=== PATIENT | male | born 1950 | race Caucasian/White ===

== ENCOUNTER 2017-10-26 15:42 | Inpatient (IN) | payer MEDICARE, BC, SELFPAY ==
[2017-10-26] VITALS (10 sets, daily range): BP systolic 126–156; BP diastolic 71–97; PULSE 76–107; RESP 16–22; TEMP 36.7–36.8; O2SAT 91–97; BMI 23.3; BMI 22.5
--- NOTE | 2017-10-26 15:55 | EKG12_ITS ---
Test Reason : SOB/CHEST HEAVINESS Blood Pressure : / mmHG Vent. Rate : 093 BPM Atrial Rate : 093 BPM P-R Int : 140 ms QRS Dur : 086 ms QT Int : 328 ms P-R-T Axes : 037 -22 048 degrees QTc Int : 407 ms Normal sinus rhythm Normal ECG Confirmed by YAJAIRA ONOFRE ([id number]), proposal editor ROBERTO DUNCAN ([id number]) on 10/29/2017 1:31:47 PM Referred By: Confirmed By:YAJAIRA ONOFRE
--- NOTE | 2017-10-26 16:09 | ED.VISSUMM ---
- ER Visit Summary Date of Service: 10/26/17 Chief Complaint: Chest pain History of Present Illness: The patient is a 67 M presenting with chest pain. He states the pain has been intermittent and is in the mid chest with no radiation. He does not recall anything that makes this better or worse. It is associated shortness of breath. He also complains of productive cough and fever. He states the chest pain is not related to the coughing episodes. He has a history of hypertension, CVA, chronic kidney disease. He is a previous smoker. Physical Examination: Vitals are stable. Patient is afebrile. Alert no acute distress. HEENT exam is unremarkable. Neck is supple. Lungs are clear and equal bilaterally. Heart is regular rate and rhythm. Abdomen is soft nontender nondistended. Extremities are unremarkable. Skin is warm and dry. No focal neurologic deficit. Remainder of exam is unremarkable. Emergency Department Course and Treatment: Patient was given aspirin. EKG is sinus rhythm rate of 93 with no acute ischemic changes. CBC is normal. Chemistries normal except for BUN 46, creatinine 3.49. This is at his baseline. Troponin is negative. Patient is pain-free in the emergency department. Will discuss with the hospitalist for observation. Disposition: Observation Impression: Chest pain This note was generated with [employer] dictation software. It may contain incorrect words, spelling, and punctuation that were not noted in review of the chart prior to signing ED Disposition - Plan for ED Patient: Chief Complaint: Shortness of Breath Referrals: Antoinette Graves MD [Primary Care Provider] -
--- NOTE | 2017-10-26 16:14 | ED.RN ---
NO OLD EKG
--- NOTE | 2017-10-26 16:22 | RAD_ITS ---
STUDY: X-RAY CHEST REASON FOR EXAM: Male, 67 years old. Shortness of breath with weakness TECHNIQUE: AP COMPARISON: None. FINDINGS: The lungs are hyperinflated. There are two vague nodular densities within the mid/lower right lung and one within the lower left lung. Normal size heart. Normal mediastinum and janice. Normal visualized pulmonary arteries. Normal visualized aortic arch and descending thoracic aorta. Normal visualized thoracic spine. Normal visualized ribs, clavicles, and shoulders. There is no demonstrated abnormality of the visualized soft tissue structures of the upper abdomen. RAD/Chest 1 View (Portable) IMPRESSION: Hyperinflated lungs may reflect underlying COPD. Vague bilateral nodular opacities which may be artifactual however consider CT of the chest for further characterization for difficult to exclude underlying nodules. Electronically Signed: Tammie Curry MD at 16:37 EDT Tel , Service support ,
[2017-10-26] MEDS: Aspirin 81 MG TAB.CHEW 324 MG PO (16:39)
[2017-10-26 16:42] LABS: Absolute Lymphocyte Count 1.18 X10^3/ul (0.83-4.51); Basophil# 0.05 X10^3/uL; Basophil% 0.6 % (0-1); Eosinophil# 0.01 X10^3/uL; Eosinophils% 0.1 % (0-5); Hematocrit 43.1 % (40-54); Lymphocyte # 1.18 X10^3/ul (4.0); Lymphocyte % 14.7 % (19-41); Mean Corp Hgb Conc 32.5 g/gl (32-36); Mean Corpuscular Hgb 31.6 pg (27.0-32.0); Mean Corpuscular Volume 97.3 fL (80-94); Mean Platelet Vol. 8.9 fl (6.2-12.0); Monocyte# 1.71 X10^3/uL; Monocyte% 21.3 % (0-10); Neutrophil # 5.04 X10^3/uL (2.7-7.7); Neutrophil % 62.9 % (47-70); Platelet Count 292 K/mm3 (150-450); RBC Distribution Width CV 13.8 % (11.6-14.6); RBC Distribution Width SD 47.9 fl (35.1-43.9); Red Blood Count 4.43 M/mm3 (4.6-6.2)
[2017-10-26 16:44] LABS: Differential Indicated SCAN CRITERIA MET; POSITIVE COUNT NO; POSITIVE DIFFERENTIAL YES; POSITIVE MORPHOLOGY NO
[2017-10-26 17:00] LABS: Anion Gap 10 (5-15); BUN 46 mg/dL (7-18); BUN/Creat Ratio 13.2 RATIO (10-20); Calcium,Total 8.2 mg/dL (8.5-10.1); Chloride 108 mmol/L (98-107); Creatinine, Serum 3.49 mg/dL (0.70-1.30); EST Glomerular Filtration Rate 19 mL/min (>60); Est Glom Filt Rate - Afr Amer 23 mL/min (>60); Estimated Creatinine Clearance 20.54 ml/min; Glucose 101 mg/dL (74-106); Potassium 4.1 mmol/L (3.5-5.1); Sodium Level 140 mmol/L (136-145)
[2017-10-26 17:05] LABS: Differential Comment SCANNED
--- NOTE | 2017-10-26 19:01 | PCM.HP.STD ---
Problem List (1) History of stroke Status: Chronic (2) Chronic kidney disease, stage IV (severe) Status: Chronic (3) Hypertension Status: Chronic History of Present Illness Date of Admission: 10/26/17 Chief Complaint: Weakness, chest pain, abdominal pain. The patient is a 67 year old M with past medical history as mentioned above presented to the emergency room because of multiple complaints including weakness, chest pain or abdominal pain. When I saw the patient first, patient looked very weak and tired and was not able even to sit up in the bed. The patient was very poor informant and was not able to exactly tell me what brought him in today. I asked him multiple times what was the main symptom that brought to end today and he mentioned the weakness. He said the weakness started yesterday morning, generalized weakness and he was not able to provide any more details about this. He complained of intermittent chest pain, that has been going on for a few months, on-off pain, associated with shortness of breath according to the patient and it lasts only for a few seconds and resolve spontaneously. He did mention that this chest pain is getting more frequent since yesterday. Also, he complained of vague abdominal pain and he was not able to provide any details about this abdominal pain. He denied nausea or vomiting. Denies constipation or diarrhea. He denied urinary symptoms but he mentioned that he uses self-catheterization. He complained of cough with clear sputum, associated with sinus pain and congestion. He stated that he does have history of chronic sinusitis and he has been having problems for long time. Patient was not able to concentrate on one presenting symptoms but he had lots of complaints. In the emergency room, he was afebrile, blood pressure and heart rate are stable, pulse ox was 92% on room air. His routine blood work is remarkable for BUN of 46 and creatinine of 3.49. Troponin was negative. EKG revealed normal sinus rhythm, normal intervals and no acute ischemic changes. Chest x-ray showed no obvious infiltrate, consolation or effusion but officially, there was a concern that he may have bilateral nodular opacities. He is being admitted for generalized weakness of unclear etiology, worsening stage III chronic kidney disease, atypical chest pain and symptoms could be due to sinusitis. Past Medical History Past Medical History (Chronic Problems): Chronic Problems History of stroke (Chronic) Chronic kidney disease, stage IV (severe) (Chronic) Hypertension (Chronic) Allergies amoxicillin Allergy (Verified 10/26/17 15:46) Unknown ciprofloxacin Allergy (Verified 10/26/17 15:46) Unknown codeine Allergy (Verified 10/26/17 15:46) Other Home Medications: Ambulatory Orders Medication Instructions Recorded Amlodipine [Norvasc] 5 mg PO DAILY 10/26/17 C,E,Zinc,Copper 11/Wtyga1j/Lut 1 capsule PO DAILY 10/26/17 [Ocuvite Adult 50 Plus Softgel] Ranitidine HCl 15 mg PO DAILY 10/26/17 Surgical History: noncontributory Psychiatric History: No pertinent psych hx Smoking Status: Former smoker Alcohol: None Drugs: None - *Family History Maternal History Items: No pertinent history Paternal History Items: No pertinent history Review of Systems Constitutional: Reports: Anorexia, Weakness, Fatigue. Denies: Chills, Fever Eyes: Denies: Blurred vision, Double vision, Drainage, Redness HEENT: Reports: Nasal Congestion, Sinus Congestion, Sinus Drainage. Denies: Difficulty Hearing, Ear Pain, Eye Pain, Sore Throat Cardiovascular: Reports: Chest Pain. Denies: Chest Tightness, Edema, Heaviness, Light Headedness, Orthopnea, Syncope Respiratory: Reports: Cough, Shortness of Breath. Denies: Pleuritic Pain, Sputum production, Wheezing Gastrointestinal: Reports: Abdominal Pain. Denies: Constipation, Diarrhea, Nausea, Vomiting Genitourinary: Denies: Dysuria, Frequency, Hematuria Musculoskeletal: Denies: Arm Pain, Back Pain, Foot Pain Skin: Denies: Dryness, Rash Neurological: Denies: Balance problems, Double vision, Change in Speech, Slurred speech, Confusion, Headaches, Incoordination, Numbness Psychiatric: Denies: Anxiety, Depression Endocrine: Denies: Change in Body Habitus, Polydipsia VTE Information - Inpt Only VTE Present on Admission: No VTE Mechan Device Prophylaxis: None VTE Pharm Prophylaxis ordered?: Yes - Physical Exam General: Alert, Oriented x3, Cooperative, No apparent distress HEENT: Atraumatic, PERRLA, EOMI Oral: Moist Mucosa, No Gingival or Mucosal Lesions/ Ulcerations Neck: Supple, No JVD, Negative Carotid Bruits, Thyroid Normal Size and Texture Lungs: Clear to auscultation, No rhonchi, No wheeze, No rales, Diminished Cardiovascular: Regular rate, Regular Rhythm, Normal S1, Normal S2, No murmurs, PMI Normal Abdomen: Bowel Sounds Present, Soft, Non Tender, Non-Distended, No Hepato-splenomegaly Extremities: No clubbing, No cyanosis, No edema Skin: No rashes, No breakdown Lymphatic: No Cervical, Supraclavicular, or Inguinal Adenopathy Neurological: Cranial nerves II-XII grossly intact, Motor Exam 5/5 strength throughout Psych/Mental Status: Flat Affect, Alert and oriented to time, place, person, mood and affect Vital Signs Temp Pulse Resp BP Pulse Ox 98.3 F 88 17 138/87 H 97 10/26/17 15:43 10/26/17 18:05 10/26/17 18:05 10/26/17 18:05 10/26/17 18:05 Oxygen Flow Rate (L/min) 2 Oxygen Delivery Method Nasal Cannula Laboratory Tests 10/26/17 10/26/17 Range/Units 16:20 16:20 WBC 8.0 (4.4-11.0) K/mm3 RBC 4.43 L (4.6-6.2) M/mm3 Hgb 14.0 (13.0-16.5) g/dl Hct 43.1 (40-54) % MCV 97.3 H (80-94) fL MCH 31.6 (27.0-32.0) pg MCHC 32.5 (32-36) g/gl RDW 13.8 (11.6-14.6) % RDW Differential 47.9 H (35.1-43.9) fl Plt Count 292 (150-450) K/mm3 MPV 8.9 (6.2-12.0) fl Immature Gran % (Auto) 0.400 (0.0-0.9) % Neut % (Auto) 62.9 (47-70) % Lymph % (Auto) 14.7 L (19-41) % Stephens % (Auto) 21.3 H (0-10) % Eos % (Auto) 0.1 (0-5) % Baso % (Auto) 0.6 (0-1) % Absolute Neuts (auto) 5.0 (2.0-7.7) X10^3/uL Absolute Lymphs (auto) 1.18 (0.83-4.51) X10^3/ul Total Counted Not Reportable Differential Comment SCANNED Sodium 140 (136-145) mmol/L Potassium 4.1 (3.5-5.1) mmol/L Chloride 108 H (98-107) mmol/L Carbon Dioxide 22.0 (21.0-32.0) mmol/L Anion Gap 10 (5-15) BUN 46 H (7-18) mg/dL Creatinine 3.49 H (0.70-1.30) mg/dL Estim Creat Clear Calc 20.54 ml/min Est GFR (MDRD) Af Amer 23 L (>60) mL/min Est GFR (MDRD) Non-Af 19 L (>60) mL/min BUN/Creatinine Ratio 13.2 (10-20) RATIO Glucose 101 (74-106) mg/dL Calcium 8.2 L (8.5-10.1) mg/dL Troponin I < 0.02 (<0.06) ng/mL Clinical Impression(s) from Imaging Studies Chest X-Ray 10/26/17 16:22 IMPRESSION: Hyperinflated lungs may reflect underlying COPD. Vague bilateral nodular opacities which may be artifactual however consider CT of the chest for further characterization for difficult to exclude underlying nodules. Electronically Signed: Tammie Curry MD at 16:37 EDT Tel , Service support , Assessment/Plan This is a 67 years old male patient presented to the emergency room because of multiple comp complaints including generalized weakness, chest pain, abdominal pain, sinus drainage, cough with sputum production and mild shortness of breath and he was found to have worsening stage IV chronic kidney disease. #1 generalized weakness: Unclear etiology, could be due to worsening stage IV chronic kidney disease. At this time, no obvious evidence of infection. He is afebrile, no leukocytosis. Chest x-ray showed no obvious infiltrate, reported officially as questionable bilateral pulmonary opacities. Plan: Admit to PCU, cardiac monitoring, IV fluids, urinalysis, urine culture, repeat CBC and BMP tomorrow morning, respiratory panel for viruses, TSH, PT OT evaluation and treatment. #2 atypical chest pain: EKG reviewed, no acute ischemic changes. Troponin is negative. Patient did mention that he had a history of heart attack but never had cardiac interventions. History of hypertension and he is an ex-smoker. Plan: Cardiac monitoring, serial cardiac enzymes, repeat EKG tomorrow morning, nuclear stress test if cardiac enzymes are negative tomorrow. #3 worsening stage IV chronic kidney disease: Patient used to be on dialysis for 1 year and he was taken off because his kidney function improved. His serum creatinine has been worsening since April,, it was in the range of 2.8-2.9 and admission creatinine is 3.49. Potassium is normal. Plan: IV fluids, input output chart, repeat BMP tomorrow morning, nephrology consult. #4 shortness of breath/of productive cough/sinus drainage and pain: In context of history of chronic sinusitis. Patient is afebrile, no leukocytosis. Plan for x-ray of the sinuses. At this time, no indication for antibiotics. #5 questionable bilateral pulmonary opacities: This is reported on chest x-ray. Patient is an ex-smoker. Plan: D-dimer, CT scan chest without contrast. #6 hypertension: Blood pressure stable, continue amlodipine. #7 CAD: Without prior cardiac interventions according to the patient. Plan as above, start baby aspirin, fasting lipid profile. #8 DVT prophylaxis: Subcu heparin. This note was generated with [employer] dictation software. It may contain incorrect words, spelling, and punctuation that were not noted in checking the note before signing. Code Visit Inpatient E&M: 48872 Init Hosp L3
[2017-10-26 20:11] LABS: Bedside Glucose 113 mg/dL (70-110)
--- NOTE | 2017-10-26 20:16 | PCM.PN.BLA ---
Progress Note Rapid response team called at radiology department. Shortly after, blue code announced over head. Radiology department staff reported that patient stood up for x-ray and he became really dizzy, pain and he collapsed. They report that he had no pulse but shortly after, he open his eyes and he was awake. Patient seen and examined after that. He is alert and oriented ?3. He reported that he was very dizzy and lightheaded when he stood up, felt very weak but he did not lost his consciousness. He denied any associated chest pain, shortness of breath or palpitation. At this time, this was improved but he still very weak and tired. His blood pressure was 130/80. His blood sugar was 113. EKG performed and revealed normal sinus rhythm without acute changes. Plan: Near syncopal episode, likely vasovagal. Patient mentioned that he did not eat for the last 2 days. Transfer back to PCU, IV fluid bolus 500 cc, repeat orthostatic vitals tomorrow morning, postpone x-ray of the sinuses and CT scan chest to tomorrow morning. Serial cardiac enzymes, d-dimer already ordered.
[2017-10-26] MEDS: Heparin Injection 5,000 UNITS/ML Syringe 5000 UNITS SC (21:10)
--- NOTE | 2017-10-26 21:23 | EKG12_ITS ---
Test Reason : CP Blood Pressure : / mmHG Vent. Rate : 062 BPM Atrial Rate : 062 BPM P-R Int : 144 ms QRS Dur : 090 ms QT Int : 384 ms P-R-T Axes : 043 -10 050 degrees QTc Int : 389 ms Normal sinus rhythm Normal ECG When compared with ECG of 26-OCT-2017 15:54, MANUAL COMPARISON REQUIRED, DATA IS UNCONFIRMED Confirmed by ELADIA BOBBY, GAGE ([id number]), photo editor ROBERTO DUNCAN ([id number]) on 11/06/2017 1:44:13 PM Referred By: AKASH Confirmed By:GAGE MONTILLA MD
[2017-10-26 21:50] LABS: Bacteria 0 SEEN /hpf (None Seen); Mucous, Urine 0 SEEN /hpf (<or=2+)
[2017-10-26 22:01] LABS: AST(SGOT) 18 U/L (15-37); Alanine Aminotransfer ALT/SGPT 18 U/L (16-61); Albumin, Serum 3.1 g/dL (3.2-5.0); Alkaline Phosphatase 75 U/L (45-117); Bilirubin, Direct 0.08 mg/dL (0.00-0.30); Cholesterol 179 mg/dL (200); Globulin 4.2 g/dL (2.2-4.2); High Density Lipoprotein 41 mg/dL; Lipase 326 U/L (73-393); Protein, Total 7.3 g/dL (6.4-8.2); Thyroid Stim Hormone (TSH) 0.98 uIU/mL (0.358-3.74); Triglycerides 143 mg/dL; Very Low Density Lipoprotein 29 mg/dL (5-40)
[2017-10-26 22:44] LABS: Color, Urine Yellow (Yellow); Glucose, Dipstick Normal (Normal); Ketone-Dipstick Negative (Negative); Leukocyte Esterase-Dipstick 25 /ul (Negative); Nitrite-Dipstick Negative (Negative); Occult Blood-Urine 250 /ul (Negative); Protein-Dipstick 100 mg/dl (Negative); Urine Bilirubin Dipstick Negative (Negative); Urine Clarity Sl. Cloudy (Clear); Urine Urobilinogen Normal (Normal)
[2017-10-26 23:06] LABS: Red Blood Cells-Urine 5-10 SEEN /hpf (0-5); Squamous Epithelial Cells - UA 0-5 SEEN /hpf (0-5); White Blood Cells 0-5 SEEN /hpf (0-5)
[2017-10-27] VITALS (11 sets, daily range): BP systolic 118–141; BP diastolic 69–92; PULSE 57–97; RESP 16–18; TEMP 36.9–37.2; O2SAT 92–95
[2017-10-27] MEDS: Ondansetron 4 MG/2 ML Vial IV ×2 (00:42→10:07)
[2017-10-27] MEDS: 0.9% NaCl Peripheral Flush Adult/Peds IV (00:42)
[2017-10-27] MEDS: 0.9% Normal Saline 1,000 ML 75 ML IV ×2 (03:43→18:41)
--- NOTE | 2017-10-27 05:55 | EKG12_ITS ---
Test Reason : AM EKG Blood Pressure : / mmHG Vent. Rate : 084 BPM Atrial Rate : 084 BPM P-R Int : 144 ms QRS Dur : 092 ms QT Int : 364 ms P-R-T Axes : 030 -28 023 degrees QTc Int : 430 ms Sinus rhythm with marked sinus arrhythmia Septal infarct , age undetermined Abnormal ECG When compared with ECG of 26-OCT-2017 19:56, MANUAL COMPARISON REQUIRED, DATA IS UNCONFIRMED Confirmed by YAJAIRA ONOFRE ([id number]), newspaper or periodical editor ROBERTO DUNCAN ([id number]) on 11/01/2017 3:01:41 PM Referred By: DR VENEGAS Confirmed By:YAJAIRA ONOFRE
[2017-10-27] MEDS: Heparin Injection 5,000 UNITS/ML Syringe 5000 UNITS SC ×3 (05:57→21:21)
[2017-10-27] MEDS: 0.9% Normal Saline 1,000 ML 999 ML IV (06:50)
[2017-10-27 07:27] LABS: Absolute Lymphocyte Count 1.52 X10^3/ul (0.83-4.51); Absolute Neutrophil Count 3.6 X10^3/uL (2.0-7.7); Basophil# 0.03 X10^3/uL; Basophil% 0.5 % (0-1); Eosinophil# 0.02 X10^3/uL; Eosinophils% 0.3 % (0-5); Hematocrit 39.8 % (40-54); Hemoglobin 12.7 g/dl (13.0-16.5); Lymphocyte # 1.52 X10^3/ul (4.0); Lymphocyte % 24.8 % (19-41); Mean Corp Hgb Conc 31.9 g/gl (32-36); Mean Corpuscular Hgb 31.4 pg (27.0-32.0); Mean Corpuscular Volume 98.5 fL (80-94); Mean Platelet Vol. 9.2 fl (6.2-12.0); Monocyte# 0.97 X10^3/uL; Monocyte% 15.8 % (0-10); Neutrophil # 3.57 X10^3/uL (2.7-7.7); Neutrophil % 58.4 % (47-70); Platelet Count 267 K/mm3 (150-450); RBC Distribution Width CV 13.6 % (11.6-14.6); RBC Distribution Width SD 48.4 fl (35.1-43.9); Red Blood Count 4.04 M/mm3 (4.6-6.2); White Blood Count 6.1 K/mm3 (4.4-11.0)
[2017-10-27 07:32] LABS: POSITIVE COUNT NO; POSITIVE DIFFERENTIAL NO; POSITIVE MORPHOLOGY NO
[2017-10-27 09:13] LABS: Anion Gap 11 (5-15); BUN 50 mg/dL (7-18); BUN/Creat Ratio 15.5 RATIO (10-20); Calcium,Total 7.6 mg/dL (8.5-10.1); Chloride 112 mmol/L (98-107); Creatinine, Serum 3.23 mg/dL (0.70-1.30); EST Glomerular Filtration Rate 20 mL/min (>60); Est Glom Filt Rate - Afr Amer 25 mL/min (>60); Estimated Creatinine Clearance 21.75 ml/min; Glucose 84 mg/dL (74-106); Potassium 4.2 mmol/L (3.5-5.1); Sodium Level 143 mmol/L (136-145)
[2017-10-27] MEDS: Aspirin 81 MG TAB.CHEW PO (10:08)
[2017-10-27] MEDS: amLODIPine 5 MG Tablet PO (10:08)
[2017-10-27] MEDS: Famotidine 20 MG Tablet PO (10:08)
--- NOTE | 2017-10-27 10:23 | ECHOD_ITS ---
Reason For Study: chest pain Procedure This was a 2D Doppler, Color Flow transthoracic echocardiogram. Exam performed portable in patient room. Left Ventricle Mild concentric left ventricular hypertrophy. The estimated ejection fraction is 50-55 %. Stage 1 diastolic dysfunction. There is mild global hypokinesis of the left ventricle. Right Ventricle Normal size and thickness. Normal systolic function. Atria Normal left atrium. Normal right atrium. Normal atrial septum. Mitral Valve The mitral valve is structurally normal. No prolapse or stenosis seen. Tricuspid Valve Normal tricuspid valve. Trivial tricuspid valve insufficiency. Right ventricular systolic pressure estimated to be 25 mmHg. Aortic Valve Normal aortic valve. Trisinus/trileaflet aortic valve. Pulmonic Valve Normal pulmonic valve. Great Vessels Normal aortic root. Normal arch. Normal inferior vena cava. Inferior vena cava collapse with sniff. Pericardium/Pleural No pericardial effusion. MMode/2D Measurements & Calculations LVIDd: 4.3 cm IVSd: 1.3 cm Ao root diam: 3.4 cm LVIDs: 3.1 cm LVPWd: 1.2 cm LA dimension: 3.6 cm FS: 28.8 % LAV(MOD-bp): 56.8 ml LA A4 area: 20.0 cm2 RA A4 area: 18.7 cm2 LAV(MOD-bp) Indexed: 30.8 ml/m2 LAV(MOD-sp2): 59.0 ml LAV(MOD-sp4): 52.8 ml Doppler Measurements & Calculations MV E max devyn: 53.5 cm/sec Lat Peak E' Devyn: 8.0 cm/sec Med Peak E' Devyn: 6.1 cm/sec MV A max devyn: 70.7 cm/sec E/E' lat: 6.7 E/E' med: 8.8 MV E/A: 0.76 Ao V2 max: 113.0 cm/sec LV V1 max: 85.6 cm/sec PA V2 max: 73.0 cm/sec Ao max P.1 mmHg LV V1 max P.9 mmHg TR max devyn: 213.9 cm/sec TR max P.3 mmHg Interpretation Summary Mild concentric left ventricular hypertrophy. The estimated ejection fraction is 50-55 %. Stage 1 diastolic dysfunction. There is mild global hypokinesis of the left ventricle. Trivial tricuspid valve insufficiency. Right ventricular systolic pressure estimated to be 25 mmHg. There is no comparison study available. Ordering Physician: MAYITO Downey Referring Physician: Marti Ramesh Performed By: Cristel Freitas RDCS, RVT
--- NOTE | 2017-10-27 10:31 | PCM.PROGNOTE ---
<Bri Loaiza - Last Filed: 10/27/17 11:14> Patient Problems: Active and Suspected Problems Near syncope (Acute) Self-catheterizes urinary bladder (Acute) Obstructive nephropathy (Acute) Subjective: Patient seen and examined. Complains of continued weakness. Denies further chest pain. Complains of abdominal burning. Complains of nasal congestion and productive cough. Denies shortness of breath. Denies dizziness, lightheadedness. Denies fever, chills. - Physical Exam General: Alert, Oriented x3, Cooperative, No apparent distress HEENT: Atraumatic, PERRLA, EOMI, Normocephalic Neck: Supple, No JVD, Negative Carotid Bruits Lungs: Clear to auscultation, Diminished Cardiovascular: Regular rate, Regular Rhythm, Normal S1, Normal S2, No murmurs Abdomen: Bowel Sounds Present, Soft, Non Tender, Non-Distended Extremities: No clubbing, No cyanosis, No edema, Capillary Refill Less than 3 Seconds Skin: No rashes, No breakdown Musculoskeletal: No Tenderness to Palpation of Joints or Extremities Neurological: Cranial nerves II-XII grossly intact, Neuro grossly intact Psych/Mental Status: Flat Affect Vital Signs Temp Pulse Resp BP Pulse Ox 99.0 F 71 18 132/74 H 94 10/27/17 10:02 10/27/17 10:02 10/27/17 10:02 10/27/17 10:02 10/27/17 10:02 Oxygen Flow Rate (L/min) 2 Oxygen Delivery Method Room Air Weight: 69.3 kg Body Mass Index (BMI) 22.5 Orthostatic Vital Signs Start: 10/27/17 06:46 Freq: q24h Status: Active Protocol: Activity Type Activity Date Activity User E-Sign Co-Sign Detail Recorded Client Recorded Date Recorded By Document 10/27/17 05:45 HS [id number] 10/27/17 06:46 HS 10/27/17 05:45 Orthostatic Vitals Standing -Blood Pressure (90/60-120/80) 120/69 -Extremity Use Left Arm -Pulse Rate (60-100) 97 Sitting -Blood Pressure (90/60-120/80) 123/83 H -Extremity Use Left Arm -Pulse Rate (60-100) 89 Lying -Blood Pressure (90/60-120/80) 140/92 H -Extremity Use Left Arm -Pulse Rate (60-100) 75 Intake and Output for Last 24 Hours 10/25/17 10/26/17 10/27/17 23:59 23:59 23:59 Intake Total 1772 / 1772 Output Total 1050 / 1050 Balance 722 / 722 Laboratory Tests Past 24 Hrs 10/26/17 10/26/17 10/26/17 20:30 20:30 21:00 WBC RBC Hgb Hct MCV MCH MCHC RDW RDW Differential Plt Count MPV Immature Gran % (Auto) Neut % (Auto) Lymph % (Auto) [place] % (Auto) Eos % (Auto) Baso % (Auto) Absolute Neuts (auto) Absolute Lymphs (auto) Total Counted Sodium Potassium Chloride Carbon Dioxide Anion Gap BUN Creatinine Estim Creat Clear Calc Est GFR (MDRD) Af Amer Est GFR (MDRD) Non-Af BUN/Creatinine Ratio Glucose Calcium Total Bilirubin 0.50 Direct Bilirubin 0.08 AST 18 ALT 18 Alkaline Phosphatase 75 Troponin I < 0.02 Total Protein 7.3 Albumin 3.1 L Globulin 4.2 Triglycerides 143 Cholesterol 179 LDL Cholesterol 109 VLDL Cholesterol 29 HDL Cholesterol 41 Lipase 326 TSH 0.98 Urine Color Yellow Urine Clarity Sl. Cloudy Urine pH 6.0 Ur Specific [place] 1.020 Urine Protein 100 H Urine Glucose (UA) Normal Urine Ketones Negative Urine Occult Blood 250 H Urine Nitrite Negative Urine Bilirubin Negative Urine Urobilinogen Normal Ur Leukocyte Esterase 25 H Urine RBC 5-10 SEEN Urine WBC 0-5 SEEN Ur Squamous Epith Cells 0-5 SEEN Urine Bacteria 0 SEEN Urine Mucus 0 SEEN 10/27/17 10/27/17 10/27/17 00:12 07:04 07:04 WBC 6.1 RBC 4.04 L Hgb 12.7 L Hct 39.8 L MCV 98.5 H MCH 31.4 MCHC 31.9 L RDW 13.6 RDW Differential 48.4 H Plt Count 267 MPV 9.2 Immature Gran % (Auto) 0.200 Neut % (Auto) 58.4 Lymph % (Auto) 24.8 [place] % (Auto) 15.8 H Eos % (Auto) 0.3 Baso % (Auto) 0.5 Absolute Neuts (auto) 3.6 Absolute Lymphs (auto) 1.52 Total Counted Not Reportable Sodium 143 Potassium 4.2 Chloride 112 H Carbon Dioxide 20.0 L Anion Gap 11 BUN 50 H Creatinine 3.23 H Estim Creat Clear Calc 21.75 Est GFR (MDRD) Af Amer 25 L Est GFR (MDRD) Non-Af 20 L BUN/Creatinine Ratio 15.5 Glucose 84 Calcium 7.6 L Total Bilirubin Direct Bilirubin AST ALT Alkaline Phosphatase Troponin I < 0.02 Total Protein Albumin Globulin Triglycerides Cholesterol LDL Cholesterol VLDL Cholesterol HDL Cholesterol Lipase TSH Urine Color Urine Clarity Urine pH Ur Specific [place] Urine Protein Urine Glucose (UA) Urine Ketones Urine Occult Blood Urine Nitrite Urine Bilirubin Urine Urobilinogen Ur Leukocyte Esterase Urine RBC Urine WBC Ur Squamous Epith Cells Urine Bacteria Urine Mucus 10/27/17 07:04 WBC RBC Hgb Hct MCV MCH MCHC RDW RDW Differential Plt Count MPV Immature Gran % (Auto) Neut % (Auto) Lymph % (Auto) [place] % (Auto) Eos % (Auto) Baso % (Auto) Absolute Neuts (auto) Absolute Lymphs (auto) Total Counted Sodium Potassium Chloride Carbon Dioxide Anion Gap BUN Creatinine Estim Creat Clear Calc Est GFR (MDRD) Af Amer Est GFR (MDRD) Non-Af BUN/Creatinine Ratio Glucose Calcium Total Bilirubin Direct Bilirubin AST ALT Alkaline Phosphatase Troponin I < 0.02 Total Protein Albumin Globulin Triglycerides Cholesterol LDL Cholesterol VLDL Cholesterol HDL Cholesterol Lipase TSH Urine Color Urine Clarity Urine pH Ur Specific [place] Urine Protein Urine Glucose (UA) Urine Ketones Urine Occult Blood Urine Nitrite Urine Bilirubin Urine Urobilinogen Ur Leukocyte Esterase Urine RBC Urine WBC Ur Squamous Epith Cells Urine Bacteria Urine Mucus POC Glucose 10/26/17 20:03 POC Glucose 113 H Medical Necessity - Tobacco Use Smoking Status: Former smoker Assessment/Plan Active and Suspected Problems Near syncope (Acute) Self-catheterizes urinary bladder (Acute) Obstructive nephropathy (Acute) Patient is a 67-year-old male admitted 10/26/2017 due to weakness, chest pain, abdominal pain. He has a past medical history of CVA, chronic kidney disease stage IV, hypertension, history of tobacco use. 1. Atypical chest pain-patient describes infrequent, intermittent substernal chest pain lasting only a few seconds. Denies associated symptoms. States it feels like a burning sensation. Patient reports history of [place], unsure of the exact year but thinks 2013. Does not follow with cardiology. Troponin negative ?4. EKG without evidence of ischemia. Possible nuclear stress test if continued chest pain. Initiate PPI and see if this alleviates pain. Fasting lipid panel within normal limits. Continue aspirin. 2. Acute influenza B with associated generalized weakness, nasal congestion, productive cough-begin Tamiflu 30 mg daily for 5 days. T-max 99F. Tylenol as needed for fever. Albuterol and DuoNeb aerosols for shortness of breath. Patient is stable on room air. Continue IV fluids. 3. Syncopal episode-suspect due to dehydration/poor oral intake. Occurred during admission and radiology department when patient stood from sitting position for x-ray. Patient was reported to have no pulse but quickly aroused. Cardiac workup thus far unremarkable as noted above. Order echocardiogram. Orthostatic vitals positive this morning. Continue IV fluids. Recheck orthostatic vitals in a.m. TSH within normal limits. Check magnesium, phosphorus. 4. Lung nodule-chest x-ray showed hyperinflated lungs, vague bilateral nodular opacities. CT of chest showed right lower lung 7 mm pulmonary nodule, no acute infiltrate, small hiatal hernia, 1.7 cm left adrenal adenoma. Recommend follow-up with pulmonary medicine as outpatient and repeat imaging in 3 months. Patient does have a history of tobacco use. 5. Chronic kidney disease stage IV-previously on temporary dialysis secondary to obstruction status post ureteral stent placements which was discontinued approximately 1 year ago due to improved kidney function. He follows with Dr. Ramesh as outpatient who was consulted. Creat April 2017 was 2.8. Admission creatinine 3.4. Improved with IV fluids, continue. Patient self caths 4 times daily at home. Vazquez catheter in place and draining without difficulty. Patient will continue outpatient follow-up with nephrology, he has an appointment scheduled 11/27/17. 6. Hypertension-started on amlodipine. Stable, continue to monitor. 7. History of CVA-continue aspirin. Not on statin. Lipid panel within normal limits. 8. History of tobacco use-encourage smoking cessation. DVT prophylaxis-heparin subcu. This patient was seen by MAYITO Downey under the supervision of Dr. Enriquez. <Mack Enriquez - Last Filed: 10/27/17 13:59> Subjective: Seen and examined Initially, patient was admitted with lower midline chest pain and epigastric pain, burning in nature; possible GERD. Patient also has significant sinus congestion with cough. In the radiology department, yesterday patient felt dizzy, lightheaded and collapsed but he did not pass out. On further history, patient also sent he infrequently, once in 6 months has flutter waves and feels heart is stopped for a few seconds and then comes back. This was discussed with the lead front end developer Dr. Eddy. Stress echo ordered as per Dr. 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 Vital Signs Temp Pulse Resp BP Pulse Ox 99.0 F 85 18 132/74 H 94 10/27/17 10:02 10/27/17 11:38 10/27/17 10:02 10/27/17 10:02 10/27/17 10:02 Oxygen Flow Rate (L/min) 2 Oxygen Delivery Method Room Air Weight: 152 lb 12.485 oz Body Mass Index (BMI) 22.5 Orthostatic Vital Signs Start: 10/27/17 06:46 Freq: q24h Status: Active Protocol: Activity Type Activity Date Activity User E-Sign Co-Sign Detail Recorded Client Recorded Date Recorded By Document 10/27/17 05:45 HS [id number] 10/27/17 06:46 HS 10/27/17 05:45 Orthostatic Vitals Standing -Blood Pressure (90/60-120/80) 120/69 -Extremity Use Left Arm -Pulse Rate (60-100) 97 Sitting -Blood Pressure (90/60-120/80) 123/83 H -Extremity Use Left Arm -Pulse Rate (60-100) 89 Lying -Blood Pressure (90/60-120/80) 140/92 H -Extremity Use Left Arm -Pulse Rate (60-100) 75 Intake and Output for Last 24 Hours 10/25/17 10/26/17 10/27/17 23:59 23:59 23:59 Intake Total 3787 / 3787 Output Total 1925 / 1925 Balance 1862 / 1862 Microbiology Past 72 Hours 10/26/17 22:15 Respiratory Panel (PCR) - Final Mucosa - Nose Influenzae B Laboratory Tests Past 24 Hrs 10/26/17 10/26/17 10/26/17 20:30 20:30 21:00 WBC RBC Hgb Hct MCV MCH MCHC RDW RDW Differential Plt Count MPV Immature Gran % (Auto) Neut % (Auto) Lymph % (Auto) [place] % (Auto) Eos % (Auto) Baso % (Auto) Absolute Neuts (auto) Absolute Lymphs (auto) Total Counted Sodium Potassium Chloride Carbon Dioxide Anion Gap BUN Creatinine Estim Creat Clear Calc Est GFR (MDRD) Af Amer Est GFR (MDRD) Non-Af BUN/Creatinine Ratio Glucose Calcium Total Bilirubin 0.50 Direct Bilirubin 0.08 AST 18 ALT 18 Alkaline Phosphatase 75 Troponin I < 0.02 Total Protein 7.3 Albumin 3.1 L Globulin 4.2 Triglycerides 143 Cholesterol 179 LDL Cholesterol 109 VLDL Cholesterol 29 HDL Cholesterol 41 Lipase 326 TSH 0.98 Urine Color Yellow Urine Clarity Sl. Cloudy Urine pH 6.0 Ur Specific [place] 1.020 Urine Protein 100 H Urine Glucose (UA) Normal Urine Ketones Negative Urine Occult Blood 250 H Urine Nitrite Negative Urine Bilirubin Negative Urine Urobilinogen Normal Ur Leukocyte Esterase 25 H Urine RBC 5-10 SEEN Urine WBC 0-5 SEEN Ur Squamous Epith Cells 0-5 SEEN Urine Bacteria 0 SEEN Urine Mucus 0 SEEN 10/27/17 10/27/17 10/27/17 00:12 07:04 07:04 WBC 6.1 RBC 4.04 L Hgb 12.7 L Hct 39.8 L MCV 98.5 H MCH 31.4 MCHC 31.9 L RDW 13.6 RDW Differential 48.4 H Plt Count 267 MPV 9.2 Immature Gran % (Auto) 0.200 Neut % (Auto) 58.4 Lymph % (Auto) 24.8 [place] % (Auto) 15.8 H Eos % (Auto) 0.3 Baso % (Auto) 0.5 Absolute Neuts (auto) 3.6 Absolute Lymphs (auto) 1.52 Total Counted Not Reportable Sodium 143 Potassium 4.2 Chloride 112 H Carbon Dioxide 20.0 L Anion Gap 11 BUN 50 H Creatinine 3.23 H Estim Creat Clear Calc 21.75 Est GFR (MDRD) Af Amer 25 L Est GFR (MDRD) Non-Af 20 L BUN/Creatinine Ratio 15.5 Glucose 84 Calcium 7.6 L Total Bilirubin Direct Bilirubin AST ALT Alkaline Phosphatase Troponin I < 0.02 Total Protein Albumin Globulin Triglycerides Cholesterol LDL Cholesterol VLDL Cholesterol HDL Cholesterol Lipase TSH Urine Color Urine Clarity Urine pH Ur Specific [place] Urine Protein Urine Glucose (UA) Urine Ketones Urine Occult Blood Urine Nitrite Urine Bilirubin Urine Urobilinogen Ur Leukocyte Esterase Urine RBC Urine WBC Ur Squamous Epith Cells Urine Bacteria Urine Mucus 10/27/17 07:04 WBC RBC Hgb Hct MCV MCH MCHC RDW RDW Differential Plt Count MPV Immature Gran % (Auto) Neut % (Auto) Lymph % (Auto) [place] % (Auto) Eos % (Auto) Baso % (Auto) Absolute Neuts (auto) Absolute Lymphs (auto) Total Counted Sodium Potassium Chloride Carbon Dioxide Anion Gap BUN Creatinine Estim Creat Clear Calc Est GFR (MDRD) Af Amer Est GFR (MDRD) Non-Af BUN/Creatinine Ratio Glucose Calcium Total Bilirubin Direct Bilirubin AST ALT Alkaline Phosphatase Troponin I < 0.02 Total Protein Albumin Globulin Triglycerides Cholesterol LDL Cholesterol VLDL Cholesterol HDL Cholesterol Lipase TSH Urine Color Urine Clarity Urine pH Ur Specific [place] Urine Protein Urine Glucose (UA) Urine Ketones Urine Occult Blood Urine Nitrite Urine Bilirubin Urine Urobilinogen Ur Leukocyte Esterase Urine RBC Urine WBC Ur Squamous Epith Cells Urine Bacteria Urine Mucus POC Glucose 10/26/17 20:03 POC Glucose 113 H Assessment/Plan This patient was seen in conjunction with RN ADVANCEDBri. I have independently interviewed and examined the patient and reviewed pertinent history, examination findings, laboratory and plan of management. I have reviewed the note and agree with the documented findings with the few additional points. In brief, patient is admitted for atypical chest pain most probably seems gastroesophageal reflux disease. Chest pain is localized last for a few seconds. On a stress echo test. Patient also had near syncope episode and was felt no pulse when he felt dizzy on standing up and he collapsed. Lose consciousness. Orthostatic vital signs positive. IV fluid normal saline. Stage IV CKD status post temporary dialysis status post ureteral stent placements and removal. Seen by Dr. Ramesh and her consult appreciated. I have discussed my assessment with Bri ABRAMS and orders have been reviewed. Code Visit Inpatient E&M: 02949 Subs Hosp L3
--- NOTE | 2017-10-27 10:48 | PCM.CONS.R ---
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 He has a history of chronic sinus issues. He has a history of acute renal failure requiring temporary hemodialysis back in 2016. His symptoms started morning. He came home from work morning not feeling well. He has been in bed for the past couple of days prior to admission with very little fluid intake and not taking his blood pressure medications. He has stable blood pressures. He did have a vasovagal-like event while down in CAT scan last night. He had orthostatic blood pressure readings. He continues to complain of sinus congestion and headache with drainage. He denied any fever or chills. Has anorexia but no nausea or vomiting. He had some burning in his epigastric region. Cardiac enzymes have been negative with no EKG changes. Currently has a Vazquez catheter with continuous drainage. His creatinine was 3.4 improved down to 3.2 with IV hydration. His baseline creatinine is usually low 3 range. - Allergies Allergies: Allergies amoxicillin Allergy (Verified 10/26/17 15:46) Unknown ciprofloxacin Allergy (Verified 10/26/17 15:46) Unknown codeine Allergy (Verified 10/26/17 15:46) Other - Current Medications Current Medications: Current Medications Acetaminophen (Tylenol) 650 mg PO Q6H PRN PRN PRN Reason: Fever, headache, pain Amlodipine Besylate (Norvasc) 5 mg PO DAILY [facility] Last Admin: 10/27/17 10:08 Dose: 5 mg Aspirin (Aspirin, Baby) 81 mg PO DAILY@0800 [facility] Last Admin: 10/27/17 10:08 Dose: 81 mg Bisacodyl (Dulcolax) 5 mg PO DAILY PRN PRN PRN Reason: Constipation Famotidine (Pepcid) 20 mg PO DAILY [facility] Last Admin: 10/27/17 10:08 Dose: 20 mg Fluticasone Propionate (Flonase Nasal [place]) 2 spray NASAL DAILY [facility] Heparin Sodium (Porcine) () 5,000 units SC Q8 MAMIE Last Admin: 10/27/17 05:57 Dose: 5,000 units Sodium Chloride () 1,000 mls @ 75 mls/hr IV .[id number] MAMIE Last Admin: 10/27/17 03:43 Dose: 75 mls/hr Ondansetron HCl (Zofran) 4 mg IV Q8H PRN PRN PRN Reason: NAUSEA/VOMITING Last Admin: 10/27/17 10:07 Dose: 4 mg Sodium Chloride () 5 - 30 ml IV UD PRN PRN Reason: SALINE FLUSH Last Admin: 10/27/17 00:42 Dose: 10 ml - Past Medical History Past Medical History (Chronic Problems): Chronic Problems History of stroke (Chronic) Chronic kidney disease, stage IV (severe) (Chronic) Hypertension (Chronic) - Past Surgical History Surgical History: noncontributory - Social History Smoking Status: Former smoker Alcohol: None, Occasional Drugs: None - Family History Maternal History Items: Cancer - stomach, No pertinent history Paternal History Items: No pertinent history Review of Systems Constitutional: Reports: Anorexia, Malaise, Weakness, Fatigue. Denies: Chills, Fever Eyes: Denies: Blurred vision HEENT: Reports: Head Aches, Nasal Congestion, Post Nasal Drip, Sinus Congestion, Sinus Drainage Cardiovascular: Reports: Chest Pain - Burning in his epigastric region, Syncope - Near syncope. Denies: Edema Respiratory: Reports: Cough, Shortness of Breath Gastrointestinal: Reports: Abdominal Pain, -. Denies: Nausea, Vomiting Genitourinary: Reports: Retention, - - Self-catheterization at home for obstructive nephropathy. Denies: Dysuria Musculoskeletal: Reports: Muscle pain, - - Muscle weakness. Denies: Arm Pain, Back Pain Skin: Denies: Rash Neurological: Reports: Headaches, - - Near syncope. Denies: Balance problems Hematologic/ Lymphatic: Reports: Anemia. Denies: Hx of blood clot - Physical Exam General: Alert, Oriented x3, Cooperative, - - Congested HEENT: PERRLA, EOMI Oral: Dry Mucosa Neck: Supple, No JVD Lungs: Clear to auscultation Cardiovascular: Regular rate Abdomen: Bowel Sounds Present, Soft, Non Tender, Non-Distended Extremities: No edema Skin: No rashes Musculoskeletal: Muscle Wasting Neurological: Cranial nerves II-XII grossly intact Psych/Mental Status: Normal Affect, Alert and oriented to time, place, person, mood and affect Vital Signs Temp Pulse Resp BP Pulse Ox 99.0 F 71 18 132/74 H 94 10/27/17 10:02 10/27/17 10:02 10/27/17 10:02 10/27/17 10:02 10/27/17 10:02 Oxygen Flow Rate (L/min) 2 Oxygen Delivery Method Room Air Weight: 69.3 kg Body Mass Index (BMI) 22.5 Orthostatic Vital Signs Start: 10/27/17 06:46 Freq: q24h Status: Active Protocol: Activity Type Activity Date Activity User E-Sign Co-Sign Detail Recorded Client Recorded Date Recorded By Document 10/27/17 05:45 HS [id number] 10/27/17 06:46 HS 10/27/17 05:45 Orthostatic Vitals Standing -Blood Pressure (90/60-120/80) 120/69 -Extremity Use Left Arm -Pulse Rate (60-100) 97 Sitting -Blood Pressure (90/60-120/80) 123/83 H -Extremity Use Left Arm -Pulse Rate (60-100) 89 Lying -Blood Pressure (90/60-120/80) 140/92 H -Extremity Use Left Arm -Pulse Rate (60-100) 75 Intake and Output for Last 24 Hours 10/25/17 10/26/17 10/27/17 23:59 23:59 23:59 Intake Total 1772 / 1772 Output Total 1050 / 1050 Balance 722 / 722 Laboratory Tests Past 24 Hrs 10/26/17 10/26/17 10/26/17 20:30 20:30 21:00 WBC RBC Hgb Hct MCV MCH MCHC RDW RDW Differential Plt Count MPV Immature Gran % (Auto) Neut % (Auto) Lymph % (Auto) [place] % (Auto) Eos % (Auto) Baso % (Auto) Absolute Neuts (auto) Absolute Lymphs (auto) Total Counted Sodium Potassium Chloride Carbon Dioxide Anion Gap BUN Creatinine Estim Creat Clear Calc Est GFR (MDRD) Af Amer Est GFR (MDRD) Non-Af BUN/Creatinine Ratio Glucose Calcium Total Bilirubin 0.50 Direct Bilirubin 0.08 AST 18 ALT 18 Alkaline Phosphatase 75 Troponin I < 0.02 Total Protein 7.3 Albumin 3.1 L Globulin 4.2 Triglycerides 143 Cholesterol 179 LDL Cholesterol 109 VLDL Cholesterol 29 HDL Cholesterol 41 Lipase 326 TSH 0.98 Urine Color Yellow Urine Clarity Sl. Cloudy Urine pH 6.0 Ur Specific [place] 1.020 Urine Protein 100 H Urine Glucose (UA) Normal Urine Ketones Negative Urine Occult Blood 250 H Urine Nitrite Negative Urine Bilirubin Negative Urine Urobilinogen Normal Ur Leukocyte Esterase 25 H Urine RBC 5-10 SEEN Urine WBC 0-5 SEEN Ur Squamous Epith Cells 0-5 SEEN Urine Bacteria 0 SEEN Urine Mucus 0 SEEN 10/27/17 10/27/17 10/27/17 00:12 07:04 07:04 WBC 6.1 RBC 4.04 L Hgb 12.7 L Hct 39.8 L MCV 98.5 H MCH 31.4 MCHC 31.9 L RDW 13.6 RDW Differential 48.4 H Plt Count 267 MPV 9.2 Immature Gran % (Auto) 0.200 Neut % (Auto) 58.4 Lymph % (Auto) 24.8 [place] % (Auto) 15.8 H Eos % (Auto) 0.3 Baso % (Auto) 0.5 Absolute Neuts (auto) 3.6 Absolute Lymphs (auto) 1.52 Total Counted Not Reportable Sodium 143 Potassium 4.2 Chloride 112 H Carbon Dioxide 20.0 L Anion Gap 11 BUN 50 H Creatinine 3.23 H Estim Creat Clear Calc 21.75 Est GFR (MDRD) Af Amer 25 L Est GFR (MDRD) Non-Af 20 L BUN/Creatinine Ratio 15.5 Glucose 84 Calcium 7.6 L Total Bilirubin Direct Bilirubin AST ALT Alkaline Phosphatase Troponin I < 0.02 Total Protein Albumin Globulin Triglycerides Cholesterol LDL Cholesterol VLDL Cholesterol HDL Cholesterol Lipase TSH Urine Color Urine Clarity Urine pH Ur Specific [place] Urine Protein Urine Glucose (UA) Urine Ketones Urine Occult Blood Urine Nitrite Urine Bilirubin Urine Urobilinogen Ur Leukocyte Esterase Urine RBC Urine WBC Ur Squamous Epith Cells Urine Bacteria Urine Mucus 10/27/17 07:04 WBC RBC Hgb Hct MCV MCH MCHC RDW RDW Differential Plt Count MPV Immature Gran % (Auto) Neut % (Auto) Lymph % (Auto) [place] % (Auto) Eos % (Auto) Baso % (Auto) Absolute Neuts (auto) Absolute Lymphs (auto) Total Counted Sodium Potassium Chloride Carbon Dioxide Anion Gap BUN Creatinine Estim Creat Clear Calc Est GFR (MDRD) Af Amer Est GFR (MDRD) Non-Af BUN/Creatinine Ratio Glucose Calcium Total Bilirubin Direct Bilirubin AST ALT Alkaline Phosphatase Troponin I < 0.02 Total Protein Albumin Globulin Triglycerides Cholesterol LDL Cholesterol VLDL Cholesterol HDL Cholesterol Lipase TSH Urine Color Urine Clarity Urine pH Ur Specific [place] Urine Protein Urine Glucose (UA) Urine Ketones Urine Occult Blood Urine Nitrite Urine Bilirubin Urine Urobilinogen Ur Leukocyte Esterase Urine RBC Urine WBC Ur Squamous Epith Cells Urine Bacteria Urine Mucus POC Glucose 10/26/17 20:03 POC Glucose 113 H Clinical Impression(s) from Imaging Studies Chest X-Ray 10/26/17 16:22 IMPRESSION: Hyperinflated lungs may reflect underlying COPD. Vague bilateral nodular opacities which may be artifactual however consider CT of the chest for further characterization for difficult to exclude underlying nodules. Electronically Signed: Tammie Curry MD at 16:37 EDT Tel , Service support , Chest CT 10/27/17 12:00 IMPRESSION: Right lower lung 7 mm pulmonary nodule. No acute infiltrate. No reactive adenopathy. Small hiatal hernia. 1.7 cm left adrenal adenoma. Electronically Signed: Boom Gramajo DO at 6:57 EDT , Service support , Sinuses X-Ray 10/27/17 19:24 IMPRESSION: Normal x-rays of the paranasal sinuses. Electronically Signed: Boom Gramajo DO at 6:44 EDT , Service support , Assessment/Plan 1. 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 Renal function at baseline. History of temporary hemodialysis due to obstruction status post ureteral stent placements and removal. No immediate need for dialysis. Agree with IV fluid hydration with Vazquez catheter to CD while in the hospital. He has a follow-up appointment with me on November 27. 2. Near syncope suspect due to poor fluid intake, dehydration. 3. Generalized weakness, chest pain. Cardiac enzymes negative 4. History of tobacco use, PAD. 5. Hypertension with stable blood pressure 6. Sinus congestion CT sinuses unremarkable.
--- NOTE | 2017-10-27 10:59 | CON.PCM_ITS ---
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 He has a history of chronic sinus issues. He has a history of acute renal failure requiring temporary hemodialysis back in 2016. His symptoms started morning. He came home from work morning not feeling well. He has been in bed for the past couple of days prior to admission with very little fluid intake and not taking his blood pressure medications. He has stable blood pressures. He did have a vasovagal-like event while down in CAT scan last night. He had orthostatic blood pressure readings. He continues to complain of sinus congestion and headache with drainage. He denied any fever or chills. Has anorexia but no nausea or vomiting. He had some burning in his epigastric region. Cardiac enzymes have been negative with no EKG changes. Currently has a Vazquez catheter with continuous drainage. His creatinine was 3.4 improved down to 3.2 with IV hydration. His baseline creatinine is usually low 3 range. - Allergies Allergies: Allergies amoxicillin Allergy (Verified 10/26/17 15:46) Unknown ciprofloxacin Allergy (Verified 10/26/17 15:46) Unknown codeine Allergy (Verified 10/26/17 15:46) Other - Current Medications Current Medications: Current Medications Acetaminophen (Tylenol) 650 mg PO Q6H PRN PRN PRN Reason: Fever, headache, pain Amlodipine Besylate (Norvasc) 5 mg PO DAILY [facility] Last Admin: 10/27/17 10:08 Dose: 5 mg Aspirin (Aspirin, Baby) 81 mg PO DAILY@0800 [facility] Last Admin: 10/27/17 10:08 Dose: 81 mg Bisacodyl (Dulcolax) 5 mg PO DAILY PRN PRN PRN Reason: Constipation Famotidine (Pepcid) 20 mg PO DAILY [facility] Last Admin: 10/27/17 10:08 Dose: 20 mg Fluticasone Propionate (Flonase Nasal [place]) 2 spray NASAL DAILY [facility] Heparin Sodium (Porcine) () 5,000 units SC Q8 MAMIE Last Admin: 10/27/17 05:57 Dose: 5,000 units Sodium Chloride () 1,000 mls @ 75 mls/hr IV .[id number] MAMIE Last Admin: 10/27/17 03:43 Dose: 75 mls/hr Ondansetron HCl (Zofran) 4 mg IV Q8H PRN PRN PRN Reason: NAUSEA/VOMITING Last Admin: 10/27/17 10:07 Dose: 4 mg Sodium Chloride () 5 - 30 ml IV UD PRN PRN Reason: SALINE FLUSH Last Admin: 10/27/17 00:42 Dose: 10 ml - Past Medical History Past Medical History (Chronic Problems): Chronic Problems History of stroke (Chronic) Chronic kidney disease, stage IV (severe) (Chronic) Hypertension (Chronic) - Past Surgical History Surgical History: noncontributory - Social History Smoking Status: Former smoker Alcohol: None, Occasional Drugs: None - Family History Maternal History Items: Cancer - stomach, No pertinent history Paternal History Items: No pertinent history Review of Systems Constitutional: Reports: Anorexia, Malaise, Weakness, Fatigue. Denies: Chills, Fever Eyes: Denies: Blurred vision HEENT: Reports: Head Aches, Nasal Congestion, Post Nasal Drip, Sinus Congestion , Sinus Drainage Cardiovascular: Reports: Chest Pain - Burning in his epigastric region, Syncope - Near syncope. Denies: Edema Respiratory: Reports: Cough, Shortness of Breath Gastrointestinal: Reports: Abdominal Pain, -. Denies: Nausea, Vomiting Genitourinary: Reports: Retention, - - Self-catheterization at home for obstructive nephropathy. Denies: Dysuria Musculoskeletal: Reports: Muscle pain, - - Muscle weakness. Denies: Arm Pain, Back Pain Skin: Denies: Rash Neurological: Reports: Headaches, - - Near syncope. Denies: Balance problems Hematologic/ Lymphatic: Reports: Anemia. Denies: Hx of blood clot - Physical Exam General: Alert, Oriented x3, Cooperative, - - Congested HEENT: PERRLA, EOMI Oral: Dry Mucosa Neck: Supple, No JVD Lungs: Clear to auscultation Cardiovascular: Regular rate Abdomen: Bowel Sounds Present, Soft, Non Tender, Non-Distended Extremities: No edema Skin: No rashes Musculoskeletal: Muscle Wasting Neurological: Cranial nerves II-XII grossly intact Psych/Mental Status: Normal Affect, Alert and oriented to time, place, person, mood and affect Vital Signs Temp Pulse Resp BP Pulse Ox 99.0 F 71 18 132/74 H 94 10/27/17 10:02 10/27/17 10:02 10/27/17 10:02 10/27/17 10:02 10/27/17 10:02 Oxygen Flow Rate (L/min) 2 Oxygen Delivery Method Room Air Weight: 69.3 kg Body Mass Index (BMI) 22.5 Orthostatic Vital Signs Start: 10/27/17 06:46 Freq: q24h Status: Active Protocol: Activity Type Activity Date Activity User E-Sign Co-Sign Detail Recorded Client Recorded Date Recorded By Document 10/27/17 05:45 HS [id number] 10/27/17 06:46 HS 10/27/17 05:45 Orthostatic Vitals Standing -Blood Pressure (90/60-120/80) 120/69 -Extremity Use Left Arm -Pulse Rate (60-100) 97 Sitting -Blood Pressure (90/60-120/80) 123/83 H -Extremity Use Left Arm -Pulse Rate (60-100) 89 Lying -Blood Pressure (90/60-120/80) 140/92 H -Extremity Use Left Arm -Pulse Rate (60-100) 75 Intake and Output for Last 24 Hours 10/25/17 10/26/17 10/27/17 23:59 23:59 23:59 Intake Total 1772 / 1772 Output Total 1050 / 1050 Balance 722 / 722 Laboratory Tests Past 24 Hrs 10/26/17 10/26/17 10/26/17 20:30 20:30 21:00 WBC RBC Hgb Hct MCV MCH MCHC RDW RDW Differential Plt Count MPV Immature Gran % (Auto) Neut % (Auto) Lymph % (Auto) Will % (Auto) Eos % (Auto) Baso % (Auto) Absolute Neuts (auto) Absolute Lymphs (auto) Total Counted Sodium Potassium Chloride Carbon Dioxide Anion Gap BUN Creatinine Estim Creat Clear Calc Est GFR (MDRD) Af Amer Est GFR (MDRD) Non-Af BUN/Creatinine Ratio Glucose Calcium Total Bilirubin 0.50 Direct Bilirubin 0.08 AST 18 ALT 18 Alkaline Phosphatase 75 Troponin I < 0.02 Total Protein 7.3 Albumin 3.1 L Globulin 4.2 Triglycerides 143 Cholesterol 179 LDL Cholesterol 109 VLDL Cholesterol 29 HDL Cholesterol 41 Lipase 326 TSH 0.98 Urine Color Yellow Urine Clarity Sl. Cloudy Urine pH 6.0 Ur Specific [place] 1.020 Urine Protein 100 H Urine Glucose (UA) Normal Urine Ketones Negative Urine Occult Blood 250 H Urine Nitrite Negative Urine Bilirubin Negative Urine Urobilinogen Normal Ur Leukocyte Esterase 25 H Urine RBC 5-10 SEEN Urine WBC 0-5 SEEN Ur Squamous Epith Cells 0-5 SEEN Urine Bacteria 0 SEEN Urine Mucus 0 SEEN 10/27/17 10/27/17 10/27/17 00:12 07:04 07:04 WBC 6.1 RBC 4.04 L Hgb 12.7 L Hct 39.8 L MCV 98.5 H MCH 31.4 MCHC 31.9 L RDW 13.6 RDW Differential 48.4 H Plt Count 267 MPV 9.2 Immature Gran % (Auto) 0.200 Neut % (Auto) 58.4 Lymph % (Auto) 24.8 Will % (Auto) 15.8 H Eos % (Auto) 0.3 Baso % (Auto) 0.5 Absolute Neuts (auto) 3.6 Absolute Lymphs (auto) 1.52 Total Counted Not Reportable Sodium 143 Potassium 4.2 Chloride 112 H Carbon Dioxide 20.0 L Anion Gap 11 BUN 50 H Creatinine 3.23 H Estim Creat Clear Calc 21.75 Est GFR (MDRD) Af Amer 25 L Est GFR (MDRD) Non-Af 20 L BUN/Creatinine Ratio 15.5 Glucose 84 Calcium 7.6 L Total Bilirubin Direct Bilirubin AST ALT Alkaline Phosphatase Troponin I < 0.02 Total Protein Albumin Globulin Triglycerides Cholesterol LDL Cholesterol VLDL Cholesterol HDL Cholesterol Lipase TSH Urine Color Urine Clarity Urine pH Ur Specific [place] Urine Protein Urine Glucose (UA) Urine Ketones Urine Occult Blood Urine Nitrite Urine Bilirubin Urine Urobilinogen Ur Leukocyte Esterase Urine RBC Urine WBC Ur Squamous Epith Cells Urine Bacteria Urine Mucus 10/27/17 07:04 WBC RBC Hgb Hct MCV MCH MCHC RDW RDW Differential Plt Count MPV Immature Gran % (Auto) Neut % (Auto) Lymph % (Auto) Will % (Auto) Eos % (Auto) Baso % (Auto) Absolute Neuts (auto) Absolute Lymphs (auto) Total Counted Sodium Potassium Chloride Carbon Dioxide Anion Gap BUN Creatinine Estim Creat Clear Calc Est GFR (MDRD) Af Amer Est GFR (MDRD) Non-Af BUN/Creatinine Ratio Glucose Calcium Total Bilirubin Direct Bilirubin AST ALT Alkaline Phosphatase Troponin I < 0.02 Total Protein Albumin Globulin Triglycerides Cholesterol LDL Cholesterol VLDL Cholesterol HDL Cholesterol Lipase TSH Urine Color Urine Clarity Urine pH Ur Specific [place] Urine Protein Urine Glucose (UA) Urine Ketones Urine Occult Blood Urine Nitrite Urine Bilirubin Urine Urobilinogen Ur Leukocyte Esterase Urine RBC Urine WBC Ur Squamous Epith Cells Urine Bacteria Urine Mucus POC Glucose 10/26/17 20:03 POC Glucose 113 H Clinical Impression(s) from Imaging Studies Chest X-Ray 10/26/17 16:22 IMPRESSION: Hyperinflated lungs may reflect underlying COPD. Vague bilateral nodular opacities which may be artifactual however consider CT of the chest for further characterization for difficult to exclude underlying nodules. Electronically Signed: Tammie Curry MD at 16:37 EDT Tel , Service support , Chest CT 10/27/17 12:00 IMPRESSION: Right lower lung 7 mm pulmonary nodule. No acute infiltrate. No reactive adenopathy. Small hiatal hernia. 1.7 cm left adrenal adenoma. Electronically Signed: Boom Gramajo DO at 6:57 EDT , Service support , Sinuses X-Ray 10/27/17 19:24 IMPRESSION: Normal x-rays of the paranasal sinuses. Electronically Signed: Boom Gramajo DO at 6:44 EDT , Service support , Assessment/Plan 1. 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 Renal function at baseline. History of temporary hemodialysis due to obstruction status post ureteral stent placements and removal. No immediate need for dialysis. Agree with IV fluid hydration with Vazquez catheter to CD while in the hospital. He has a follow-up appointment with me on November 27. 2. Near syncope suspect due to poor fluid intake, dehydration. 3. Generalized weakness, chest pain. Cardiac enzymes negative 4. History of tobacco use, PAD. 5. Hypertension with stable blood pressure 6. Sinus congestion CT sinuses unremarkable.
--- NOTE | 2017-10-27 12:00 | CT_ITS ---
STUDY: CT CHEST WITHOUT CONTRAST REASON FOR EXAM: Male, 67 years old. Lung nodule, hypertension RADIATION DOSAGE (If Supplied By Facility): CTDIvol = ( 8.97 ) mGy, DLP = ( 322.77 ) mGycm TECHNIQUE: Transaxial imaging was performed without the administration of intravenous contrast material. Multiplanar coronal and sagittal images were reformatted. Individualized dose optimization techniques were used for this CT. COMPARISON: CXR 10/26/2017. FINDINGS: The lungs are normal. There is a 7 mm pulmonary nodule in the right lower lobe on image 75. No other pulmonary nodules. There is no demonstrated pleural abnormality. Normal heart and pericardium. Normal mediastinum. Normal hilar regions. Normal unenhanced pulmonary arteries. Normal aorta arch and descending thoracic aorta. Normal osseous structures. Small hiatal hernia. Small left adrenal adenoma measuring 1.7 cm. Right upper pole renal cyst measuring 1.[address]/Chest without Contrast IMPRESSION: Right lower lung 7 mm pulmonary nodule. No acute infiltrate. No reactive adenopathy. Small hiatal hernia. 1.7 cm left adrenal adenoma. Electronically Signed: Boom Gramajo DO at 6:57 EDT , Service support ,
[2017-10-27] MEDS: Benzonatate 100 MG Capsule PO (13:20)
[2017-10-27] MEDS: Pantoprazole Sodium 40 MG Tablet PO (13:21)
[2017-10-27] MEDS: Oseltamivir Phosphate 30 MG Capsule PO (13:21)
[2017-10-27] MEDS: Fluticasone 0.05% 1 SPRAY NASAL.SRY 2 SPRAY NASAL (13:22)
[2017-10-27 14:04] LABS: Magnesium 2.1 mg/dL (1.6-2.6)
[2017-10-27 14:16] LABS: Phosphorus 3.6 mg/dL (2.5-4.9)
--- NOTE | 2017-10-27 19:24 | RAD_ITS ---
STUDY: X-RAY - PARANASAL SINUSES REASON FOR EXAM: Male, 67 years old. Headache, infection TECHNIQUE: 4 view(s) of the paranasal sinuses were obtained. COMPARISON: None. FINDINGS: Normal visualized frontal, maxillary, ethmoidal and sphenoid sinuses. Normal visualized facial bones. The soft tissue structures are unremarkable. RAD/Sinuses min 3 Views IMPRESSION: Normal x-rays of the paranasal sinuses. Electronically Signed: Boom Gramajo DO at 6:44 EDT , Service support ,
[2017-10-28] VITALS (11 sets, daily range): BP systolic 115–151; BP diastolic 75–94; PULSE 54–74; RESP 16–18; TEMP 36.6–37.1; O2SAT 93–97
[2017-10-28] MEDS: Bisacodyl 5 MG Tablet PO (03:32)
[2017-10-28] MEDS: Benzonatate 100 MG Capsule PO (03:32)
[2017-10-28 05:29] LABS: Hematocrit 38.2 % (40-54); Hemoglobin 12.4 g/dl (13.0-16.5); Mean Corp Hgb Conc 32.5 g/gl (32-36); Mean Corpuscular Hgb 32.1 pg (27.0-32.0); Mean Platelet Vol. 9.1 fl (6.2-12.0); Platelet Count 262 K/mm3 (150-450); RBC Distribution Width CV 13.5 % (11.6-14.6); Red Blood Count 3.86 M/mm3 (4.6-6.2); White Blood Count 4.9 K/mm3 (4.4-11.0)
[2017-10-28 05:32] LABS: Scan Indicated on CBC? Y/N NO
[2017-10-28 05:38] LABS: Anion Gap 9 (5-15); BUN 43 mg/dL (7-18); BUN/Creat Ratio 13.6 RATIO (10-20); Calcium,Total 7.7 mg/dL (8.5-10.1); Chloride 113 mmol/L (98-107); Creatinine, Serum 3.17 mg/dL (0.70-1.30); EST Glomerular Filtration Rate 21 mL/min (>60); Est Glom Filt Rate - Afr Amer 25 mL/min (>60); Estimated Creatinine Clearance 22.16 ml/min; Glucose 79 mg/dL (74-106); Potassium 4.2 mmol/L (3.5-5.1); Sodium Level 143 mmol/L (136-145)
[2017-10-28] MEDS: Heparin Injection 5,000 UNITS/ML Syringe 5000 UNITS SC ×3 (05:57→21:46)
[2017-10-28] MEDS: Aspirin 81 MG TAB.CHEW PO (08:19)
[2017-10-28] MEDS: Acetaminophen 325 MG Tablet 650 MG PO (08:19)
[2017-10-28] MEDS: 0.9% Normal Saline 1,000 ML 75 ML IV ×2 (08:24→21:49)
[2017-10-28] MEDS: Loratadine 10 MG Tablet PO (09:50)
[2017-10-28] MEDS: Oseltamivir Phosphate 30 MG Capsule PO (09:50)
[2017-10-28] MEDS: Pantoprazole Sodium 40 MG Tablet PO (09:51)
[2017-10-28] MEDS: Famotidine 20 MG Tablet PO (09:51)
[2017-10-28] MEDS: amLODIPine 5 MG Tablet PO (09:51)
[2017-10-28] MEDS: Fluticasone 0.05% 1 SPRAY NASAL.SRY 2 SPRAY NASAL (09:52)
--- NOTE | 2017-10-28 10:53 | PN_ITS ---
<Bri Loaiza - Last Filed: 10/28/17 10:54> Patient Problems: Active and Suspected Problems Near syncope (Acute) Self-catheterizes urinary bladder (Acute) Obstructive nephropathy (Acute) Subjective: Patient seen and examined. Denies further chest pain. Weakness improved. Nasal congestion and cough also improved. Denies shortness of breath, dizziness , lightheadedness. Denies fever, chills. - Physical Exam General: Alert, Oriented x3, Cooperative HEENT: Atraumatic, PERRLA, EOMI, Normocephalic Neck: Supple, No JVD, Negative Carotid Bruits Lungs: Clear to auscultation, Diminished Cardiovascular: Regular rate, Regular Rhythm, Normal S1, Normal S2, No murmurs Abdomen: Bowel Sounds Present, Soft, Non Tender, Non-Distended Extremities: No clubbing, No cyanosis, No edema, Capillary Refill Less than 3 Seconds Skin: No rashes, No breakdown Musculoskeletal: No Tenderness to Palpation of Joints or Extremities Neurological: Cranial nerves II-XII grossly intact, Neuro grossly intact Psych/Mental Status: Normal Affect, Appropriate Vital Signs Temp Pulse Resp BP Pulse Ox 98.2 F 70 17 126/75 H 93 10/28/17 09:45 10/28/17 09:45 10/28/17 09:45 10/28/17 09:45 10/28/17 09:45 Oxygen Flow Rate (L/min) 2 Oxygen Delivery Method Room Air Weight: 69.3 kg Body Mass Index (BMI) 22.5 Orthostatic Vital Signs Start: 10/27/17 06:46 Freq: q24h Status: Active Protocol: Activity Type Activity Date Activity User E-Sign Co-Sign Detail Recorded Client Recorded Date Recorded By Document 10/28/17 03:18 ZZB [id number] 10/28/17 03:25 ZZB 10/28/17 03:18 Orthostatic Vitals Standing -Blood Pressure (90/60-120/80) 144/91 H -Extremity Use Left Arm -Pulse Rate (60-100) 74 Sitting -Blood Pressure (90/60-120/80) 141/91 H -Extremity Use Left Arm -Pulse Rate (60-100) 71 Lying -Blood Pressure (90/60-120/80) 151/94 H -Extremity Use Left Arm -Pulse Rate (60-100) 67 Intake and Output for Last 24 Hours 03/16/18 03/17/18 03/18/18 23:59 23:59 23:59 Intake Total 5220 / 5220 672 / 672 Output Total 3425 / 3425 1000 / 1000 Balance 1795 / 1795 -328 / -328 Microbiology Past 72 Hours 10/26/17 22:15 Respiratory Panel (PCR) - Final Mucosa - Nose Influenzae B Laboratory Tests Past 24 Hrs 10/27/17 10/27/17 10/28/17 07:04 07:04 05:09 WBC 4.9 RBC 3.86 L Hgb 12.4 L Hct 38.2 L MCV 99.0 H MCH 32.1 H MCHC 32.5 RDW 13.5 RDW Differential 48.0 H Plt Count 262 MPV 9.1 Sodium Potassium Chloride Carbon Dioxide Anion Gap BUN Creatinine Estim Creat Clear Calc Est GFR (MDRD) Af Amer Est GFR (MDRD) Non-Af BUN/Creatinine Ratio Glucose Calcium Phosphorus 3.6 Magnesium 2.1 10/28/17 05:09 WBC RBC Hgb Hct MCV MCH MCHC RDW RDW Differential Plt Count MPV Sodium 143 Potassium 4.2 Chloride 113 H Carbon Dioxide 21.0 Anion Gap 9 BUN 43 H Creatinine 3.17 H Estim Creat Clear Calc 22.16 Est GFR (MDRD) Af Amer 25 L Est GFR (MDRD) Non-Af 21 L BUN/Creatinine Ratio 13.6 Glucose 79 Calcium 7.7 L Phosphorus Magnesium Medical Necessity - Tobacco Use Smoking Status: Former smoker Assessment/Plan Active and Suspected Problems Near syncope (Acute) Self-catheterizes urinary bladder (Acute) Obstructive nephropathy (Acute) Patient is a 67-year-old male admitted 10/26/2017 due to weakness, chest pain, abdominal pain. He has a past medical history of CVA, chronic kidney disease stage IV, hypertension, history of tobacco use. 1. Atypical chest pain-patient describes infrequent, intermittent substernal chest pain lasting only a few seconds. Denies associated symptoms. States it feels like a burning sensation. Patient reports history of PA, unsure of the exact year but thinks 2013. Does not follow with cardiology. Troponin negative ?4. EKG without evidence of ischemia. Patient was started on PPI and denies further chest pain. Fasting lipid panel within normal limits. Continue aspirin. Echocardiogram showed an estimated ejection fraction of 50-55%, stage I diastolic dysfunction, mild global hypokinesis of the left ventricle, RVSP 25 mmHg. Patient will undergo nuclear stress test tomorrow. 2. Acute influenza B with associated generalized weakness, nasal congestion, productive cough-begin Tamiflu 30 mg daily for 5 days. Tylenol as needed for fever. Albuterol and DuoNeb aerosols for shortness of breath. Patient is stable on room air. Continue IV fluids. Continue Flonase and loratadine. Patient reports symptomatic improvement. 3. Syncopal episode-suspect due to dehydration/poor oral intake. Occurred during admission and radiology department when patient stood from sitting position for x-ray. Patient was reported to have no pulse but quickly aroused. Cardiac workup thus far unremarkable as noted above. Echocardiogram as noted above. Orthostatic vitals positive, patient received IV fluids and repeat orthostatic vitals this morning negative. TSH, mg, phos WNL. Stress test tomorrow morning as noted above. 4. Lung nodule-chest x-ray showed hyperinflated lungs, vague bilateral nodular opacities. CT of chest showed right lower lung 7 mm pulmonary nodule, no acute infiltrate, small hiatal hernia, 1.7 cm left adrenal adenoma. Recommend follow- up with pulmonary medicine as outpatient and repeat imaging in 3 months. Patient does have a history of tobacco use. 5. Chronic kidney disease stage IV-previously on temporary dialysis secondary to obstruction status post ureteral stent placements which was discontinued approximately 1 year ago due to improved kidney function. He follows with Dr. Ramesh as outpatient who was consulted. Creat April 2017 was 2.8. Admission creatinine 3.4. Improved with IV fluids, continue. Patient self caths 4 times daily at home. Vazquez catheter in place and draining without difficulty. Patient will continue outpatient follow-up with nephrology, he has an appointment scheduled 11/27/17. 6. Hypertension-started on amlodipine. Stable, continue to monitor. 7. History of CVA-continue aspirin. Not on statin. Lipid panel within normal limits. 8. History of tobacco use-encourage smoking cessation. DVT prophylaxis-heparin subcu. This patient was seen by MAYITO Downey under the supervision of Dr. Enriquez. <Mack Enriquez - Last Filed: 10/28/17 13:28> Subjective: Seen and examined. Patient had short run of sinus tachycardia. Discussed with Dr. Eddy. Overall patient's symptoms improved - Physical Exam Lungs: Clear to auscultation, Diminished Cardiovascular: Regular rate, Regular Rhythm, Normal S1, Normal S2, No murmurs Vital Signs Temp Pulse Resp BP Pulse Ox 98.2 F 68 17 126/75 H 93 10/28/17 09:45 10/28/17 11:08 10/28/17 09:45 10/28/17 09:45 10/28/17 09:45 Oxygen Flow Rate (L/min) 2 Oxygen Delivery Method Room Air Weight: 152 lb 12.485 oz Body Mass Index (BMI) 22.5 Orthostatic Vital Signs Start: 10/27/17 06:46 Freq: q24h Status: Active Protocol: Activity Type Activity Date Activity User E-Sign Co-Sign Detail Recorded Client Recorded Date Recorded By Document 10/28/17 03:18 [id number] [id number] 10/28/17 03:25 ZZB 10/28/17 03:18 Orthostatic Vitals Standing -Blood Pressure (90/60-120/80) 144/91 H -Extremity Use Left Arm -Pulse Rate (60-100) 74 Sitting -Blood Pressure (90/60-120/80) 141/91 H -Extremity Use Left Arm -Pulse Rate (60-100) 71 Lying -Blood Pressure (90/60-120/80) 151/94 H -Extremity Use Left Arm -Pulse Rate (60-100) 67 Intake and Output for Last 24 Hours 10/26/17 10/27/17 10/28/17 23:59 23:59 23:59 Intake Total 5220 / 5220 1621 / 1621 Output Total 3425 / 3425 1625 / 1625 Balance 1795 / 1795 -4 / -4 Microbiology Past 72 Hours 10/26/17 22:15 Respiratory Panel (PCR) - Final Mucosa - Nose Influenzae B Laboratory Tests Past 24 Hrs 10/27/17 10/27/17 10/28/17 07:04 07:04 05:09 WBC 4.9 RBC 3.86 L Hgb 12.4 L Hct 38.2 L MCV 99.0 H MCH 32.1 H MCHC 32.5 RDW 13.5 RDW Differential 48.0 H Plt Count 262 MPV 9.1 Sodium Potassium Chloride Carbon Dioxide Anion Gap BUN Creatinine Estim Creat Clear Calc Est GFR (MDRD) Af Amer Est GFR (MDRD) Non-Af BUN/Creatinine Ratio Glucose Calcium Phosphorus 3.6 Magnesium 2.1 10/28/17 05:09 WBC RBC Hgb Hct MCV MCH MCHC RDW RDW Differential Plt Count MPV Sodium 143 Potassium 4.2 Chloride 113 H Carbon Dioxide 21.0 Anion Gap 9 BUN 43 H Creatinine 3.17 H Estim Creat Clear Calc 22.16 Est GFR (MDRD) Af Amer 25 L Est GFR (MDRD) Non-Af 21 L BUN/Creatinine Ratio 13.6 Glucose 79 Calcium 7.7 L Phosphorus Magnesium Assessment/Plan This patient was seen in conjunction with Bri ABRAMS. I have independently interviewed and examined the patient and reviewed pertinent history, examination findings, laboratory and plan of management. I have reviewed the note and agree with the documented findings with the few additional points. In brief, patient is admitted for atypical chest pain most probably seems gastroesophageal reflux disease. Chest pain is localized last for a few seconds. Patient also had near syncope episode and was felt no pulse when he felt dizzy on standing up and he collapsed. Did not lose consciousness. Orthostatic vital signs positive. IV fluid normal saline. Stage IV CKD status post temporary dialysis status post ureteral stent placements and removal. Seen by Dr. Ramesh and her consult appreciated. Patient had echo today reported as stage I diastolic dysfunction with mild global hypokinesis of left ventricle, EF 50-55%. Discussed with Dr. Eddy advised Lexiscan nuclear stress test tomorrow morning and further decision as per the stress test I have discussed my assessment with Bri ABRAMS and orders have been reviewed. Code Visit Inpatient E&M: 77059 Subs Hosp L3
[2017-10-29 03:00] VITALS: PULSE 60
[2017-10-29 03:32] VITALS: BP 140/92; PULSE 61; RESP 18; TEMP 36.6; O2SAT 96
[2017-10-29 05:29] LABS: Absolute Lymphocyte Count 1.55 X10^3/ul (0.83-4.51); Basophil# 0.02 X10^3/uL; Basophil% 0.5 % (0-1); Eosinophil# 0.09 X10^3/uL; Eosinophils% 2.2 % (0-5); Hematocrit 39.3 % (40-54); Hemoglobin 12.5 g/dl (13.0-16.5); Lymphocyte # 1.55 X10^3/ul (4.0); Lymphocyte % 37.3 % (19-41); Mean Corp Hgb Conc 31.8 g/gl (32-36); Mean Corpuscular Hgb 31.4 pg (27.0-32.0); Mean Corpuscular Volume 98.7 fL (80-94); Mean Platelet Vol. 9.2 fl (6.2-12.0); Monocyte# 0.49 X10^3/uL; Monocyte% 11.8 % (0-10); Platelet Count 255 K/mm3 (150-450); RBC Distribution Width CV 13.8 % (11.6-14.6); RBC Distribution Width SD 49.2 fl (35.1-43.9); Red Blood Count 3.98 M/mm3 (4.6-6.2); White Blood Count 4.2 K/mm3 (4.4-11.0)
[2017-10-29 05:31] LABS: POSITIVE COUNT NO; POSITIVE DIFFERENTIAL NO; POSITIVE MORPHOLOGY NO; Prothrombin Time (Protime)PT. 12.9 SECONDS (11.7-14.9)
[2017-10-29 05:32] LABS: Partial Thromboplast Time 45.8 Seconds (24.1-36.2)
[2017-10-29 05:39] VITALS: BP 149/83; PULSE 58; RESP 18; TEMP 36.8; O2SAT 95
[2017-10-29] MEDS: Aspirin 81 MG TAB.CHEW PO (05:41)
[2017-10-29] MEDS: Fluticasone 0.05% 1 SPRAY NASAL.SRY 2 SPRAY NASAL (05:41)
[2017-10-29 05:46] LABS: Anion Gap 8 (5-15); BUN 41 mg/dL (7-18); BUN/Creat Ratio 12.8 RATIO (10-20); Chloride 112 mmol/L (98-107); EST Glomerular Filtration Rate 21 mL/min (>60); Est Glom Filt Rate - Afr Amer 25 mL/min (>60); Estimated Creatinine Clearance 21.96 ml/min; Glucose 81 mg/dL (74-106); Potassium 4.7 mmol/L (3.5-5.1); Sodium Level 144 mmol/L (136-145)
--- NOTE | 2017-10-29 05:55 | EKG12_ITS ---
Test Reason : AM EKG Blood Pressure : / mmHG Vent. Rate : 060 BPM Atrial Rate : 060 BPM P-R Int : 146 ms QRS Dur : 090 ms QT Int : 404 ms P-R-T Axes : 051 -06 028 degrees QTc Int : 404 ms Normal sinus rhythm Normal ECG When compared with ECG of 27-OCT-2017 05:41, MANUAL COMPARISON REQUIRED, DATA IS UNCONFIRMED Confirmed by YAJAIRA ONOFRE ([id number]), news copy editor ROBERTO DUNCAN ([id number]) on 11/01/2017 3:08:00 PM Referred By: HUMBERTO Confirmed By:YAJAIRA ONOFRE
[2017-10-29 07:05] VITALS: PULSE 66
[2017-10-29 10:10] VITALS: BP 124/89; PULSE 66; RESP 16; TEMP 36.6; O2SAT 96
[2017-10-29] MEDS: Pantoprazole Sodium 40 MG Tablet PO (10:15)
[2017-10-29] MEDS: amLODIPine 5 MG Tablet PO (10:15)
[2017-10-29] MEDS: Loratadine 10 MG Tablet PO (10:15)
[2017-10-29] MEDS: Famotidine 20 MG Tablet PO (10:15)
[2017-10-29] MEDS: Oseltamivir Phosphate 30 MG Capsule PO (10:15)
--- NOTE | 2017-10-29 10:50 | CASEMGMT ---
FLOYD MATOS ASSESSMENT COMPLETE. LACE Strata: 1 Adm Dx: Generalized weakness of unknown etiology, worsening Stg II CKD, Atypical chest pain Transition Planning/Care Coordination: Patient reports he has a follow-up scheduled with Dr. Ramesh. The patient was on temporary HD due to kidney failure secondary to obstruction. The patient had stents placed and removed. Baseline Creat is 3. The patient does straight cath at home. The patient has chronic sinus issues. The patient reports he is established with Dr. Graves. The patient denies home-going needs. RN CARLO will remain available to assist should care coordination or transition planning needs arise. MANOJ KaufmanN, RN-BC, CCM
[2017-10-29 11:04] VITALS: PULSE 86
--- NOTE | 2017-10-29 11:34 | STRESSREP ---
Stress Test Report Pharmacologic myocardial perfusion stress test. 67-year-old man with a history of chest pain. Stress protocol: Resting EKG demonstrates normal sinus rhythm with rate of 67 bpm. Normal intervals are noted. Resting blood pressure is 130/94 mmHg. 0.4 mg regadenoson was infused per usual protocol followed by rapid intravenous saline flush injection continuous EKG monitoring was performed. The patient maintained sinus rhythm throughout the recording. At rest there were no ST or T-wave changes noted suggest abnormal flow reserve at peak infusion no ST or T-wave changes were noted suggest abnormal flow reserve. The resting blood pressure is 130/94 with a final blood pressure 128/90 mmHg. Myocardial perfusion protocol: 10.9 mCi of technetium 99m sestamibi was injected at rest. 0.4 mg regadenoson was infused per usual protocol. Peak infusion 35.0 mCi of technetium 99m sestamibi was injected stress images were obtained stress and rest images were reconstructed and compared in the short axis vertical long and horizontal long axis. Gated images were also obtained. Perfusion SPECT analysis: Review of the stress images demonstrate normal uptake of tracer noted in all areas of the myocardium. The resting images similarly demonstrate normal uptake of tracer noted in all areas of the myocardium. No areas of reversibility are noted suggest ischemia and no previous infarct is noted. Gated SPECT analysis: The gated ejection fraction is 58%. Conclusion: Normal pharmacologic myocardial perfusion stress test. Preserved ejection fraction.
--- NOTE | 2017-10-29 11:37 | STRESSREP_ITS ---
Stress Test Report Pharmacologic myocardial perfusion stress test. 67-year-old man with a history of chest pain. Stress protocol: Resting EKG demonstrates normal sinus rhythm with rate of 67 bpm. Normal intervals are noted. Resting blood pressure is 130/94 mmHg. 0.4 mg regadenoson was infused per usual protocol followed by rapid intravenous saline flush injection continuous EKG monitoring was performed. The patient maintained sinus rhythm throughout the recording. At rest there were no ST or T -wave changes noted suggest abnormal flow reserve at peak infusion no ST or T- wave changes were noted suggest abnormal flow reserve. The resting blood pressure is 130/94 with a final blood pressure 128/90 mmHg. Myocardial perfusion protocol: 10.9 mCi of technetium 99m sestamibi was injected at rest. 0.4 mg regadenoson was infused per usual protocol. Peak infusion 35.0 mCi of technetium 99m sestamibi was injected stress images were obtained stress and rest images were reconstructed and compared in the short axis vertical long and horizontal long axis. Gated images were also obtained. Perfusion SPECT analysis: Review of the stress images demonstrate normal uptake of tracer noted in all areas of the myocardium. The resting images similarly demonstrate normal uptake of tracer noted in all areas of the myocardium. No areas of reversibility are noted suggest ischemia and no previous infarct is noted. Gated SPECT analysis: The gated ejection fraction is 58%. Conclusion: Normal pharmacologic myocardial perfusion stress test. Preserved ejection fraction.
--- NOTE | 2017-10-29 11:38 | PN.RENAL_ITS ---
Patient Problems: Active and Suspected Problems Near syncope (Acute) Self-catheterizes urinary bladder (Acute) Obstructive nephropathy (Acute) Subjective: underwent stress test today. Feeling better today. Tolerating diet. Still with fatigue, influenza B positive. - Physical Exam General: Alert, Oriented x3 Lungs: Clear to auscultation Cardiovascular: Regular rate Abdomen: Bowel Sounds Present, Soft, Non Tender Extremities: No edema Vital Signs Temp Pulse Resp BP Pulse Ox 97.8 F 86 16 124/89 H 96 10/29/17 10:10 10/29/17 11:04 10/29/17 10:10 10/29/17 10:10 10/29/17 10:10 Oxygen Delivery Method Room Air Orthostatic Vital Signs Start: 10/27/17 06:46 Freq: q24h Status: Active Protocol: Activity Type Activity Date Activity User E-Sign Co-Sign Detail Recorded Client Recorded Date Recorded By Document 10/28/17 03:18 ZZB [id number] 10/28/17 03:25 ZZB 10/28/17 03:18 Orthostatic Vitals Standing -Blood Pressure (90/60-120/80) 144/91 H -Extremity Use Left Arm -Pulse Rate (60-100) 74 Sitting -Blood Pressure (90/60-120/80) 141/91 H -Extremity Use Left Arm -Pulse Rate (60-100) 71 Lying -Blood Pressure (90/60-120/80) 151/94 H -Extremity Use Left Arm -Pulse Rate (60-100) 67 Intake and Output for Last 24 Hours 10/27/17 10/28/17 10/29/17 23:59 23:59 23:59 Intake Total 3448 / 5220 3205 / 3205 435 / 435 Output Total 2375 / 3425 3575 / 3575 1000 / 1000 Balance 1073 / 1795 -370 / -370 -565 / -565 Laboratory Tests Past 24 Hrs 10/29/17 10/29/17 10/29/17 05:00 05:00 05:00 WBC 4.2 L RBC 3.98 L Hgb 12.5 L Hct 39.3 L MCV 98.7 H MCH 31.4 MCHC 31.8 L RDW 13.8 RDW Differential 49.2 H Plt Count 255 MPV 9.2 Immature Gran % (Auto) 0.200 Neut % (Auto) 48.0 Lymph % (Auto) 37.3 [place] % (Auto) 11.8 H Eos % (Auto) 2.2 Baso % (Auto) 0.5 Absolute Neuts (auto) 2.0 Absolute Lymphs (auto) 1.55 Total Counted Not Reportable PT 12.9 INR 1.0 APTT 45.8 H Sodium 144 Potassium 4.7 Chloride 112 H Carbon Dioxide 24.0 Anion Gap 8 BUN 41 H Creatinine 3.20 H Estim Creat Clear Calc 21.96 Est GFR (MDRD) Af Amer 25 L Est GFR (MDRD) Non-Af 21 L BUN/Creatinine Ratio 12.8 Glucose 81 Calcium 8.0 L Medical Necessity - Tobacco Use Smoking Status: Former smoker Assessment/Plan Active and Suspected Problems Near syncope (Acute) Self-catheterizes urinary bladder (Acute) Obstructive nephropathy (Acute) 1. 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 Renal function at baseline. Continue with self cath at home. He has a follow-up appointment with me on November 27. 2. Near syncope suspect due to poor fluid intake, dehydration. 3. Generalized weakness, chest pain. Cardiac enzymes negative. Stress test today 4. History of tobacco use, PAD. 5. Hypertension with stable blood pressure 6. Influenza B infection.
--- NOTE | 2017-10-29 11:39 | PCM.DC ---
- Discharge Diagnoses Current Active Problems: Current Active and Chronic Problems Near syncope (Acute) Self-catheterizes urinary bladder (Acute) Obstructive nephropathy (Acute) History of stroke (Chronic) Chronic kidney disease, stage IV (severe) (Chronic) Hypertension (Chronic) You will use the following diet at home:: Cardiac Discharge Activity: Return to Normal Activity Call your doctor if you observe: Shortness of breath, Dizziness, Fainting spells, Chest pain, Increased palpitations (irregular heartbeat) Allergies/Adverse Reactions: Allergies amoxicillin Allergy (Verified 10/26/17 15:46) Unknown ciprofloxacin Allergy (Verified 10/26/17 15:46) Unknown codeine Allergy (Verified 10/26/17 15:46) Other Medications to take at Discharge Amlodipine [Norvasc] 5 mg PO DAILY 10/26/17 C,E,Zinc,Copper 11/Vjsns6u/Lut [Ocuvite Adult 50 Plus Softgel] 1 capsule PO DAILY 10/26/17 Ranitidine HCl 15 mg PO DAILY 10/26/17 Oseltamivir Phosphate [Tamiflu] 30 mg PO DAILY #2 cap 10/29/17 The following prescriptions were given: Oseltamivir Phosphate [Tamiflu] 30 mg PO DAILY #2 cap Primary Care Physician: Antoinette Graves MD [Primary Care Provider] - Please follow up with your Primary Care Physician in: 1 Week Please Follow Up With: Marti Ramesh DO When: As scheduled, 11/27/17 Please Follow Up With: Deandre Kapoor MD - May see BARREL BURNER When: 4-6 Weeks, Establish to monitor lung nodule.
--- NOTE | 2017-10-29 11:42 | DCINST_ITS ---
- Discharge Diagnoses Current Active Problems: Current Active and Chronic Problems Near syncope (Acute) Self-catheterizes urinary bladder (Acute) Obstructive nephropathy (Acute) History of stroke (Chronic) Chronic kidney disease, stage IV (severe) (Chronic) Hypertension (Chronic) You will use the following diet at home:: Cardiac Discharge Activity: Return to Normal Activity Call your doctor if you observe: Shortness of breath, Dizziness, Fainting spells , Chest pain, Increased palpitations (irregular heartbeat) Allergies/Adverse Reactions: Allergies amoxicillin Allergy (Verified 10/26/17 15:46) Unknown ciprofloxacin Allergy (Verified 10/26/17 15:46) Unknown codeine Allergy (Verified 10/26/17 15:46) Other Medications to take at Discharge Amlodipine [Norvasc] 5 mg PO DAILY 10/26/17 C,E,Zinc,Copper 11/Nymkj6e/Lut [Ocuvite Adult 50 Plus Softgel] 1 capsule PO DAILY 10/26/17 Ranitidine HCl 15 mg PO DAILY 10/26/17 Oseltamivir Phosphate [Tamiflu] 30 mg PO DAILY #2 cap 10/29/17 The following prescriptions were given: Oseltamivir Phosphate [Tamiflu] 30 mg PO DAILY #2 cap Primary Care Physician: Antoinette Graves MD [Primary Care Provider] - Please follow up with your Primary Care Physician in: 1 Week Please Follow Up With: Marti Ramesh DO When: As scheduled, 11/27/17 Please Follow Up With: Deandre Kapoor MD - May see STOPPERER ASSEMBLER When: 4-6 Weeks, Establish to monitor lung nodule.
--- NOTE | 2017-10-29 11:44 | PCM.DC.SUM ---
<Bri Loaiza - Last Filed: 10/29/17 11:55> Discharge Date and Diagnosis Date of Admission: 10/26/17 Date of Discharge: 10/29/17 - Primary Discharge Diagnosis Active and Suspected Problems 1. Atypical chest pain-ACS ruled out. 2. Acute influenza B 3. Syncopal episode-suspected secondary to dehydration 4. 7 mm pulmonary nodule, new finding 5. 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 Vague bilateral nodular opacities which may be artifactual however consider CT of the chest for further characterization for difficult to exclude underlying nodules. Electronically Signed: Tammie Curry MD at 16:37 EDT Tel , Service support , Chest CT 10/27/17 12:00 IMPRESSION: Right lower lung 7 mm pulmonary nodule. No acute infiltrate. No reactive adenopathy. Small hiatal hernia. 1.7 cm left adrenal adenoma. Electronically Signed: Boom Gramajo DO at 6:57 EDT , Service support , Sinuses X-Ray 10/27/17 19:24 IMPRESSION: Normal x-rays of the paranasal sinuses. Electronically Signed: Boom Gramajo DO at 6:44 EDT , Service support , Dr. Ramesh- Nephrology Operations: None Procedures: 2-D Echocardiogram, Stress test Summary of Care Provided: Patient is a 67-year-old male admitted 10/26/2017 due to weakness, chest pain, abdominal pain. He has a past medical history of CVA, chronic kidney disease stage IV, hypertension, history of tobacco use. 1. Atypical chest pain-ACS ruled out. Patient describes infrequent, intermittent substernal chest pain lasting only a few seconds. Denies associated symptoms. States it feels like a burning sensation. Patient reports history of NM, unsure of the exact year but thinks 2013. Does not follow with cardiology. Troponin negative ?4. EKG without evidence of ischemia. Fasting lipid panel within normal limits. Echocardiogram showed an estimated ejection fraction of 50-55%, stage I diastolic dysfunction, mild global hypokinesis of the left ventricle, RVSP 25 mmHg. Patient underwent nuclear stress test which was negative for ischemia. He denies further chest pain. 2. Acute influenza B with associated generalized weakness, nasal congestion, productive cough-begin Tamiflu 30 mg daily for 5 days. Patient is symptomatically improved. 3. Syncopal episode-suspect due to dehydration/poor oral intake. Occurred during admission and radiology department when patient stood from sitting position for x-ray. Patient was reported to have no pulse but quickly aroused. Cardiac workup thus far unremarkable as noted above. Echocardiogram as noted above. Orthostatic vitals positive, patient received IV fluids and repeat orthostatic vitals negative. TSH, mg, phos WNL. Stress test negative for ischemia. 4. Lung nodule-chest x-ray showed hyperinflated lungs, vague bilateral nodular opacities. CT of chest showed right lower lung 7 mm pulmonary nodule, no acute infiltrate, small hiatal hernia, 1.7 cm left adrenal adenoma. Recommend follow-up with pulmonary medicine as outpatient and repeat imaging in 3 months. Patient does have a history of tobacco use. Establish with Pulmonary Medicine in [place] in 4-6 weeks. 5. Chronic kidney disease stage IV due to obstructive nephropathy-previously on temporary dialysis secondary to obstruction status post ureteral stent placements which was discontinued approximately 1 year ago due to improved kidney function. He follows with Dr. Ramesh as outpatient who was consulted. Creat April 2017 was 2.8. Admission creatinine 3.4. Improved with IV fluids. Patient self caths 4 times daily at home which patient will continue at discharge. Patient will continue outpatient follow-up with nephrology, he has an appointment scheduled 11/27/17. Urinalysis unremarkable. Urine culture showed mixed gram-positive organisms, suspected contamination. Patient denies urinary symptoms. Afebrile. No leukocytosis. 6. Hypertension-stable, continue home amlodipine regimen. 7. History of CVA-continue aspirin. Not on statin. Lipid panel within normal limits. 8. History of tobacco use-encouraged smoking cessation. General: Alert, Oriented x3, Cooperative HEENT: Atraumatic, PERRLA, EOMI, Normocephalic Neck: Supple, No JVD, Negative Carotid Bruits Lungs: Clear to auscultation, Diminished Cardiovascular: Regular rate, Regular Rhythm, Normal S1, Normal S2, No murmurs Abdomen: Bowel Sounds Present, Soft, Non Tender, Non-Distended Extremities: No clubbing, No cyanosis, No edema, Capillary Refill Less than 3 Seconds Skin: No rashes, No breakdown Musculoskeletal: No Tenderness to Palpation of Joints or Extremities Neurological: Cranial nerves II-XII grossly intact, Neuro grossly intact Psych/Mental Status: Normal Affect, Appropriate Patient seen and examined prior to discharge. Physical assessment as noted above. Patient denies further chest pain. Stable for discharge with the recommendations as noted above. This patient was seen by Bri Loaiza NP-C under the supervision of Dr. Aly. Discharge Diet: Low fat/ Low Cholesterol Discharge Activity: Return to Normal Activity Call your doctor if you observe: Shortness of breath, Dizziness, Fainting spells, Chest pain, Increased palpitations (irregular heartbeat) Home Medications: Medications to take at Discharge Amlodipine [Norvasc] 5 mg PO DAILY 10/26/17 C,E,Zinc,Copper 11/Nsgji7k/Lut [Ocuvite Adult 50 Plus Softgel] 1 capsule PO DAILY 10/26/17 Ranitidine HCl 15 mg PO DAILY 10/26/17 Oseltamivir Phosphate [Tamiflu] 30 mg PO DAILY #2 cap 10/29/17 Following Prescrptions Were Given to Patient: Oseltamivir Phosphate [Tamiflu] 30 mg PO DAILY #2 cap Primary Care Physician: Antoinette Graves MD [Primary Care Provider] - Please follow up with your Primary Care Physician in: 1 Week Please Follow Up With: Marti Ramesh DO When: As scheduled, 11/27/17 Please Follow Up With: Deandre Kapoor MD - May see BRUSH CUTTER When: 4-6 Weeks, Establish to monitor lung nodule. Disposition: Home Minutes spent on discharge:: 35 Patient Condition:: Stable Medical Necessity - Tobacco Use Smoking Status: Former smoker Meaningful Use Info Meaningful Use Diagnoses (Choose all that apply): None applicable <Ian Aly E - Last Filed: 10/29/17 14:05> Discharge Date and Diagnosis - Secondary Discharge Diagnosis Chronic Problems History of stroke (Chronic) Chronic kidney disease, stage IV (severe) (Chronic) Hypertension (Chronic) Hospital Course and Treatment Imaging Results: 10/29/17 05:55 Nuclear Stress Test - Chemical [NM] AM (NON MEDS) Summary of Care Provided: Hospitalist note: Discharge summary above reviewed and I am in agreement with above discharge plan. I admitted this patient on October 26, 2017 for multiple symptoms including profound weakness and fatigue, atypical chest pain and vague abdominal pain. He was found to have acute influenza B. Initial chest x-ray on admission revealed vague bilateral nodular opacities for which CT chest without contrast performed and revealed right lower lobe lung nodule without evidence of acute infiltrate, pneumonia ruled out. Respiratory panel for viruses came back positive for influenza B. Patient was treated with IV fluids, decongestants, doxycycline and Tamiflu. He has stage IV chronic kidney disease due to obstructive nephropathy and on admission, his creatinine was slightly above his baseline. Patient was given IV fluids and his creatinine remained almost the same with little improvement. Nephrology consulted and recommended to continue same treatment without indication for urgent dialysis at this time. Because patient complained of chest pain, he underwent nuclear stress test that was normal with preserved ejection fraction. His troponin was negative ?4. Patient had near syncopal episode when he was taken down to the x-ray department for x-ray of the sinuses which is attributed to poor oral intake and dehydration. 2D echocardiogram revealed ejection fraction of 50-55%, stage I diastolic dysfunction. With above-mentioned treatment, patient symptoms improved and he felt significantly better. Today, he looked significantly better than when I saw him on admission. His vital signs remained stable and he remained afebrile. Patient discharged home on Tamiflu, continue with on his home chronic medications, recommended follow-up with PCP in 1 week and follow-up with nephrology as scheduled on November 27, 2017 and also recommended follow-up with pulmonology in 4-6 weeks regarding the right lung nodule. Code Visit Inpatient E&M: 25439 Disch Hosp
--- NOTE | 2017-10-29 11:54 | DS.PCM_ITS ---
<Bri Loaiza - Last Filed: 10/29/17 11:55> Discharge Date and Diagnosis Date of Admission: 10/26/17 Date of Discharge: 10/29/17 - Primary Discharge Diagnosis Active and Suspected Problems 1. Atypical chest pain-ACS ruled out. 2. Acute influenza B 3. Syncopal episode-suspected secondary to dehydration 4. 7 mm pulmonary nodule, new finding 5. 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 Vague bilateral nodular opacities which may be artifactual however consider CT of the chest for further characterization for difficult to exclude underlying nodules. Electronically Signed: Tammie Curry MD at 16:37 EDT Tel , Service support , Chest CT 10/27/17 12:00 IMPRESSION: Right lower lung 7 mm pulmonary nodule. No acute infiltrate. No reactive adenopathy. Small hiatal hernia. 1.7 cm left adrenal adenoma. Electronically Signed: Boom Gramajo DO at 6:57 EDT , Service support , Sinuses X-Ray 10/27/17 19:24 IMPRESSION: Normal x-rays of the paranasal sinuses. Electronically Signed: Boom Gramajo DO at 6:44 EDT , Service support , Dr. Ramesh- Nephrology Operations: None Procedures: 2-D Echocardiogram, Stress test Summary of Care Provided: Patient is a 67-year-old male admitted 10/26/2017 due to weakness, chest pain, abdominal pain. He has a past medical history of CVA, chronic kidney disease stage IV, hypertension, history of tobacco use. 1. Atypical chest pain-ACS ruled out. Patient describes infrequent, intermittent substernal chest pain lasting only a few seconds. Denies associated symptoms. States it feels like a burning sensation. Patient reports history of PA, unsure of the exact year but thinks 2013. Does not follow with cardiology. Troponin negative ?4. EKG without evidence of ischemia. Fasting lipid panel within normal limits. Echocardiogram showed an estimated ejection fraction of 50-55%, stage I diastolic dysfunction, mild global hypokinesis of the left ventricle, RVSP 25 mmHg. Patient underwent nuclear stress test which was negative for ischemia. He denies further chest pain. 2. Acute influenza B with associated generalized weakness, nasal congestion, productive cough-begin Tamiflu 30 mg daily for 5 days. Patient is symptomatically improved. 3. Syncopal episode-suspect due to dehydration/poor oral intake. Occurred during admission and radiology department when patient stood from sitting position for x-ray. Patient was reported to have no pulse but quickly aroused. Cardiac workup thus far unremarkable as noted above. Echocardiogram as noted above. Orthostatic vitals positive, patient received IV fluids and repeat orthostatic vitals negative. TSH, mg, phos WNL. Stress test negative for ischemia. 4. Lung nodule-chest x-ray showed hyperinflated lungs, vague bilateral nodular opacities. CT of chest showed right lower lung 7 mm pulmonary nodule, no acute infiltrate, small hiatal hernia, 1.7 cm left adrenal adenoma. Recommend follow- up with pulmonary medicine as outpatient and repeat imaging in 3 months. Patient does have a history of tobacco use. Establish with Pulmonary Medicine in [place] in 4-6 weeks. 5. Chronic kidney disease stage IV due to obstructive nephropathy-previously on temporary dialysis secondary to obstruction status post ureteral stent placements which was discontinued approximately 1 year ago due to improved kidney function. He follows with Dr. Ramesh as outpatient who was consulted. Creat April 2017 was 2.8. Admission creatinine 3.4. Improved with IV fluids. Patient self caths 4 times daily at home which patient will continue at discharge. Patient will continue outpatient follow-up with nephrology, he has an appointment scheduled 11/27/17. Urinalysis unremarkable. Urine culture showed mixed gram-positive organisms, suspected contamination. Patient denies urinary symptoms. Afebrile. No leukocytosis. 6. Hypertension-stable, continue home amlodipine regimen. 7. History of CVA-continue aspirin. Not on statin. Lipid panel within normal limits. 8. History of tobacco use-encouraged smoking cessation. General: Alert, Oriented x3, Cooperative HEENT: Atraumatic, PERRLA, EOMI, Normocephalic Neck: Supple, No JVD, Negative Carotid Bruits Lungs: Clear to auscultation, Diminished Cardiovascular: Regular rate, Regular Rhythm, Normal S1, Normal S2, No murmurs Abdomen: Bowel Sounds Present, Soft, Non Tender, Non-Distended Extremities: No clubbing, No cyanosis, No edema, Capillary Refill Less than 3 Seconds Skin: No rashes, No breakdown Musculoskeletal: No Tenderness to Palpation of Joints or Extremities Neurological: Cranial nerves II-XII grossly intact, Neuro grossly intact Psych/Mental Status: Normal Affect, Appropriate Patient seen and examined prior to discharge. Physical assessment as noted above. Patient denies further chest pain. Stable for discharge with the recommendations as noted above. This patient was seen by Bri Loaiza NP-C under the supervision of Dr. Aly. Discharge Diet: Low fat/ Low Cholesterol Discharge Activity: Return to Normal Activity Call your doctor if you observe: Shortness of breath, Dizziness, Fainting spells , Chest pain, Increased palpitations (irregular heartbeat) Home Medications: Medications to take at Discharge Amlodipine [Norvasc] 5 mg PO DAILY 10/26/17 C,E,Zinc,Copper 11/Duvan5u/Lut [Ocuvite Adult 50 Plus Softgel] 1 capsule PO DAILY 10/26/17 Ranitidine HCl 15 mg PO DAILY 10/26/17 Oseltamivir Phosphate [Tamiflu] 30 mg PO DAILY #2 cap 10/29/17 Following Prescrptions Were Given to Patient: Oseltamivir Phosphate [Tamiflu] 30 mg PO DAILY #2 cap Primary Care Physician: Antoinette Graves MD [Primary Care Provider] - Please follow up with your Primary Care Physician in: 1 Week Please Follow Up With: Marti Ramesh DO When: As scheduled, 11/27/17 Please Follow Up With: Deandre Kapoor MD - May see NUTRITION AIDE When: 4-6 Weeks, Establish to monitor lung nodule. Disposition: Home Minutes spent on discharge:: 35 Patient Condition:: Stable Medical Necessity - Tobacco Use Smoking Status: Former smoker Meaningful Use Info Meaningful Use Diagnoses (Choose all that apply): None applicable <Ian Aly E - Last Filed: 10/29/17 14:05> Discharge Date and Diagnosis - Secondary Discharge Diagnosis Chronic Problems History of stroke (Chronic) Chronic kidney disease, stage IV (severe) (Chronic) Hypertension (Chronic) Hospital Course and Treatment Imaging Results: 10/29/17 05:55 Nuclear Stress Test - Chemical [NM] AM (NON MEDS) Summary of Care Provided: Hospitalist note: Discharge summary above reviewed and I am in agreement with above discharge plan. I admitted this patient on October 26, 2017 for multiple symptoms including profound weakness and fatigue, atypical chest pain and vague abdominal pain. He was found to have acute influenza B. Initial chest x-ray on admission revealed vague bilateral nodular opacities for which CT chest without contrast performed and revealed right lower lobe lung nodule without evidence of acute infiltrate, pneumonia ruled out. Respiratory panel for viruses came back positive for influenza B. Patient was treated with IV fluids , decongestants, doxycycline and Tamiflu. He has stage IV chronic kidney disease due to obstructive nephropathy and on admission, his creatinine was slightly above his baseline. Patient was given IV fluids and his creatinine remained almost the same with little improvement. Nephrology consulted and recommended to continue same treatment without indication for urgent dialysis at this time. Because patient complained of chest pain, he underwent nuclear stress test that was normal with preserved ejection fraction. His troponin was negative ?4. Patient had near syncopal episode when he was taken down to the x- ray department for x-ray of the sinuses which is attributed to poor oral intake and dehydration. 2D echocardiogram revealed ejection fraction of 50-55%, stage I diastolic dysfunction. With above-mentioned treatment, patient symptoms improved and he felt significantly better. Today, he looked significantly better than when I saw him on admission. His vital signs remained stable and he remained afebrile. Patient discharged home on Tamiflu, continue with on his home chronic medications, recommended follow-up with PCP in 1 week and follow- up with nephrology as scheduled on November 27, 2017 and also recommended follow- up with pulmonology in 4-6 weeks regarding the right lung nodule. Code Visit Inpatient E&M: 35299 Disch Hosp
--- NOTE | 2017-10-29 13:00 | PCM.WORK.EX ---
Work/School Excuse Work/School Excuse for:: Patient Please excuse this person from:: Work From: 10/26/17 through: 11/02/17
== END 2017-10-29 13:13 | disposition home or self-care (01) | DRG 194 ==
LOC: ED 18:19 → PCU 18:46
PROVIDERS: Internal Medicine; Nurse Practitioner Family; Admitting Provider Hospitalist; Emergency Provider Emergency Medicine; Family Provider Internal Medicine; PCP Internal Medicine; Visit Provider Hospitalist
DX: J10.1 Influenza due to other identified influenza virus with other respiratory manifestations (principal); N18.4 Chronic kidney disease, stage 4 (severe); N13.8 Other obstructive and reflux uropathy; Z87.891 Personal history of nicotine dependence; I12.9 Hypertensive chronic kidney disease with stage 1 through stage 4 chronic kidney disease, or unspecified chronic kidney disease; E86.0 Dehydration; R91.1 Solitary pulmonary nodule; R55 Syncope and collapse; Z86.73 Personal history of transient ischemic attack (TIA), and cerebral infarction without residual deficits; R07.89 Other chest pain
CPT/HCPCS: 36415; 70220; 71045; 71250; 78452; 80048; 80061; 80076; 81001; 82962; 83690; 83735; 84100; 84443; 84484; 85025; 85027; 85379; 85610; 85730; 87086; 87088; 87633; 93005; 93017; 93306; 94760; 97162; 97165; 99283; A9500; J7030; J7040; Q9957; A4216; J2405; J2785

== ENCOUNTER → 2017-11-23 15:34 | Outpatient (CLI) | payer BC, MEDICARE, SELFPAY | PROVIDERS: Family Provider Internal Medicine; PCP Internal Medicine; Visit Provider Internal Medicine Nephrology | DX: N18.4 Chronic kidney disease, stage 4 (severe) (principal) | CPT/HCPCS: 36415; 80069 ==

== ENCOUNTER → 2017-11-27 10:30 | Outpatient (CLI) | payer BC, MEDICARE, SELFPAY ==
[2017-11-27 14:14] LABS: Hematocrit 42.4 % (40-54); Hemoglobin 13.6 g/dl (13.0-16.5); Mean Corp Hgb Conc 32.1 g/gl (32-36); Mean Corpuscular Hgb 31.8 pg (27.0-32.0); Mean Corpuscular Volume 99.1 fL (80-94); Mean Platelet Vol. 9.7 fl (6.2-12.0); Platelet Count 365 K/mm3 (150-450); RBC Distribution Width CV 13.5 % (11.6-14.6); RBC Distribution Width SD 47.8 fl (35.1-43.9); Red Blood Count 4.28 M/mm3 (4.6-6.2); Scan Indicated on CBC? Y/N NO
[2017-11-27 14:15] LABS: Albumin, Serum 3.3 g/dL (3.2-5.0); BUN 38 mg/dL (7-18); BUN/Creat Ratio 12.2 RATIO (10-20); Calcium,Total 8.6 mg/dL (8.5-10.1); Chloride 109 mmol/L (98-107); Creatinine, Serum 3.12 mg/dL (0.70-1.30); EST Glomerular Filtration Rate 21 mL/min (>60); Est Glom Filt Rate - Afr Amer 26 mL/min (>60); Glucose 99 mg/dL (74-106); Phosphorus 3.1 mg/dL (2.5-4.9); Potassium 4.3 mmol/L (3.5-5.1); Sodium Level 143 mmol/L (136-145)
[2017-11-28 09:07] LABS: PTHIN 186.1 pg/mL (18.4-80.1)
== END ==
PROVIDERS: Family Provider Internal Medicine; PCP Internal Medicine; Visit Provider Internal Medicine Nephrology
DX: N18.4 Chronic kidney disease, stage 4 (severe) (principal)
CPT/HCPCS: 36415; 80069; 83970; 85027

== ENCOUNTER → 2018-04-24 10:58 | Outpatient (CLI) | payer BC, MEDICARE, SELFPAY ==
[2018-04-24 12:56] LABS: Albumin, Serum 3.2 g/dL (3.2-5.0); BUN 46 mg/dL (7-18); BUN/Creat Ratio 14.8 RATIO (10-20); Calcium,Total 8.5 mg/dL (8.5-10.1); Chloride 110 mmol/L (98-107); EST Glomerular Filtration Rate 21 mL/min (>60); Est Glom Filt Rate - Afr Amer 26 mL/min (>60); Glucose 98 mg/dL (74-106); Phosphorus 2.9 mg/dL (2.5-4.9); Potassium 4.3 mmol/L (3.5-5.1); Sodium Level 143 mmol/L (136-145)
[2018-04-24 15:15] LABS: PTHIN 175.5 pg/mL (18.4-80.1)
== END ==
LOC: POLAB3 10:58
PROVIDERS: Family Provider Internal Medicine; PCP Internal Medicine; Visit Provider Internal Medicine Nephrology
DX: N18.4 Chronic kidney disease, stage 4 (severe) (principal)
CPT/HCPCS: 36415; 80069; 83970

== ENCOUNTER → 2018-09-02 10:28 | Outpatient (CLI) | payer BC, MEDICARE, SELFPAY ==
[2017-10-26 19:11] VITALS: BMI 22.5
[2018-09-02 12:41] LABS: Albumin, Serum 3.3 g/dL (3.2-5.0); BUN 48 mg/dL (7-18); BUN/Creat Ratio 13.8 RATIO (10-20); Calcium,Total 8.8 mg/dL (8.5-10.1); Chloride 112 mmol/L (98-107); Creatinine, Serum 3.49 mg/dL (0.70-1.30); EST Glomerular Filtration Rate 19 mL/min (>60); Est Glom Filt Rate - Afr Amer 23 mL/min (>60); Glucose 109 mg/dL (74-106); Phosphorus 3.5 mg/dL (2.5-4.9); Potassium 4.1 mmol/L (3.5-5.1); Sodium Level 144 mmol/L (136-145)
[2018-09-02 12:59] LABS: PTHIN 158.6 pg/mL (18.4-80.1)
--- OUTSIDE RECORDS SUMMARY | 2018-11-04 20:48 | XMS RPT_ITS ---
:1950 Author Organization OHIP Support Name Relationship Address Phone VISHAL ELLEN Unavailable Unavailable + [employer] Unavailable [address] + [place] [address] COMMINGS, ELLEN Unavailable Unavailable + [employer] Unavailable [address] + [place] [address] COMMINGS, ELLEN Unavailable Unavailable + [employer] Unavailable [address] + [place] [address] COMMINGS, ELLEN Unavailable Unavailable + [employer] Unavailable [address] + [place] [address] COMMINGS, ELLEN Unavailable Unavailable + [employer] Unavailable [address] + [place] [address] COMMINGS, ELLEN Unavailable Unavailable + [employer] Unavailable [address] + [place] [address] COMMINGS, ELLEN Unavailable Unavailable + [employer] Unavailable [address] + [place] [address] COMMINGS, ELLEN Unavailable Unavailable + [employer] Unavailable [address] + [place] [address] COMMINGS, ELLEN Unavailable Unavailable + [employer] Unavailable [address] + [place] [address] COMMINGS, ELLEN Unavailable Unavailable + [employer] Unavailable [address] + [place] [address] COMMINGS, ELLEN Unavailable Unavailable + [employer] Unavailable [address] + [place] [address] COMMINGS, ELLEN Unavailable Unavailable + [employer] Unavailable [address] + [place] [address] COMMINGS, ELLEN Unavailable Unavailable + [employer] Unavailable [address] + [place] [address] COMMINGS, ELLEN Unavailable Unavailable + [employer] Unavailable [address] + [address] [place] [facility] [place] [address] COMMINGS, ELLEN Unavailable Unavailable + [employer] Unavailable [address] + [place] [address] Care Team Providers Name Role Phone SELENA LESLIE Admitting Unavailable SELENA LESLIE Attending Unavailable FANNY NELSON (CRISTHIAN) Attending Unavailable GANTA, KARMA Referring Unavailable OLBRYCHRAS Attending Unavailable OLBRYCHRAS Referring Unavailable OLBRYCHRAS Referring Unavailable OLBRYCH, RAS Referring Unavailable KELLY MINAYA Attending Unavailable GANTA, KARMA Referring Unavailable DAVID PINA Attending Unavailable KELLY MINAYA Referring Unavailable DAVID PINA Referring Unavailable FANNY NELSON (CRISTHIAN) Attending Unavailable GANTA, KARMA Attending Unavailable GANTA, KARMA Referring Unavailable GANTA, KARMA Referring Unavailable GANTA, KARMA Referring Unavailable BREONNA HYATT (PA) Attending Unavailable GANTA, KARMA Referring Unavailable DEBO LEONARD (TEMPERING MACHINE OPERATOR) Attending Unavailable FANNY NELSON (TEMPERING MACHINE OPERATOR) Attending Unavailable SELENA LESLIE Attending Unavailable KELLY MINAYA Referring Unavailable SELENA LESLIE Referring Unavailable GANTA, KARMA Attending Unavailable GANTA, KARMA Referring Unavailable SELENA LESLIE Referring Unavailable MINI CASH (PA) Referring Unavailable Gadiel, Marti Attending Unavailable Ganta, Karma Primary Care Unavailable Gadiel, Marti Attending Unavailable Ganta, Karma Primary Care Unavailable Julio Onofre Attending Unavailable Jose Pierre Attending Unavailable Ashelfah, Ghasem Referring Unavailable Julio Onofre Attending Unavailable Ashelfah, Ghasem Admitting Unavailable Ganta, Karma Primary Care Unavailable Gadiel, Marti Consulting Unavailable Mina, Mack Attending Unavailable Mina, Mack Consulting Unavailable Ashelfah, Ghasem Admitting Unavailable Ashelfah, Ghasem Attending Unavailable Ganta, Karma Primary Care Unavailable Ashelfah, Ghasem Consulting Unavailable Gadiel, Marti Attending Unavailable Ganta, Karma Primary Care Unavailable Ganta, Karma Primary Care Unavailable Ashelfah, Ghasem Admitting Unavailable Ashelfah, Ghasem Attending Unavailable Gadiel, Marti Consulting Unavailable Gadiel, Marti Attending Unavailable Ganta, Karma Primary Care Unavailable Gadiel, Marti Referring Unavailable Gadiel, Marti Attending Unavailable Ganta, Karma Primary Care Unavailable Gadiel, Marti Attending Unavailable Ganta, Karma Primary Care Unavailable Gadiel, Marti Attending Unavailable Ganta, Karma Primary Care Unavailable Ashelfah, Ghasem Admitting Unavailable Ganta, Karma Primary Care Unavailable Gadiel, Marti Consulting Unavailable Ashelfah, Ghasem Attending Unavailable Ashelfah, Ghasem Consulting Unavailable Ashelfah, Ghasem Admitting Unavailable Ganta, Karma Primary Care Unavailable Gadiel, Marti Consulting Unavailable Mina, Mack Attending Unavailable Mina, Mack Consulting Unavailable PROBLEMS PROBLEMS DATE TYPE CONDITION / CODE ATTENDING STATUS SOURCE 09/03/2018 Unknown N18.4 - Chronic kidney Marti Ramesh Active [facility] disease, stage 4 Community (severe) / Hospital N18.4(ICD-10) Repository 07/31/2018 Active Chronic kidney LESLIE, Active [facility] disease, stage 4 SELENA D Clinic Other (severe) / [place] N18.4(ICD-10) Repository 08/15/2018 Active Other acute LESLIE, Active [facility] postprocedural pain / SELENA D Clinic Other G89.18(ICD-10) [place] Repository 03/18/2018 Active Chronic obstructive NA Active [place] pulmonary disease, Clinic Main unspecified / [place] J44.9(ICD-10) Repository 05/03/2017 Active Essential (primary) NA Active [facility] hypertension / Clinic Main I10(ICD-10) [place] Repository 01/29/2017 Active Benign prostatic NA Active [place] hyperplasia with lower Clinic Main urinary tract symptoms [place] / N40.1(ICD-10) Repository 01/29/2017 Active Other retention of NA Active [place] urine / R33.8(ICD-10) Clinic Main [place] Repository 01/26/2016 Active Retention of urine, NA Active [place] unspecified / Clinic Main R33.9(ICD-10) [place] Repository 08/09/2018 Active Encounter for other NA Active [place] preprocedural Clinic Main examination / [place] Z01.818(ICD-10) Repository 08/09/2018 Active Cerebral infarction NA Active [place] due to thrombosis of Clinic Main unspecified cerebral [place] artery / Repository I63.30(ICD-10) 05/28/2018 Active Other group home NA Active [place] (current) drug therapy Clinic Main / Z79.899(ICD-10) [place] Repository 05/08/2018 Active Gastro-esophageal NA Active [place] reflux disease without Clinic Main esophagitis / [place] K21.9(ICD-10) Repository 05/08/2018 Active Pain in throat / NA Active [place] R07.0(ICD-10) Clinic Main [place] Repository 04/29/2018 Active Other forms of dyspnea NA Active [facility] / R06.09(ICD-10) Clinic Main [place] Repository 04/29/2018 Active Supraventricular NA Active [place] tachycardia / Clinic Main I47.1(ICD-10) [place] Repository 03/28/2018 Active Other nonspecific NA Active [place] abnormal finding of Clinic Main lung field / [place] R91.8(ICD-10) Repository 03/18/2018 Active Unknown / UNK(Unknown) ELI, Active [facility] Main [place] Repository 03/18/2018 Active Dyspnea, unspecified / NA Active [facility] R06.00(ICD-10) Clinic Main [place] Repository 03/18/2018 Active Other abnormalities of NA Active [place] breathing / Clinic Main R06.89(ICD-10) [place] Repository 12/11/2017 Unknown R94.31 - Abnormal Julio Onofre Active [facility] electrocardiogram Community [ECG] [EKG] / Hospital R94.31(ICD-10) Repository 11/21/2017 Unknown R07.9 - Chest pain, Julio Onofre Active [place] unspecified / Community R07.9(ICD-10) Hospital Repository 12/11/2017 Unknown R07.89 - Other chest [place], [place] Active [place] pain / R07.89(ICD-10) [facility] Repository PROCEDURES PROCEDURES No Procedure Records FoundRESULTS RESULTS CNPN Observed: 09/04/2018 Status: COMPLETED Source: [place] 12:00 AM [facility] REPOSITORY Telephone (VASSMD) ERIN RODGERS ([id number]) 1950 M Date Time Provider Department 09/04/18 SELENA LESLIE VASSMD During your visit today, we recorded the following information about you: Kelly Ricks Psr 09/04/2018 2:02 PM Signed Faxed completed paperwork to [employer] [phone]. ID [id number] VINOD case # [id number] DIS claim number [id number] Kelly Ricks Psr 09/04/2018 2:04 PM Signed Madyson paper faxed in [employer]. Allergies As of Date: 09/04/2018 Noted Allergy Reaction AMOXICILLIN 01/26/2016 7 - Swelling CIPROFLOXACIN 01/26/2016 7 - Swelling CODEINE 12/22/2016 1 - Mental Status Change Date Reviewed: 08/15/2018 Reviewed by: Meryl (Rn) FLOYD Barnes - Fully Assessed Reason for Visit: Electronic Communication [890] Cmt: JOANNE Prescriptions as of 09/04/2018 Sig: TRAZODONE 50 MG TABLET Take 0.5 tablets by mouth catrachito* RANITIDINE 150 MG TABLET Take 1 tablet by mouth once d* AMLODIPINE 10 MG TABLET Take 1 tablet by mouth once d* METOPROLOL SUCCINATE ER 25 MG* Take 1 tablet by mouth once d* TAMSULOSIN 0.4 MG CAPSULE Take 1 capsule by mouth daily* Patient taking differently: Take 0.4 mg by mouth as neede* MELATONIN 10 MG TABLET Take 10 mg by mouth as needed. TYLENOL ORAL Take by mouth as needed. OCUVITE PRESERVISION ORAL Take by mouth once daily. CATHETER 16 FR ISC four times daily and as n* Problem List As Of Date 09/04/2018 Noted Resolved Renal failure [N19] INVALID FOR*05/03/2017 Chronic retention of urine [R33.9] INVALID FOR* More... 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 Dialysis patient ([facility]) [Z99.2] INVALID FOR*05/03/2017 More... 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 Right shoulder pain [M25.511] INVALID FOR* More... 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 Posterior vitreous detachment of both eyes [H43*INVALID FOR* Stage 4 chronic kidney disease ([facility]) [N18.4] INVALID FOR* More... Essential hypertension [I10] INVALID FOR* More... COPD with chronic bronchitis ([facility]) [J44.9] INVALID FOR* More... Solitary pulmonary nodule [R91.1] INVALID FOR* More... SVT (supraventricular tachycardia) ([facility]) [I47.1]INVALID FOR* Dysphagia [R13.10] INVALID FOR* More... CKD (chronic kidney disease) stage 4, GFR 15-29*INVALID FOR* More... Encounter Status:Closed by KELLY RAHMAN on 09/04/18 RENAL PROFILE Collected: 09/02/2018 Status: F Source: [place] 10:29 AM [facility] REPOSITORY TYPE CODE TESTS RESULT OUT OF RANGE REFERENCE UNITS LAB L501.0100 74-106 mg/dL High GLU 109 Result Comment: Fasting Glucose result from 100 to 125 mg/dL suggests IMPAIRED HOMEOSTASIS per A.D.A. criteria. Please note revised GLUCOSE reference range effective 2017. LAB L501.1000 7-18 mg/dL High BUN 48 LAB L501.1100 0.70-1.30 mg/dL High CREAT,SERUM 3.49 Result Comment: The validity of the calculated GFR AND GFRAA in patients over 70 years has not been determined. Clinical correlation is essential. LAB L501.1110 >60 mL/min Low EST GFR 19 Result Comment: Non- GFR Calc LAB L501.1115 >60 mL/min Low EST GFR - AA 23 Result Comment: GFR Calc LAB L501.1300 10-20 RATIO Normal BUN/CRE 13.8 LAB L501.1800 3.2-5.0 g/dL Normal ALB 3.3 LAB L501.2200 8.5-10.1 mg/dL CA Normal 8.8 LAB L501.2300 2.5-4.9 mg/dL Normal PHOS 3.5 LAB L501.5300 136-145 mmol/L NA Normal 144 LAB L501.5600 3.5-5.1 mmol/L K Normal 4.1 LAB L501.5900 98-107 mmol/L High CL 112 LAB L501.6100 21.0-32.0 mmol/L Normal CO2 23.0 Performed By: #### L500.3600 #### [facility] [address] [place], [address] PTHIN Collected: 09/02/2018 Status: F Source: [place] 10:29 AM [facility] REPOSITORY TYPE CODE TESTS RESULT OUT OF RANGE REFERENCE UNITS LAB L509.1000 18.4-80.1 pg/mL High PTHIN 158.6 Performed By: #### L509.1000 #### [facility] [address] [facility] [place], [address] PROGRESS Observed: 08/28/2018 Status: COMPLETED Source: [place] 1:41 PM [facility] REPOSITORY HNO ID: [id number] Author: Cristobal (Rn) FLOYD Bernabe Service: (none) Author Type: Registered Nurse Type: Progress Notes Filed: 08/28/2018 1:49 PM Note Text: New Referral Referring Physician Dr. Marti Ramesh Organ Type kidney ESRD No. Cause: HTN Dialysis Dependant? Pulcifer of Dialysis Facility: n/a Diabetes No. Current BMI 23.2 Previous Transplant No Date of Last Transplant n/a Currently Listed? No. Facility: n/a Willing to accept blood transfusion? Yes Potential Living Donor? maybe Full transplant evaluation? Yes Nephrology Screen Required? No If yes to nephrology screen, reason: n/a Cristobal Bernabe RN Pre-Kidney AND Pancreas [employer] [facility] CNCO Observed: 08/26/2018 Status: COMPLETED Source: [place] 12:[address] [facility] REPOSITORY Letter Text Kidney and Pancreas Transplant Program Pre-Transplant Office [address] [place] [address] , ext. [phone] August 26, 2018 Dear Mckinley Erin Rodgers, Our office had received a referral for you for a kidney transplant evaluation. We made attempts to contact you on 08/20/2018 and 08/26/2018 but we were unable to reach you. If you are ready to pursue transplantation at [facility], please call our office at [phone] or toll-free at ext [phone] to speak with a member of our team about getting started. If this is not the right time for you to pursue transplantation, please call us in the future when you are ready. If we do not hear from you by 5pm on 09/06/2017, we will close your referral for transplant. Respectfully yours, The Kidney and Pancreas Transplant Program CC: Marti Ramesh PT ED Observed: 08/15/2018 Status: COMPLETED Source: [place] 3:17 PM [facility] REPOSITORY HNO ID: [id number] Author: Meryl Diego) FLOYD Barnes Service: Nursing Author Type: Registered Nurse Type: Patient Education Filed: 08/15/2018 3:17 PM Note Text: POST OP LEARNING RESPONSE INSTRUCTION PROVIDED TO: Patient and family member METHOD OF INSTRUCTION: Individual instruction Written instruction - handouts Verbal instruction PATIENT / FAMILY RESPONSE: Information received as demonstrated by interest and questions FOLLOW-UP PLAN: Patient instructed to call with any further issues SUPPLEMENTAL MATERIAL: Post op discharge instructions REFERRAL (RECOMMENDATION): None Electronically Signed By: Meryl Barnes RN In Department: [facility] SURGERY ANES POST Observed: 08/15/2018 Status: COMPLETED Source: [place] 2:[address] [facility] [place] REPOSITORY HNO ID: [id number] Author: Sunny Alvarez Service: Anesthesiology Author Type: Anesthesiologist Type: Anesthesia PostOp Filed: 08/15/2018 2:17 PM Note Text: POST ANESTHESIA EVALUATION NOTE SERVICE DATE: 08/15/2018 SERVICE TIME: 2:17 PM : 1950 Vitals: 08/15/18 0934 08/15/18 1302 Temp: 36.5 ?C (97.7 ?F) 36.3 ?C (97.3 ?F) 08/15/18 1025 08/15/18 1030 08/15/18 1035 08/15/18 1302 BP: 169/93 149/80 134/81 117/62 08/15/18 1025 08/15/18 1030 08/15/18 1035 08/15/18 1302 Pulse: (!) 54 (!) 54 (!) 52 (!) 58 08/15/18 1025 08/15/18 1030 08/15/18 1035 08/15/18 1302 Resp: 17 18 17 18 08/15/18 10208/15/18 1030 08/15/18 1035 08/15/18 1302 SpO2: 99% 100% 98% 100% Validated Vital Signs: Yes POST ANES STATUS: No apparent anesthetic complications. The patient is appropriately hydrated with stable respiratory and cardiovascular status. Patient has safe and adequate airway control. The patient has appropriate pain relief and no significant post operative nausea or vomiting. The patient has achieved baseline mental status. Further assessment by Anesthesia Service: None Other Remarks: SIGNATURE: Sunny Alvarez MD PATIENT NAME: Erin Rodgers DATE: August 15, 2018 TIME: 2:17 PM PAGER/CONTACT #: [phone] BRIEF OP NOT Observed: 08/15/2018 Status: COMPLETED Source: [place] 1:17 PM [facility] REPOSITORY HNO ID: [id number] Author: Selena Leslie Service: Vascular Surgery Author Type: Physician Type: Brief Op Note Filed: 08/15/2018 1:19 PM Note Text: BRIEF OP NOTE LOG ID: [id number] Surgery/Procedure Date: 08/15/2018 Incision/Procedure Start Time: 11:19 AM Incision Close/Procedure End Time: 12:47 PM Surgeon(s)/Proceduralist(s) and Hair Baler(s): Surgeon(s) and Role: * Selena Leslie - Primary Patricia Miller Procedure(s): Creation of left arm radiocephalic arteriovenous fistula Anesthesia: Monitored Anesthesia Care Findings: cephalic vein 3mm Estimated Blood Loss: per anesthesia Specimens: None Complications: None Pre-Op/Pre-Procedure Diagnosis: Chronic kidney disease stage 4 Post-Op/Post-Procedure Diagnosis: CKD (chronic kidney disease) stage 4, GFR 15-29 ml/min ([facility]) SIGNATURE: Selena Leslie DO PATIENT NAME: Erin Rodgers DATE: August 15, 2018 TIME: 1:17 PM PAGER/CONTACT #: NURSING PROG Observed: 08/15/2018 Status: COMPLETED Source: [place] 1:14 PM [facility] REPOSITORY HNO ID: [id number] Author: Meryl WhiteheadRn) FLOYD Barnes Service: Nursing Author Type: Registered Nurse Type: Nursing Progress Note Filed: 08/15/2018 2:34 PM Note Text: Nursing Progress Note Patient Name: Erin Rodgers Patient Location: [facility] 1300 Pt received in PACU on cart from OR. CR monitor applied and strip obtained. Thrill and bruit to left wrist. This note was completed by: Meryl Barnse RN 1400 Pt placed in Phase 2 care. Snack given. NURSING PROG Observed: 08/15/2018 Status: COMPLETED Source: [place] 10:51 AM [facility] REPOSITORY HNO ID: [id number] Author: Remberto WhiteheadRn) FLOYD Oden Service: Nursing Author Type: Registered Nurse Type: Nursing Progress Note Filed: 08/15/2018 10:52 AM Note Text: Dr. Alvarez at bedside for Left supraclavicular nerve block. RN at bedside, pt monitored throughout, BP 134/81 Pulse (!) 52 Temp 36.5 ?C (97.7 ?F) Resp 17 SpO2 98% . Pt tolerated procedure without difficulty. ANES PREOP Observed: 08/15/2018 Status: COMPLETED Source: [place] 10:06 AM [facility] REPOSITORY HNO ID: [id number] Author: Sunny Gordonerwingraciela Service: Anesthesiology Author Type: Anesthesiologist Type: Anesthesia PreOp Filed: 08/15/2018 10:07 AM Note Text: ANESTHESIOLOGY DAY OF SURGERY NOTE SERVICE DATE: 08/15/2018 SERVICE TIME: 10:06 AM : 1950 Procedure(s) (LRB): CREATION FISTULA ARTERIOVENOUS EXTREMITY UPPER (Left) Surgeon(s): Selena Leslie Estimated body mass index is 22.96 kg/m? as calculated from the following: Height as of 08/09/18: 177.8 cm (5' 10). Weight as of 08/09/18: 72.6 kg (160 lb). 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. - COPD with chronic bronchitis (HCC) 03/2018 Moderate by 03/18/2018 PFT. - HTN (hypertension) - Ischemic heart disease ??? - Renal failure - Solitary pulmonary nodule 03/2018 7 mm, RLL; CT Chest [facility], 08/2017. - TIA (transient ischemic attack) 2011 CVA - Urinary retention PAST SURGICAL HISTORY Procedure Laterality Date - APPENDECTOMY 1972 - COLONOSCOPY - EGD - HEMMORRHOIDECTOMY,EXTERNAL SINGLE - PAST SURGICAL HISTORY OF 09/06/2015 kidney stent placement; Dr. Nia Henry PA - PAST SURGICAL HISTORY OF 1975 sinus surgery - PROSTATECTOMY, SIMPLE, BENIGN 2010 partial FAMILY HISTORY Problem Relation Age of Onset - Cancer Mother stomach - Diabetes Maternal Aunt Social History: Social History Substance Use Topics - Smoking status: Former Smoker Packs/day: 1.50 Years: 48.00 Types: Cigarettes Start date: 02/16/1964 Quit date: 10/23/2011 - Smokeless tobacco: Never Used Comment: FAther smoked in childhood home. - Alcohol use No No current facility-administered medications on file prior to encounter. Current Outpatient Prescriptions on File Prior to Encounter: amLODIPine (NORVASC) 10 mg tablet Take 1 tablet by mouth once daily. metoprolol succinate ER (TOPROL XL) 25 mg 24 hr tablet Take 1 tablet by mouth once daily. melatonin 10 mg tab Take 10 mg by mouth as needed. acetaminophen (TYLENOL ORAL) Take by mouth as needed. VIT A/VIT C/VIT E/ZINC/COPPER (OCUVITE PRESERVISION ORAL) Take by mouth once daily. traZODone (DESYREL) 50 mg tablet Take 0.5 tablets by mouth daily at bedtime. ranitidine (ZANTAC) 150 mg tablet Take 1 tablet by mouth once daily. tamsulosin ER (FLOMAX) 0.4 mg cap Take 1 capsule by mouth daily at bedtime. (Patient taking differently: Take 0.4 mg by mouth as needed. ) Catheter (BARD COUDE TIP CATHETER) 16 Fr misc ISC four times daily and as needed Current Facility-Administered Medications: clindamycin iv piggyback 900 mg in D5W 50 mL (CLEOCIN) 900 mg INTRAVENOUS Pre-Op Once Selena Leslie midazolam (PF) 2 mg injection (VERSED) 2 mg INTRAVENOUS ONCE Sunny Alvarez Allergies: ALLERGIES Allergen Reactions - Amoxicillin Swelling - Ciprofloxacin Swelling - Codeine Mental Status Change DOS EXAM: Adequate NPO status: Yes Anesthetic risks, benefits, alternatives, personnel and consent discussed: Yes Patient agrees to proceed: Yes Previous Anesthesia: No history of adverse event. Airway Assessment: MP 2; Neck ROM: Full ROM without neurologic symptoms; Airway Evaluation: No significant abnormalities Symptoms of Sleep Apnea: None Dentition: Removable partial: both Additional Physical Exam: Lungs: Patient health status unchanged since recent history and physical. See history and physical for exam findings. Cardiac: Patient health status unchanged since recent history and physical. See history and physical for exam findings. Additional Pertinent Findings: N/A Blood Products: Not anticipated for this procedure. Anesthetic Plan: MAC with Sedation and Block with Sedation Pain Management Plan: Parenteral or Oral ASA Class: 3 Other Medical Problems: None I have interviewed and examined the patient. I have reviewed the medical record and/or the pre-anesthesia evaluation, pertinent labs, and test results. Significant changes in the patient's condition since the History and Physical, not otherwise documented in primary service progress notes: No This contains updated information obtained within 48 hours of Surgery/Procedure. SIGNATURE: Sunny Alvarez MD PATIENT NAME: Erin Rodgers DATE: August 15, 2018 TIME: 10:06 AM CSN: [id number] PT ED Observed: 08/15/2018 Status: COMPLETED Source: [place] 9:39 AM [facility] REPOSITORY HNO ID: [id number] Author: Remberto (Rn) FLOYD Oden Service: Nursing Author Type: Registered Nurse Type: Patient Education Filed: 08/15/2018 9:39 AM Note Text: PRE OP LEARNING ASSESSMENT PROCEDURE/SURGERY: SURGERY: creation of left av fistula READINESS TO LEARN COGNITIVE ABILITY: Alert and oriented MOTIVATION TO LEARN: Eager FAMILY SUPPORT: High - Very involved in pt care PATIENT LEARNS BEST BY: Individual Instruction Verbal Instruction FACTORS AFFECTING LEARNING: None PHYSICAL LIMITATIONS AFFECTING LEARNING: None Electronically Signed By: Remberto Oden RN In Department: [facility] SURGERY POTASSIUM Collected: 08/15/2018 Status: F Source: [place] 9:25 AM [facility] REPOSITORY TYPE CODE TESTS RESULT OUT OF REFERENCE UNITS RANGE LAB K 3.7-5.1 mmol/L Potassium 4.4 Performed By: #### K1 #### [facility] [address] [facility] [place] [phone] OPERATIVE NO Observed: 08/15/2018 Status: COMPLETED Source: [place] 12:[address] [facility] OTHER [place] REPOSITORY HNO ID: [id number] Author: Selena Leslie Service: Vascular Surgery Author Type: Physician Type: Operative Report Filed: 08/28/2018 5:03 PM Note Text: [facility] - Operative Report ERIN RODGERS : 1950 AGE: 68. SEX: M PATIENT TYPE: A HOSP SV: FLAVIO LOCATION: [facility] ATTENDING PHYSICIAN: Selena Leslie D.O. CSN NUMBER: [id number] DATE OF SURGERY/PROCEDURE: 08/15/2018 INCISION/PROCEDURE START TIME: 11:19. INCISION CLOSE/PROCEDURE END TIME: 12:47. PREOPERATIVE DIAGNOSIS: Chronic kidney disease stage 4. POSTOPERATIVE DIAGNOSIS: Chronic kidney disease stage 4. SURGEON: Selena Leslie D.O. BREADING MACHINE TENDER: DOROTHY Camarena. SURGERY/PROCEDURE: Creation of left arm radiocephalic arteriovenous fistula. ANESTHESIA: Monitored Anesthesia Care INDICATION: The patient is a 68-year-old gentleman with a history of chronic kidney disease, who presented to the office for referral from his lead painter for creation of AV access. He is right handed. He had vein mapping that demonstrated adequate left arm vein. The procedure was discussed with the patient including risks, benefits, alternatives, and consent was obtained. DESCRIPTION OF PROCEDURE: A huddle was performed. The patient was then taken to the operating room, placed supine on the operating room table. Anesthesia was induced. Following this, left arm was interrogated with ultrasound. He did have adequate distal cephalic firm vein that was greater than 3 mm in diameter. However, it did branch in the mid forearm and it appeared that primarily drained via the basilic. In our preoperative discussion, he wished that we try to go at his wrist versus his upper arm, This did appear to be adequate. It also should be noted to have excellent basilic vein if needed. My plan was to create a radiocephalic AV fistula. Following this, his left arm was prepped and draped in standard sterile fashion. He was given perioperative antibiotics. A time-out was performed. We then made a transverse incision above his wrist over the location of the radial artery and distal cephalic vein. I deepened down the tissues with electrocautery. We identified the cephalic vein and sharply dissected it free proximally and distally with Metzenbaum scissors. Following this, I turned my attention towards identifying the radial artery. It was sharply dissected free with Metzenbaum scissors. We got proximal and distal control with Silastic vessel loops. The branches of the cephalic vein were ligated with 3-0 silk suture. The cephalic vein was marked to ensure no kinks or twists. The patient was heparinized. This was allowed to circulate for a period of 3 minutes. We clamped cephalic vein distally and ligated it with 2-0 silk suture and Hemoclips. Following this, we flushed the cephalic vein. It dilated nicely. After his heparin was allowed to circulate for a period of 3 minutes, we clamped his radial artery. We made an arteriotomy with an 11 blade and extended with Coronado scissors. We then fashioned the cephalic vein in an end-to-side anastomosis. Using 6-0 Prolene, we completed the anastomosis in standard fashion. Prior to completion we flushed both proximally and distally, had excellent inflow as well as backbleeding from the artery. We did have some backbleeding noted from the vein. He did have a good thrill noted through the fistula. The wound was copiously irrigated. Hemostasis was achieved with electrocautery. We then closed with deep layer of 3-0 Vicryl in interrupted fashion and the skin was closed with 4-0 Monocryl in a running subcuticular fashion. A sterile dressing of Exofin skin glue, 4x4s, and Tegaderm was applied. The patient was awakened in the operating room and taken to postanesthesia care unit in stable condition. All sponge and needle counts were correct at the end of the case. I was present, scrubbed, and performed this with the assistance of Patricia Miller. Selena Leslie D.O. KB:[id number] NURSING PROG Observed: 08/09/2018 Status: COMPLETED Source: [place] 11:21 AM CLINIC OTHER CAMPUS REPOSITORY O ID: [id number] Author: Michaela (Rn) FLOYD Ramirez Service: Nursing Author Type: Registered Nurse Type: Nursing Progress Note Filed: 08/12/2018 7:31 AM Note Text: PACC Nurse Progress Note History AND Physical: PACC Visit Date: 08/09/2018 Original HANDP Date: 08/09/2018 ED visit Date: N/A Outside HANDP Scanned Date: N/A Labs Within Last 6 Months: CBC: Date in process BMP/CMP: Date in process PT: Date in process PTT: Date in process Hemoglobin A1C (%): 05/28/2018 - 5.8 01/29/2017 - 5.4 Imaging Within Last 12 Months: X-ray upper extremity mapping Cardiac Testing: EKG in last 12 Months: Yes: Date: 04/29/2018, Comment: normal ECG, sinus anup 59 bpm BMI Percentile (PEDS): N/A Wt 160 lb (72.6kg) BMI 22.96 kg/(m2) Risk Assessment: N/A Anesthesia Review: N/A Narrative: HTN - Well controlled Renal Failure - Chronic and worsening- currently no dialysis for 2 yrs chronic MADRID's GERD- on rx PSVT- follows with Dr Pina and recently asymptomatic COPD- mild no inhalers or O2 (h/o 72 pk yr smoker) Pre-op Considerations: Stroke - 2011, residual right eye vision disturbance Urinary retention and self caths qid Chart Check: IN PROGRESS - pending labs results Letty Infante RN August 09, 2018 11:21 AM 08/12/18 Labs from 08/09/18-PT,PTT- wnl, Cbc/diff- within acceptable limits. Cmp- Bun 49, creatinine, 3.0- see DX. Chart check complete FLOYD Gomez PROTIME Collected: 08/09/2018 Status: F Source: [place] 9:[address] [facility] REPOSITORY TYPE CODE TESTS RESULT OUT OF RANGE REFERENCE UNITS LAB PSEC 9.7-13.0 sec PT Sec 10.0 LAB INR 0.9-1.3 PT INR 0.9 Result Comment: Vitamin K Antagonist (VKA) Therapeutic Range: INR 2 to 3 (Target INR of 2.5) Note: For patients treated with VKA drugs, such as warfarin, the [employer] 2012 Guideline recommends a therapeutic INR range of 2 to 3 (target INR of 2.5). This recommendation includes high-risk patients with antiphospholipid syndrome with previous arterial or venous thromboembolism, current-generation mechanical or bioprosthetic aortic heart valve replacement. Note: Patients with mechanical aortic valve replacement and additional risk factors for thromboembolic events (atrial fibrillation, previous thromboembolism, LV dysfunction, hypercoagulable conditions) or an older generation mechanical AVR (i.e., ball in-Cage) or any mechanical MVR should have a INR therapeutic range of 2.5 to 3.5 (target INR of 3). Kelby MARCUS, et al. Chest 2012, 141:7S-47S Chelsea TORRES et al. [facility] 2017, 70: 252-289 Performed By: #### PT #### [facility] [address] [place] [address] CBC AND DIFFERENTIAL Collected: 08/09/2018 Status: F Source: [place] 9:05 AM [facility] REPOSITORY TYPE CODE TESTS RESULT OUT OF REFERENCE UNITS RANGE LAB WBC 3.70-11.00 k/uL WBC 9.26 LAB RBC 4.20-6.00 m/uL RBC 4.37 LAB HGB 13.0-17.0 g/dL Hemoglobin 14.0 LAB HCT 39.0-51.0 % Hematocrit 43.0 LAB MCV 80.0-100.0 fL MCV 98.4 LAB MCH 26.0-34.0 pG MCH 32.0 LAB MCHC 30.5-36.0 g/dL MCHC 32.6 LAB RDWCV 11.5-15.0 % RDW-CV 13.6 LAB PLTCT 150-400 k/uL Platelet Count 365 LAB MPV 9.0-12.7 fL MPV 10.0 LAB ANEUT % Neut% 63.9 LAB AANEUT 1.45-7.50 k/uL Abs Neut 5.93 LAB ALYMP % Lymph% 21.0 LAB AALYMP 1.00-4.00 k/uL Abs Lymph 1.94 LAB AMONO % Collin% 12.1 LAB AAMONO <0.87 k/uL Abs Collin High 1.12 LAB AEOS % Eosin% 2.2 LAB AAEOS <0.46 k/uL Abs Eosin 0.20 LAB ABASO % Baso% 0.8 LAB AABASO <0.11 k/uL Abs Baso 0.07 LAB AUNRBC 0 /100 WBC NRBCs 0.0 LAB ABNRBC <0.01 k/uL Absolute nRBC <0.01 LAB DTYP DTYPE Auto Diff Performed By: #### CBCDIF #### [facility] [address] [place], [place] [address] APTT Collected: 08/09/2018 Status: F Source: [place] 9:05 [facility] REPOSITORY TYPE CODE TESTS RESULT OUT OF RANGE REFERENCE UNITS LAB APTT 23.0-32.4 sec APTT 28.1 Result Comment: Unfractionated Heparin Therapeutic Ranges: Standard Heparin Nomogram: 53 to 78 seconds (anti-Xa level of 0.3 to 0.7 U/ml) Low Dose/ACS Nomogram: 49 to 67 seconds (anti-Xa level of 0.2 to 0.5 U/ml) Stroke Treatment Nomogram: 49 to 67 seconds (anti-Xa level of 0.2 to 0.5 U/ml) Note: The APTT therapeutic range has been determined for the current lot of laboratory APTT reagent in use throughout the [facility]. Performed By: #### PTT #### [facility] [address] [place] [id number] COMP METABOLIC PANEL Collected: 08/09/2018 Status: F Source: [place] 9:[address] [facility] REPOSITORY TYPE CODE TESTS RESULT OUT OF REFERENCE UNITS RANGE LAB TP 6.3-8.0 g/dL Protein, Total 6.7 LAB ALB 3.9-4.9 g/dL Albumin 3.9 LAB CA 8.5-10.2 mg/dL Calcium, Total 9.0 LAB TBIL 0.2-1.3 mg/dL Bilirubin, Total 0.3 LAB ALKP 38-113 U/L Alkaline Phosphatase 85 LAB AST 14-40 U/L AST Low 13 LAB GLU 74-99 mg/dL Glucose 83 LAB BUN 9-24 mg/dL BUN High 49 LAB CRET 0.73-1.22 mg/dL Creatinine High 3.09 LAB NA 136-144 mmol/L Sodium 141 LAB K 3.7-5.1 mmol/L Potassium 4.5 LAB CL 97-105 mmol/L Chloride High 110 LAB CO2 22-30 mmol/L CO2 Low 19 LAB AGAP 9-18 mmol/L Anion Gap 12 LAB ALT 10-54 U/L ALT Low 9 LAB GFRAA eGFR- 24 Amer. LAB GFRNAA . eGFR-All Other Races 20 Result Comment: eGFR (Estimated GFR) Units of measure: mL/min/1.73 meters squared eGFR is derived from the reexpressed MDRD Study equation using the following parameters: serum creatinine, age, gender and race. The creatinine assay has been calibrated to be traceable to IDMS. An eGFR <60 mL/min/1.73m2 for >3 months is consistent with chronic kidney disease. Refer to KDOQI guidelines for clinical interpretation. In patients with unstable renal function, e.g. those with acute kidney injury, the eGFR may not accurately reflect actual GFR. HISTORY PHYSICAL Observed: 08/09/2018 Status: COMPLETED Source: [place] 8:[address] [facility] REPOSITORY O ID: [id number] Author: Mini Cash (Pa) Service: (none) Author Type: Physician Hair Baler Type: HANDP Filed: 08/09/2018 9:59 AM Note Text: HISTORY AND PHYSICAL EXAMINATION SERVICE DATE: 08/09/2018 SERVICE TIME: 8:24 AM PRIMARY CARE PHYSICIAN: KARMA MARRERO MD REASON FOR VISIT: Erin Rodgers is a 68 year old male who is scheduled for creation AV fistula at the request of Dr. Selena Leslie for consultation. My final recommendation will be communicated back to the requesting physician by way of shared medical record or letter. The patient has the following: ACTIVE PROBLEM LIST Chronic Retention of Urine Congenital Hydronephrosis History of Epididymitis Left Inguinal Hernia Benign Prostatic Hyperplasia With Urinary Retention Tobacco Abuse, in Remission Stroke (Cerebrum) ([facility]) Right Shoulder Pain Dry Senile Macular Degeneration Posterior Vitreous Detachment of Both Eyes Stage 4 Chronic Kidney Disease (Hcc) Essential Hypertension Copd With Chronic Bronchitis ([facility]) Solitary Pulmonary Nodule Svt (Supraventricular Tachycardia) ([facility]) Dysphagia Ckd (Chronic Kidney Disease) Stage 4, Gfr 15-29 Ml/Min ([facility]) Subjective CHIEF COMPLAINT: renal failure HPI: 68 yo male with renal failure and dialysis for a year about 3 yrs ago and currently off dialysis over the past 2 yrs. Renal function is beginning to decline again per pt. 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 GFR 18 in 05/2018. PAST MEDICAL HISTORY Diagnosis Date - Chronic kidney disease, stage 4 (severe) ([facility]) 09/13/2017 Marti Ramesh MD; [facility]. - COPD with chronic bronchitis (HCC) 03/2018 Moderate by 03/18/2018 PFT. - HTN (hypertension) - Ischemic heart disease ??? - Renal failure - Solitary pulmonary nodule 03/2018 7 mm, RLL; CT Chest [facility], 08/2017. - TIA (transient ischemic attack) 2011 CVA - Urinary retention PAST SURGICAL HISTORY Procedure Laterality Date - APPENDECTOMY 1972 - COLONOSCOPY - EGD - HEMMORRHOIDECTOMY,EXTERNAL SINGLE - PAST SURGICAL HISTORY OF 09/06/2015 kidney stent placement; Dr. Nia DE LA CRUZ - PAST SURGICAL HISTORY OF 1975 sinus surgery - PROSTATECTOMY, SIMPLE, BENIGN 2009 partial FAMILY HISTORY Problem Relation Age of Onset - Cancer Mother stomach - Diabetes Maternal Aunt SOCIAL HISTORY: Social History Marital status: Spouse name: Years of education: Number of children: Social History Main Topics Smoking status: Former Smoker Packs/day: 1.50 Years: 48.00 Types: Cigarettes Start date: 02/16/1964 Quit date: 10/23/2011 Smokeless tobacco: Never Used Comment: FAther smoked in childhood home. Alcohol use: No Drug use: No MEDICATIONS: Prior to Admission medications as of 08/09/18 0823 Medication Sig Last Dose Taking acetaminophen (TYLENOL ORAL) Take by mouth as needed. Taking Yes amLODIPine (NORVASC) 10 mg tablet Take 1 tablet by mouth once daily. Taking Yes Catheter (BARD COUDE TIP CATHETER) 16 Fr misc ISC four times daily and as needed Taking Yes melatonin 10 mg tab Take 10 mg by mouth as needed. Taking Yes metoprolol succinate ER (TOPROL XL) 25 mg 24 hr tablet Take 1 tablet by mouth once daily. Taking Yes ranitidine (ZANTAC) 150 mg tablet Take 1 tablet by mouth once daily. Taking Yes tamsulosin ER (FLOMAX) 0.4 mg cap Take 1 capsule by mouth daily at bedtime. Patient taking differently: Take 0.4 mg by mouth as needed. Taking Differently Yes traZODone (DESYREL) 50 mg tablet Take 0.5 tablets by mouth daily at bedtime. Taking Yes VIT A/VIT C/VIT E/ZINC/COPPER (OCUVITE PRESERVISION ORAL) Take by mouth once daily. Taking Yes No medication comments found. CURRENT ALLERGIES: ALLERGIES Allergen Reactions - Amoxicillin Swelling - Ciprofloxacin Swelling - Codeine Mental Status Change REVIEW OF SYSTEMS: PAIN ASSESSMENT: General: No weight loss, malaise or fevers. Neuro: Postive for Headaches Stroke-residual deficit 2011, residual vision issue in the right eye, Negative for Seizures Parkinson's Disease MADRID related to neck pain and sinuses Respiratory: Positive for Mild COPD, h/o 60 pk yr smoker, Negative for COPD, Daily bronchodilator use for previous 3 months, Home O2, Tobacco Use, URI < 2 weeks Cardiovascular: Positive for: Hypertension, told AL in the past on EKG result. Pt does not recall any AL. H/o PSVT- pt denies any symptoms recently and no AC. Pt sees DR Pina and note from 04/2018. , Negative for Valvular Heart Disease, DVT/PE echo in [facility] 10/2017. NL stress test in October for h/o CP GI: Positive for GERD, Negative for PUD, Hepatitis, Pancreatitis, Diverticulitis : Negative for dysuria and incontinence, Positive for BPH and partial prostatectomy residual retention and selfs caths daily 4 times per day. + stage 4 CKD see HPI h/o hydronephrosis with stenting Endocrine: No history of diabetes. Has not taken steroids within the past 30 days. No history of endocrinological symptoms or problems. Hematology: Easy bruising / bleeding Oncology: No history of CA metastasis, chemo within 30 days, or radiotherapy within 90 days. Has not lost 10% of body wt in 6 months. No history of oncological symptoms or problems. Psych: No history of psychiatric symptoms or problems. Musculoskeletal: Joint pain and OA Skin: Negative for lesions, rash and itching. Objective PHYSICAL EXAM: VITALS: BP 131/67 Pulse 70 Temp 97.4 Ht 5' 10 (1.78m) Wt 160 lb (72.6kg) SpO2 95% BMI 22.96 kg/(m2). General: Alert and oriented, No acute distress, Healthy appearance Skin: Ecchymosis HEENT: EOM, pupils equal, round and reactive. Cardiovascular: Normal S1 AND S2, no rubs, murmurs or gallops. No JVD. Pulse regular. Lungs: Normal breath sounds, no wheezes or crackles. Abdomen: Soft, non-tender, no rigidity. Extremities: No deformity, no edema or tenderness, no joint swelling or clubbing. Neurological: Normal cognition and motor skills. Pulses: Carotid and radial pulses normal +2. Diagnostic tests reviewed for today's visit: Lab Value Units Date High Low HB No results within date range. HCT No results within date range. WBC No results within date range. PLT No results within date range. NA 140 mmol/L 05/28/2018 144 136 K 4.1 mmol/L 05/28/2018 5.1 3.7 GLUC 96 mg/dL 05/28/2018 99 74 BUN 35 mg/dL 05/28/2018 24 9 CREAT 3.47 mg/dL 05/28/2018 1.22 0.73 PTSEC No results within date range. INR No results within date range. APTT No results within date range. ALT No results within date range. AST No results within date range. TBILI No results within date range. TSH No results within date range. Lab Value Units Date High Low HCGQT No results within date range. UHCG No results within date range. HCG, BODY* No results within date range. Lab Value Units Date High Low ABORHD No results within date range. ABSCREEN No results within date range. Hemoglobin A1C (%) Date Value 05/28/2018 5.8 01/29/2017 5.4 Most recent labs Assessment ASSESSMENT HTN - Well controlled Renal Failure - Chronic and worsening- currently no dialysis for 2 yrs Stroke - 2011, residual right eye vision disturbance Urinary retention and self caths qid chronic MADRID's GERD- on rx PSVT- follows with Dr Pina and recently asymptomatic COPD- mild no inhalers or O2 ( h/o 72 pk yr smoker) METS: Climb a flight of stairs or walk up a hill (5.50 METs) ASA Class: 3 ANESTHESIA FINDINGS: Intubation History: No history of difficult intubation Significant Anesthesia Considerations: None Airway Exam: General: Normal appearance Mallampati Score is CLASS I ULBT: Unable to perform Neck: Distance from hyoid to mentum during neck extension is at least 3 finger breaths, Pain with neck movement Mouth: Normal tongue size Dentition: Upper denture and Lower denture Airway History: No abnormal airway history STOP BANG Score: Criteria: Hypertension Age over 50 (68 year old) Male gender Score = 3 PLAN This patient is optimally prepared for surgery pending LABS. CONSULTS: Patient does not require consults for optimization at this time. The Following Tests/Procedures Have Been Initiated: Orders Placed This Encounter CBC + DIFF CMP PROTHROMBIN TIME/PT ACTIVATED PTT Planned Anesthetic: MAC Instructions Given to Patient: Patient given verbal and written preop instructions and voices comprehension and compliance. SIGNATURE: Mini Cash PA-C PATIENT NAME: Erin Rodgers DATE: August 09, 2018 TIME: 8:24 AM PAGER/CONTACT #: PROGRESS Observed: 07/31/2018 Status: COMPLETED Source: [place] 8:[address] [facility] REPOSITORY HNO ID: [id number] Author: Karma Marrero Service: (none) Author Type: Physician Type: Progress Notes Filed: 07/31/2018 8:47 PM Note Text: Reason for Visit Patient presents with: Established Patient: 3 month follow up-HTN Erin Rodgers is a 68 year old male who presents here today for Above Complaints.. Health Maintenance BP CONTROLLED (<130/80) DTAP,TDAP,TD(1 - Tdap) HEPATITIS C SCREENING COLORECTAL CANCER SCREENING,SEE MODIFIER PROSTATE CANCER SCREENING DISCUSSION ABDOMINAL AORTIC ANEURYSM SCREENING TOPIC ADULT PREVNAR-13 PNEUMOVAX AGE 65 AND OVER WITH 5YR LOOKBACK(1) HPI Discussed hi hba1c results- discussed prediabetes- that he needs to cut down sugar, carbs etc. He is also on a renal diet, and needs to be careful with fruits and vegetables. He does not drink pop. He only has coffee and water, his diet is bland most of the days, he does not pack a lunch. He does not cook at home, notes he is too tired to cook, he works 40 hours a week at [employer]. At night he does not sleep very well. He as been taking melatonin, but that some times does not work. We gave him trazodone, but he did not take it as he was afraid of side effects. BP is well controlled on current regimen of medicines- norvasc 10 mgs, metoprolol 25- which is tolerated well. No significant side effects He is getting vein mapping done, was to get in touch with Vascular we will help him with it. He will be on dialysis in a short time and is preparing for it. He was on dialysis in the past and t hinks it will be temporary but I had to discussed with him that this time is is more permanent. He notes that non one ever talked to him about transplant. He notes that Dr. Ramesh has never discussed that with her. He is not on aspirin, he had stroke in the past but his lead painter stopped it. No problem-specific Assessment AND Plan notes found for this encounter. PAST MEDICAL HISTORY Diagnosis Date - Chronic kidney disease, stage 4 (severe) (HCC) 09/13/2017 Marti Ramesh MD; [facility]. - COPD with chronic bronchitis (HCC) 03/2018 Moderate by 03/18/2018 PFT. - HTN (hypertension) - Ischemic heart disease ??? - Renal failure - Solitary pulmonary nodule 03/2018 7 mm, RLL; CT Chest [facility], 08/2017. - TIA (transient ischemic attack) - Urinary retention PAST SURGICAL HISTORY Procedure Laterality Date - APPENDECTOMY 1972 - COLONOSCOPY - EGD - HEMMORRHOIDECTOMY,EXTERNAL SINGLE - PAST SURGICAL HISTORY OF 09/06/2015 kidney stent placement; Dr. Nia DE LA CRUZ - PAST SURGICAL HISTORY OF 1975 sinus surgery - PROSTATECTOMY, SIMPLE, BENIGN 2009 FAMILY HISTORY Problem Relation Age of Onset - Cancer Mother stomach - Diabetes Maternal Aunt Social History Substance Use Topics - Smoking status: Former Smoker Packs/day: 1.50 Years: 48.00 Types: Cigarettes Start date: 02/16/1964 Quit date: 10/23/2011 - Smokeless tobacco: Never Used Comment: FAther smoked in childhood home. - Alcohol use No Past medical history, appointments, medications, allergies reviewed. Pertinent Lab/Diagnostic Studies are reviewed and discussed today Current Outpatient Prescriptions: - acetaminophen (TYLENOL ORAL) - albuterol HFA (PROVENTIL HFA, VENTOLIN HFA) 90 mcg/actuation inhaler - amLODIPine (NORVASC) 10 mg tablet - Catheter (BARD COUDE TIP CATHETER) 16 Fr misc - melatonin 10 mg tab - metoprolol succinate ER (TOPROL XL) 25 mg 24 hr tablet - ranitidine (ZANTAC) 150 mg tablet - tamsulosin ER (FLOMAX) 0.4 mg cap - traZODone (DESYREL) 50 mg tablet - umeclidinium-vilanterol (ANORO ELLIPTA) 62.5-25 mcg/actuation inhaler - VIT A/VIT C/VIT E/ZINC/COPPER (OCUVITE PRESERVISION ORAL) Review of Systems CONSTITUTIONAL: No fevers, chills night sweats, unintended weight loss CARDIOVASCULAR: No chest pain, dyspnea, palpitations, orthopnea, PND, ankle edema. PULM: No dyspnea, unexplained cough. GI: No dysphagia/odynophagia, problematic reflux, constipation, diarrhea, changes in stool habits, hematochezia, melena. : No new urinary complaints, including dysuria, gross hematuria or pyuria. NEURO: No new balance problems, peripheral weakness/paresthesias or numbness of concern. Physical Exam BP 120/68 (BP Site: Left Arm, BP Position: Sitting, BP Cuff Size: Regular Adult) Pulse 66 Resp 12 Ht 175.3 cm (5' 9) Wt 72.1 kg (159 lb) SpO2 98% BMI 23.48 kg/m? General appearance: Well appearing, alert, in no acute distress, well nourished. Skin: Skin color, texture, turgor normal, no suspicious rashes or lesions Head: Normocephalic, no masses, lesions, tenderness or abnormalities Eyes: Anicteric sclera. Pupils are equally round and reactive to light. Extraocular movements are intact. Lungs: Lungs clear to auscultation. No wheezing, rhonchi, rales Heart: RRR without murmur, gallop, or rubs. Extremities: No deformities, edema, skin discoloration, clubbing or cyanosis. Good capillary refill. ASSESSMENT/PLAN: 1. Insomnia, unspecified type - ICD9: 780.52, ICD10: G47.00 (primary diagnosis) Take half pill of trazodone. 2. CKD stage 4 secondary to hypertension (HCC) - ICD9: 403.90, 585.4, ICD10: I12.9, N18.4 - good control - Recommended regular aerobic exercise. - Recommend home blood pressure monitoring, to bring results in on next visit - Goal of BP <130/80 3. Essential hypertension - ICD9: 401.9, ICD10: I10 - good control - Recommended regular aerobic exercise. - Recommend home blood pressure monitoring, to bring results in on next visit - Goal of BP <130/80 KARMA MARRERO MD CNOV Observed: 07/31/2018 Status: COMPLETED Source: [place] 8:20 AM [facility] REPOS[facility] Office Visit (INTMWS) ERIN RODGERS ([id number]) 1950 M Date Time Provider Department 07/31/18 8:20 AM KARMA MARRERO INTKalieWS During your visit today, we recorded the following information about you: Pulse Respiration Blood pressure Weight 66/minute 12/minute 120/68 72.1 kg Height 1.753 m KARMA MARRERO MD 07/31/2018 8:47 PM Signed Reason for Visit Patient presents with: Established Patient: 3 month follow up-HTN Erin Rodgers is a 68 year old male who presents here today for Above Complaints.. Health Maintenance BP CONTROLLED (<130/80) DTAP,TDAP,TD(1 - Tdap) HEPATITIS C SCREENING COLORECTAL CANCER SCREENING,SEE MODIFIER PROSTATE CANCER SCREENING DISCUSSION ABDOMINAL AORTIC ANEURYSM SCREENING TOPIC ADULT PREVNAR-13 PNEUMOVAX AGE 65 AND OVER WITH 5YR LOOKBACK(1) HPI Discussed hi hba1c results- discussed prediabetes- that he needs to cut down sugar, carbs etc. He is also on a renal diet, and needs to be careful with fruits and vegetables. He does not drink pop. He only has coffee and water, his diet is bland most of the days, he does not pack a lunch. He does not cook at home, notes he is too tired to cook, he works 40 hours a week at [employer]. At night he does not sleep very well. He as been taking melatonin, but that some times does not work. We gave him trazodone, but he did not take it as he was afraid of side effects. BP is well controlled on current regimen of medicines- norvasc 10 mgs, metoprolol 25- which is tolerated well. No significant side effects He is getting vein mapping done, was to get in touch with Vascular we will help him with it. He will be on dialysis in a short time and is preparing for it. He was on dialysis in the past and t hinks it will be temporary but I had to discussed with him that this time is is more permanent. He notes that non one ever talked to him about transplant. He notes that Dr. Ramesh has never discussed that with her. He is not on aspirin, he had stroke in the past but his lead painter stopped it. No problem-specific Assessment AND Plan notes found for this encounter. PAST MEDICAL HISTORY Diagnosis Date - Chronic kidney disease, stage 4 (severe) (HCC) 09/13/2017 Marti Ramesh MD; [facility]. - COPD with chronic bronchitis (HCC) 03/2018 Moderate by 03/18/2018 PFT. - HTN (hypertension) - Ischemic heart disease ??? - Renal failure - Solitary pulmonary nodule 03/2018 7 mm, RLL; CT Chest [facility], 08/2017. - TIA (transient ischemic attack) - Urinary retention PAST SURGICAL HISTORY Procedure Laterality Date - APPENDECTOMY 1972 - COLONOSCOPY - EGD - HEMMORRHOIDECTOMY,EXTERNAL SINGLE - PAST SURGICAL HISTORY OF 09/06/2015 kidney stent placement; Dr. Nia DE LA CRUZ - PAST SURGICAL HISTORY OF 1975 sinus surgery - PROSTATECTOMY, SIMPLE, BENIGN 2009 FAMILY HISTORY Problem Relation Age of Onset - Cancer Mother stomach - Diabetes Maternal Aunt Social History Substance Use Topics - Smoking status: Former Smoker Packs/day: 1.50 Years: 48.00 Types: Cigarettes Start date: 02/16/1964 Quit date: 10/23/2011 - Smokeless tobacco: Never Used Comment: FAther smoked in childhood home. - Alcohol use No Past medical history, appointments, medications, allergies reviewed. Pertinent Lab/Diagnostic Studies are reviewed and discussed today Current Outpatient Prescriptions: - acetaminophen (TYLENOL ORAL) - albuterol HFA (PROVENTIL HFA, VENTOLIN HFA) 90 mcg/actuation inhaler - amLODIPine (NORVASC) 10 mg tablet - Catheter (BARD COUDE TIP CATHETER) 16 Fr misc - melatonin 10 mg tab - metoprolol succinate ER (TOPROL XL) 25 mg 24 hr tablet - ranitidine (ZANTAC) 150 mg tablet - tamsulosin ER (FLOMAX) 0.4 mg cap - traZODone (DESYREL) 50 mg tablet - umeclidinium-vilanterol (ANORO ELLIPTA) 62.5-25 mcg/actuation inhaler - VIT A/VIT C/VIT E/ZINC/COPPER (OCUVITE PRESERVISION ORAL) Review of Systems CONSTITUTIONAL: No fevers, chills night sweats, unintended weight loss CARDIOVASCULAR: No chest pain, dyspnea, palpitations, orthopnea, PND, ankle edema. PULM: No dyspnea, unexplained cough. GI: No dysphagia/odynophagia, problematic reflux, constipation, diarrhea, changes in stool habits, hematochezia, melena. : No new urinary complaints, including dysuria, gross hematuria or pyuria. NEURO: No new balance problems, peripheral weakness/paresthesias or numbness of concern. Physical Exam BP 120/68 (BP Site: Left Arm, BP Position: Sitting, BP Cuff Size: Regular Adult) Pulse 66 Resp 12 Ht 175.3 cm (5' 9) Wt 72.1 kg (159 lb) SpO2 98% BMI 23.48 kg/m? General appearance: Well appearing, alert, in no acute distress, well nourished. Skin: Skin color, texture, turgor normal, no suspicious rashes or lesions Head: Normocephalic, no masses, lesions, tenderness or abnormalities Eyes: Anicteric sclera. Pupils are equally round and reactive to light. Extraocular movements are intact. Lungs: Lungs clear to auscultation. No wheezing, rhonchi, rales Heart: RRR without murmur, gallop, or rubs. Extremities: No deformities, edema, skin discoloration, clubbing or cyanosis. Good capillary refill. ASSESSMENT/PLAN: 1. Insomnia, unspecified type - ICD9: 780.52, ICD10: G47.00 (primary diagnosis) Take half pill of trazodone. 2. CKD stage 4 secondary to hypertension (HCC) - ICD9: 403.90, 585.4, ICD10: I12.9, N18.4 - good control - Recommended regular aerobic exercise. - Recommend home blood pressure monitoring, to bring results in on next visit - Goal of BP <130/80 3. Essential hypertension - ICD9: 401.9, ICD10: I10 - good control - Recommended regular aerobic exercise. - Recommend home blood pressure monitoring, to bring results in on next visit - Goal of BP <130/80 KARMA MARRERO MD Referring Provider: KARMA MARRERO [[id number]] Allergies As of Date: 07/31/2018 Noted Allergy Reaction AMOXICILLIN 01/26/2016 7 - Swelling CIPROFLOXACIN 01/26/2016 7 - Swelling CODEINE 12/22/2016 1 - Mental Status Change Date Reviewed: 07/31/2018 Reviewed by: Karma Marrero - Fully Assessed Reason for Visit: Established Patient [175] Cmt: 3 month follow up-HTN Primary Visit Diagnosis:Insomnia, unspecified type [G47.00] Other Visit Diagnoses:CKD stage 4 secondary to hypertension (HCC) [I12.9, N18.4] Essential hypertension [I10] Sleep disturbance [G47.9] Order(s):traZODone (DESYREL) 50 mg tabletTake 0.5 tablets by mouth daily at bedtime.Disp: 30 tabletRfl: 2 Prescriptions as of 07/31/2018 Sig: TYLENOL ORAL Take by mouth as needed. ALBUTEROL SULFATE HFA 90 MCG/* Inhale 2 Puffs as instructed * Patient not taking: Reported on 04/29/2018 AMLODIPINE 10 MG TABLET Take 1 tablet by mouth once d* CATHETER 16 FR ISC four times daily and as n* MELATONIN 10 MG TABLET Take 10 mg by mouth as needed. METOPROLOL SUCCINATE ER 25 MG* Take 1 tablet by mouth once d* RANITIDINE 150 MG TABLET Take 1 tablet by mouth once d* TAMSULOSIN 0.4 MG CAPSULE Take 1 capsule by mouth daily* TRAZODONE 50 MG TABLET Take 0.5 tablets by mouth catrachito* UMECLIDINIUM 62.5 MCG-VILANTE* Inhale 1 Inhalation as instru* Patient not taking: Reported on 04/29/2018 OCUVITE PRESERVISION ORAL Take by mouth once daily. Problem List As Of Date 07/31/2018 Noted Resolved Renal failure [N19] INVALID FOR*05/03/2017 Chronic retention of urine [R33.9] INVALID FOR* More... 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 Dialysis patient ([facility]) [Z99.2] INVALID FOR*05/03/2017 More... 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 Right shoulder pain [M25.511] INVALID FOR* More... 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 Posterior vitreous detachment of both eyes [H43*INVALID FOR* Stage 4 chronic kidney disease ([facility]) [N18.4] INVALID FOR* More... Essential hypertension [I10] INVALID FOR* More... COPD with chronic bronchitis ([facility]) [J44.9] INVALID FOR* More... Solitary pulmonary nodule [R91.1] INVALID FOR* More... SVT (supraventricular tachycardia) ([facility]) [I47.1]INVALID FOR* Dysphagia [R13.10] INVALID FOR* More... CKD (chronic kidney disease) stage 4, GFR 15-29*INVALID FOR* More... Prescriptions ordered this encounter Disp Refills Start End TRAZODONE 50 MG TABLET 30 t* 2 07/31/2018 Route: ORAL Sig: Take 0.5 tablets by mouth daily at bedtime. Medications Discontinued During This Encounter traZODone (DESYREL) 50 mg tablet 30 t* 2 06/17/2018 07/31/2018 Route: ORAL Sig: Take 1 tablet by mouth daily at bedtime. Patient not taking: Reported on 07/01/2018 Disc: Reason for discontinue is not on file. Encounter Status:Closed by KARMA MARRERO MD on 07/31/18 HOSP Observed: 07/31/2018 Status: COMPLETED Source: [place] 12:00 AM [facility] REPOSITORY Patient:Erin Rodgers MRN: <[id number]> Height:5' 10(1.778 m) Weight:160 lb (72.576 kg) Outpatient Medications as of 08/15/18: traZODone (DESYREL) 50 mg tablet ranitidine (ZANTAC) 150 mg tablet amLODIPine (NORVASC) 10 mg tablet metoprolol succinate ER (TOPROL XL) 25 mg 24 hr tablet tamsulosin ER (FLOMAX) 0.4 mg cap melatonin 10 mg tab acetaminophen (TYLENOL ORAL) VIT A/VIT C/VIT E/ZINC/COPPER (OCUVITE PRESERVISION ORAL) Catheter (BARD COUDE TIP CATHETER) 16 Fr [facility] [place] Administered Medications as of 08/15/18: clindamycin iv piggyback 900 mg in D5W 50 mL (CLEOCIN) Problem List: Chronic retention of urine [R33.9] 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] History of epididymitis [Z87.438] Left inguinal hernia [K40.90] Benign prostatic hyperplasia with urinary retention [N40.1, R33.8] Tobacco abuse, 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] Stroke (cerebrum) ([facility]) [I63.9] Right shoulder pain [M25.511] Dry senile macular degeneration [H35.3190] Posterior vitreous detachment of both eyes [H43.813] Stage 4 chronic kidney disease (HCC) [N18.4] Essential hypertension [I10] COPD with chronic bronchitis (HCC) [J44.9] Solitary pulmonary nodule [R91.1] SVT (supraventricular tachycardia) ([facility]) [I47.1] Dysphagia [R13.10] CKD (chronic kidney disease) stage 4, GFR 15-29 ml/min ([facility]) [N18.4] Allergies: Amoxicillin Ciprofloxacin Codeine Date Verified: 08/15/18 Lab Values Lab Value Units Date High Low POTA* 4.4 mmol/L 08/15/2018 5.1 3.7 BELKIS* 43.0 % 08/09/2018 51.0 39.0 Progress Notes ([facility]): Stephy Barnes LPN 07/31/2018 8:38 AM Signed Patient is wanting to know about the vein mapping and when will surgery be set up if needed. Please call patient back regarding this. Stephy Houston RN 08/05/2018 9:36 AM Signed Patient notified of surgery and set up per Alannah Ricks. Encounter closed. Progress Notes ([facility]): KARMA MARRERO MD 07/31/2018 8:47 PM Signed Reason for Visit Patient presents with: Established Patient: 3 month follow up-HTN Erin Rodgers is a 68 year old male who presents here today for Above Complaints.. Health Maintenance BP CONTROLLED (<130/80) DTAP,TDAP,TD(1 - Tdap) HEPATITIS C SCREENING COLORECTAL CANCER SCREENING,SEE MODIFIER PROSTATE CANCER SCREENING DISCUSSION ABDOMINAL AORTIC ANEURYSM SCREENING TOPIC ADULT PREVNAR-13 PNEUMOVAX AGE 65 AND OVER WITH 5YR LOOKBACK(1) HPI Discussed hi hba1c results- discussed prediabetes- that he needs to cut down sugar, carbs etc. He is also on a renal diet, and needs to be careful with fruits and vegetables. He does not drink pop. He only has coffee and water, his diet is bland most of the days, he does not pack a lunch. He does not cook at home, notes he is too tired to cook, he works 40 hours a week at [employer]. At night he does not sleep very well. He as been taking melatonin, but that some times does not work. We gave him trazodone, but he did not take it as he was afraid of side effects. BP is well controlled on current regimen of medicines- norvasc 10 mgs, metoprolol 25- which is tolerated well. No significant side effects He is getting vein mapping done, was to get in touch with Vascular we will help him with it. He will be on dialysis in a short time and is preparing for it. He was on dialysis in the past and t hinks it will be temporary but I had to discussed with him that this time is is more permanent. He notes that non one ever talked to him about transplant. He notes that Dr. Ramesh has never discussed that with her. He is not on aspirin, he had stroke in the past but his lead painter stopped it. No problem-specific Assessment AND Plan notes found for this encounter. PAST MEDICAL HISTORY Diagnosis Date - Chronic kidney disease, stage 4 (severe) ([facility]) 09/13/2017 Marti Ramesh MD; [facility]. - COPD with chronic bronchitis (HCC) 03/2018 Moderate by 03/18/2018 PFT. - HTN (hypertension) - Ischemic heart disease ??? - Renal failure - Solitary pulmonary nodule 03/2018 7 mm, RLL; CT Chest [facility], 08/2017. - TIA (transient ischemic attack) - Urinary retention PAST SURGICAL HISTORY Procedure Laterality Date - APPENDECTOMY 1972 - COLONOSCOPY - EGD - HEMMORRHOIDECTOMY,EXTERNAL SINGLE - PAST SURGICAL HISTORY OF 09/06/2015 kidney stent placement; Dr. Nia Henry PA - PAST SURGICAL HISTORY OF 1975 sinus surgery - PROSTATECTOMY, SIMPLE, BENIGN 2009 FAMILY HISTORY Problem Relation Age of Onset - Cancer Mother stomach - Diabetes Maternal Aunt Social History Substance Use Topics - Smoking status: Former Smoker Packs/day: 1.50 Years: 48.00 Types: Cigarettes Start date: 02/16/1964 Quit date: 10/23/2011 - Smokeless tobacco: Never Used Comment: FAther smoked in childhood home. - Alcohol use No Past medical history, appointments, medications, allergies reviewed. Pertinent Lab/Diagnostic Studies are reviewed and discussed today Current Outpatient Prescriptions: - acetaminophen (TYLENOL ORAL) - albuterol HFA (PROVENTIL HFA, VENTOLIN HFA) 90 mcg/actuation inhaler - amLODIPine (NORVASC) 10 mg tablet - Catheter (BARD COUDE TIP CATHETER) 16 Fr misc - melatonin 10 mg tab - metoprolol succinate ER (TOPROL XL) 25 mg 24 hr tablet - ranitidine (ZANTAC) 150 mg tablet - tamsulosin ER (FLOMAX) 0.4 mg cap - traZODone (DESYREL) 50 mg tablet - umeclidinium-vilanterol (ANORO ELLIPTA) 62.5-25 mcg/actuation inhaler - VIT A/VIT C/VIT E/ZINC/COPPER (OCUVITE PRESERVISION ORAL) Review of Systems CONSTITUTIONAL: No fevers, chills night sweats, unintended weight loss CARDIOVASCULAR: No chest pain, dyspnea, palpitations, orthopnea, PND, ankle edema. PULM: No dyspnea, unexplained cough. GI: No dysphagia/odynophagia, problematic reflux, constipation, diarrhea, changes in stool habits, hematochezia, melena. : No new urinary complaints, including dysuria, gross hematuria or pyuria. NEURO: No new balance problems, peripheral weakness/paresthesias or numbness of concern. Physical Exam BP 120/68 (BP Site: Left Arm, BP Position: Sitting, BP Cuff Size: Regular Adult) Pulse 66 Resp 12 Ht 175.3 cm (5' 9) Wt 72.1 kg (159 lb) SpO2 98% BMI 23.48 kg/m? General appearance: Well appearing, alert, in no acute distress, well nourished. Skin: Skin color, texture, turgor normal, no suspicious rashes or lesions Head: Normocephalic, no masses, lesions, tenderness or abnormalities Eyes: Anicteric sclera. Pupils are equally round and reactive to light. Extraocular movements are intact. Lungs: Lungs clear to auscultation. No wheezing, rhonchi, rales Heart: RRR without murmur, gallop, or rubs. Extremities: No deformities, edema, skin discoloration, clubbing or cyanosis. Good capillary refill. ASSESSMENT/PLAN: 1. Insomnia, unspecified type - ICD9: 780.52, ICD10: G47.00 (primary diagnosis) Take half pill of trazodone. 2. CKD stage 4 secondary to hypertension (HCC) - ICD9: 403.90, 585.4, ICD10: I12.9, N18.4 - good control - Recommended regular aerobic exercise. - Recommend home blood pressure monitoring, to bring results in on next visit - Goal of BP <130/80 3. Essential hypertension - ICD9: 401.9, ICD10: I10 - good control - Recommended regular aerobic exercise. - Recommend home blood pressure monitoring, to bring results in on next visit - Goal of BP <130/80 KARMA MARRERO MD CNOV Observed: 07/01/2018 Status: COMPLETED Source: [place] 9:30 AM [facility] REPOSITORY Office Visit (VASSWS) ERIN RODGERS ([id number]) 1950 M Date Time Provider Department 07/01/18 9:30 AM SELENA LESLIES During your visit today, we recorded the following information about you: Pulse Blood pressure 58/minute 154/99 Selena Leslie DO 07/02/2018 9:46 AM Signed VASCULAR SURGERY INITIAL CONSULT SERVICE DATE: 07/01/2018 SERVICE TIME: 8:47 AM PRIMARY CARE PHYSICIAN: KARMA MARRERO MD Consult requested for an opinion regarding the evaluation and treatment of the above. My final impression and recommendations will be communicated back to the requesting physician by way of the shared medical record or letter via US mail. CHIEF COMPLAINT/HISTORY OF PRESENT ILLNESS: Chief Complaint: Consult for Possible AVF History of Present Illness: Erin Rodgers is a 68 year old male referred for possible AVF creation. Mr. Rodgers states he was on dialysis a few years ago for about a year, however, his kidney function improved and he was able to come off dialysis. He currently is not on dialysis and has no access. He states his lead painter is Dr. Ramesh at [facility]. He is right-handed. He is a former smoker (quit in 2011). PAST MEDICAL/SURGICAL/FAMILY/SOCIAL HISTORY PAST MEDICAL HISTORY Diagnosis Date - Chronic kidney disease, stage 4 (severe) (HCC) 09/13/2017 Marti Ramesh MD; [facility]. - COPD with chronic bronchitis (HCC) 03/2018 Moderate by 03/18/2018 PFT. - HTN (hypertension) - Ischemic heart disease ??? - Renal failure - Solitary pulmonary nodule 03/2018 7 mm, RLL; CT Chest [facility], 08/2017. - TIA (transient ischemic attack) - Urinary retention PAST SURGICAL HISTORY Procedure Laterality Date - APPENDECTOMY 1972 - COLONOSCOPY - EGD - HEMMORRHOIDECTOMY,EXTERNAL SINGLE - PAST SURGICAL HISTORY OF 09/06/2015 kidney stent placement; Dr. Nia DE LA CRUZ - PAST SURGICAL HISTORY OF 1975 sinus surgery - PROSTATECTOMY, SIMPLE, BENIGN 2009 FAMILY HISTORY Problem Relation Age of Onset - Cancer Mother stomach - Diabetes Maternal Aunt SOCIAL HISTORYSocial History Marital status: Spouse name: Years of education: Number of children: Social History Main Topics Smoking status: Former Smoker Packs/day: 1.50 Years: 48.00 Types: Cigarettes Start date: 02/16/1964 Quit date: 10/23/2011 Smokeless tobacco: Never Used Comment: FAther smoked in childhood home. Alcohol use: No Drug use: No MEDICATIONS/ALLERGIES Current Outpatient Prescriptions: amLODIPine (NORVASC) 10 mg tablet Take 1 tablet by mouth once daily. Disp: 30 tablet Rfl: 2 metoprolol succinate ER (TOPROL XL) 25 mg 24 hr tablet Take 1 tablet by mouth once daily. Disp: 30 tablet Rfl: 2 ranitidine (ZANTAC) 150 mg tablet Take 1 tablet by mouth twice daily. Disp: 60 tablet Rfl: 2 tamsulosin ER (FLOMAX) 0.4 mg cap Take 1 capsule by mouth daily at bedtime. Disp: 90 capsule Rfl: 3 melatonin 10 mg tab Take 10 mg by mouth as needed. Disp: Rfl: acetaminophen (TYLENOL ORAL) Take by mouth as needed. Disp: Rfl: VIT A/VIT C/VIT E/ZINC/COPPER (OCUVITE PRESERVISION ORAL) Take by mouth once daily. Disp: Rfl: traZODone (DESYREL) 50 mg tablet Take 1 tablet by mouth daily at bedtime. (Patient not taking: Reported on 07/01/2018 ) Disp: 30 tablet Rfl: 2 umeclidinium-vilanterol (ANORO ELLIPTA) 62.5-25 mcg/actuation inhaler Inhale 1 Inhalation as instructed once daily. (Patient not taking: Reported on 04/29/2018 ) Disp: 1 Each Rfl: 3 albuterol HFA (PROVENTIL HFA, VENTOLIN HFA) 90 mcg/actuation inhaler Inhale 2 Puffs as instructed four times daily as needed. (Patient not taking: Reported on 04/29/2018 ) Disp: 1 Inhaler Rfl: 3 Catheter (BARD COUDE TIP CATHETER) 16 Fr misc ISC four times daily and as needed Disp: 120 Each Rfl: 11 No current facility-administered medications for this visit. ALLERGIES Allergen Reactions - Amoxicillin Swelling - Ciprofloxacin Swelling - Codeine Mental Status Change REVIEW OF SYSTEMS Constitutional: No weight loss, malaise or fevers. HEENT: No changes in hearing or vision, no nose bleeds or other nasal problems, Head Positive for headache Respiratory: Positive for productive cough and shortness of breath on exertion Cardiovascular: Negative for chest pain, leg swelling or palpitations Gatrointestinal: Negative for abdominal discomfort, blood in stools or black stools or change in bowel habits Genitourinary: No history of dysuria, frequency, or incontinence and No difficulty urination, nocturia >1 times per night or hematuria Musculoskeletal: Negative for joint pain or swelling, back pain or muscle pain Endocrine: Negative for cold or heat intolerance, polyuria, polydipsia and goiter Hematology/Lymphatic: Positive for bruises easily Neurologic: No history or headaches, syncope, paralysis, seizures or tremors Integumentary: Positive for itching (arms and legs). PHYSICAL EXAM VITALS: 07/01/18 0934 BP: 154/99 Pulse: (!) 58 General: Alert and oriented, No acute distress Integumentary: Normal color, no rash, no lesions. HEENT: EOM, pupils equal, round and reactive., No carotid bruits Cardiovascular: Pulse regular. Lungs: Normal breath sounds, no wheezes or crackles. Abdomen: Not examined Extremities: No deformity, no edema or tenderness, no joint swelling or clubbing. Neurological: Normal cognition and motor skills. Vascular: Radial Pulse Right: Normal - Left: Normal ASSESSMENT Chronic kidney disease Stage IV Diagnostic tests reviewed for today's visit: Most recent labs Most recent imaging PLAN/RECOMMENDATIONS Discussed AV access with patient Recommend getting updated vein mapping Will call with results and schedule fistula creation Recommend left arm av fistula creation pending vein mapping SIGNATURE: Selena Leslie DO PATIENT NAME: Erin Rodgers DATE: July 01, 2018 TIME: 8:47 AM Referring Provider: KELLY MINAYA [[id number]] Allergies As of Date: 07/01/2018 Noted Allergy Reaction AMOXICILLIN 01/26/2016 7 - Swelling CIPROFLOXACIN 01/26/2016 7 - Swelling CODEINE 12/22/2016 1 - Mental Status Change Date Reviewed: 07/01/2018 Reviewed by: Franklin Houston RN - Fully Assessed Reason for Visit: New Patient Evaluation [154] Primary Visit Diagnosis:Chronic kidney disease, stage IV (severe) ([facility]) [N18.4] Order(s):UPPER EXT MAP FOR DIALYSIS ACCESS ARA [[id number]] Order #: [id number] FUTURE Prescriptions as of 07/01/2018 Sig: AMLODIPINE 10 MG TABLET Take 1 tablet by mouth once d* METOPROLOL SUCCINATE ER 25 MG* Take 1 tablet by mouth once d* RANITIDINE 150 MG TABLET Take 1 tablet by mouth twice * TAMSULOSIN 0.4 MG CAPSULE Take 1 capsule by mouth daily* MELATONIN 10 MG TABLET Take 10 mg by mouth as needed. TYLENOL ORAL Take by mouth as needed. OCUVITE PRESERVISION ORAL Take by mouth once daily. TRAZODONE 50 MG TABLET Take 1 tablet by mouth daily * Patient not taking: Reported on 07/01/2018 UMECLIDINIUM 62.5 MCG-VILANTE* Inhale 1 Inhalation as instru* Patient not taking: Reported on 04/29/2018 ALBUTEROL SULFATE HFA 90 MCG/* Inhale 2 Puffs as instructed * Patient not taking: Reported on 04/29/2018 CATHETER 16 FR ISC four times daily and as n* Problem List As Of Date 07/01/2018 Noted Resolved Renal failure [N19] INVALID FOR*05/03/2017 Chronic retention of urine [R33.9] INVALID FOR* More... 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 Dialysis patient ([facility]) [Z99.2] INVALID FOR*05/03/2017 More... 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 Right shoulder pain [M25.511] INVALID FOR* More... 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 Posterior vitreous detachment of both eyes [H43*INVALID FOR* Stage 4 chronic kidney disease (HCC) [N18.4] INVALID FOR* More... Essential hypertension [I10] INVALID FOR* More... COPD with chronic bronchitis (HCC) [J44.9] INVALID FOR* More... Solitary pulmonary nodule [R91.1] INVALID FOR* More... SVT (supraventricular tachycardia) (HCC) [I47.1]INVALID FOR* Dysphagia [R13.10] INVALID FOR* More... Encounter Status:Closed by SELENA LESLIE DO on 07/02/18 PROGRESS Observed: 07/01/2018 Status: COMPLETED Source: [place] 8:47 AM [facility] REPOSITORY O ID: [id number] Author: Selena Leslie Service: (none) Author Type: Physician Type: Progress Notes Filed: 07/02/2018 9:46 AM Note Text: VASCULAR SURGERY INITIAL CONSULT SERVICE DATE: 07/01/2018 SERVICE TIME: 8:47 AM PRIMARY CARE PHYSICIAN: KARMA MARRERO MD Consult requested for an opinion regarding the evaluation and treatment of the above. My final impression and recommendations will be communicated back to the requesting physician by way of the shared medical record or letter via US mail. CHIEF COMPLAINT/HISTORY OF PRESENT ILLNESS: Chief Complaint: Consult for Possible AVF History of Present Illness: Erin Rodgers is a 68 year old male referred for possible AVF creation. Mr. Rodgers states he was on dialysis a few years ago for about a year, however, his kidney function improved and he was able to come off dialysis. He currently is not on dialysis and has no access. He states his lead painter is Dr. Ramesh at [facility]. He is right-handed. He is a former smoker (quit in 2011). PAST MEDICAL/SURGICAL/FAMILY/SOCIAL HISTORY PAST MEDICAL HISTORY Diagnosis Date - Chronic kidney disease, stage 4 (severe) (HCC) 09/13/2017 Marti Ramesh MD; [facility]. - COPD with chronic bronchitis (HCC) 03/2018 Moderate by 03/18/2018 PFT. - HTN (hypertension) - Ischemic heart disease ??? - Renal failure - Solitary pulmonary nodule 03/2018 7 mm, RLL; CT Chest [facility], 08/2017. - TIA (transient ischemic attack) - Urinary retention PAST SURGICAL HISTORY Procedure Laterality Date - APPENDECTOMY 1972 - COLONOSCOPY - EGD - HEMMORRHOIDECTOMY,EXTERNAL SINGLE - PAST SURGICAL HISTORY OF 09/06/2015 kidney stent placement; Dr. Nia DE LA CRUZ - PAST SURGICAL HISTORY OF 1975 sinus surgery - PROSTATECTOMY, SIMPLE, BENIGN 2009 FAMILY HISTORY Problem Relation Age of Onset - Cancer Mother stomach - Diabetes Maternal Aunt SOCIAL HISTORYSocial History Marital status: Spouse name: Years of education: Number of children: Social History Main Topics Smoking status: Former Smoker Packs/day: 1.50 Years: 48.00 Types: Cigarettes Start date: 02/16/1964 Quit date: 10/23/2011 Smokeless tobacco: Never Used Comment: FAther smoked in childhood home. Alcohol use: No Drug use: No MEDICATIONS/ALLERGIES Current Outpatient Prescriptions: amLODIPine (NORVASC) 10 mg tablet Take 1 tablet by mouth once daily. Disp: 30 tablet Rfl: 2 metoprolol succinate ER (TOPROL XL) 25 mg 24 hr tablet Take 1 tablet by mouth once daily. Disp: 30 tablet Rfl: 2 ranitidine (ZANTAC) 150 mg tablet Take 1 tablet by mouth twice daily. Disp: 60 tablet Rfl: 2 tamsulosin ER (FLOMAX) 0.4 mg cap Take 1 capsule by mouth daily at bedtime. Disp: 90 capsule Rfl: 3 melatonin 10 mg tab Take 10 mg by mouth as needed. Disp: Rfl: acetaminophen (TYLENOL ORAL) Take by mouth as needed. Disp: Rfl: VIT A/VIT C/VIT E/ZINC/COPPER (OCUVITE PRESERVISION ORAL) Take by mouth once daily. Disp: Rfl: traZODone (DESYREL) 50 mg tablet Take 1 tablet by mouth daily at bedtime. (Patient not taking: Reported on 07/01/2018 ) Disp: 30 tablet Rfl: 2 umeclidinium-vilanterol (ANORO ELLIPTA) 62.5-25 mcg/actuation inhaler Inhale 1 Inhalation as instructed once daily. (Patient not taking: Reported on 04/29/2018 ) Disp: 1 Each Rfl: 3 albuterol HFA (PROVENTIL HFA, VENTOLIN HFA) 90 mcg/actuation inhaler Inhale 2 Puffs as instructed four times daily as needed. (Patient not taking: Reported on 04/29/2018 ) Disp: 1 Inhaler Rfl: 3 Catheter (BARD COUDE TIP CATHETER) 16 Fr misc ISC four times daily and as needed Disp: 120 Each Rfl: 11 No current facility-administered medications for this visit. ALLERGIES Allergen Reactions - Amoxicillin Swelling - Ciprofloxacin Swelling - Codeine Mental Status Change REVIEW OF SYSTEMS Constitutional: No weight loss, malaise or fevers. HEENT: No changes in hearing or vision, no nose bleeds or other nasal problems, Head Positive for headache Respiratory: Positive for productive cough and shortness of breath on exertion Cardiovascular: Negative for chest pain, leg swelling or palpitations Gatrointestinal: Negative for abdominal discomfort, blood in stools or black stools or change in bowel habits Genitourinary: No history of dysuria, frequency, or incontinence and No difficulty urination, nocturia >1 times per night or hematuria Musculoskeletal: Negative for joint pain or swelling, back pain or muscle pain Endocrine: Negative for cold or heat intolerance, polyuria, polydipsia and goiter Hematology/Lymphatic: Positive for bruises easily Neurologic: No history or headaches, syncope, paralysis, seizures or tremors Integumentary: Positive for itching (arms and legs). PHYSICAL EXAM VITALS: 07/01/18 0934 BP: 154/99 Pulse: (!) 58 General: Alert and oriented, No acute distress Integumentary: Normal color, no rash, no lesions. HEENT: EOM, pupils equal, round and reactive., No carotid bruits Cardiovascular: Pulse regular. Lungs: Normal breath sounds, no wheezes or crackles. Abdomen: Not examined Extremities: No deformity, no edema or tenderness, no joint swelling or clubbing. Neurological: Normal cognition and motor skills. Vascular: Radial Pulse Right: Normal - Left: Normal ASSESSMENT Chronic kidney disease Stage IV Diagnostic tests reviewed for today's visit: Most recent labs Most recent imaging PLAN/RECOMMENDATIONS Discussed AV access with patient Recommend getting updated vein mapping Will call with results and schedule fistula creation Recommend left arm av fistula creation pending vein mapping SIGNATURE: Selena Leslie DO PATIENT NAME: Erin Rodgers DATE: July 01, 2018 TIME: 8:47 AM PROGRESS Observed: 06/17/2018 Status: COMPLETED Source: [place] 2:11 PM [facility] RE[facility] HNO ID: [id number] Author: Fanny Nelson Service: (none) Author Type: Nurse Practitioner Type: Progress Notes Filed: 06/17/2018 4:25 PM Note Text: CC: Patient presents with: Recheck: BP follow up HPI Erin Rodgers is a 68 year old male who presents today for BP follow up. Patient recently seen by Debo Leonard CNP ~4 days ago for elevated BP readings prior to colonoscopy. Patient was encouraged to follow up with his lead painter, as he is being considered for fistula placement and HD in the near future. He was told he may increase his Norvasc to 10mg daily, however patient was concerned about his kidneys and no medications were changed. Today he presents with complaints of throbbing/pounding in his ears with elevated BP and occasional palpitations. Denies headache, chest pain and peripheral edema. Patient denies any side effects of his medication(s) and is compliant with their regimen. He does not check BP's generally. Erin denies regular aerobic exercise. He watches his diet for sodium, low fat and low cholesterol generally not very much. Last 3 Encounter BP Readings: Date: BP: 06/17/2018 158/102 06/13/2018 152/90 06/13/2018 178/100 Patient also complained of troubling sleeping and staying asleep as of late. States he has tried melatonin OTC without improvement. Wishes to avoid any addictive medications for sleep or anything that may effect his kidneys. REVIEW OF SYSTEMS General: no fevers, no chills, no night sweats, no recurrent infections, no change in appetite, no change in energy and no significant changes in weight HEENT: no changes in hearing, no visual changes, no nose bleeds, no sinus or nasal problems Respiratory: no cough, no wheezing, no shortness of breath, no hemoptysis Cardiovascular: no chest pain, no chest pressure, no swelling and See HPI Neurologic: No headache, weakness, numbness, tingling, neck stiffness, tremor, vertigo, dizziness, memory loss, syncope. PAST MEDICAL HISTORY Diagnosis Date - Chronic kidney disease, stage 4 (severe) ([facility]) 09/13/2017 Marti Ramesh MD; [facility]. - COPD with chronic bronchitis ([facility]) 03/2018 Moderate by 03/18/2018 PFT. - HTN (hypertension) - Ischemic heart disease ??? - Renal failure - Solitary pulmonary nodule 03/2018 7 mm, RLL; CT Chest [facility], 08/2017. - TIA (transient ischemic attack) - Urinary retention PAST SURGICAL HISTORY Procedure Laterality Date - APPENDECTOMY 1972 - COLONOSCOPY - EGD - HEMMORRHOIDECTOMY,EXTERNAL SINGLE - PAST SURGICAL HISTORY OF 09/06/2015 kidney stent placement; Dr. Nia DE LA CRUZ - PAST SURGICAL HISTORY OF 1975 sinus surgery - PROSTATECTOMY, SIMPLE, BENIGN 2009 ALLERGIES Amoxicillin; Ciprofloxacin; Codeine MEDICATIONS tamsulosin ER (FLOMAX) 0.4 mg cap Take 1 capsule by mouth daily at bedtime. melatonin 10 mg tab Take 10 mg by mouth as needed. acetaminophen (TYLENOL ORAL) Take by mouth as needed. umeclidinium-vilanterol (ANORO ELLIPTA) 62.5-25 mcg/actuation inhaler Inhale 1 Inhalation as instructed once daily. albuterol HFA (PROVENTIL HFA, VENTOLIN HFA) 90 mcg/actuation inhaler Inhale 2 Puffs as instructed four times daily as needed. amLODIPine (NORVASC) 5 mg tablet Take 5 mg by mouth once daily. VIT A/VIT C/VIT E/ZINC/COPPER (OCUVITE PRESERVISION ORAL) Take by mouth once daily. Catheter (BARD COUDE TIP CATHETER) 16 Fr misc ISC four times daily and as needed RANITIDINE HCL ORAL Take by mouth. FAMILY HISTORY Problem Relation Age of Onset - Cancer Mother stomach - Diabetes Maternal Aunt Social History Substance Use Topics - Smoking status: Former Smoker Packs/day: 1.50 Years: 48.00 Types: Cigarettes Start date: 02/16/1964 Quit date: 10/23/2011 - Smokeless tobacco: Never Used Comment: FAther smoked in childhood home. - Alcohol use No PHYSICAL EXAM BP 158/102 Pulse 75 Temp 36.9 ?C (98.4 ?F) (Temporal Artery) Resp 16 Wt 72.1 kg (159 lb) SpO2 96% BMI 23.48 kg/m? General Appearance: well appearing, in no acute distress, alert Skin: Skin color, texture, turgor normal for age; Head: normocephalic, atraumatic Eyes: conjunctiva pink and moist, no icterus, sclera white, non-injected Lungs: lungs clear to auscultation. No wheezing, rhonchi, rales Heart: RRR without murmur, gallop, or rubs. No ectopy Bilateral Lower Extremities: No edema BP CONTROLLED (<130/80) due on 02/16/1968 DTAP,TDAP,TD(1 - Tdap) due on 1969 HEPATITIS C SCREENING due on 1994 COLORECTAL CANCER SCREENING,SEE MODIFIER due on 02/16/2000 PROSTATE CANCER SCREENING DISCUSSION due on 2005 ABDOMINAL AORTIC ANEURYSM SCREENING TOPIC due on 2015 ADULT PREVNAR-13 due on 2015 PNEUMOVAX AGE 65 AND OVER WITH 5YR LOOKBACK(1) due on 2015 HEMOGLOBIN/HEMATOCRIT due on 11/23/2018 LUNG CANCER SCREENING due on 03/28/2019 ANNUAL PCP TEAM CHRONIC DISEASE VISIT due on 04/30/2019 SERUM CREATININE due on 05/28/2019 DIABETES SCREEN due on 05/28/2021 LIPID SCREEN due on 05/28/2023 INFLUENZA Completed ASSESSMENT/PLAN: 1. Essential hypertension - ICD9: 401.9, ICD10: I10 (primary diagnosis) - suboptimal control - Add metoprolol (Lopressor/Toprol) - Increase amlodipine (Norvasc) - Encouraged dietary sodium restriction/DASH diet - Recommended regular aerobic exercise. - Recommend home blood pressure monitoring, to bring results in on next visit - Follow up in 1 month for BP recheck. - Goal of BP <130/80 - Recommended no refined sugar, low refined starch, healthy oil intake (olive oil), healthy protein (fish) along the lines of the Mediterranean diet. - AMLODIPINE 10 MG TABLET - METOPROLOL SUCCINATE ER 25 MG TABLET,EXTENDED RELEASE 24 HR 2. Sleep disturbance - ICD9: 780.50, ICD10: G47.9 - TRAZODONE 50 MG TABLET - Follow up in 1 month as previously scheduled 3. Stage 4 chronic kidney disease (HCC) - ICD9: 585.4, ICD10: N18.4 - Worsening kidney function, most recent labs reviewed - Patient preparing for fistula placement with long-term HD - Followed by Nephrology- at [facility] 4. Gastroesophageal reflux disease without esophagitis - ICD9: 530.81, ICD10: K21.9 - Discussed lifestyle modifications including limiting caffeine, no meals three hours before sleep and head of bed elevation - Continue treatment with Zantac 150 mg 1-2x daily - Follow up in 1months - RANITIDINE 150 MG TABLET Fanny Nelson APRN.CNP Prescription instructions reviewed with patient as applicable. Potential red flag symptoms discussed with the patient. Reviewed appropriate action plan to take if red flag symptoms occur. Patient agreeable to treatment plan. CNOV Observed: 06/17/2018 Status: COMPLETED Source: [place] 2:00 PM [facility] REPOSITORY Office Visit (INT[facility]WS) ERIN RODGERS ([id number]) 1950 M Date Time Provider Department 06/17/18 2:00 PM FANNY NELSON ([facility]) [facility] During your visit today, we recorded the following information about you: Temperature Pulse Respiration Blood pressure 98.4 degrees 75/minute 16/minute 158/102 Weight 72.1 kg Fanny Nelson APRN.CNP 06/17/2018 4:25 PM Signed CC: Patient presents with: Recheck: BP follow up HPI Erin Rodgers is a 68 year old male who presents today for BP follow up. Patient recently seen by Debo Leonard CNP ~4 days ago for elevated BP readings prior to colonoscopy. Patient was encouraged to follow up with his lead painter, as he is being considered for fistula placement and HD in the near future. He was told he may increase his Norvasc to 10mg daily, however patient was concerned about his kidneys and no medications were changed. Today he presents with complaints of throbbing/pounding in his ears with elevated BP and occasional palpitations. Denies headache, chest pain and peripheral edema. Patient denies any side effects of his medication(s) and is compliant with their regimen. He does not check BP's generally. Erin denies regular aerobic exercise. He watches his diet for sodium, low fat and low cholesterol generally not very much. Last 3 Encounter BP Readings: Date: BP: 06/17/2018 158/102 06/13/2018 152/90 06/13/2018 178/100 Patient also complained of troubling sleeping and staying asleep as of late. States he has tried melatonin OTC without improvement. Wishes to avoid any addictive medications for sleep or anything that may effect his kidneys. REVIEW OF SYSTEMS General: no fevers, no chills, no night sweats, no recurrent infections, no change in appetite, no change in energy and no significant changes in weight HEENT: no changes in hearing, no visual changes, no nose bleeds, no sinus or nasal problems Respiratory: no cough, no wheezing, no shortness of breath, no hemoptysis Cardiovascular: no chest pain, no chest pressure, no swelling and See HPI Neurologic: No headache, weakness, numbness, tingling, neck stiffness, tremor, vertigo, dizziness, memory loss, syncope. PAST MEDICAL HISTORY Diagnosis Date - Chronic kidney disease, stage 4 (severe) ([facility]) 09/13/2017 Marti Ramesh MD; [facility]. - COPD with chronic bronchitis ([facility]) 03/2018 Moderate by 03/18/2018 PFT. - HTN (hypertension) - Ischemic heart disease ??? - Renal failure - Solitary pulmonary nodule 03/2018 7 mm, RLL; CT Chest [facility], 08/2017. - TIA (transient ischemic attack) - Urinary retention PAST SURGICAL HISTORY Procedure Laterality Date - APPENDECTOMY 1972 - COLONOSCOPY - EGD - HEMMORRHOIDECTOMY,EXTERNAL SINGLE - PAST SURGICAL HISTORY OF 09/06/2015 kidney stent placement; Dr. Nia Henry PA - PAST SURGICAL HISTORY OF 1975 sinus surgery - PROSTATECTOMY, SIMPLE, BENIGN 2009 ALLERGIES Amoxicillin; Ciprofloxacin; Codeine MEDICATIONS tamsulosin ER (FLOMAX) 0.4 mg cap Take 1 capsule by mouth daily at bedtime. melatonin 10 mg tab Take 10 mg by mouth as needed. acetaminophen (TYLENOL ORAL) Take by mouth as needed. umeclidinium-vilanterol (ANORO ELLIPTA) 62.5-25 mcg/actuation inhaler Inhale 1 Inhalation as instructed once daily. albuterol HFA (PROVENTIL HFA, VENTOLIN HFA) 90 mcg/actuation inhaler Inhale 2 Puffs as instructed four times daily as needed. amLODIPine (NORVASC) 5 mg tablet Take 5 mg by mouth once daily. VIT A/VIT C/VIT E/ZINC/COPPER (OCUVITE PRESERVISION ORAL) Take by mouth once daily. Catheter (BARD COUDE TIP CATHETER) 16 Fr misc ISC four times daily and as needed RANITIDINE HCL ORAL Take by mouth. FAMILY HISTORY Problem Relation Age of Onset - Cancer Mother stomach - Diabetes Maternal Aunt Social History Substance Use Topics - Smoking status: Former Smoker Packs/day: 1.50 Years: 48.00 Types: Cigarettes Start date: 02/16/1964 Quit date: 10/23/2011 - Smokeless tobacco: Never Used Comment: FAther smoked in childhood home. - Alcohol use No PHYSICAL EXAM BP 158/102 Pulse 75 Temp 36.9 ?C (98.4 ?F) (Temporal Artery) Resp 16 Wt 72.1 kg (159 lb) SpO2 96% BMI 23.48 kg/m? General Appearance: well appearing, in no acute distress, alert Skin: Skin color, texture, turgor normal for age; Head: normocephalic, atraumatic Eyes: conjunctiva pink and moist, no icterus, sclera white, non-injected Lungs: lungs clear to auscultation. No wheezing, rhonchi, rales Heart: RRR without murmur, gallop, or rubs. No ectopy Bilateral Lower Extremities: No edema BP CONTROLLED (<130/80) due on 02/16/1968 DTAP,TDAP,TD(1 - Tdap) due on 1969 HEPATITIS C SCREENING due on 1994 COLORECTAL CANCER SCREENING,SEE MODIFIER due on 02/16/2000 PROSTATE CANCER SCREENING DISCUSSION due on 2005 ABDOMINAL AORTIC ANEURYSM SCREENING TOPIC due on 2015 ADULT PREVNAR-13 due on 2015 PNEUMOVAX AGE 65 AND OVER WITH 5YR LOOKBACK(1) due on 2015 HEMOGLOBIN/HEMATOCRIT due on 11/23/2018 LUNG CANCER SCREENING due on 03/28/2019 ANNUAL PCP TEAM CHRONIC DISEASE VISIT due on 04/30/2019 SERUM CREATININE due on 05/28/2019 DIABETES SCREEN due on 05/28/2021 LIPID SCREEN due on 05/28/2023 INFLUENZA Completed ASSESSMENT/PLAN: 1. Essential hypertension - ICD9: 401.9, ICD10: I10 (primary diagnosis) - suboptimal control - Add metoprolol (Lopressor/Toprol) - Increase amlodipine (Norvasc) - Encouraged dietary sodium restriction/DASH diet - Recommended regular aerobic exercise. - Recommend home blood pressure monitoring, to bring results in on next visit - Follow up in 1 month for BP recheck. - Goal of BP <130/80 - Recommended no refined sugar, low refined starch, healthy oil intake (olive oil), healthy protein (fish) along the lines of the Mediterranean diet. - AMLODIPINE 10 MG TABLET - METOPROLOL SUCCINATE ER 25 MG TABLET,EXTENDED RELEASE 24 HR 2. Sleep disturbance - ICD9: 780.50, ICD10: G47.9 - TRAZODONE 50 MG TABLET - Follow up in 1 month as previously scheduled 3. Stage 4 chronic kidney disease (HCC) - ICD9: 585.4, ICD10: N18.4 - Worsening kidney function, most recent labs reviewed - Patient preparing for fistula placement with long-term HD - Followed by Nephrology- at [facility] 4. Gastroesophageal reflux disease without esophagitis - ICD9: 530.81, ICD10: K21.9 - Discussed lifestyle modifications including limiting caffeine, no meals three hours before sleep and head of bed elevation - Continue treatment with Zantac 150 mg 1-2x daily - Follow up in 1months - RANITIDINE 150 MG TABLET Fanny Nelson APRN.CNP Prescription instructions reviewed with patient as applicable. Potential red flag symptoms discussed with the patient. Reviewed appropriate action plan to take if red flag symptoms occur. Patient agreeable to treatment plan. Fanny Nelson APRN.CNP 06/17/2018 2:38 PM Signed Please notify office of BP readings greater than 140/90 or less than 100/60 two weeks after starting new medications/dose increase. Referring Provider: SELF [[id number]] Allergies As of Date: 06/17/2018 Noted Allergy Reaction AMOXICILLIN 01/26/2016 7 - Swelling CIPROFLOXACIN 01/26/2016 7 - Swelling CODEINE 12/22/2016 1 - Mental Status Change Date Reviewed: 06/13/2018 Reviewed by: Breonna Hyatt (Pa) - Fully Assessed Reason for Visit: Recheck [92] Cmt: BP follow up Reason For Visit History Recorded Primary Visit Diagnosis:Essential hypertension [I10] Other Visit Diagnoses:Sleep disturbance [G47.9] Stage 4 chronic kidney disease (HCC) [N18.4] Gastroesophageal reflux disease without esophagitis [K21.9] Order(s):amLODIPine (NORVASC) 10 mg tabletTake 1 tablet by mouth once daily.Disp: 30 tabletRfl: 2 metoprolol succinate ER (TOPROL XL) 25 mg 24 hr tabletTake 1 tablet by mouth once daily.Disp: 30 tabletRfl: 2 traZODone (DESYREL) 50 mg tabletTake 1 tablet by mouth daily at bedtime.Disp: 30 tabletRfl: 2 ranitidine (ZANTAC) 150 mg tabletTake 1 tablet by mouth twice daily.Disp: 60 tabletRfl: 2 Prescriptions as of 06/17/2018 Sig: AMLODIPINE 10 MG TABLET Take 1 tablet by mouth once d* METOPROLOL SUCCINATE ER 25 MG* Take 1 tablet by mouth once d* TRAZODONE 50 MG TABLET Take 1 tablet by mouth daily * RANITIDINE 150 MG TABLET Take 1 tablet by mouth twice * TAMSULOSIN 0.4 MG CAPSULE Take 1 capsule by mouth daily* MELATONIN 10 MG TABLET Take 10 mg by mouth as needed. TYLENOL ORAL Take by mouth as needed. UMECLIDINIUM 62.5 MCG-VILANTE* Inhale 1 Inhalation as instru* Patient not taking: Reported on 04/29/2018 ALBUTEROL SULFATE HFA 90 MCG/* Inhale 2 Puffs as instructed * Patient not taking: Reported on 04/29/2018 OCUVITE PRESERVISION ORAL Take by mouth once daily. CATHETER 16 FR ISC four times daily and as n* Problem List As Of Date 06/17/2018 Noted Resolved Renal failure [N19] INVALID FOR*05/03/2017 Chronic retention of urine [R33.9] INVALID FOR* More... 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 Dialysis patient ([facility]) [Z99.2] INVALID FOR*05/03/2017 More... 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 Right shoulder pain [M25.511] INVALID FOR* More... 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 Posterior vitreous detachment of both eyes [H43*INVALID FOR* Stage 4 chronic kidney disease ([facility]) [N18.4] INVALID FOR* More... Essential hypertension [I10] INVALID FOR* More... COPD with chronic bronchitis ([facility]) [J44.9] INVALID FOR* More... Solitary pulmonary nodule [R91.1] INVALID FOR* More... SVT (supraventricular tachycardia) (HCC) [I47.1]INVALID FOR* Dysphagia [R13.10] INVALID FOR* More... Other instructions from your clinician: Please notify office of BP readings greater than 140/90 or less than 100/60 two weeks after starting new medications/dose increase. Prescriptions ordered this encounter Disp Refills Start End AMLODIPINE 10 MG TABLET 30 t* 2 06/17/2018 Route: ORAL Sig: Take 1 tablet by mouth once daily. METOPROLOL SUCCINATE ER 25 MG TABLET* 30 t* 2 06/17/2018 Route: ORAL Sig: Take 1 tablet by mouth once daily. TRAZODONE 50 MG TABLET 30 t* 2 06/17/2018 Route: ORAL Sig: Take 1 tablet by mouth daily at bedtime. RANITIDINE 150 MG TABLET 60 t* 2 06/17/2018 Route: ORAL Sig: Take 1 tablet by mouth twice daily. Medications Discontinued During This Encounter amLODIPine (NORVASC) 5 mg tablet 11/08/2017 06/17/2018 Class: Historical Med Route: ORAL Sig: Take 5 mg by mouth once daily. Disc: Reason for discontinue is not on file. RANITIDINE HCL ORAL 06/17/2018 Class: Historical Med Route: ORAL Sig: Take by mouth. Disc: Reason for discontinue is not on file. Encounter Status:Closed by FANNY NELOSN CNP on 06/17/18 PROGRESS Observed: 06/13/2018 Status: COMPLETED Source: [place] 9:03 AM [facility] REPOSITORY HNO ID: [id number] Author: Debo Leonard Service: (none) Author Type: Nurse Practitioner Type: Progress Notes Filed: 06/13/2018 9:39 AM Note Text: 06/13/2018 Patient presents with: Blood Pressure SUBJECTIVE: This is a 68 year old that is here today for elevated BP found at general surgery office this AM- he was there for a consult for colonoscopy. He states that he took his norvasc today. He avoids salt in diet most of the time. He states that he was started on norvasc when he was having a sensation of having thumbing in ears and he has noticed that again recently. He has also had headaches, but there is not change to them for his baseline- he thinks that they are more related to sinuses with the weather changing. He is also having blurred vision- he was told macular degeneration, no recent change compared to when he was diagnosed, eye drops helping. Denies lightheadedness, dizziness, CP, edema, or SOB. He follows with Dr. Ramesh for nephrology and he states that they are planning on starting dialysis again due to decreased kidney function. He is self cathing 4-6 times a day- he noticed some bloating sensation and wondering if all of the fluid is being removed. PAST MEDICAL HISTORY Diagnosis Date - Chronic kidney disease, stage 4 (severe) ([facility]) 09/13/2017 Marti Ramesh MD; [facility]. - COPD with chronic bronchitis ([facility]) 03/2018 Moderate by 03/18/2018 PFT. - HTN (hypertension) - Ischemic heart disease ??? - Renal failure - Solitary pulmonary nodule 03/2018 7 mm, RLL; CT Chest [facility], 08/2017. - TIA (transient ischemic attack) - Urinary retention ALLERGIES Amoxicillin; Ciprofloxacin; Codeine MEDICATIONS Current Outpatient Prescriptions: tamsulosin ER (FLOMAX) 0.4 mg cap Take 1 capsule by mouth daily at bedtime. melatonin 10 mg tab Take 10 mg by mouth as needed. acetaminophen (TYLENOL ORAL) Take by mouth as needed. umeclidinium-vilanterol (ANORO ELLIPTA) 62.5-25 mcg/actuation inhaler Inhale 1 Inhalation as instructed once daily. (Patient not taking: Reported on 04/29/2018 ) albuterol HFA (PROVENTIL HFA, VENTOLIN HFA) 90 mcg/actuation inhaler Inhale 2 Puffs as instructed four times daily as needed. (Patient not taking: Reported on 04/29/2018 ) amLODIPine (NORVASC) 5 mg tablet Take 5 mg by mouth once daily. Omeprazole (PRILOSEC) 40 mg capsule Take 1 capsule by mouth once daily. (Patient not taking: Reported on 06/13/2018 ) VIT A/VIT C/VIT E/ZINC/COPPER (OCUVITE PRESERVISION ORAL) Take by mouth once daily. Catheter (BARD COUDE TIP CATHETER) 16 Fr misc ISC four times daily and as needed RANITIDINE HCL ORAL Take by mouth. No current facility-administered medications for this visit. Medications and allergies reviewed by this provider. SOCIAL HISTORY Social History Marital status: Spouse name: Years of education: Number of children: Social History Main Topics Smoking status: Former Smoker Packs/day: 1.50 Years: 48.00 Types: Cigarettes Start date: 02/16/1964 Quit date: 10/23/2011 Smokeless tobacco: Never Used Comment: FAther smoked in childhood home. Alcohol use: No Drug use: No REVIEW OF SYSTEMS see HPI OBJECTIVE: BP 152/90 Pulse 66 Resp 16 Wt 71.2 kg (157 lb) SpO2 99% BMI 23.18 kg/m? . Vital signs reviewed by this provider. PHYSICAL EXAMINATION: General appearance: Well appearing, alert, in no acute distress, well-hydrated, well nourished. Skin: Skin color, texture, turgor normal, no suspicious rashes or lesions Head: Normocephalic, no masses, lesions, tenderness or abnormalities Eyes: Anicteric sclera. Pupils are equally round and reactive to light. Extraocular movements are intact. Neck: Supple, no adenopathy; thyroid symmetric, normal size, no bruits Lungs: Lungs clear to auscultation. No wheezing, rhonchi, rales Heart: RRR without murmur, gallop, or rubs. No ectopy Abdomen: Normal abdominal exam, Abdomen soft, non-tender. Bowel sounds normal. No masses, organomegaly Extremities: No deformities, edema, skin discoloration, clubbing or cyanosis. Good capillary refill. , Pulses: 2+ ASSESSMENT/PLAN: 1. Essential hypertension - ICD9: 401.9, ICD10: I10 - suboptimal control - Continue current medication(s). Do not want to make any changes yet d/t the fact that dialysis is being considered again. Encouraged pt to follow up as planned with Dr. Ramesh. If needed, can increase norvasc. - Encouraged dietary sodium restriction/DASH diet - Recommended regular aerobic exercise. - Recommend home blood pressure monitoring, to bring results in on next visit - Recheck in 2 weeks, sooner should new symptoms or problems arise. - Reviewed risks of HTN and principles of treatment - Goal of BP <140/90 - Recommended no refined sugar, low refined starch, healthy oil intake (olive oil), healthy protein (fish) along the lines of the Mediterranean diet. Debo Leonard APRN.TEMPERING MACHINE OPERATOR PROGRESS Observed: 06/13/2018 Status: COMPLETED Source: [place] 9:00 AM [facility] REPOSITORY O ID: [id number] Author: Bria Lepe MA Service: (none) Author Type: Engineered Wood Designer Type: Progress Notes Filed: 06/13/2018 9:39 AM Note Text: Blood Pressure RICCARDO Right arm Sitting Reg Cuff #1:156/95 Pulse:61 #2:134/87 Pulse:62 #3:128/94 Pulse:68 #4:147/95 Pulse:69 #5:147/100 Pulse:66 #6:132/95 Pulse:69 Average BP RICCARDO: 138/94 Pulse:67 Bria Lepe MA CNOV Observed: 06/13/2018 Status: COMPLETED Source: [place] 9:00 AM [facility] REPOSITORY Office Visit (FAMPWS) ERIN RODGERS ([id number]) 1950 M Date Time Provider Department 06/13/18 9:00 AM DEBO LEONARD ([facility]) [facility] During your visit today, we recorded the following information about you: Pulse Respiration Blood pressure Weight 66/minute 16/minute 152/90 71.2 kg Bria Lepe MA, CHERIE 06/13/2018 9:39 AM Signed Blood Pressure RICCARDO Right arm Sitting Reg Cuff #1:156/95 Pulse:61 #2:134/87 Pulse:62 #3:128/94 Pulse:68 #4:147/95 Pulse:69 #5:147/100 Pulse:66 #6:132/95 Pulse:69 Average BP RICCARDO: 138/94 Pulse:67 CHERIE Mcintosh APRN.CNP 06/13/2018 9:39 AM Signed 06/13/2018 Patient presents with: Blood Pressure SUBJECTIVE: This is a 68 year old that is here today for elevated BP found at general surgery office this AM- he was there for a consult for colonoscopy. He states that he took his norvasc today. He avoids salt in diet most of the time. He states that he was started on norvasc when he was having a sensation of having thumbing in ears and he has noticed that again recently. He has also had headaches, but there is not change to them for his baseline- he thinks that they are more related to sinuses with the weather changing. He is also having blurred vision- he was told macular degeneration, no recent change compared to when he was diagnosed, eye drops helping. Denies lightheadedness, dizziness, CP, edema, or SOB. He follows with Dr. Ramesh for nephrology and he states that they are planning on starting dialysis again due to decreased kidney function. He is self cathing 4-6 times a day- he noticed some bloating sensation and wondering if all of the fluid is being removed. PAST MEDICAL HISTORY Diagnosis Date - Chronic kidney disease, stage 4 (severe) ([facility]) 09/13/2017 Marti Ramesh MD; [facility]. - COPD with chronic bronchitis ([facility]) 03/2018 Moderate by 03/18/2018 PFT. - HTN (hypertension) - Ischemic heart disease ??? - Renal failure - Solitary pulmonary nodule 03/2018 7 mm, RLL; CT Chest [facility], 08/2017. - TIA (transient ischemic attack) - Urinary retention ALLERGIES Amoxicillin; Ciprofloxacin; Codeine MEDICATIONS Current Outpatient Prescriptions: tamsulosin ER (FLOMAX) 0.4 mg cap Take 1 capsule by mouth daily at bedtime. melatonin 10 mg tab Take 10 mg by mouth as needed. acetaminophen (TYLENOL ORAL) Take by mouth as needed. umeclidinium-vilanterol (ANORO ELLIPTA) 62.5-25 mcg/actuation inhaler Inhale 1 Inhalation as instructed once daily. (Patient not taking: Reported on 04/29/2018 ) albuterol HFA (PROVENTIL HFA, VENTOLIN HFA) 90 mcg/actuation inhaler Inhale 2 Puffs as instructed four times daily as needed. (Patient not taking: Reported on 04/29/2018 ) amLODIPine (NORVASC) 5 mg tablet Take 5 mg by mouth once daily. Omeprazole (PRILOSEC) 40 mg capsule Take 1 capsule by mouth once daily. (Patient not taking: Reported on 06/13/2018 ) VIT A/VIT C/VIT E/ZINC/COPPER (OCUVITE PRESERVISION ORAL) Take by mouth once daily. Catheter (BARD COUDE TIP CATHETER) 16 Fr misc ISC four times daily and as needed RANITIDINE HCL ORAL Take by mouth. No current facility-administered medications for this visit. Medications and allergies reviewed by this provider. SOCIAL HISTORY Social History Marital status: Spouse name: Years of education: Number of children: Social History Main Topics Smoking status: Former Smoker Packs/day: 1.50 Years: 48.00 Types: Cigarettes Start date: 02/16/1964 Quit date: 10/23/2011 Smokeless tobacco: Never Used Comment: FAther smoked in childhood home. Alcohol use: No Drug use: No REVIEW OF SYSTEMS see HPI OBJECTIVE: BP 152/90 Pulse 66 Resp 16 Wt 71.2 kg (157 lb) SpO2 99% BMI 23.18 kg/m? . Vital signs reviewed by this provider. PHYSICAL EXAMINATION: General appearance: Well appearing, alert, in no acute distress, well-hydrated, well nourished. Skin: Skin color, texture, turgor normal, no suspicious rashes or lesions Head: Normocephalic, no masses, lesions, tenderness or abnormalities Eyes: Anicteric sclera. Pupils are equally round and reactive to light. Extraocular movements are intact. Neck: Supple, no adenopathy; thyroid symmetric, normal size, no bruits Lungs: Lungs clear to auscultation. No wheezing, rhonchi, rales Heart: RRR without murmur, gallop, or rubs. No ectopy Abdomen: Normal abdominal exam, Abdomen soft, non-tender. Bowel sounds normal. No masses, organomegaly Extremities: No deformities, edema, skin discoloration, clubbing or cyanosis. Good capillary refill. , Pulses: 2+ ASSESSMENT/PLAN: 1. Essential hypertension - ICD9: 401.9, ICD10: I10 - suboptimal control - Continue current medication(s). Do not want to make any changes yet d/t the fact that dialysis is being considered again. Encouraged pt to follow up as planned with Dr. Ramesh. If needed, can increase norvasc. - Encouraged dietary sodium restriction/DASH diet - Recommended regular aerobic exercise. - Recommend home blood pressure monitoring, to bring results in on next visit - Recheck in 2 weeks, sooner should new symptoms or problems arise. - Reviewed risks of HTN and principles of treatment - Goal of BP <140/90 - Recommended no refined sugar, low refined starch, healthy oil intake (olive oil), healthy protein (fish) along the lines of the Mediterranean diet. Debo Leonard APRN.TEMPERING MACHINE OPERATOR Referring Provider: SELF [[id number]] Allergies As of Date: 06/13/2018 Noted Allergy Reaction AMOXICILLIN 01/26/2016 7 - Swelling CIPROFLOXACIN 01/26/2016 7 - Swelling CODEINE 12/22/2016 1 - Mental Status Change Date Reviewed: 06/13/2018 Reviewed by: Bria Marino) CHERIE Lepe - Fully Assessed Reason for Visit: Blood Pressure [15] Primary Visit Diagnosis:Essential hypertension [I10] Prescriptions as of 06/13/2018 Sig: TAMSULOSIN 0.4 MG CAPSULE Take 1 capsule by mouth daily* MELATONIN 10 MG TABLET Take 10 mg by mouth as needed. TYLENOL ORAL Take by mouth as needed. AMLODIPINE 5 MG TABLET Take 5 mg by mouth once daily. OCUVITE PRESERVISION ORAL Take by mouth once daily. CATHETER 16 FR ISC four times daily and as n* RANITIDINE HCL ORAL Take by mouth. UMECLIDINIUM 62.5 MCG-VILANTE* Inhale 1 Inhalation as instru* Patient not taking: Reported on 04/29/2018 ALBUTEROL SULFATE HFA 90 MCG/* Inhale 2 Puffs as instructed * Patient not taking: Reported on 04/29/2018 Problem List As Of Date 06/13/2018 Noted Resolved Renal failure [N19] INVALID FOR*05/03/2017 Chronic retention of urine [R33.9] INVALID FOR* More... 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 Dialysis patient ([facility]) [Z99.2] INVALID FOR*05/03/2017 More... 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 Right shoulder pain [M25.511] INVALID FOR* More... 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 Posterior vitreous detachment of both eyes [H43*INVALID FOR* Stage 4 chronic kidney disease ([facility]) [N18.4] INVALID FOR* More... Essential hypertension [I10] INVALID FOR* More... COPD with chronic bronchitis ([facility]) [J44.9] INVALID FOR* More... Solitary pulmonary nodule [R91.1] INVALID FOR* More... SVT (supraventricular tachycardia) (HCC) [I47.1]INVALID FOR* Medications Discontinued During This Encounter Omeprazole (PRILOSEC) 40 mg capsule 30 c* 2 05/03/2017 06/13/2018 Route: ORAL Sig: Take 1 capsule by mouth once daily. Patient not taking: Reported on 06/13/2018 Disc: Reason for discontinue is not on file. Disposition: Return in about 2 weeks (around 06/27/2018). Follow-up and Disposition History Recorded Encounter Status:Closed by DEBO LEONARD on 06/13/18 PROGRESS Observed: 06/13/2018 Status: COMPLETED Source: [place] 8:21 AM [facility] REPOSITORY O ID: [id number] Author: Breonna Hyatt ([place]) Service: (none) Author Type: Physician Hair Baler Type: Progress Notes Filed: 06/13/2018 2:06 PM Note Text: HISTORY AND PHYSICAL Erin Rodgers 1950 REFERRING PHYSICIAN: Karma Marrero MD CHIEF COMPLAINT: Consult (colonoscopy) HPI: The patient is a 68 year old male referred for endoscopy. He has undergone remote colonoscopy 20+ years ago. Erin notes no colon complaints currently. He denies any change in bowel habits, weight changes, blood in stools, black tarry stools or abdominal pain. He denies a family history of colon cancer. Patient was previously evaluated by Dr. Minaya on 04/29/18. Per her plan from that time: Will discuss with Dr. Ramesh, best type of colon cleansing preparation. Will refer to Dr. Pina for chest palpitations, given history of AL, and patient has no cardiology follow up in years. Will refer to Dr. Leslie for consideration of evaluation for [place] fistula. I have offered colonoscopy, possible biopsies. I have explained the procedure to the patient. I have counseled the patient as to the risks of the procedure, including but not limited to: infection, bleeding, injury to any intraabdominal organs such as liver/spleen, perforation of the GI tract, inability to complete the procedure, complications of anesthesia, etc. ? the patient understands. The patient wishes to proceed. Patient was evaluated by Dr. Pina on 04/29/18, that note is reviewed. Per cardiology plan: His recent stress test showed no ischemia. Risk of perioperative cardiac complications is felt to be low for the procedure anticipated. No further diagnostic studies are recommended. The patient is being seen by me today at the request of Dr. Marrero for my opinion and advice regarding screening colonoscopy. The patient denies any significant change to his overall health since his last visit. His past medical history, past surgical history, medications and allergies are up to date as of this visit. Past medical history significant for TIA in 2011, hypertension, supraventricular tachycardia, COPD, chronic kidney disease stage 4, congenital hydronephrosis. Patient follows with Dr. Ramesh in nephrology. Patient notes he has been having significant reflux and swallowing issues, occasionally emesis right after eating. Takes ranitidine daily which helps somewhat. States he had an EGD a few years ago but nothing recent. PAST MEDICAL HISTORY Diagnosis Date - Chronic kidney disease, stage 4 (severe) ([facility]) 09/13/2017 Marti Ramesh MD; [facility]. - COPD with chronic bronchitis ([facility]) 03/2018 Moderate by 03/18/2018 PFT. - HTN (hypertension) - Ischemic heart disease ??? - Renal failure - Solitary pulmonary nodule 03/2018 7 mm, RLL; CT Chest [facility], 08/2017. - TIA (transient ischemic attack) - Urinary retention PAST SURGICAL HISTORY Procedure Laterality Date - APPENDECTOMY 1972 - COLONOSCOPY - EGD - HEMMORRHOIDECTOMY,EXTERNAL SINGLE - PAST SURGICAL HISTORY OF 09/06/2015 kidney stent placement; Dr. Nia Henry PA - PAST SURGICAL HISTORY OF 1975 sinus surgery - PROSTATECTOMY, SIMPLE, BENIGN 2009 Current Outpatient Prescriptions: tamsulosin ER (FLOMAX) 0.4 mg cap Take 1 capsule by mouth daily at bedtime. melatonin 10 mg tab Take 10 mg by mouth as needed. acetaminophen (TYLENOL ORAL) Take by mouth as needed. amLODIPine (NORVASC) 5 mg tablet Take 5 mg by mouth once daily. VIT A/VIT C/VIT E/ZINC/COPPER (OCUVITE PRESERVISION ORAL) Take by mouth once daily. Catheter (BARD COUDE TIP CATHETER) 16 Fr misc ISC four times daily and as needed RANITIDINE HCL ORAL Take by mouth. umeclidinium-vilanterol (ANORO ELLIPTA) 62.5-25 mcg/actuation inhaler Inhale 1 Inhalation as instructed once daily. (Patient not taking: Reported on 04/29/2018 ) albuterol HFA (PROVENTIL HFA, VENTOLIN HFA) 90 mcg/actuation inhaler Inhale 2 Puffs as instructed four times daily as needed. (Patient not taking: Reported on 04/29/2018 ) Omeprazole (PRILOSEC) 40 mg capsule Take 1 capsule by mouth once daily. (Patient not taking: Reported on 06/13/2018 ) No current facility-administered medications for this visit. ALLERGIES: Amoxicillin; Ciprofloxacin; Codeine PERSONAL HISTORY: Social History Marital status: Spouse name: Years of education: Number of children: Social History Main Topics Smoking status: Former Smoker Packs/day: 1.50 Years: 48.00 Types: Cigarettes Start date: 02/16/1964 Quit date: 10/23/2011 Smokeless tobacco: Never Used Comment: FAther smoked in childhood home. Alcohol use: No Drug use: No FAMILY HISTORY: FAMILY HISTORY Problem Relation Age of Onset - Cancer Mother stomach - Diabetes Maternal Aunt REVIEW OF SYMPTOMS: The review of systems data was entered by the nurse and reviewed by sc Nursing Notes: Angie Ku RN 06/13/2018 8:19 AM Signed REVIEW OF SYSTEMS: General: The patient notes fatigue, denies weight loss, denies weight gain, denies feeling hot, and denies feelings of cold. Eyes: The patient notes glaucoma, denies eye injury/surgery, wears glasses or contacts. Ear/Nose/Throat: The patient denies allergies, denies hayfever, denies ear infections, and notes bloody noses. Cardiovascular: The patient denies chest pain, denies heart disease, notes high blood pressure,denies cardiac stent, denies prior heart attack, notes irregular heart beat, denies high cholesterol, notes poor circulation, denies heart failure, other cardiac issues, denies claudication, denies cold feet, denies peripheral arterial stent. Respiratory: The patient denies tuberculosis, denies pneumonia, denies frequent cough, denies pulmonary embolism, denies shortness of breath, and denies coughing up blood. Gastrointestinal: The patient denies difficulty swallowing, notes acid reflux, denies ulcers, denies vomiting, denies jaundice/hepatitis, denies gallbladder problems, denies black or tarry stools, notes hemorrhoids, denies bleeding from rectum, denies diverticulitis, denies constipation, denies diarrhea, denies loss of stool control, and denies hernias. Kidney/Bladder: The patient notes kidney stones, notes urine infections, and denies bloody urine. Skin: The patient denies a history of skin cancer, denies bleeding/changing moles, and notes a history of skin rash. Neurologic: The patient denies a history of epilepsy/convulsions, notes headaches, denies head/spinal injuries, and notes stroke/TIA. Psychiatric: The patient denies psychiatric medications, denies depression, and denies voices, denies substance abuse. Endocrine: The patient denies thyroid disorders, denies diabetes, and denies hormonal problems. Hematologic: The patient notes a history of bruising, notes bleeding, and denies anemia, denies blood clots. Infections: The patient denies a history of measles and mumps, denies rheumatic fever, and denies sexually transmitted diseases. Musculoskeletal: The patient denies back pain/injury, denies back problems, denies sciatica, NOTES knee/foot trouble, NOTES arthritis, or denies gout. When was patient's last Mammogram screening? N/A Last Colonoscopy: unknown Angie Ku RN I have confirmed and edited as necessary, the PFSH and ROS obtained by others. PHYSICAL EXAMINATION: General: The patient is 68 year old male, well nourished, well hydrated in no acute distress. The patient is oriented to time, place, and person. VITALS: Blood pressure 180/100, pulse 66, temperature 36.2 ?C (97.2 ?F), weight 71.3 kg (157 lb 3.2 oz). Body mass index is 23.21 kg/m?. HEENT: Normal cephalic, ataumatic, pupils are equally round, sclera are anicteric, mucous membranes are moist, oropharynx is clear. Neck has no masses, asymmetry or lymphadenopathy. Respiratory: Clear to auscultation and percussion. Normal respiratory excursion and pattern. Cardiac: Examination is regular rate and rhythm. Abdominal exam: Soft, nontender, with no palpable masses. No hepatosplenomegaly. No palpable hernias. Rectal exam: exam deferred Extremities: no clubbing, cyanosis or edema. No adenopathy. Other: LABORATORY VALUES: As Noted RADIOLOGIC STUDIES: As Noted Assessment IMPRESSION: encounter for screening colonoscopy, GERD, dysphagia-would plan for EGD in addition to colonoscopy PLAN: I have reviewed my findings with Dr. Minaya. We will plan for upper and lower endoscopy. We discussed the risks and benefits of the planned endoscopy. I have informed the patient that complications can occur including failure to complete the endoscopy and perforation. The patient had the opportunity to ask questions concerning the planned endoscopy. My staff has also explained the procedure to the patient in understandable terms and has given the patient printed material concerning the procedure. The patient freely consents to surgery. Contacted Dr. Ramesh's office regarding recommendation for best bowel preparation in light of patient's renal disease. Message left with sanitation officer who will forward to Dr. Ramesh and contact our office with recommendation I plan for monitored anesthetic care. Patient's blood pressure elevated on two readings at visit. Patient notes this has been running high recently. Facilitated appt with primary care today for evaluation. Discussed that if BP significantly elevated when he comes in for procedure he could be cancelled Diagnoses: (Z12.11) Encounter for screening for malignant neoplasm of colon (primary encounter diagnosis) (R13.10) Dysphagia, unspecified type (K21.9) Gastroesophageal reflux disease, esophagitis presence not specified My findings have been communicated to Dr. Marrero via shared medical record. This note will be forwarded to Dr. KARMA MARRERO MD. Return to Clinic: The patient is instructed to follow-up with me 1 week post operatively. Patient verbalized understanding of all above and agreed with the plan GEENA WallOV Observed: 06/13/2018 Status: COMPLETED Source: [place] 8:00 AM [facility] REPOSITORY Office Visit (GENSWS) ERIN RODGERS ([id number]) 1950 M Date Time Provider Department 06/13/18 8:00 AM BREONNA HYATT) BERTHAS During your visit today, we recorded the following information about you: Temperature Pulse Blood pressure Weight 97.2 degrees 66/minute 178/100 71.3 kg Angie Ku RN 06/13/2018 8:19 AM Signed REVIEW OF SYSTEMS: General: The patient notes fatigue, denies weight loss, denies weight gain, denies feeling hot, and denies feelings of cold. Eyes: The patient notes glaucoma, denies eye injury/surgery, wears glasses or contacts. Ear/Nose/Throat: The patient denies allergies, denies hayfever, denies ear infections, and notes bloody noses. Cardiovascular: The patient denies chest pain, denies heart disease, notes high blood pressure,denies cardiac stent, denies prior heart attack, notes irregular heart beat, denies high cholesterol, notes poor circulation, denies heart failure, other cardiac issues, denies claudication, denies cold feet, denies peripheral arterial stent. Respiratory: The patient denies tuberculosis, denies pneumonia, denies frequent cough, denies pulmonary embolism, denies shortness of breath, and denies coughing up blood. Gastrointestinal: The patient denies difficulty swallowing, notes acid reflux, denies ulcers, denies vomiting, denies jaundice/hepatitis, denies gallbladder problems, denies black or tarry stools, notes hemorrhoids, denies bleeding from rectum, denies diverticulitis, denies constipation, denies diarrhea, denies loss of stool control, and denies hernias. Kidney/Bladder: The patient notes kidney stones, notes urine infections, and denies bloody urine. Skin: The patient denies a history of skin cancer, denies bleeding/changing moles, and notes a history of skin rash. Neurologic: The patient denies a history of epilepsy/convulsions, notes headaches, denies head/spinal injuries, and notes stroke/TIA. Psychiatric: The patient denies psychiatric medications, denies depression, and denies voices, denies substance abuse. Endocrine: The patient denies thyroid disorders, denies diabetes, and denies hormonal problems. Hematologic: The patient notes a history of bruising, notes bleeding, and denies anemia, denies blood clots. Infections: The patient denies a history of measles and mumps, denies rheumatic fever, and denies sexually transmitted diseases. Musculoskeletal: The patient denies back pain/injury, denies back problems, denies sciatica, NOTES knee/foot trouble, NOTES arthritis, or denies gout. When was patient's last Mammogram screening? N/A Last Colonoscopy: unknown Angie Hyatt PA-C 06/13/2018 2:06 PM Signed HISTORY AND PHYSICAL Erin Rodgers 1950 REFERRING PHYSICIAN: Karma Marrero MD CHIEF COMPLAINT: Consult (colonoscopy) HPI: The patient is a 68 year old male referred for endoscopy. He has undergone remote colonoscopy 20+ years ago. Erin notes no colon complaints currently. He denies any change in bowel habits, weight changes, blood in stools, black tarry stools or abdominal pain. He denies a family history of colon cancer. Patient was previously evaluated by Dr. Minaya on 04/29/18. Per her plan from that time: Will discuss with Dr. Ramesh, best type of colon cleansing preparation. Will refer to Dr. Pina for chest palpitations, given history of AL, and patient has no cardiology follow up in years. Will refer to Dr. Leslie for consideration of evaluation for [place] fistula. I have offered colonoscopy, possible biopsies. I have explained the procedure to the patient. I have counseled the patient as to the risks of the procedure, including but not limited to: infection, bleeding, injury to any intraabdominal organs such as liver/spleen, perforation of the GI tract, inability to complete the procedure, complications of anesthesia, etc. ? the patient understands. The patient wishes to proceed. Patient was evaluated by Dr. Pina on 04/29/18, that note is reviewed. Per cardiology plan: His recent stress test showed no ischemia. Risk of perioperative cardiac complications is felt to be low for the procedure anticipated. No further diagnostic studies are recommended. The patient is being seen by me today at the request of Dr. Marrero for my opinion and advice regarding screening colonoscopy. The patient denies any significant change to his overall health since his last visit. His past medical history, past surgical history, medications and allergies are up to date as of this visit. Past medical history significant for TIA in 2011, hypertension, supraventricular tachycardia, COPD, chronic kidney disease stage 4, congenital hydronephrosis. Patient follows with Dr. Ramesh in nephrology. Patient notes he has been having significant reflux and swallowing issues, occasionally emesis right after eating. Takes ranitidine daily which helps somewhat. States he had an EGD a few years ago but nothing recent. PAST MEDICAL HISTORY Diagnosis Date - Chronic kidney disease, stage 4 (severe) (HCC) 09/13/2017 Marti Ramesh MD; [facility]. - COPD with chronic bronchitis (HCC) 03/2018 Moderate by 03/18/2018 PFT. - HTN (hypertension) - Ischemic heart disease ??? - Renal failure - Solitary pulmonary nodule 03/2018 7 mm, RLL; CT Chest [facility], 08/2017. - TIA (transient ischemic attack) - Urinary retention PAST SURGICAL HISTORY Procedure Laterality Date - APPENDECTOMY 1972 - COLONOSCOPY - EGD - HEMMORRHOIDECTOMY,EXTERNAL SINGLE - PAST SURGICAL HISTORY OF 09/06/2015 kidney stent placement; Dr. Nia Henry PA - PAST SURGICAL HISTORY OF 1975 sinus surgery - PROSTATECTOMY, SIMPLE, BENIGN 2009 Current Outpatient Prescriptions: tamsulosin ER (FLOMAX) 0.4 mg cap Take 1 capsule by mouth daily at bedtime. melatonin 10 mg tab Take 10 mg by mouth as needed. acetaminophen (TYLENOL ORAL) Take by mouth as needed. amLODIPine (NORVASC) 5 mg tablet Take 5 mg by mouth once daily. VIT A/VIT C/VIT E/ZINC/COPPER (OCUVITE PRESERVISION ORAL) Take by mouth once daily. Catheter (BARD COUDE TIP CATHETER) 16 Fr misc ISC four times daily and as needed RANITIDINE HCL ORAL Take by mouth. umeclidinium-vilanterol (ANORO ELLIPTA) 62.5-25 mcg/actuation inhaler Inhale 1 Inhalation as instructed once daily. (Patient not taking: Reported on 04/29/2018 ) albuterol HFA (PROVENTIL HFA, VENTOLIN HFA) 90 mcg/actuation inhaler Inhale 2 Puffs as instructed four times daily as needed. (Patient not taking: Reported on 04/29/2018 ) Omeprazole (PRILOSEC) 40 mg capsule Take 1 capsule by mouth once daily. (Patient not taking: Reported on 06/13/2018 ) No current facility-administered medications for this visit. ALLERGIES: Amoxicillin; Ciprofloxacin; Codeine PERSONAL HISTORY: Social History Marital status: Spouse name: Years of education: Number of children: Social History Main Topics Smoking status: Former Smoker Packs/day: 1.50 Years: 48.00 Types: Cigarettes Start date: 02/16/1964 Quit date: 10/23/2011 Smokeless tobacco: Never Used Comment: FAther smoked in childhood home. Alcohol use: No Drug use: No FAMILY HISTORY: FAMILY HISTORY Problem Relation Age of Onset - Cancer Mother stomach - Diabetes Maternal Aunt REVIEW OF SYMPTOMS: The review of systems data was entered by the nurse and reviewed by me Nursing Notes: Angie Ku RN 06/13/2018 8:19 AM Signed REVIEW OF SYSTEMS: General: The patient notes fatigue, denies weight loss, denies weight gain, denies feeling hot, and denies feelings of cold. Eyes: The patient notes glaucoma, denies eye injury/surgery, wears glasses or contacts. Ear/Nose/Throat: The patient denies allergies, denies hayfever, denies ear infections, and notes bloody noses. Cardiovascular: The patient denies chest pain, denies heart disease, notes high blood pressure,denies cardiac stent, denies prior heart attack, notes irregular heart beat, denies high cholesterol, notes poor circulation, denies heart failure, other cardiac issues, denies claudication, denies cold feet, denies peripheral arterial stent. Respiratory: The patient denies tuberculosis, denies pneumonia, denies frequent cough, denies pulmonary embolism, denies shortness of breath, and denies coughing up blood. Gastrointestinal: The patient denies difficulty swallowing, notes acid reflux, denies ulcers, denies vomiting, denies jaundice/hepatitis, denies gallbladder problems, denies black or tarry stools, notes hemorrhoids, denies bleeding from rectum, denies diverticulitis, denies constipation, denies diarrhea, denies loss of stool control, and denies hernias. Kidney/Bladder: The patient notes kidney stones, notes urine infections, and denies bloody urine. Skin: The patient denies a history of skin cancer, denies bleeding/changing moles, and notes a history of skin rash. Neurologic: The patient denies a history of epilepsy/convulsions, notes headaches, denies head/spinal injuries, and notes stroke/TIA. Psychiatric: The patient denies psychiatric medications, denies depression, and denies voices, denies substance abuse. Endocrine: The patient denies thyroid disorders, denies diabetes, and denies hormonal problems. Hematologic: The patient notes a history of bruising, notes bleeding, and denies anemia, denies blood clots. Infections: The patient denies a history of measles and mumps, denies rheumatic fever, and denies sexually transmitted diseases. Musculoskeletal: The patient denies back pain/injury, denies back problems, denies sciatica, NOTES knee/foot trouble, NOTES arthritis, or denies gout. When was patient's last Mammogram screening? N/A Last Colonoscopy: unknown Angie Ku RN I have confirmed and edited as necessary, the PFSH and ROS obtained by others. PHYSICAL EXAMINATION: General: The patient is 68 year old male, well nourished, well hydrated in no acute distress. The patient is oriented to time, place, and person. VITALS: Blood pressure 180/100, pulse 66, temperature 36.2 ?C (97.2 ?F), weight 71.3 kg (157 lb 3.2 oz). Body mass index is 23.21 kg/m?. HEENT: Normal cephalic, ataumatic, pupils are equally round, sclera are anicteric, mucous membranes are moist, oropharynx is clear. Neck has no masses, asymmetry or lymphadenopathy. Respiratory: Clear to auscultation and percussion. Normal respiratory excursion and pattern. Cardiac: Examination is regular rate and rhythm. Abdominal exam: Soft, nontender, with no palpable masses. No hepatosplenomegaly. No palpable hernias. Rectal exam: exam deferred Extremities: no clubbing, cyanosis or edema. No adenopathy. Other: LABORATORY VALUES: As Noted RADIOLOGIC STUDIES: As Noted Assessment IMPRESSION: encounter for screening colonoscopy, GERD, dysphagia- would plan for EGD in addition to colonoscopy PLAN: I have reviewed my findings with Dr. Minaya. We will plan for upper and lower endoscopy. We discussed the risks and benefits of the planned endoscopy. I have informed the patient that complications can occur including failure to complete the endoscopy and perforation. The patient had the opportunity to ask questions concerning the planned endoscopy. My staff has also explained the procedure to the patient in understandable terms and has given the patient printed material concerning the procedure. The patient freely consents to surgery. Contacted Dr. Ramesh's office regarding recommendation for best bowel preparation in light of patient's renal disease. Message left with sanitation officer who will forward to Dr. Ramesh and contact our office with recommendation I plan for monitored anesthetic care. Patient's blood pressure elevated on two readings at visit. Patient notes this has been running high recently. Facilitated appt with primary care today for evaluation. Discussed that if BP significantly elevated when he comes in for procedure he could be cancelled Diagnoses: (Z12.11) Encounter for screening for malignant neoplasm of colon (primary encounter diagnosis) (R13.10) Dysphagia, unspecified type (K21.9) Gastroesophageal reflux disease, esophagitis presence not specified My findings have been communicated to Dr. Marrero via shared medical record. This note will be forwarded to Dr. KARMA MARRERO MD. Return to Clinic: The patient is instructed to follow-up with me 1 week post operatively. Patient verbalized understanding of all above and agreed with the plan Breonna Hyatt PA-C Referring Provider: KARMA MARRERO [[id number]] Allergies As of Date: 06/13/2018 Noted Allergy Reaction AMOXICILLIN 01/26/2016 7 - Swelling CIPROFLOXACIN 01/26/2016 7 - Swelling CODEINE 12/22/2016 1 - Mental Status Change Date Reviewed: 06/13/2018 Reviewed by: Breonna Hyatt (Pa) - Fully Assessed Reason for Visit: Consult [173] Cmt: colonoscopy Primary Visit Diagnosis:Encounter for screening for malignant neoplasm of colon [Z12.11] Other Visit Diagnoses:Dysphagia, unspecified type [R13.10] Gastroesophageal reflux disease, esophagitis presence not specified [K21.9] Prescriptions as of 06/13/2018 Sig: AMLODIPINE 5 MG TABLET Take 5 mg by mouth once daily. OCUVITE PRESERVISION ORAL Take by mouth once daily. CATHETER 16 FR ISC four times daily and as n* RANITIDINE HCL ORAL Take by mouth. TAMSULOSIN 0.4 MG CAPSULE Take 1 capsule by mouth daily* MELATONIN 10 MG TABLET Take 10 mg by mouth as needed. TYLENOL ORAL Take by mouth as needed. UMECLIDINIUM 62.5 MCG-VILANTE* Inhale 1 Inhalation as instru* Patient not taking: Reported on 04/29/2018 ALBUTEROL SULFATE HFA 90 MCG/* Inhale 2 Puffs as instructed * Patient not taking: Reported on 04/29/2018 X OMEPRAZOLE 40 MG CAPSULE,RAJ* Take 1 capsule by mouth once * Patient not taking: Reported on 06/13/2018 Problem List As Of Date 06/13/2018 Noted Resolved Renal failure [N19] INVALID FOR*05/03/2017 Chronic retention of urine [R33.9] INVALID FOR* More... 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 Dialysis patient ([facility]) [Z99.2] INVALID FOR*05/03/2017 More... 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 Right shoulder pain [M25.511] INVALID FOR* More... 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 Posterior vitreous detachment of both eyes [H43*INVALID FOR* Stage 4 chronic kidney disease ([facility]) [N18.4] INVALID FOR* More... Essential hypertension [I10] INVALID FOR* More... COPD with chronic bronchitis ([facility]) [J44.9] INVALID FOR* More... Solitary pulmonary nodule [R91.1] INVALID FOR* More... SVT (supraventricular tachycardia) ([facility]) [I47.1]INVALID FOR* Dysphagia [R13.10] INVALID FOR* More... Visit Notes: >> Angie Ku RN [facility] Jun 13, 2018 8:16 AM Status: Signed REVIEW OF SYSTEMS: General: The patient notes fatigue, denies weight loss, denies weight gain, denies feeling hot, and denies feelings of cold. Eyes: The patient notes glaucoma, denies eye injury/surgery, wears glasses or contacts. Ear/Nose/Throat: The patient denies allergies, denies hayfever, denies ear infections, and notes bloody noses. Cardiovascular: The patient denies chest pain, denies heart disease, notes high blood pressure,denies cardiac stent, denies prior heart attack, notes irregular heart beat, denies high cholesterol, notes poor circulation, denies heart failure, other cardiac issues, denies claudication, denies cold feet, denies peripheral arterial stent. Respiratory: The patient denies tuberculosis, denies pneumonia, denies frequent cough, denies pulmonary embolism, denies shortness of breath, and denies coughing up blood. Gastrointestinal: The patient denies difficulty swallowing, notes acid reflux, denies ulcers, denies vomiting, denies jaundice/hepatitis, denies gallbladder problems, denies black or tarry stools, notes hemorrhoids, denies bleeding from rectum, denies diverticulitis, denies constipation, denies diarrhea, denies loss of stool control, and denies hernias. Kidney/Bladder: The patient notes kidney stones, notes urine infections, and denies bloody urine. Skin: The patient denies a history of skin cancer, denies bleeding/changing moles, and notes a history of skin rash. Neurologic: The patient denies a history of epilepsy/convulsions, notes headaches, denies head/spinal injuries, and notes stroke/TIA. Psychiatric: The patient denies psychiatric medications, denies depression, and denies voices, denies substance abuse. Endocrine: The patient denies thyroid disorders, denies diabetes, and denies hormonal problems. Hematologic: The patient notes a history of bruising, notes bleeding, and denies anemia, denies blood clots. Infections: The patient denies a history of measles and mumps, denies rheumatic fever, and denies sexually transmitted diseases. Musculoskeletal: The patient denies back pain/injury, denies back problems, denies sciatica, NOTES knee/foot trouble, NOTES arthritis, or denies gout. When was patient's last Mammogram screening? N/A Last Colonoscopy: unknown Angie Ku RN Follow-up and Disposition History Recorded Encounter Status:Closed by BREONNA HYATT PA-C on 06/13/18 BASIC METABOLIC PANL Collected: 05/28/2018 Status: F Source: [place] 4:[address] [facility] REPOSITORY TYPE CODE TESTS RESULT OUT OF REFERENCE UNITS RANGE LAB GLU 74-99 mg/dL Glucose 96 Result Comment: The [place] Diabetes [employer] (ADA) provides guidance for cutoff values for fasting glucose and random glucose. The ADA defines fasting as no caloric intake for at least 8 hours. Fas ting plasma glucose results between 100 to 125 mg/dL indicate increased risk for diabetes (prediabetes). Fasting plasma glucose results greater than or equal to 126 mg/dL meet the criteria for diagnosis of diabetes. In the absence of unequivocal hyperglycemia, results should be confirmed by repeat testing. In a patient with classic symptoms of hyperglycemia or hyperglycemic crisis, random plasma glucose results greater than or equal to 200 mg/dL meet the criteria for diagnosis of diabetes. Reference: Standards of Medical Care in Diabetes 2016, [place] [employer]. Diabetes Care. 2016.39(Suppl 1). LAB BUN 9-24 mg/dL BUN High 35 LAB CRET 0.73-1.22 mg/dL Creatinine High 3.47 LAB NA 136-144 mmol/L Sodium 140 LAB K 3.7-5.1 mmol/L Potassium 4.1 LAB CL 97-105 mmol/L Chloride 105 LAB CO2 22-30 mmol/L CO2 23 LAB AGAP 9-18 mmol/L Anion Gap 12 LAB CA 8.5-10.2 mg/dL Calcium, Total 8.7 LAB GFRAA eGFR- Amer. 21 LAB GFRNAA . eGFR-All Other Races 18 Result Comment: eGFR (Estimated GFR) Units of measure: mL/min/1.73 meters squared eGFR is derived from the reexpressed MDRD Study equation using the following parameters: serum creatinine, age, gender and race. The creatinine assay has been calibrated to be traceable to IDMS. An eGFR <60 mL/min/1.73m2 for >3 months is consistent with chronic kidney disease. Refer to KDOQI guidelines for clinical interpretation. In patients with unstable renal function, e.g. those with acute kidney injury, the eGFR may not accurately reflect actual GFR. Performed By: #### BMP, HBA1C #### [facility] [place] [address] [place], [place] [address] HEMOGLOBIN A1C Collected: 05/28/2018 Status: F Source: [place] 4:27 PM [facility] REPOSITORY TYPE CODE TESTS RESULT OUT OF REFERENCE UNITS RANGE LAB HGBA1C 4.3-5.6 % High Hemoglobin A1c 5.8 LAB HBA0 mg/dL Est. Average Glucose 120 Result Comment: eAG: (Estimated average glucose) is a calculated value from HgbA1c and is communications representative of the average blood glucose level in the last 2-3 month period. Performed By: #### BMP, HBA1C #### [facility] [place] [address] [place], [place] [address] LIPID PANEL, BASIC Collected: 05/28/2018 Status: F Source: [place] 4:27 PM [facility] REPOSITORY TYPE CODE TESTS RESULT OUT OF REFERENCE UNITS RANGE LAB CHOL <200 mg/dL Cholesterol 162 Result Comment: <200 mg/dL, Desirable 200-239 mg/dL, Borderline high >239 mg/dL, High LAB TRIGLY <150 mg/dL Triglyceride High 163 Result Comment: <150 mg/dL, Normal 150-199 mg/dL, Borderline high 200-499 mg/dL, High >499 mg/dL, Very high LAB HDL >39 mg/dL HDL-Cholesterol Low 35 Result Comment: 40-59 mg/dL, Acceptable >59 mg/dL, High: Negative risk factor for coronary heart disease <40 mg/dL, Low: Positive risk factor for coronary heart disease LAB LDL <100 mg/dL LDL-Cholesterol 94 Result Comment: <100 mg/dL, Optimal 100-129 mg/dL, Near optimal/above optimal 130-159 mg/dL, Borderline high 160-189 mg/dL, High >189 mg/dL, Very high Secondary prevention optimal LDL Cholesterol levels are recommended to be < 70 mg/dL LAB NONHDL <130 mg/dL Non HDL Cholesterol 127 Result Comment: <130 mg/dL, Optimal 130-159 mg/dL, Near optimal/above optimal 160-189 mg/dL, Borderline high 190-219 mg/dL, High >219 mg/dL, Very high Secondary prevention optimal non HDL Cholesterol levels are recommended to be < 100 mg/dL LAB FT hrs Fasting Time 5 LAB VLDL <30 mg/dL High VLDL Cholesterol 33 LAB TCHDL <5.10 TC:HDL Ratio 4.63 LAB LDLHDL <2.54 High LDL:HDL Ratio 2.69 Result Comment: Reference: 1. National Cholesterol Education Program ATP III Guideline At-A-Glance Quick Desk Reference: National Heart, Lung, and Blood [place]. National Institutes of Health. 2001: NIH Publication No. 01-3305. 2. An International Atherosclerosis Society position paper: global recommendations for the management of dyslipidemia: executive summary, Atherosclerosis. 2014: 232(2):410-413. Performed By: #### LIPB #### [facility] [address] [place], [place] [address] PROGRESS Observed: 05/27/2018 Status: COMPLETED Source: [place] 5:27 PM [facility] REPOSITORY HNO ID: [id number] Author: Katy Madrid [facility] Service: (none) Author Type: Registered Nurse Type: Progress Notes Filed: 05/28/2018 12:08 PM Note Text: PRIMARY CARE COORDINATION INTAKE Provider Action/FYI: Nausea occasionally doesn't want med. Anxious to get in with Dr. Anuj garcia for eval for fistula. Has appt in 6 wks currently. Patient identified for Primary Care Coordination from: ACO Active Goals - Current status as of 05/27/2018 at 5:27 PM Most Recent - Address all appropriate HM and disease care gaps - Annual BMP - Blood Pressure < 130/80 128/70 (04/30/2018) - Confirm medication adherence of all prescribed medications and uses them correctly - Tobacco cessation - Understands and follows DASH diet - Weight mgmt/activity Health Maintenance Topics with due status: Overdue Topic Date Due DTAP,TDAP,TD 1969 LIPID SCREEN 1985 HEPATITIS C SCREENING 1994 COLORECTAL CANCER SCREENING,SEE MODIFIER 02/16/2000 PROSTATE CANCER SCREENING DISCUSSION 2005 ABDOMINAL AORTIC ANEURYSM SCREENING TOPIC 2015 ADULT PREVNAR-13 2015 PNEUMOVAX AGE 65 AND OVER WITH 5YR LOOKBACK 2015 HEMOGLOBIN/HEMATOCRIT 01/29/2018 SERUM CREATININE 03/23/2018 Care Coordination: General Care Coordination (since 02/26/2018) None Social Determinants: Education (since 02/26/2018) None Health Literacy (since 02/26/2018) None Resource Strain (since 02/26/2018) None Depression (since 02/26/2018) None Diet (since 02/26/2018) None Physical Activity (since 02/26/2018) None Tobacco Use (since 02/26/2018) None Alcohol Use (since 02/26/2018) None Social Connection and Isolation (since 02/26/2018) None Intimate Partner Violence (since 02/26/2018) None Stress (since 02/26/2018) None Food Insecurity (since 02/26/2018) None Transportation Needs (since 02/26/2018) None Activities of Daily Living: Patients can perform the following activities without help: (since 02/26/2018) None Instrumental activities of daily living (since 02/26/2018) None Fall Risk: Fall Risk (since 02/26/2018) None Pt would like to get in w/Dr Leslie sooner. He has previously had dialysis with cath in his chest. Katy Jean Baptiste RN [employer] Internal Medicine [facility] CNPTOUTREACH Observed: 05/27/2018 Status: COMPLETED Source: [place] 12:00 AM [facility] REPOSITORY Patient Outreach (INTMWS) VIVEKOHERIN ([id number]) 1950 M Date Time Provider Department 05/27/18 KATY STARKS During your visit today, we recorded the following information about you: Katy Madrid RN 05/28/2018 12:08 PM Signed PRIMARY CARE COORDINATION INTAKE Provider Action/FYI: Nausea occasionally doesn't want med. Anxious to get in with Dr. Anuj garcia for eval for fistula. Has appt in 6 wks currently. Patient identified for Primary Care Coordination from: ACO Active Goals - Current status as of 05/27/2018 at 5:27 PM Most Recent - Address all appropriate HM and disease care gaps - Annual BMP - Blood Pressure < 130/80 128/70 (04/30/2018) - Confirm medication adherence of all prescribed medications and uses them correctly - Tobacco cessation - Understands and follows DASH diet - Weight mgmt/activity Health Maintenance Topics with due status: Overdue Topic Date Due DTAP,TDAP,TD 1969 LIPID SCREEN 1985 HEPATITIS C SCREENING 1994 COLORECTAL CANCER SCREENING,SEE MODIFIER 02/16/2000 PROSTATE CANCER SCREENING DISCUSSION 2005 ABDOMINAL AORTIC ANEURYSM SCREENING TOPIC 2015 ADULT PREVNAR-13 2015 PNEUMOVAX AGE 65 AND OVER WITH 5YR LOOKBACK 2015 HEMOGLOBIN/HEMATOCRIT 01/29/2018 SERUM CREATININE 03/23/2018 Care Coordination: General Care Coordination (since 02/26/2018) None Social Determinants: Education (since 02/26/2018) None Health Literacy (since 02/26/2018) None Resource Strain (since 02/26/2018) None Depression (since 02/26/2018) None Diet (since 02/26/2018) None Physical Activity (since 02/26/2018) None Tobacco Use (since 02/26/2018) None Alcohol Use (since 02/26/2018) None Social Connection and Isolation (since 02/26/2018) None Intimate Partner Violence (since 02/26/2018) None Stress (since 02/26/2018) None Food Insecurity (since 02/26/2018) None Transportation Needs (since 02/26/2018) None Activities of Daily Living: Patients can perform the following activities without help: (since 02/26/2018) None Instrumental activities of daily living (since 02/26/2018) None Fall Risk: Fall Risk (since 02/26/2018) None Pt would like to get in w/Dr Leslie sooner. He has previously had dialysis with cath in his chest. Katy Jean Baptiste RN Ambulatory Logging Contractor Internal Medicine [facility] Allergies As of Date: 05/27/2018 Noted Allergy Reaction AMOXICILLIN 01/26/2016 7 - Swelling CIPROFLOXACIN 01/26/2016 7 - Swelling CODEINE 12/22/2016 1 - Mental Status Change Date Reviewed: 05/03/2018 Reviewed by: Kelly Minaya - Fully Assessed Reason for Visit: Logging Contractor Chronic Care [[id number]] Prescriptions as of 05/27/2018 Sig: TAMSULOSIN 0.4 MG CAPSULE Take 1 capsule by mouth daily* MELATONIN 10 MG TABLET Take 10 mg by mouth as needed. TYLENOL ORAL Take by mouth as needed. UMECLIDINIUM 62.5 MCG-VILANTE* Inhale 1 Inhalation as instru* Patient not taking: Reported on 04/29/2018 ALBUTEROL SULFATE HFA 90 MCG/* Inhale 2 Puffs as instructed * Patient not taking: Reported on 04/29/2018 AMLODIPINE 5 MG TABLET Take 5 mg by mouth once daily. OMEPRAZOLE 40 MG CAPSULE,RAJ* Take 1 capsule by mouth once * OCUVITE PRESERVISION ORAL Take by mouth once daily. CATHETER 16 FR ISC four times daily and as n* RANITIDINE HCL ORAL Take by mouth. Problem List As Of Date 05/27/2018 Noted Resolved Renal failure [N19] INVALID FOR*05/03/2017 Chronic retention of urine [R33.9] INVALID FOR* More... 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 Dialysis patient ([facility]) [Z99.2] INVALID FOR*05/03/2017 More... 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 Right shoulder pain [M25.511] INVALID FOR* More... 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 Posterior vitreous detachment of both eyes [H43*INVALID FOR* Stage 4 chronic kidney disease ([facility]) [N18.4] INVALID FOR* More... Essential hypertension [I10] INVALID FOR* More... COPD with chronic bronchitis ([facility]) [J44.9] INVALID FOR* More... Solitary pulmonary nodule [R91.1] INVALID FOR* More... SVT (supraventricular tachycardia) ([facility]) [I47.1]INVALID FOR* Encounter Status:Closed by KATY JEAN BAPTISTE on 05/28/18 PROGRESS Observed: 05/08/2018 Status: COMPLETED Source: [place] 9:51 AM [facility] REPOSITORY HNO ID: [id number] Author: Manjula Fortune Service: (none) Author Type: (none) Type: Progress Notes Filed: 05/08/2018 9:52 AM Note Text: Radiology Service Progress Note PATIENT NAME: Erin Rodgers DATE OF SERVICE: May 08, 2018 TIME: 9:51 AM PATIENT IDENTITY VERIFICATION COMPLETED USING TWO (2) METHODS: Patient confirmed name verbally and Date of . PATIENT GENDER DATA: Male PATIENT RELEVANT IMPLANT DATA REVIEWED: Not Applicable RADIOLOGY DEPARTMENT: CT; Exam(s) Completed: Neck PERIPHERAL IV DATA: Not applicable SIGNED BY: Manjula Fortune May 08, 2018 9:[address] NECK SOFT TISSUE Observed: 05/08/2018 Status: F Source: [place] 8:[address] [facility] REPOSITORY * * *Final Report* * * DATE OF EXAM: May 08 2018 8:45AM [facility] 0509 - CT NECK SOFT TISSUE WO IVCON / PROCEDURE REASON: multiple diagnoses * * * * Physician Interpretation * * * * COMPARISONS: None. HISTORY: Left neck swelling. Difficulty swallowing. Throat pain. TECHNIQUE: CT neck without contrast. CT Dose-Length Product (DLP): 594 mGy*cm CT Dose Reduction Employed: Automated exposure control(AEC) and iterative recon RESULT: NECK CT: Contrast was not given for study slightly degrading sensitivity of exam. Decreased bone density indicating osteopenia. Mild spondylosis, emphysema and vascular calcification represents age expected senescent changes. Visualized brain, orbits, sinuses, salivary and thyroid glands, superior mediastinum, upper lungs, aerodigestive tract with mucosal lining and fat planes are symmetrical and unremarkable without any soft tissue mass or loculated collections. Allowing for technique there is no obvious evidence for inflammatory changes within the pharynx. No intramedullary changes within the neck. No pathological lymphadenopathy. No asymmetry is identified and specifically there is no soft tissue swelling identified within the left neck. IMPRESSION: Normal CT neck. Administration [facility] Transcribe Date/Time: May 08 2018 9:13A Dictated by : DEL CASTRO MD This examination was interpreted and the report reviewed and electronically signed by: DEL CASTRO MD on May 08 2018 9:16AM EST [id number] PROGRESS Observed: 04/30/2018 Status: COMPLETED Source: [place] 5:40 PM [facility] REPOSITORY HNO ID: [id number] Author: Katy Jean Baptiste Service: (none) Author Type: Registered Nurse Type: Progress Notes Filed: 05/03/2018 8:16 AM Note Text: PRIMARY CARE COORDINATION CHART REVIEW Patient identified for Care Coordination from: ACO Project Last PCP office visit: 04/30/2018 Next OV: Visit date not found CHRONIC DX: CRF, DM2, controlled CARE GAPS: Many UTILIZATION WITHIN THE LAST 12 MONTHS: ? ED: No ? HOSPITAL: yes ? SNF: NO PRIMARY CARE COORDINATION OUTREACH PLAN: Will reach out to patient for Care Coordination next Month Katy Jean Baptiste RN Ambulatory Logging Contractor [facility] CNOV Observed: 04/30/2018 Status: COMPLETED Source: [place] 1:[address] [facility] REPOSITORY Office Visit (INTMWS) ERIN RODGERS ([id number]) 1950 M Date Time Provider Department 04/30/18 1:20 PM KARMA MARRERO INTMWS During your visit today, we recorded the following information about you: Pulse Respiration Blood pressure Weight 81/minute 12/minute 128/70 71.7 kg Height 1.753 m KARMA MARRERO MD 04/30/2018 6:34 PM Signed Reason for Visit Patient presents with: Established Patient: memory concerns and possible sinus infection Erin Rodgers is a 68 year old male who presents here today for Above Complaints.. Health Maintenance BP CONTROLLED (<130/80) DTAP,TDAP,TD(1 - Tdap) LIPID SCREEN HEPATITIS C SCREENING COLORECTAL CANCER SCREENING,SEE MODIFIER PROSTATE CANCER SCREENING DISCUSSION ABDOMINAL AORTIC ANEURYSM SCREENING TOPIC ADULT PREVNAR-13 PNEUMOVAX AGE 65 AND OVER WITH 5YR LOOKBACK(1) HEMOGLOBIN/HEMATOCRIT SERUM CREATININE INFLUENZA(1) HPI The patient has concerns with memory we did the minimental and his score was 28/30. Been to see Dr. Ramesh last week..... he is getting prepared for Dialysis catheter access surgery....had surgical clearance by Dr Grover and was cleared. He has major sinus issues,since he was a child, in the past 5 years, he had sinus headaches and drainage increase , for the past 3 months it is severe that he wants to be on some medication. He has clearing of the throat a lot. And noticed some swelling on the left side of the neck. He wants to be on flonase to help with his sinuses. No problem-specific Assessment AND Plan notes found for this encounter. PAST MEDICAL HISTORY Diagnosis Date - Chronic kidney disease, stage 4 (severe) (HCC) 09/13/2017 Marti Ramesh MD; [facility]. - COPD with chronic bronchitis (HCC) 03/2018 Moderate by 03/18/2018 PFT. - HTN (hypertension) - Ischemic heart disease ??? - Renal failure - Solitary pulmonary nodule 03/2018 7 mm, RLL; CT Chest [facility], 08/2017. - TIA (transient ischemic attack) - Urinary retention PAST SURGICAL HISTORY Procedure Laterality Date - APPENDECTOMY 1972 - HEMMORRHOIDECTOMY,EXTERNAL SINGLE - PAST SURGICAL HISTORY OF 09/06/2015 kidney stent placement; Dr. Nia Henry PA - PROSTATECTOMY, SIMPLE, BENIGN 2009 No family history on file. Social History Substance Use Topics - Smoking status: Former Smoker Packs/day: 1.50 Years: 48.00 Types: Cigarettes Start date: 02/16/1964 Quit date: 10/23/2011 - Smokeless tobacco: Never Used Comment: FAther smoked in childhood home. - Alcohol use No Past medical history, appointments, medications, allergies reviewed. Pertinent Lab/Diagnostic Studies are reviewed and discussed today Current Outpatient Prescriptions: - melatonin 10 mg tab - acetaminophen (TYLENOL ORAL) - umeclidinium-vilanterol (ANORO ELLIPTA) 62.5-25 mcg/actuation inhaler - albuterol HFA (PROVENTIL HFA, VENTOLIN HFA) 90 mcg/actuation inhaler - amLODIPine (NORVASC) 5 mg tablet - Omeprazole (PRILOSEC) 40 mg capsule - VIT A/VIT C/VIT E/ZINC/COPPER (OCUVITE PRESERVISION ORAL) - tamsulosin ER (FLOMAX) 0.4 mg cp24 - Catheter (BARD COUDE TIP CATHETER) 16 Fr misc - RANITIDINE HCL ORAL Review of Systems CONSTITUTIONAL: No fevers, chills night sweats, unintended weight loss CARDIOVASCULAR: No chest pain, dyspnea, palpitations, orthopnea, PND, ankle edema. PULM: No dyspnea, unexplained cough. GI: No dysphagia/odynophagia, problematic reflux, constipation, diarrhea, changes in stool habits, hematochezia, melena. : No new urinary complaints, including dysuria, gross hematuria or pyuria. NEURO: No new balance problems, peripheral weakness/paresthesias or numbness of concern. Physical Exam BP 128/70 (BP Site: Right Arm, BP Position: Sitting, BP Cuff Size: Regular Adult) Pulse 81 Resp 12 Ht 175.3 cm (5' 9) Wt 71.7 kg (158 lb) SpO2 95% BMI 23.33 kg/m? General appearance: Well appearing, alert, in no acute distress, well nourished. Skin: Skin color, texture, turgor normal, no suspicious rashes or lesions Head: Normocephalic, no masses, lesions, tenderness or abnormalities Neck: some mild swelling on the left side of the neck, there is erythema in the posterior pharynx but no gross swelling seen there Eyes: Anicteric sclera. Pupils are equally round and reactive to light. Extraocular movements are intact. Lungs: Lungs clear to auscultation. No wheezing, rhonchi, rales Heart: RRR without murmur, gallop, or rubs. Extremities: No deformities, edema, skin discoloration, clubbing or cyanosis. Good capillary refill. ASSESSMENT/PLAN: 1. Neck pain on left side - ICD9: 723.1, ICD10: M54.2 (primary diagnosis) 2. Stage 4 chronic kidney disease (HCC) - ICD9: 585.4, ICD10: N18.4 - TAMSULOSIN 0.4 MG CAPSULE 3. Essential hypertension - ICD9: 401.9, ICD10: I10 - good control - Recommended regular aerobic exercise. - Recommend home blood pressure monitoring, to bring results in on next visit - Goal of BP <130/80 4. Gastroesophageal reflux disease without esophagitis - ICD9: 530.81, ICD10: K21.9 - Discussed lifestyle modifications including losing weight, limiting caffeine, no meals three hours before sleep and head of bed elevation - CT NECK SOFT TISSUE WO IVCON 5. Pain in throat - ICD9: 784.1, ICD10: R07.0 - CT NECK SOFT TISSUE WO IVCON 6. Abscess, peritonsillar - ICD9: 475, ICD10: J36 KARMA MARRERO MD Referring Provider: KARMA MARRERO [[id number]] Allergies As of Date: 04/30/2018 Noted Allergy Reaction AMOXICILLIN 01/26/2016 7 - Swelling CIPROFLOXACIN 01/26/2016 7 - Swelling CODEINE 12/22/2016 1 - Mental Status Change Date Reviewed: 04/30/2018 Reviewed by: Stephy Barnes LPN - Fully Assessed Reason for Visit: Established Patient [175] Cmt: memory concerns and possible sinus infection Primary Visit Diagnosis:Neck pain on left side [M54.2] Other Visit Diagnoses:Stage 4 chronic kidney disease (HCC) [N18.4] Essential hypertension [I10] Gastroesophageal reflux disease without esophagitis [K21.9] Pain in throat [R07.0] Abscess, peritonsillar [J36] Order(s):tamsulosin ER (FLOMAX) 0.4 mg capTake 1 capsule by mouth daily at bedtime.Disp: 90 capsuleRfl: 3 CT NECK SOFT TISSUE WO IVCON [[id number]] Order #: [id number] FUTURE Prescriptions as of 04/30/2018 Sig: TAMSULOSIN 0.4 MG CAPSULE Take 1 capsule by mouth daily* MELATONIN 10 MG TABLET Take 10 mg by mouth as needed. TYLENOL ORAL Take by mouth as needed. UMECLIDINIUM 62.5 MCG-VILANTE* Inhale 1 Inhalation as instru* Patient not taking: Reported on 04/29/2018 ALBUTEROL SULFATE HFA 90 MCG/* Inhale 2 Puffs as instructed * Patient not taking: Reported on 04/29/2018 AMLODIPINE 5 MG TABLET Take 5 mg by mouth once daily. OMEPRAZOLE 40 MG CAPSULE,RAJ* Take 1 capsule by mouth once * OCUVITE PRESERVISION ORAL Take by mouth once daily. CATHETER 16 FR ISC four times daily and as n* RANITIDINE HCL ORAL Take by mouth. Problem List As Of Date 04/30/2018 Noted Resolved Renal failure [N19] INVALID FOR*05/03/2017 Chronic retention of urine [R33.9] INVALID FOR* More... 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 Dialysis patient ([facility]) [Z99.2] INVALID FOR*05/03/2017 More... 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 Right shoulder pain [M25.511] INVALID FOR* More... 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 Posterior vitreous detachment of both eyes [H43*INVALID FOR* Stage 4 chronic kidney disease (HCC) [N18.4] INVALID FOR* More... Essential hypertension [I10] INVALID FOR* More... COPD with chronic bronchitis (HCC) [J44.9] INVALID FOR* More... Solitary pulmonary nodule [R91.1] INVALID FOR* More... SVT (supraventricular tachycardia) (HCC) [I47.1]INVALID FOR* Prescriptions ordered this encounter Disp Refills Start End TAMSULOSIN 0.4 MG CAPSULE 90 c* 3 04/30/2018 Route: ORAL Sig: Take 1 capsule by mouth daily at bedtime. Medications Discontinued During This Encounter tamsulosin ER (FLOMAX) 0.4 mg cp24 30 c* 11 03/23/2017 04/30/2018 Route: ORAL Sig: Take 1 capsule by mouth daily at bedtime. Disc: Reason for discontinue is not on file. Encounter Status:Closed by KARMA MARRERO MD on 04/30/18 PROGRESS Observed: 04/30/2018 Status: COMPLETED Source: [place] 1:[address] [facility] REPOSITORY HNO ID: [id number] Author: Karma Marrero Service: (none) Author Type: Physician Type: Progress Notes Filed: 04/30/2018 6:34 PM Note Text: Reason for Visit Patient presents with: Established Patient: memory concerns and possible sinus infection Erin Rodgers is a 68 year old male who presents here today for Above Complaints.. Health Maintenance BP CONTROLLED (<130/80) DTAP,TDAP,TD(1 - Tdap) LIPID SCREEN HEPATITIS C SCREENING COLORECTAL CANCER SCREENING,SEE MODIFIER PROSTATE CANCER SCREENING DISCUSSION ABDOMINAL AORTIC ANEURYSM SCREENING TOPIC ADULT PREVNAR-13 PNEUMOVAX AGE 65 AND OVER WITH 5YR LOOKBACK(1) HEMOGLOBIN/HEMATOCRIT SERUM CREATININE INFLUENZA(1) HPI The patient has concerns with memory we did the minimental and his score was 28/30. Been to see Dr. Ramesh last week..... he is getting prepared for Dialysis catheter access surgery....had surgical clearance by Dr Grover and was cleared. He has major sinus issues,since he was a child, in the past 5 years, he had sinus headaches and drainage increase , for the past 3 months it is severe that he wants to be on some medication. He has clearing of the throat a lot. And noticed some swelling on the left side of the neck. He wants to be on flonase to help with his sinuses. No problem-specific Assessment AND Plan notes found for this encounter. PAST MEDICAL HISTORY Diagnosis Date - Chronic kidney disease, stage 4 (severe) ([facility]) 09/13/2017 Marti Ramesh MD; [facility]. - COPD with chronic bronchitis ([facility]) 03/2018 Moderate by 03/18/2018 PFT. - HTN (hypertension) - Ischemic heart disease ??? - Renal failure - Solitary pulmonary nodule 03/2018 7 mm, RLL; CT Chest [facility], 08/2017. - TIA (transient ischemic attack) - Urinary retention PAST SURGICAL HISTORY Procedure Laterality Date - APPENDECTOMY 1972 - HEMMORRHOIDECTOMY,EXTERNAL SINGLE - PAST SURGICAL HISTORY OF 09/06/2015 kidney stent placement; Dr. Nia DE LA CRUZ - PROSTATECTOMY, SIMPLE, BENIGN 2009 No family history on file. Social History Substance Use Topics - Smoking status: Former Smoker Packs/day: 1.50 Years: 48.00 Types: Cigarettes Start date: 02/16/1964 Quit date: 10/23/2011 - Smokeless tobacco: Never Used Comment: FAther smoked in childhood home. - Alcohol use No Past medical history, appointments, medications, allergies reviewed. Pertinent Lab/Diagnostic Studies are reviewed and discussed today Current Outpatient Prescriptions: - melatonin 10 mg tab - acetaminophen (TYLENOL ORAL) - umeclidinium-vilanterol (ANORO ELLIPTA) 62.5-25 mcg/actuation inhaler - albuterol HFA (PROVENTIL HFA, VENTOLIN HFA) 90 mcg/actuation inhaler - amLODIPine (NORVASC) 5 mg tablet - Omeprazole (PRILOSEC) 40 mg capsule - VIT A/VIT C/VIT E/ZINC/COPPER (OCUVITE PRESERVISION ORAL) - tamsulosin ER (FLOMAX) 0.4 mg cp24 - Catheter (BARD COUDE TIP CATHETER) 16 Fr misc - RANITIDINE HCL ORAL Review of Systems CONSTITUTIONAL: No fevers, chills night sweats, unintended weight loss CARDIOVASCULAR: No chest pain, dyspnea, palpitations, orthopnea, PND, ankle edema. PULM: No dyspnea, unexplained cough. GI: No dysphagia/odynophagia, problematic reflux, constipation, diarrhea, changes in stool habits, hematochezia, melena. : No new urinary complaints, including dysuria, gross hematuria or pyuria. NEURO: No new balance problems, peripheral weakness/paresthesias or numbness of concern. Physical Exam BP 128/70 (BP Site: Right Arm, BP Position: Sitting, BP Cuff Size: Regular Adult) Pulse 81 Resp 12 Ht 175.3 cm (5' 9) Wt 71.7 kg (158 lb) SpO2 95% BMI 23.33 kg/m? General appearance: Well appearing, alert, in no acute distress, well nourished. Skin: Skin color, texture, turgor normal, no suspicious rashes or lesions Head: Normocephalic, no masses, lesions, tenderness or abnormalities Neck: some mild swelling on the left side of the neck, there is erythema in the posterior pharynx but no gross swelling seen there Eyes: Anicteric sclera. Pupils are equally round and reactive to light. Extraocular movements are intact. Lungs: Lungs clear to auscultation. No wheezing, rhonchi, rales Heart: RRR without murmur, gallop, or rubs. Extremities: No deformities, edema, skin discoloration, clubbing or cyanosis. Good capillary refill. ASSESSMENT/PLAN: 1. Neck pain on left side - ICD9: 723.1, ICD10: M54.2 (primary diagnosis) 2. Stage 4 chronic kidney disease (HCC) - ICD9: 585.4, ICD10: N18.4 - TAMSULOSIN 0.4 MG CAPSULE 3. Essential hypertension - ICD9: 401.9, ICD10: I10 - good control - Recommended regular aerobic exercise. - Recommend home blood pressure monitoring, to bring results in on next visit - Goal of BP <130/80 4. Gastroesophageal reflux disease without esophagitis - ICD9: 530.81, ICD10: K21.9 - Discussed lifestyle modifications including losing weight, limiting caffeine, no meals three hours before sleep and head of bed elevation - CT NECK SOFT TISSUE WO IVCON 5. Pain in throat - ICD9: 784.1, ICD10: R07.0 - CT NECK SOFT TISSUE WO IVCON 6. Abscess, peritonsillar - ICD9: 475, ICD10: J36 KARMA MARRERO MD CNPTOUTREACH Observed: 04/30/2018 Status: COMPLETED Source: [place] 12:00 AM [facility] REPOSITORY Patient Outreach (INTMWS) ERIN RODGERS ([id number]) 1950 M Date Time Provider Department 04/30/18 KATY STARKS During your visit today, we recorded the following information about you: Katy Madrid RN 05/03/2018 8:16 AM Signed PRIMARY CARE COORDINATION CHART REVIEW Patient identified for Care Coordination from: ACO Project Last PCP office visit: 04/30/2018 Next OV: Visit date not found CHRONIC DX: CRF, DM2, controlled CARE GAPS: Many UTILIZATION WITHIN THE LAST 12 MONTHS: ? ED: No ? HOSPITAL: yes ? SNF: NO PRIMARY CARE COORDINATION OUTREACH PLAN: Will reach out to patient for Care Coordination next Month Katy Jean Baptiste RN Ambulatory Logging Contractor Internal Medicine [facility] Allergies As of Date: 04/30/2018 Noted Allergy Reaction AMOXICILLIN 01/26/2016 7 - Swelling CIPROFLOXACIN 01/26/2016 7 - Swelling CODEINE 12/22/2016 1 - Mental Status Change Date Reviewed: 04/30/2018 Reviewed by: Stephy Barnes LPN - Fully Assessed Reason for Visit: Logging Contractor Chronic Care [1177] Cmt: ACO Program referral Reason For Visit History Recorded Prescriptions as of 04/30/2018 Sig: TAMSULOSIN 0.4 MG CAPSULE Take 1 capsule by mouth daily* MELATONIN 10 MG TABLET Take 10 mg by mouth as needed. TYLENOL ORAL Take by mouth as needed. UMECLIDINIUM 62.5 MCG-VILANTE* Inhale 1 Inhalation as instru* Patient not taking: Reported on 04/29/2018 ALBUTEROL SULFATE HFA 90 MCG/* Inhale 2 Puffs as instructed * Patient not taking: Reported on 04/29/2018 AMLODIPINE 5 MG TABLET Take 5 mg by mouth once daily. OMEPRAZOLE 40 MG CAPSULE,RAJ* Take 1 capsule by mouth once * OCUVITE PRESERVISION ORAL Take by mouth once daily. CATHETER 16 FR ISC four times daily and as n* RANITIDINE HCL ORAL Take by mouth. Problem List As Of Date 04/30/2018 Noted Resolved Renal failure [N19] INVALID FOR*05/03/2017 Chronic retention of urine [R33.9] INVALID FOR* More... 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 Dialysis patient ([facility]) [Z99.2] INVALID FOR*05/03/2017 More... 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 Right shoulder pain [M25.511] INVALID FOR* More... 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 Posterior vitreous detachment of both eyes [H43*INVALID FOR* Stage 4 chronic kidney disease ([facility]) [N18.4] INVALID FOR* More... Essential hypertension [I10] INVALID FOR* More... COPD with chronic bronchitis ([facility]) [J44.9] INVALID FOR* More... Solitary pulmonary nodule [R91.1] INVALID FOR* More... SVT (supraventricular tachycardia) ([facility]) [I47.1]INVALID FOR* Encounter Status:Closed by KATY JEAN BAPTISTE on 05/03/18 CNNURSE Observed: 04/29/2018 Status: COMPLETED Source: [place] 1:45 PM [facility] REPOSITORY Nurse Visit (CAWSTR) ERIN RODGERS ([id number]) 1950 M Date Time Provider Department 04/29/18 1:45 PM NURSE CARD ADMIN [facility] During your visit today, we recorded the following information about you: Referring Provider: DAVID PINA [[id number]] Allergies As of Date: 04/29/2018 Noted Allergy Reaction AMOXICILLIN 01/26/2016 7 - Swelling CIPROFLOXACIN 01/26/2016 7 - Swelling CODEINE 12/22/2016 1 - Mental Status Change Date Reviewed: 04/29/2018 Reviewed by: Debo Tatum MA - Fully Assessed Reason for Visit: Nurse Visit [792] Visit Diagnoses:GARCÍA (dyspnea on exertion) [R06.09] SVT (supraventricular tachycardia) ([facility]) [I47.1] Order(s):ECG COMPLETE W INTERPRETATION [ECG01] Order #: [id number] Prescriptions as of 04/29/2018 Sig: MELATONIN 10 MG TABLET Take 10 mg by mouth as needed. TYLENOL ORAL Take by mouth as needed. UMECLIDINIUM 62.5 MCG-VILANTE* Inhale 1 Inhalation as instru* Patient not taking: Reported on 04/29/2018 ALBUTEROL SULFATE HFA 90 MCG/* Inhale 2 Puffs as instructed * Patient not taking: Reported on 04/29/2018 AMLODIPINE 5 MG TABLET Take 5 mg by mouth once daily. OMEPRAZOLE 40 MG CAPSULE,RAJ* Take 1 capsule by mouth once * OCUVITE PRESERVISION ORAL Take by mouth once daily. X TAMSULOSIN 0.4 MG CAPSULE Take 1 capsule by mouth daily* CATHETER 16 FR ISC four times daily and as n* RANITIDINE HCL ORAL Take by mouth. Problem List As Of Date 04/29/2018 Noted Resolved Renal failure [N19] INVALID FOR*05/03/2017 Chronic retention of urine [R33.9] INVALID FOR* More... 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 Dialysis patient ([facility]) [Z99.2] INVALID FOR*05/03/2017 More... 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 Right shoulder pain [M25.511] INVALID FOR* More... 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 Posterior vitreous detachment of both eyes [H43*INVALID FOR* Stage 4 chronic kidney disease ([facility]) [N18.4] INVALID FOR* More... Essential hypertension [I10] INVALID FOR* More... COPD with chronic bronchitis (HCC) [J44.9] INVALID FOR* More... Solitary pulmonary nodule [R91.1] INVALID FOR* More... Encounter Status:Closed by YARITZA MEJIA RN on 05/01/18 PROGRESS Observed: 04/29/2018 Status: COMPLETED Source: [place] 10:[address] [facility] [place] REPOSITORY HNO ID: [id number] Author: David Pina Service: (none) Author Type: Physician Type: Progress Notes Filed: 04/30/2018 8:48 AM Note Text: PERTINENT CARDIAC HISTORY SVT GARCÍA CRF PAD TIA - remote ADHERENCE TO GUIDELINES SABRINA-I or ARB for HF with prior LVEF<40 (NQF 0081) - N/A ASA or Plavix for ASHD (NQF 0067) - needs Beta lamine for ASHD with prior AL or prior LVEF<40 (NQF 0070) - N/A Beta lamine for HF with prior LVEF<40 (NQF 0083) - N/A SABRINA-I or ARB for ASHD with DM or prior LVEF<40 (NQF 0066) - N/A Statin therapy for ASHD or FHL or DM - N/A BMI documented and plan if >25 (NQF 0421) - lifestyle recommendation form Tobacco use screening and referral (NQF 0028) - lifestyle recommendation form Recommendation for whole food, plant based diet - lifestyle recommendation form CLINICAL IMPRESSION/PLAN: Erin Rodgers has stable exercise tolerance, although somewhat decreased over the last 2 years. This may be related to deconditioning. His recent stress test showed no ischemia. Risk of perioperative cardiac complications is felt to be low for the procedure anticipated. No further diagnostic studies are recommended. He has episodes of palpitation which likely are due to SVT, as documented during his recent hospital stay. We discussed the use of Valsalva maneuver. Use of verapamil was discussed and would be the first line treatment if his symptoms increase. I do not recommend any further event monitoring at this time. He has a questionable previous history of TIA. I recommend that he initiate aspirin therapy at low dose. He will be offered a 6 month follow-up visit. I asked him to contact me if his exercise tolerance worsens or if he has increased palpitations. Written and verbal health teaching given to patient, patient verbalizes understanding and agrees with treatment plan. DIAGNOSIS FOR VISIT: Palpitations Exercise intolerance HISTORY OF PRESENT ILLNESS Erin Rodgers is a 68-year-old gentleman who is seen in consultation at the request of Dr. Minaya, for preoperative cardiac risk assessment. Colonoscopy is planned. He reports decreased exercise tolerance over the past several years. There's been no significant chemical cell changer the last 6 months. He has had no orthopnea or edema. The majority of shortness of breath is related to exercise. He had a TIA in 2011. He does not remember the symptoms he had other than some visual disturbance. He's had no recent episodes. He denies amaurosis. He's had no claudication. Occasionally he notes a sensation of palpitation. These last from 15-20 seconds and alarm him. They occur every few months. He had an episode while he was hospitalized recently. He was admitted to [facility] in October with atypical chest discomfort and underwent stress testing. While hospitalized, he had an episode of postural syncope. His monitor and storage bin tender from that hospitalization showed no pauses or ventricular ectopy but documents a short run of SVT. It is unclear whether that correlated with his symptoms or the episode of syncope. He has previous history of renal failure, hypertension, peripheral vascular disease. ALLERGIES: ALLERGIES Allergen Reactions - Amoxicillin Swelling - Ciprofloxacin Swelling - Codeine Mental Status Change CURRENT OUTPATIENT MEDICATIONS: melatonin 10 mg tab Take 10 mg by mouth as needed. acetaminophen (TYLENOL ORAL) Take by mouth as needed. amLODIPine (NORVASC) 5 mg tablet Take 5 mg by mouth once daily. Omeprazole (PRILOSEC) 40 mg capsule Take 1 capsule by mouth once daily. VIT A/VIT C/VIT E/ZINC/COPPER (OCUVITE PRESERVISION ORAL) Take by mouth once daily. tamsulosin ER (FLOMAX) 0.4 mg cp24 Take 1 capsule by mouth daily at bedtime. Catheter (BARD COUDE TIP CATHETER) 16 Fr misc ISC four times daily and as needed RANITIDINE HCL ORAL Take by mouth. umeclidinium-vilanterol (ANORO ELLIPTA) 62.5-25 mcg/actuation inhaler Inhale 1 Inhalation as instructed once daily. albuterol HFA (PROVENTIL HFA, VENTOLIN HFA) 90 mcg/actuation inhaler Inhale 2 Puffs as instructed four times daily as needed. PAST MEDICAL HISTORY Diagnosis Date - Chronic kidney disease, stage 4 (severe) ([facility]) 09/13/2017 Marti Ramesh MD; [facility]. - COPD with chronic bronchitis (HCC) 03/2018 Moderate by 03/18/2018 PFT. - HTN (hypertension) - Ischemic heart disease ??? - Renal failure - Solitary pulmonary nodule 03/2018 7 mm, RLL; CT Chest [facility], 08/2017. - TIA (transient ischemic attack) - Urinary retention PAST SURGICAL HISTORY Procedure Laterality Date - APPENDECTOMY 1972 - HEMMORRHOIDECTOMY,EXTERNAL SINGLE - PAST SURGICAL HISTORY OF 09/06/2015 kidney stent placement; Dr. Nia DE LA CRUZ - PROSTATECTOMY, SIMPLE, BENIGN 2009 No family history on file. Social History Marital status: Spouse name: Years of education: Number of children: Social History Main Topics Smoking status: Former Smoker Packs/day: 1.50 Years: 48.00 Types: Cigarettes Start date: 02/16/1964 Quit date: 10/23/2011 Smokeless tobacco: Never Used Comment: FAther smoked in childhood home. Alcohol use: No Drug use: No REVIEW OF SYSTEMS: General: No chills, fever, weight loss, night sweats. SHEENT: No change in vision or auditory acuity. Respiratory: No productive cough.History of COPD and lung nodules Cardiac: As noted above. GI: No melena. History of GERD. : No dysuria. Musculoskeletal: Myalgias and myalgias. Neurologic: As above. History of headaches. Psychiatric: No depression. Endocrine: No diabetes. Hematologic: No anemia. PHYSICAL EXAMINATION: S/he is alert and in no distress VITAL SIGNS: BP 135/82 Pulse 69 Ht 5' 9 (1.75m) Wt 157 lb 9.6 oz (71.5kg) BMI 23.26 kg/(m2). SHEENT: Skin is warm and dry. Pupils are round and reactive. Retinal vessels are grossly unremarkable. No xanthelasmas appreciated. Pharynx is benign. There is no oral cyanosis. Neck: supple. No adenopathy or thyroid enlargement. Chest: Clear to auscultation. Trachea is midline. Air entry is equal. There is no chest wall tenderness. Cardiac: Regular rhythm. S1 and S2 are normal. PMI is nondisplaced. There is a soft systolic ejection murmur. No click is heard. Carotids are brisk without bruits. JVP is less than 10 cm. Abdomen: Soft and nontender. There are no pulsatile masses or bruits. No liver enlargement. Bowel sounds are active. : Deferred. Extremities: No edema. Pulses are intact and symmetrical. No clubbing or cyanosis. No femoral bruits. Neurologic: Grossly normal motor and sensory. S/he is alert and oriented x4. Musculoskeletal: No joint deformities. EKG shows sinus rhythm and is within normal limits Stress test from 10/28 showed normal ejection fraction. There is no evidence of ischemia. Echocardiogram on that admission reportedly showed normal ejection fraction. There was no significant valvular disease. Acute coronary syndrome was excluded. His pain was atypical for ischemia. At the time of his episode of syncope, he was noted to have postural hypotension. Labs were reviewed. There is moderately severe renal insufficiency. Troponin was undetectable. Electronically Signed: David Pina MD April 29, 2018 10:35 AM CC: KARMA MARRERO MD CNOV Observed: 04/29/2018 Status: COMPLETED Source: [place] 10:15 AM [facility] Office Visit ([facility]) ERIN RODGERS ([id number]) 1950 M Date Time Provider Department 04/29/18 10:15 AM DAVID PINA [facility] During your visit today, we recorded the following information about you: Pulse Blood pressure Weight Height 69/minute 135/82 71.5 kg 1.753 m David Pina MD 04/29/2018 10:29 AM Signed LIFESTYLE CHANGE A healthy lifestyle is the most important component of your overall treatment plan. Please give serious thought to the following areas and commit to making group home changes. EAT A WHOLE FOOD, PLANT BASED DIET The nutrition your body gets is more important than the medicine you take. What matters most is the overall way you eat. We encourage you to minimize the use of animal products (which include dairy and all meats except fatty fish) and use whole, unprocessed plant foods to provide your protein, vitamins and other nutrients. We have a lot of information to share with you on this topic. This is not a diet. It is a way of life that you will keep with you. EXERCISE REGULARLY It is not important to spend hours in the gym, lifting weights and perspiring heavily. A total of 2-3 hours per week of aerobic (causing you to be moderately short of breath) exercise is sufficient to improve your health. Talk to us before you begin a new exercise program, if you have heart disease or experience shortness of breath or chest pain. REDUCE STRESS Chronic emotional and physical stress leads to disease. Ways of reducing stress include meditation, visualization, prayer, yoga and other forms of relaxation therapy. Consistency is the bell. Find a technique that works for you and do it every day. CULTIVATE RELATIONSHIPS Loneliness and isolation have a major negative impact on health. Seek out others who can love, care for and nurture you. Avoid hurtful relationships. MAINTAIN IDEAL BODY WEIGHT The best way to do this is to do all the things above. Our bodies naturally find the right weight if we keep moving and feed ourselves the right food. If your BMI is greater than 25, we strongly recommend a referral to a weight management program. Please speak to us or your family physician about available programs. AVOID NICOTINE IN ALL FORMS This includes all tobacco products, whether chewed, smoked, vaped, or rubbed on the skin. Smoking cessation programs, which can make use of tobacco substitutes, medications to suppress cravings and behavior management, are available. Please contact your family physician about programs in your area. David Pina MD 04/30/2018 8:48 AM Signed PERTINENT CARDIAC HISTORY SVT GARCÍA CRF PAD TIA - remote ADHERENCE TO GUIDELINES SABRINA-I or ARB for HF with prior LVEF<40 (NQF 0081) - N/A ASA or Plavix for ASHD (NQF 0067) - needs Beta lamine for ASHD with prior AL or prior LVEF<40 (NQF 0070) - N/A Beta lamine for HF with prior LVEF<40 (NQF 0083) - N/A SABRINA-I or ARB for ASHD with DM or prior LVEF<40 (NQF 0066) - N/A Statin therapy for ASHD or FHL or DM - N/A BMI documented and plan if >25 (NQF 0421) - lifestyle recommendation form Tobacco use screening and referral (NQF 0028) - lifestyle recommendation form Recommendation for whole food, plant based diet - lifestyle recommendation form CLINICAL IMPRESSION/PLAN: Erin Rodgers has stable exercise tolerance, although somewhat decreased over the last 2 years. This may be related to deconditioning. His recent stress test showed no ischemia. Risk of perioperative cardiac complications is felt to be low for the procedure anticipated. No further diagnostic studies are recommended. He has episodes of palpitation which likely are due to SVT, as documented during his recent hospital stay. We discussed the use of Valsalva maneuver. Use of verapamil was discussed and would be the first line treatment if his symptoms increase. I do not recommend any further event monitoring at this time. He has a questionable previous history of TIA. I recommend that he initiate aspirin therapy at low dose. He will be offered a 6 month follow-up visit. I asked him to contact me if his exercise tolerance worsens or if he has increased palpitations. Written and verbal health teaching given to patient, patient verbalizes understanding and agrees with treatment plan. DIAGNOSIS FOR VISIT: Palpitations Exercise intolerance HISTORY OF PRESENT ILLNESS Erin Rodgers is a 68-year-old gentleman who is seen in consultation at the request of Dr. Minaya, for preoperative cardiac risk assessment. Colonoscopy is planned. He reports decreased exercise tolerance over the past several years. There's been no significant chemical cell changer the last 6 months. He has had no orthopnea or edema. The majority of shortness of breath is related to exercise. He had a TIA in 2011. He does not remember the symptoms he had other than some visual disturbance. He's had no recent episodes. He denies amaurosis. He's had no claudication. Occasionally he notes a sensation of palpitation. These last from 15-20 seconds and alarm him. They occur every few months. He had an episode while he was hospitalized recently. He was admitted to [facility] in October with atypical chest discomfort and underwent stress testing. While hospitalized, he had an episode of postural syncope. His monitor and storage bin tender from that hospitalization showed no pauses or ventricular ectopy but documents a short run of SVT. It is unclear whether that correlated with his symptoms or the episode of syncope. He has previous history of renal failure, hypertension, peripheral vascular disease. ALLERGIES: ALLERGIES Allergen Reactions - Amoxicillin Swelling - Ciprofloxacin Swelling - Codeine Mental Status Change CURRENT OUTPATIENT MEDICATIONS: melatonin 10 mg tab Take 10 mg by mouth as needed. acetaminophen (TYLENOL ORAL) Take by mouth as needed. amLODIPine (NORVASC) 5 mg tablet Take 5 mg by mouth once daily. Omeprazole (PRILOSEC) 40 mg capsule Take 1 capsule by mouth once daily. VIT A/VIT C/VIT E/ZINC/COPPER (OCUVITE PRESERVISION ORAL) Take by mouth once daily. tamsulosin ER (FLOMAX) 0.4 mg cp24 Take 1 capsule by mouth daily at bedtime. Catheter (BARD COUDE TIP CATHETER) 16 Fr misc ISC four times daily and as needed RANITIDINE HCL ORAL Take by mouth. umeclidinium-vilanterol (ANORO ELLIPTA) 62.5-25 mcg/actuation inhaler Inhale 1 Inhalation as instructed once daily. albuterol HFA (PROVENTIL HFA, VENTOLIN HFA) 90 mcg/actuation inhaler Inhale 2 Puffs as instructed four times daily as needed. PAST MEDICAL HISTORY Diagnosis Date - Chronic kidney disease, stage 4 (severe) ([facility]) 09/13/2017 Marti Ramesh MD; [facility]. - COPD with chronic bronchitis ([facility]) 03/2018 Moderate by 03/18/2018 PFT. - HTN (hypertension) - Ischemic heart disease ??? - Renal failure - Solitary pulmonary nodule 03/2018 7 mm, RLL; CT Chest [facility], 08/2017. - TIA (transient ischemic attack) - Urinary retention PAST SURGICAL HISTORY Procedure Laterality Date - APPENDECTOMY 1972 - HEMMORRHOIDECTOMY,EXTERNAL SINGLE - PAST SURGICAL HISTORY OF 09/06/2015 kidney stent placement; Dr. Nia DE LA CRUZ - PROSTATECTOMY, SIMPLE, BENIGN 2009 No family history on file. Social History Marital status: Spouse name: Years of education: Number of children: Social History Main Topics Smoking status: Former Smoker Packs/day: 1.50 Years: 48.00 Types: Cigarettes Start date: 02/16/1964 Quit date: 10/23/2011 Smokeless tobacco: Never Used Comment: FAther smoked in childhood home. Alcohol use: No Drug use: No REVIEW OF SYSTEMS: General: No chills, fever, weight loss, night sweats. SHEENT: No change in vision or auditory acuity. Respiratory: No productive cough.History of COPD and lung nodules Cardiac: As noted above. GI: No melena. History of GERD. : No dysuria. Musculoskeletal: Myalgias and myalgias. Neurologic: As above. History of headaches. Psychiatric: No depression. Endocrine: No diabetes. Hematologic: No anemia. PHYSICAL EXAMINATION: S/he is alert and in no distress VITAL SIGNS: BP 135/82 Pulse 69 Ht 5' 9 (1.75m) Wt 157 lb 9.6 oz (71.5kg) BMI 23.26 kg/(m2). SHEENT: Skin is warm and dry. Pupils are round and reactive. Retinal vessels are grossly unremarkable. No xanthelasmas appreciated. Pharynx is benign. There is no oral cyanosis. Neck: supple. No adenopathy or thyroid enlargement. Chest: Clear to auscultation. Trachea is midline. Air entry is equal. There is no chest wall tenderness. Cardiac: Regular rhythm. S1 and S2 are normal. PMI is nondisplaced. There is a soft systolic ejection murmur. No click is heard. Carotids are brisk without bruits. JVP is less than 10 cm. Abdomen: Soft and nontender. There are no pulsatile masses or bruits. No liver enlargement. Bowel sounds are active. : Deferred. Extremities: No edema. Pulses are intact and symmetrical. No clubbing or cyanosis. No femoral bruits. Neurologic: Grossly normal motor and sensory. S/he is alert and oriented x4. Musculoskeletal: No joint deformities. EKG shows sinus rhythm and is within normal limits Stress test from 10/28 showed normal ejection fraction. There is no evidence of ischemia. Echocardiogram on that admission reportedly showed normal ejection fraction. There was no significant valvular disease. Acute coronary syndrome was excluded. His pain was atypical for ischemia. At the time of his episode of syncope, he was noted to have postural hypotension. Labs were reviewed. There is moderately severe renal insufficiency. Troponin was undetectable. Electronically Signed: David Pina MD April 29, 2018 10:35 AM CC: KARMA MARRERO MD Referring Provider: KELLY MINAYA [[id number]] Allergies As of Date: 04/29/2018 Noted Allergy Reaction AMOXICILLIN 01/26/2016 7 - Swelling CIPROFLOXACIN 01/26/2016 7 - Swelling CODEINE 12/22/2016 1 - Mental Status Change Date Reviewed: 04/29/2018 Reviewed by: Debo Tatum MA - Fully Assessed Primary Visit Diagnosis:GARCÍA (dyspnea on exertion) [R06.09] Other Visit Diagnosis:SVT (supraventricular tachycardia) ([facility]) [I47.1] Order(s):ECG COMPLETE W INTERPRETATION [ECG01] Order #: [id number] FUTURE Prescriptions as of 04/29/2018 Sig: MELATONIN 10 MG TABLET Take 10 mg by mouth as needed. TYLENOL ORAL Take by mouth as needed. AMLODIPINE 5 MG TABLET Take 5 mg by mouth once daily. OMEPRAZOLE 40 MG CAPSULE,RAJ* Take 1 capsule by mouth once * OCUVITE PRESERVISION ORAL Take by mouth once daily. TAMSULOSIN 0.4 MG CAPSULE Take 1 capsule by mouth daily* CATHETER 16 FR ISC four times daily and as n* RANITIDINE HCL ORAL Take by mouth. UMECLIDINIUM 62.5 MCG-VILANTE* Inhale 1 Inhalation as instru* Patient not taking: Reported on 04/29/2018 ALBUTEROL SULFATE HFA 90 MCG/* Inhale 2 Puffs as instructed * Patient not taking: Reported on 04/29/2018 Problem List As Of Date 04/29/2018 Noted Resolved Renal failure [N19] INVALID FOR*05/03/2017 Chronic retention of urine [R33.9] INVALID FOR* More... 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 Dialysis patient ([facility]) [Z99.2] INVALID FOR*05/03/2017 More... 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 Right shoulder pain [M25.511] INVALID FOR* More... 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 Posterior vitreous detachment of both eyes [H43*INVALID FOR* Stage 4 chronic kidney disease ([facility]) [N18.4] INVALID FOR* More... Essential hypertension [I10] INVALID FOR* More... COPD with chronic bronchitis ([facility]) [J44.9] INVALID FOR* More... Solitary pulmonary nodule [R91.1] INVALID FOR* More... Other instructions from your clinician: LIFESTYLE CHANGE A healthy lifestyle is the most important component of your overall treatment plan. Please give serious thought to the following areas and commit to making group home changes. EAT A WHOLE FOOD, PLANT BASED DIET The nutrition your body gets is more important than the medicine you take. What matters most is the overall way you eat. We encourage you to minimize the use of animal products (which include dairy and all meats except fatty fish) and use whole, unprocessed plant foods to provide your protein, vitamins and other nutrients. We have a lot of information to share with you on this topic. This is not a diet. It is a way of life that you will keep with you. EXERCISE REGULARLY It is not important to spend hours in the gym, lifting weights and perspiring heavily. A total of 2-3 hours per week of aerobic (causing you to be moderately short of breath) exercise is sufficient to improve your health. Talk to us before you begin a new exercise program, if you have heart disease or experience shortness of breath or chest pain. REDUCE STRESS Chronic emotional and physical stress leads to disease. Ways of reducing stress include meditation, visualization, prayer, yoga and other forms of relaxation therapy. Consistency is the bell. Find a technique that works for you and do it every day. CULTIVATE RELATIONSHIPS Loneliness and isolation have a major negative impact on health. Seek out others who can love, care for and nurture you. Avoid hurtful relationships. MAINTAIN IDEAL BODY WEIGHT The best way to do this is to do all the things above. Our bodies naturally find the right weight if we keep moving and feed ourselves the right food. If your BMI is greater than 25, we strongly recommend a referral to a weight management program. Please speak to us or your family physician about available programs. AVOID NICOTINE IN ALL FORMS This includes all tobacco products, whether chewed, smoked, vaped, or rubbed on the skin. Smoking cessation programs, which can make use of tobacco substitutes, medications to suppress cravings and behavior management, are available. Please contact your family physician about programs in your area. Follow-up and Disposition History Recorded Encounter Status:Closed by DAVID PINA MD on 04/30/18 EKG1 Observed: 04/29/2018 Status: F Source: [place] [id number] AM [facility] REPOS[facility]ORY NAME : ERIN RODGERS PID : [id number] : 1950 Gender : Male Race : ORD : Procedure Date : Apr 29 2018 09:59:32 Edit Date : Apr 30 2018 12:39:14 Diagnosis:SINUS BRADYCARDIA OTHERWISE NORMAL ECG Confirmed by DAVID PINA MD ([id number]) on 04/30/2018 12:39:06 PM Ventricular Rate : 59 BPM Atrial Rate : 59 BPM P-R Interval : 164 ms QRS Duration : 92 ms Q-T Interval : 406 ms QTC Calculation(Bezet) : 401 ms P Sawyer : 52 degrees R Sawyer : -4 degrees T Sawyer : 41 degrees Test Reason : Location : 136 : [place] Overread By : DAVID PINA MD Edited By : DAVID PINA MD Referred By : SILVANA, Acquired by : , PROGRESS Observed: 04/29/2018 Status: COMPLETED Source: [place] 8:21 AM [facility] RE[facility] HNO ID: [id number] Author: Kelly Minaya Service: (none) Author Type: Physician Type: Progress Notes Filed: 05/04/2018 12:54 PM Note Text: Erin Rodgers 1950 REFERRING PHYSICIAN: Karma Marrero MD CHIEF COMPLAINT: Consult (colonoscopy) HPI: The patient is a 68 year old male presents for consideration for colonoscopy. No family history of colon cancer. Last colonoscopy > 20 years ago. Denies blood in stools Denies changes in bowel habits. Has crampy lower lower quadrant abdominal pain occasionally. PAST MEDICAL HISTORY Diagnosis Date - Chronic kidney disease, stage 4 (severe) ([facility]) 09/13/2017 Marti Ramesh MD; [facility]. - COPD with chronic bronchitis (HCC) 03/2018 Moderate by 03/18/2018 PFT. - HTN (hypertension) - Ischemic heart disease ??? - Renal failure - Solitary pulmonary nodule 03/2018 7 mm, RLL; CT Chest [facility], 08/2017. - TIA (transient ischemic attack) - Urinary retention PAST SURGICAL HISTORY Procedure Laterality Date - APPENDECTOMY 1972 - HEMMORRHOIDECTOMY,EXTERNAL SINGLE - PAST SURGICAL HISTORY OF 09/06/2015 kidney stent placement; Dr. Nia Henry PA - PROSTATECTOMY, SIMPLE, BENIGN 2009 PAST INJURIES Denies head injuries, denies history of fractures Current Outpatient Prescriptions: melatonin 10 mg tab Take 10 mg by mouth as needed. acetaminophen (TYLENOL ORAL) Take by mouth as needed. amLODIPine (NORVASC) 5 mg tablet Take 5 mg by mouth once daily. VIT A/VIT C/VIT E/ZINC/COPPER (OCUVITE PRESERVISION ORAL) Take by mouth once daily. tamsulosin ER (FLOMAX) 0.4 mg cp24 Take 1 capsule by mouth daily at bedtime. Catheter (BARD COUDE TIP CATHETER) 16 Fr misc ISC four times daily and as needed RANITIDINE HCL ORAL Take by mouth. umeclidinium-vilanterol (ANORO ELLIPTA) 62.5-25 mcg/actuation inhaler Inhale 1 Inhalation as instructed once daily. (Patient not taking: Reported on 04/29/2018 ) albuterol HFA (PROVENTIL HFA, VENTOLIN HFA) 90 mcg/actuation inhaler Inhale 2 Puffs as instructed four times daily as needed. (Patient not taking: Reported on 04/29/2018 ) ALLERGIES: Amoxicillin; Ciprofloxacin; Codeine PERSONAL HISTORY: Social History Marital status: Spouse name: Years of education: Number of children: Social History Main Topics Smoking status: Former Smoker Packs/day: 1.50 Years: 48.00 Types: Cigarettes Start date: 02/16/1964 Quit date: 10/23/2011 Smokeless tobacco: Never Used Comment: FAther smoked in childhood home. Alcohol use: No Drug use: No FAMILY HISTORY: no colon cancer known in family REVIEW OF SYSTEMS: General - complains of increased tiredness, denies fevers, denies weight loss Cardiovascular - has chest palpitations and is concerned about this, has not seen a fiber picker recently, had heart attack in 2012, denies chest pain, has poor circulation of legs Pulmonary - has shortness of breath with exertion, denies coughing up blood Gastrointestinal - denies blood in stools, has crampy left lower quadrant abdominal pain occasionally Neurological - states that he had a ministroke in 2011, denies seizures Genitourinary - has to self catheterize four times per day, has had kidney failure and was on dialysis for a year, history of prostate problems Hematological - denies spontaneous/prolonged bleeding, no known blood transfusions Skin - denies nonhealing skin wounds Musculoskeletal - has chronic knee and ankle trouble, has hand arthritis - occasionally locks up Endocrine - denies diabetes Psychological ? denies hallucinations PHYSICAL EXAMINATION: General: The patient is 68 year old male, well nourished, well hydrated in no acute distress. The patient is oriented to time, place, and person. VITALS: Blood pressure 150/90, pulse 66, weight 71.4 kg (157 lb 6.4 oz). Body mass index is 23.24 kg/m?. Head ? Normocephalic. EOM intact with sclera clear and no icterus noted. Mouth with mucus membranes moist. Neck - supple with no jugular venous distention noted. Trachea is midline. No masses noted. Lungs ? clear to auscultation. Normal breath sounds. No rales/rhonchi/wheezing noted. No labored breathing noted, such as retractions. Heart ? normal S1 and S2 auscultated. No rubs/clicks/murmurs noted. Regular rate. Abdomen ? soft and benign. Normal bowel sounds. No abdominal bruits noted. No distention or tympany noted. No masses noted. Extremities ? no calf tenderness noted. No pitting edema noted. Skin ? normal skin integrity. Neurological ? gait normal, no focal deficits noted Psych ? calm and appropriate Assessment IMPRESSION: screening for colon cancer via colonoscopy PLAN: I have discussed the above with the patient. Will discuss with Dr. Ramesh, best type of colon cleansing preparation. Will refer to Dr. Pina for chest palpitations, given history of AL, and patient has no cardiology follow up in years. Will refer to Dr. Leslie for consideration of evaluation for [place] fistula. I have offered colonoscopy, possible biopsies. I have explained the procedure to the patient. I have counseled the patient as to the risks of the procedure, including but not limited to: infection, bleeding, injury to any intraabdominal organs such as liver/spleen, perforation of the GI tract, inability to complete the procedure, complications of anesthesia, etc. ? the patient understands. The patient wishes to proceed. I have answered all questions to the patient?s satisfaction and the patient has no further questions. . Diagnoses: (Z12.11) Screening for colon cancer (primary encounter diagnosis) (N18.4) Stage 4 chronic kidney disease (HCC) Return to Clinic: The patient is instructed to follow-up with me as per needed. Kelly Minaya MD CNOV Observed: 04/29/2018 Status: COMPLETED Source: [place] 8:00 AM [facility] REPOSITORY Office Visit (SWS) ERIN RODGERS ([id number]) 1950 M Date Time Provider Department 04/29/18 8:00 AM KELLY MINAYA During your visit today, we recorded the following information about you: Pulse Blood pressure Weight 66/minute 150/90 71.4 kg Kelly Minaya MD 05/04/2018 12:54 PM Signed Erin Rodgers 1950 REFERRING PHYSICIAN: Karma Marrero MD CHIEF COMPLAINT: Consult (colonoscopy) HPI: The patient is a 68 year old male presents for consideration for colonoscopy. No family history of colon cancer. Last colonoscopy > 20 years ago. Denies blood in stools Denies changes in bowel habits. Has crampy lower lower quadrant abdominal pain occasionally. PAST MEDICAL HISTORY Diagnosis Date - Chronic kidney disease, stage 4 (severe) (HCC) 09/13/2017 Marti Ramesh MD; [facility]. - COPD with chronic bronchitis (HCC) 03/2018 Moderate by 03/18/2018 PFT. - HTN (hypertension) - Ischemic heart disease ??? - Renal failure - Solitary pulmonary nodule 03/2018 7 mm, RLL; CT Chest [facility], 08/2017. - TIA (transient ischemic attack) - Urinary retention PAST SURGICAL HISTORY Procedure Laterality Date - APPENDECTOMY 1973 - HEMMORRHOIDECTOMY,EXTERNAL SINGLE - PAST SURGICAL HISTORY OF 09/06/2015 kidney stent placement; Dr. Nia DE LA CRUZ - PROSTATECTOMY, SIMPLE, BENIGN 2009 PAST INJURIES Denies head injuries, denies history of fractures Current Outpatient Prescriptions: melatonin 10 mg tab Take 10 mg by mouth as needed. acetaminophen (TYLENOL ORAL) Take by mouth as needed. amLODIPine (NORVASC) 5 mg tablet Take 5 mg by mouth once daily. VIT A/VIT C/VIT E/ZINC/COPPER (OCUVITE PRESERVISION ORAL) Take by mouth once daily. tamsulosin ER (FLOMAX) 0.4 mg cp24 Take 1 capsule by mouth daily at bedtime. Catheter (BARD COUDE TIP CATHETER) 16 Fr misc ISC four times daily and as needed RANITIDINE HCL ORAL Take by mouth. umeclidinium-vilanterol (ANORO ELLIPTA) 62.5-25 mcg/actuation inhaler Inhale 1 Inhalation as instructed once daily. (Patient not taking: Reported on 04/29/2018 ) albuterol HFA (PROVENTIL HFA, VENTOLIN HFA) 90 mcg/actuation inhaler Inhale 2 Puffs as instructed four times daily as needed. (Patient not taking: Reported on 04/29/2018 ) ALLERGIES: Amoxicillin; Ciprofloxacin; Codeine PERSONAL HISTORY: Social History Marital status: Spouse name: Years of education: Number of children: Social History Main Topics Smoking status: Former Smoker Packs/day: 1.50 Years: 48.00 Types: Cigarettes Start date: 02/16/1964 Quit date: 10/23/2011 Smokeless tobacco: Never Used Comment: FAther smoked in childhood home. Alcohol use: No Drug use: No FAMILY HISTORY: no colon cancer known in family REVIEW OF SYSTEMS: General - complains of increased tiredness, denies fevers, denies weight loss Cardiovascular - has chest palpitations and is concerned about this, has not seen a fiber picker recently, had heart attack in 2012, denies chest pain, has poor circulation of legs Pulmonary - has shortness of breath with exertion, denies coughing up blood Gastrointestinal - denies blood in stools, has crampy left lower quadrant abdominal pain occasionally Neurological - states that he had a ministroke in 2012, denies seizures Genitourinary - has to self catheterize four times per day, has had kidney failure and was on dialysis for a year, history of prostate problems Hematological - denies spontaneous/prolonged bleeding, no known blood transfusions Skin - denies nonhealing skin wounds Musculoskeletal - has chronic knee and ankle trouble, has hand arthritis - occasionally locks up Endocrine - denies diabetes Psychological ? denies hallucinations PHYSICAL EXAMINATION: General: The patient is 68 year old male, well nourished, well hydrated in no acute distress. The patient is oriented to time, place, and person. VITALS: Blood pressure 150/90, pulse 66, weight 71.4 kg (157 lb 6.4 oz). Body mass index is 23.24 kg/m?. Head ? Normocephalic. EOM intact with sclera clear and no icterus noted. Mouth with mucus membranes moist. Neck - supple with no jugular venous distention noted. Trachea is midline. No masses noted. Lungs ? clear to auscultation. Normal breath sounds. No rales/rhonchi/wheezing noted. No labored breathing noted, such as retractions. Heart ? normal S1 and S2 auscultated. No rubs/clicks/murmurs noted. Regular rate. Abdomen ? soft and benign. Normal bowel sounds. No abdominal bruits noted. No distention or tympany noted. No masses noted. Extremities ? no calf tenderness noted. No pitting edema noted. Skin ? normal skin integrity. Neurological ? gait normal, no focal deficits noted Psych ? calm and appropriate Assessment IMPRESSION: screening for colon cancer via colonoscopy PLAN: I have discussed the above with the patient. Will discuss with Dr. Ramesh, best type of colon cleansing preparation. Will refer to Dr. Pina for chest palpitations, given history of AL, and patient has no cardiology follow up in years. Will refer to Dr. Leslie for consideration of evaluation for [place] fistula. I have offered colonoscopy, possible biopsies. I have explained the procedure to the patient. I have counseled the patient as to the risks of the procedure, including but not limited to: infection, bleeding, injury to any intraabdominal organs such as liver/spleen, perforation of the GI tract, inability to complete the procedure, complications of anesthesia, etc. ? the patient understands. The patient wishes to proceed. I have answered all questions to the patient?s satisfaction and the patient has no further questions. . Diagnoses: (Z12.11) Screening for colon cancer (primary encounter diagnosis) (N18.4) Stage 4 chronic kidney disease (HCC) Return to Clinic: The patient is instructed to follow-up with me as per needed. Kelly Minaya MD Referring Provider: KARMA MARRERO [[id number]] Allergies As of Date: 04/29/2018 Noted Allergy Reaction AMOXICILLIN 01/26/2016 7 - Swelling CIPROFLOXACIN 01/26/2016 7 - Swelling CODEINE 12/22/2016 1 - Mental Status Change Date Reviewed: 04/29/2018 Reviewed by: Debo Tatum MA - Fully Assessed Reason for Visit: Consult [173] Cmt: colonoscopy Primary Visit Diagnosis:Screening for colon cancer [Z12.11] Other Visit Diagnosis:Stage 4 chronic kidney disease (HCC) [N18.4] Prescriptions as of 04/29/2018 Sig: MELATONIN 10 MG TABLET Take 10 mg by mouth as needed. TYLENOL ORAL Take by mouth as needed. AMLODIPINE 5 MG TABLET Take 5 mg by mouth once daily. OCUVITE PRESERVISION ORAL Take by mouth once daily. X TAMSULOSIN 0.4 MG CAPSULE Take 1 capsule by mouth daily* CATHETER 16 FR ISC four times daily and as n* RANITIDINE HCL ORAL Take by mouth. UMECLIDINIUM 62.5 MCG-VILANTE* Inhale 1 Inhalation as instru* Patient not taking: Reported on 04/29/2018 ALBUTEROL SULFATE HFA 90 MCG/* Inhale 2 Puffs as instructed * Patient not taking: Reported on 04/29/2018 OMEPRAZOLE 40 MG CAPSULE,RAJ* Take 1 capsule by mouth once * Problem List As Of Date 04/29/2018 Noted Resolved Renal failure [N19] INVALID FOR*05/03/2017 Chronic retention of urine [R33.9] INVALID FOR* More... 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 Dialysis patient ([facility]) [Z99.2] INVALID FOR*05/03/2017 More... 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 Right shoulder pain [M25.511] INVALID FOR* More... 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 Posterior vitreous detachment of both eyes [H43*INVALID FOR* Stage 4 chronic kidney disease (HCC) [N18.4] INVALID FOR* More... Essential hypertension [I10] INVALID FOR* More... COPD with chronic bronchitis (HCC) [J44.9] INVALID FOR* More... Solitary pulmonary nodule [R91.1] INVALID FOR* More... Follow-up and Disposition History Recorded Letter Text Encounter Status:Closed by MD KELLY MINAYA on 05/04/18 RENAL PROFILE Collected: 04/24/2018 Status: F Source: [place] 10:59 AM [facility] REPOSITORY TYPE CODE TESTS RESULT OUT OF RANGE REFERENCE UNITS LAB L501.0100 74-106 mg/dL Normal GLU 98 Result Comment: Please note revised GLUCOSE reference range effective 2017. LAB L501.1000 7-18 mg/dL High BUN 46 LAB L501.1100 0.70-1.30 mg/dL High CREAT,SERUM 3.10 Result Comment: The validity of the calculated GFR AND GFRAA in patients over 70 years has not been determined. Clinical correlation is essential. LAB L501.1110 >60 mL/min Low EST GFR 21 Result Comment: Non- GFR Calc LAB L501.1115 >60 mL/min Low EST GFR - AA 26 Result Comment: GFR Calc LAB L501.1300 10-20 RATIO Normal BUN/CRE 14.8 LAB L501.1800 3.2-5.0 g/dL Normal ALB 3.2 LAB L501.2200 8.5-10.1 mg/dL CA Normal 8.5 LAB L501.2300 2.5-4.9 mg/dL Normal PHOS 2.9 LAB L501.5300 136-145 mmol/L NA Normal 143 LAB L501.5600 3.5-5.1 mmol/L K Normal 4.3 LAB L501.5900 98-107 mmol/L High CL 110 LAB L501.6100 21.0-32.0 mmol/L Normal CO2 23.0 Performed By: #### L500.3600 #### [facility] [address] [place], [address] PTHIN Collected: 04/24/2018 Status: F Source: [place] 10:59 AM [facility] REPOSITORY TYPE CODE TESTS RESULT OUT OF RANGE REFERENCE UNITS LAB L509.1000 18.4-80.1 pg/mL High PTHIN 175.5 Performed By: #### L509.1000 #### [facility] [address] [place], [address] [facility] Observed: 04/16/2018 Status: COMPLETED Source: [place] 12:00 AM [facility] REPOSITORY Patient Outreach (FAMPST) ERIN RODGERS ([id number]) 1950 M Date Time Provider Department 04/16/18 [facility] During your visit today, we recorded the following information about you: Allergies As of Date: 04/16/2018 Noted Allergy Reaction AMOXICILLIN 01/26/2016 7 - Swelling CIPROFLOXACIN 01/26/2016 7 - Swelling CODEINE 12/22/2016 1 - Mental Status Change Date Reviewed: 03/18/2018 Reviewed by: Ras Sood - Fully Assessed Visit Diagnosis:Medication management [Z79.899] Order(s):LIPID PANEL BASIC [SQLIPB] Order #: [id number] FUTURE Prescriptions as of 04/16/2018 Sig: UMECLIDINIUM 62.5 MCG-VILANTE* Inhale 1 Inhalation as instru* Patient not taking: Reported on 04/29/2018 ALBUTEROL SULFATE HFA 90 MCG/* Inhale 2 Puffs as instructed * Patient not taking: Reported on 04/29/2018 AMLODIPINE 5 MG TABLET Take 5 mg by mouth once daily. OMEPRAZOLE 40 MG CAPSULE,RAJ* Take 1 capsule by mouth once * OCUVITE PRESERVISION ORAL Take by mouth once daily. X TAMSULOSIN 0.4 MG CAPSULE Take 1 capsule by mouth daily* CATHETER 16 FR ISC four times daily and as n* RANITIDINE HCL ORAL Take by mouth. Problem List As Of Date 04/16/2018 Noted Resolved Renal failure [N19] INVALID FOR*05/03/2017 Chronic retention of urine [R33.9] INVALID FOR* More... 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 Dialysis patient (HCC) [Z99.2] INVALID FOR*05/03/2017 More... 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 Right shoulder pain [M25.511] INVALID FOR* More... 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 Posterior vitreous detachment of both eyes [H43*INVALID FOR* Stage 4 chronic kidney disease (HCC) [N18.4] INVALID FOR* More... Essential hypertension [I10] INVALID FOR* More... COPD with chronic bronchitis (HCC) [J44.9] INVALID FOR* More... Solitary pulmonary nodule [R91.1] INVALID FOR* More... Encounter Status:Closed by SHARYN VAZQUEZ on 05/24/18 ANNE Observed: 04/03/2018 Status: COMPLETED Source: [place] 12:[address] [facility] REPOSITORY Telephone (MEPRAD) ERIN RODGERS (<[id number]>) 1950 M Date Time Provider Department 04/03/18 RAS SOOD During your visit today, we recorded the following information about you: Ras Sood MD 04/03/2018 2:58 PM Signed The current CT scan of the chest demonstrates a 7 x 8 mm nodule in the lung, comparable to the nodule described on the 08/2017 CT chest done at [facility]. As there has been no significant increase in size, I have placed an order for follow-up surveillance scan in 18 months, as we described at our recent clinic visit. Ras Sood MD, [facility] Respiratory [place] [facility] [address] [place] [address] P: [phone] F: [phone] [email or web address] Selena Kathie CARPIO 04/03/2018 3:06 PM Signed Patient to be sent reminder letter in 12 months to schedule appt with NIVIA and CT Chest. Selena Kathie CARPIO Allergies As of Date: 04/03/2018 Noted Allergy Reaction AMOXICILLIN 01/26/2016 7 - Swelling CIPROFLOXACIN 01/26/2016 7 - Swelling CODEINE 12/22/2016 1 - Mental Status Change Date Reviewed: 03/18/2018 Reviewed by: Ras Sood - Fully Assessed Reason for Visit: Results [95] Cmt: Current CT chest Primary Visit Diagnosis:Solitary pulmonary nodule [R91.1] Other Visit Diagnosis:Lung nodules [R91.8] Order(s):CT CHEST WO RAMINON [[id number]] Order #: [id number]: 1 FUTURE Prescriptions as of 04/03/2018 Sig: UMECLIDINIUM 62.5 MCG-VILANTE* Inhale 1 Inhalation as instru* ALBUTEROL SULFATE HFA 90 MCG/* Inhale 2 Puffs as instructed * AMLODIPINE 5 MG TABLET Take 5 mg by mouth once daily. OMEPRAZOLE 40 MG CAPSULE,RAJ* Take 1 capsule by mouth once * OCUVITE PRESERVISION ORAL Take by mouth once daily. TAMSULOSIN 0.4 MG CAPSULE Take 1 capsule by mouth daily* CATHETER 16 FR ISC four times daily and as n* RANITIDINE HCL ORAL Take by mouth. Problem List As Of Date 04/03/2018 Noted Resolved Renal failure [N19] INVALID FOR*05/03/2017 Chronic retention of urine [R33.9] INVALID FOR* More... 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 Dialysis patient (HCC) [Z99.2] INVALID FOR*05/03/2017 More... 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 Right shoulder pain [M25.511] INVALID FOR* More... 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 Posterior vitreous detachment of both eyes [H43*INVALID FOR* Stage 4 chronic kidney disease (HCC) [N18.4] INVALID FOR* More... Essential hypertension [I10] INVALID FOR* More... COPD with chronic bronchitis (HCC) [J44.9] INVALID FOR* More... Solitary pulmonary nodule [R91.1] INVALID FOR* More... Encounter Status:Closed by RAS SOOD MD on 04/03/18 CT CHEST WO IVCON Observed: 03/28/2018 Status: F Source: [place] 8:19 AM [facility] REPOSITORY * * *Final Report* * * DATE OF EXAM: Mar 28 2018 8:19AM [facility] 0541 - CT CHEST WO IVCON / PROCEDURE REASON: Other nonspecific abnormal finding of lung field * * * * Physician Interpretation * * * * EXAMINATION: CHEST CT WITHOUT CONTRAST CLINICAL HISTORY: Other nonspecific abnormal finding of lung field Technique: Spiral CT acquisition of the chest from the thoracic inlet to the upper abdomen without contrast. MQ: CTCWOR_4 CT Dose-Length Product: 192 mGy*cm CT Dose Reduction Employed: mAs-kVp adjusted based on patient size-age Comparison: There are no prior studies available for comparison. Prior CT the chest from August 2017 is not not within the imaging suite for query. If these images can be loaded into the imaging suite correlation can be performed and stability ascertained. RESULT: Limitations: None. Lines, tubes, and devices: None. Lung parenchyma and pleura: Lungs demonstrate a noncalcified nodule in the right lower lung posteriorly measuring 8 x 7 mm. (image 1:30 of 241, series 4). The lungs are otherwise clear. There are no focal consolidations or infiltrates. Negative pleural fluid. Thoracic inlet, heart, and mediastinum: No pathologic lymphadenopathy in the axillary, mediastinal, or hilar regions. The thoracic aorta and main pulmonary artery are normal in caliber. The cardiac chambers are normal in size. Atherosclerotic coronary artery calcifications are present. Bones and soft tissues: No destructive bone lesion. Chest wall is unremarkable. Upper abdomen: Images through the upper abdomen demonstrate bilateral renal atrophy with multifocal cortical scarring and probable small cystic lesion within the midpole right kidney. Both renal pelves are extrarenal and mildly prominent and not adequately evaluated due to incomplete imaging of that area. There is a moderate to large hiatal hernia present. The bilateral adrenal glands are prominent suggesting hypertrophy. There is a fat-containing 17 x 13 mm nodule projecting from the medial limb inferiorly. There may also be a small nodule at the left apex. These areas measure of fatty density and therefore likely incidental areas of hypertrophy and benign adenomatous change. IMPRESSION: Subcentimeter noncalcified nodule right lower lobe. Lungs are otherwise clear. [employer] GUIDELINES FOR MANAGEMENT OF SMALL PULMONARY NODULES DETECTED ON CT SCANS Nodule Size Low Risk High Risk (mm) SOLITARY < 6 No F/U optional CT 12 mos 6-8 CT 6-12 mos Initial F/U CT at then consider 6-12 mo then at f/u 18-24 mos 18-24 mos >[address] at [address] at 3 mos PET/CT or tissue sampling PET/CT or tissue sampling MULTIPLE < 6 NO F/U Optional CT at 12 months 6-8 CT at 3-[address] at 3-6 months then consider F/U CT 18-24 mo F/U CT 18-24 mos >8 CT at 3-[address] at 3-6 months then consider F/U CT 18-24 mo F/U CT 19-24 mos SUBSOLID NODULES SINGLE <6mm > 6mm Groundglass NO F/U CT at 6-[address] every 2 yrs until 5 years Part Solid NO F/U CT at 6-[address] then Annual CT for 5 years MULTIPLE <6mm >6mm Ct at 3-[address] at 3-6 months if stable consider 2 and 4 yr F/U Subsequent Mgt based on most suspicious nodule Note: Newly detected indeterminate nodule in persons 35 years or older Low risk patient = Minimal or absent history of smoking and other known risk factors High risk patient = History of smoking or other known risk factors Administration Physician: WILLIAM Transcribe Date/Time: Mar 28 2018 2:51P Dictated by : JING SORENSEN MD This examination was interpreted and the report reviewed and electronically signed by: JING SORENSEN MD on Mar 28 2018 2:59PM EST [id number] CNOV Observed: 03/18/2018 Status: COMPLETED Source: [place] 3:[address] [facility] REPOSITORY Office Visit (PULMWS) ERIN RODGERS ([id number]) 1950 M Date Time Provider Department 03/18/18 3:30 PM RAS SOOD PULALYSHA During your visit today, we recorded the following information about you: Pulse Respiration Blood pressure Weight 60/minute 16/minute 130/82 70.8 kg Ras Sood MD 03/18/2018 4:58 PM Signed [facility] [place] Consultation Note, 03/18/2018: Introduction: The patient is seen in consultation today for evaluation of shortness of breath. This consultation is requested by KARMA MARRERO MD. A copy of this encounter will be made available as a report via [employer] electronic medical record to providers with access to this record, via US Mail and/or FAX to providers without such access. HPI: No shortness of breath at rest. GARCÍA with lifting carrying for a distance, bending over to put on socks and shoes repeated flights of stairs. Sometimes, not daily, cough, patient relates to post nasal drip and GERD. Sometimes with sputum. Worse in AM, does not wake from sleep. No hemoptysis, pleuritic chest pain. Very rarely wheezing.. Current home 24 [place] No pets in home. Basement with little mold, which he treated with bleach and KILZ. Gas forced air heat. Window A/C. Bedroom lydia is wall to wall carpet. No farming, barn stable work, birding, spelunking. 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 No sandblasting, asbestos exposure. No sustained Rx with Amiodarone, Nitrofurantoin, Methotrexate, cancer chemotherapy, external beam radiation therapy to chest. PAST MEDICAL HISTORY Diagnosis Date - Chronic kidney disease, stage 4 (severe) (HCC) 09/13/2017 - HTN (hypertension) - Renal failure - TIA (transient ischemic attack) - Urinary retention PAST SURGICAL HISTORY Procedure Laterality Date - APPENDECTOMY 1972 - HEMMORRHOIDECTOMY,EXTERNAL SINGLE - PAST SURGICAL HISTORY OF 09/06/2015 kidney stent placement; Dr. Nia Henry PA - PROSTATECTOMY, SIMPLE, BENIGN 2009 History reviewed. No pertinent family history. MEDICATIONS and ALLERGIES: Reviewed, updated and reconciled with the patient today, as noted in the medication and allergy sections of the encounter. ROS: General: Generally feels fine. Appetite good, maintaining weight. No fevers, diaphoresis. Eyes, Ears, nose, throat: Glaucoma OS, Macular degeneration OD. Notes post nasal drip. No purulent nasal discharge, epistaxis, hoarseness. Cardiac: No angina, edema, orthopnea. Occasional rapid irregular heart rate. GI: I had heartburn a lot. Prilosec helped that. No diarrhea, melena. Uro/BRICK TESTER: No dysuria. Chronic urinary hesitancy. Does self cath routine. Musculoskeletal: Occasional neck pain, resolves with heating pad. I know I have arthritis. Neuro: I get headaches a lot. Otherwise negative. PHYSICAL EXAMINATION: BP 130/82 Pulse 60 Resp 16 Wt 156 lb (70.8kg) SpO2 96% at rest on room air. Gen: No acute distress. Cooperative with examination. Appearance consistent with recorded age. ENT: Sclerae clear. Nares clear. Oral hygeine good. Upper denture. No lower teeth. Pharynx clear. Resp: No stridor, accessory respiratory muscle use, supra- sternal or intercostal retractions. A-P diameter normal. Percussion normal. Expiration prolonged and breath sounds diminished bilaterally. No crackles, wheezes. CV: Regular rythm. Heart tones normal. normal JVP, no HJR. No carotid bruit. Radial pulses normal. Abd: Not distended. No hepatosplenomegaly. MSK: No kyphoscoliosis, joint deformities of the extremities. Ext: Warm and well perfused. No clubbing, cyanosis, edema, sclerodactyly, Raynaud's. Skin: No rash, eczema, urticaria, telangiectasia. Ecchymoses on dorsum of left forearm more than right. Lymph: No adenopathy in neck, supra-clavicular fossae. Endo: No goiter. No exophthalmos, onycholysis. Neuro: Mental status normal. No tremor. DATA REVIEW: PFT 03/18/2018 Moderate obstruction, FEV1/FEC 0.68, FEV1 2.08 L, 67% predicted. CT CHEST report, [facility], 08/2017: Images not available to review. Report describes no evidence of emphysema, interstitial lung disease or pleural disease. 7 mm solitary pulmonary nodule right lower lobe. Images have been requested from [facility]. TO IMPRESSION AND RECOMMENDATIONS: 1. Moderate COPD, chronic bronchitis. I discussed the pathophysiology of chronic bronchitis, emphysema, and COPD; and reviewed the management of this condition as outlined in the GOLD and ATS guidelines, including: - Patient has already accomplished smoking cessation. - Patient already takes annual Influenza vaccination. - Maintain weight and nutrition. - Maintain physical activity is useful. Pulmonary Rehabilitation not likely to change function. - Anoro 1 inhalation once daily every morning; combination long acting anti-cholinergic bronchodilator/long acting beta agonist bronchodilator. - Albuterol HFA inhaler, 2 inhalations with spacer as needed for rescue relief of shortness of breath or wheezing, up to 4 times daily. I demonstrated Aerochamber use to patient with placebo demonstrator at this visit, and provided him with Aerochamber. The patient acknowledged understanding of the technique. - Re-assess symptoms and lung function 3 months. 2. 7 mm solitary pulmonary nodule not alarming, but of interest in light of long prior smoking history. - Current guidelines repeat CT chest 6 months later (due now). If no change, next repeat in 12-18 months. If 7 mm nodule increases in size on follow up scanning, further investigation is warranted. Ras Sood MD, [facility] [place] [facility] [address] [place] [address] P: [phone] F: [phone] Ras Sood MD 03/18/2018 4:26 PM Signed 1. Moderate COPD, chronic bronchitis. I discussed the pathophysiology of chronic bronchitis, emphysema, and COPD; and reviewed the management of this condition as outlined in the GOLD and ATS guidelines, including: - You have already accomplished smoking cessation. - You already take annual Influenza vaccination. - Maintaining weight and nutrition is valuable. - Maintaining physical activity is useful. More vigorous exercise, Pulmonary Rehabilitation not likely to change function. - Anoro 1 inhalation once daily every morning. - Albuterol HFA inhaler, 2 inhalations with spacer as needed for rescue relief of shortness of breath or wheezing, up to 4 times daily. - Re-assess symptoms and lung function 3 months. 2. 7 mm solitary pulmonary nodule not alarming, but of interest in light of long prior smoking history. - Current guidelines repeat CT chest 6 months later (due now). If no change, next repeat in 12-18 months. If 7 mm nodule increases in size on follow up scanning, further investigation is warranted. Ras Sood MD, [facility] [place] [facility] [address] [place] [address] P: [phone] F: [phone] [email or web address] Referring Provider: SELF [200] Allergies As of Date: 03/18/2018 Noted Allergy Reaction AMOXICILLIN 01/26/2016 7 - Swelling CIPROFLOXACIN 01/26/2016 7 - Swelling CODEINE 12/22/2016 1 - Mental Status Change Date Reviewed: 03/18/2018 Reviewed by: Ras Sood - Fully Assessed Reason for Visit: Consult [502] Cmt: Lung nodule, shortness of breath Reason For Visit History Recorded Primary Visit Diagnosis:Solitary pulmonary nodule [R91.1] Comment:7 mm RLL 08/[address] [facility]. Other Visit Diagnoses:COPD with chronic bronchitis (HCC) [J44.9] Gastroesophageal reflux disease without esophagitis [K21.9] Lung nodules [R91.8] Order(s):umeclidinium-vilanterol (ANORO ELLIPTA) 62.5-25 mcg/actuation inhalerInhale 1 Inhalation as instructed once daily.Disp: 1 EachRfl: 3 albuterol HFA (PROVENTIL HFA, VENTOLIN HFA) 90 mcg/actuation inhalerInhale 2 Puffs as instructed four times daily as needed.Disp: 1 InhalerRfl: 3 [facility] [[id number]] Order #: [id number] FUTURE Prescriptions as of 03/18/2018 Sig: AMLODIPINE 5 MG TABLET Take 5 mg by mouth once daily. OMEPRAZOLE 40 MG CAPSULE,RAJ* Take 1 capsule by mouth once * OCUVITE PRESERVISION ORAL Take by mouth once daily. TAMSULOSIN 0.4 MG CAPSULE Take 1 capsule by mouth daily* CATHETER 16 FR ISC four times daily and as n* RANITIDINE HCL ORAL Take by mouth. UMECLIDINIUM 62.5 MCG-VILANTE* Inhale 1 Inhalation as instru* ALBUTEROL SULFATE HFA 90 MCG/* Inhale 2 Puffs as instructed * Problem List As Of Date 03/18/2018 Noted Resolved Renal failure [N19] INVALID FOR*05/03/2017 Chronic retention of urine [R33.9] INVALID FOR* More... 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 Dialysis patient ([facility]) [Z99.2] INVALID FOR*05/03/2017 More... 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 Right shoulder pain [M25.511] INVALID FOR* More... 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 Posterior vitreous detachment of both eyes [H43*INVALID FOR* Stage 4 chronic kidney disease ([facility]) [N18.4] INVALID FOR* More... Essential hypertension [I10] INVALID FOR* More... COPD with chronic bronchitis ([facility]) [J44.9] INVALID FOR* More... Solitary pulmonary nodule [R91.1] INVALID FOR* More... Notes for Staff Call patient with results Other instructions from your clinician: 1. Moderate COPD, chronic bronchitis. I discussed the pathophysiology of chronic bronchitis, emphysema, and COPD; and reviewed the management of this condition as outlined in the GOLD and ATS guidelines, including: - You have already accomplished smoking cessation. - You already take annual Influenza vaccination. - Maintaining weight and nutrition is valuable. - Maintaining physical activity is useful. More vigorous exercise, Pulmonary Rehabilitation not likely to change function. - Anoro 1 inhalation once daily every morning. - Albuterol HFA inhaler, 2 inhalations with spacer as needed for rescue relief of shortness of breath or wheezing, up to 4 times daily. - Re-assess symptoms and lung function 3 months. 2. 7 mm solitary pulmonary nodule not alarming, but of interest in light of long prior smoking history. - Current guidelines repeat CT chest 6 months later (due now). If no change, next repeat in 12-18 months. If 7 mm nodule increases in size on follow up scanning, further investigation is warranted. Ras Sood MD, [facility] [place] [facility] [address] [address] P: [phone] F: [phone] [email or web address] Prescriptions ordered this encounter Disp Refills Start End UMECLIDINIUM 62.5 MCG-VILANTEROL 25 * 1 Ea* 3 03/18/2018 Route: INHALATION Sig: Inhale 1 Inhalation as instructed once daily. ALBUTEROL SULFATE HFA 90 MCG/ACTUATI* 1 In* 3 03/18/2018 Route: INHALATION Sig: Inhale 2 Puffs as instructed four times daily as needed. Medications Discontinued During This Encounter Xdnouavfpva-Gfltoiggp-Okr C-Mn (GLUC* 0 01/29/2017 03/18/2018 Class: Historical Med Route: ORAL Sig: Take 1 capsule by mouth three times daily. Disc: Course of therapy completed fluconazole (DIFLUCAN) 200 mg tablet 0 02/25/2016 03/18/2018 Class: Historical Med Route: ORAL Sig: Take 1 tablet by mouth once daily. Disc: Course of therapy completed dicyclomine (BENTYL) 10 mg capsule 90 c* 2 05/03/2017 03/18/2018 Route: ORAL Sig: Take 1 capsule by mouth before meals and at bedtime. Indications: IRRITABLE BOWEL SYNDROME Patient not taking: Reported on 03/18/2018 Disc: Course of therapy completed Follow Up: Call patient with results Follow-up and Disposition History Recorded Encounter Status:Closed by RAS SOOD MD on 03/18/18 PROGRESS Observed: 03/18/2018 Status: COMPLETED Source: [place] 3:[address] [facility] REPOSITORY HNO ID: [id number] Author: Ras Sood Service: (none) Author Type: Physician Type: Progress Notes Filed: 03/18/2018 4:58 PM Note Text: [facility] [place] Consultation Note, 03/18/2018: Introduction: The patient is seen in consultation today for evaluation of shortness of breath. This consultation is requested by KARMA MARRERO MD. A copy of this encounter will be made available as a report via [employer] medical record to providers with access to this record, via US Mail and/or FAX to providers without such access. HPI: No shortness of breath at rest. GARCÍA with lifting carrying for a distance, bending over to put on socks and shoes repeated flights of stairs. Sometimes, not daily, cough, patient relates to post nasal drip and GERD. Sometimes with sputum. Worse in AM, does not wake from sleep. No hemoptysis, pleuritic chest pain. Very rarely wheezing.. Current home 24 [place] No pets in home. Basement with little mold, which he treated with bleach and KILZ. Gas forced air heat. Window A/C. Bedroom lydia is wall to wall carpet. No farming, barn stable work, birding, spelunking. 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 No sandblasting, asbestos exposure. No sustained Rx with Amiodarone, Nitrofurantoin, Methotrexate, cancer chemotherapy, external beam radiation therapy to chest. PAST MEDICAL HISTORY Diagnosis Date - Chronic kidney disease, stage 4 (severe) (HCC) 09/13/2017 - HTN (hypertension) - Renal failure - TIA (transient ischemic attack) - Urinary retention PAST SURGICAL HISTORY Procedure Laterality Date - APPENDECTOMY 1972 - HEMMORRHOIDECTOMY,EXTERNAL SINGLE - PAST SURGICAL HISTORY OF 09/06/2015 kidney stent placement; Dr. Nia DE LA CRUZ - PROSTATECTOMY, SIMPLE, BENIGN 2009 History reviewed. No pertinent family history. MEDICATIONS and ALLERGIES: Reviewed, updated and reconciled with the patient today, as noted in the medication and allergy sections of the encounter. ROS: General: Generally feels fine. Appetite good, maintaining weight. No fevers, diaphoresis. Eyes, Ears, nose, throat: Glaucoma OS, Macular degeneration OD. Notes post nasal drip. No purulent nasal discharge, epistaxis, hoarseness. Cardiac: No angina, edema, orthopnea. Occasional rapid irregular heart rate. GI: I had heartburn a lot. Prilosec helped that. No diarrhea, melena. Uro/BRICK TESTER: No dysuria. Chronic urinary hesitancy. Does self cath routine. Musculoskeletal: Occasional neck pain, resolves with heating pad. I know I have arthritis. Neuro: I get headaches a lot. Otherwise negative. PHYSICAL EXAMINATION: BP 130/82 Pulse 60 Resp 16 Wt 156 lb (70.8kg) SpO2 96% at rest on room air. Gen: No acute distress. Cooperative with examination. Appearance consistent with recorded age. ENT: Sclerae clear. Nares clear. Oral hygeine good. Upper denture. No lower teeth. Pharynx clear. Resp: No stridor, accessory respiratory muscle use, supra- sternal or intercostal retractions. A-P diameter normal. Percussion normal. Expiration prolonged and breath sounds diminished bilaterally. No crackles, wheezes. CV: Regular rythm. Heart tones normal. normal JVP, no HJR. No carotid bruit. Radial pulses normal. Abd: Not distended. No hepatosplenomegaly. MSK: No kyphoscoliosis, joint deformities of the extremities. Ext: Warm and well perfused. No clubbing, cyanosis, edema, sclerodactyly, Raynaud's. Skin: No rash, eczema, urticaria, telangiectasia. Ecchymoses on dorsum of left forearm more than right. Lymph: No adenopathy in neck, supra-clavicular fossae. Endo: No goiter. No exophthalmos, onycholysis. Neuro: Mental status normal. No tremor. DATA REVIEW: PFT 03/18/2018 Moderate obstruction, FEV1/FEC 0.68, FEV1 2.08 L, 67% predicted. CT CHEST report, [facility], 08/2017: Images not available to review. Report describes no evidence of emphysema, interstitial lung disease or pleural disease. 7 mm solitary pulmonary nodule right lower lobe. Images have been requested from [facility]. TO IMPRESSION AND RECOMMENDATIONS: 1. Moderate COPD, chronic bronchitis. I discussed the pathophysiology of chronic bronchitis, emphysema, and COPD; and reviewed the management of this condition as outlined in the GOLD and ATS guidelines, including: - Patient has already accomplished smoking cessation. - Patient already takes annual Influenza vaccination. - Maintain weight and nutrition. - Maintain physical activity is useful. Pulmonary Rehabilitation not likely to change function. - Anoro 1 inhalation once daily every morning; combination long acting anti-cholinergic bronchodilator/long acting beta agonist bronchodilator. - Albuterol HFA inhaler, 2 inhalations with spacer as needed for rescue relief of shortness of breath or wheezing, up to 4 times daily. I demonstrated Aerochamber use to patient with placebo demonstrator at this visit, and provided him with Aerochamber. The patient acknowledged understanding of the technique. - Re-assess symptoms and lung function 3 months. 2. 7 mm solitary pulmonary nodule not alarming, but of interest in light of long prior smoking history. - Current guidelines repeat CT chest 6 months later (due now). If no change, next repeat in 12-18 months. If 7 mm nodule increases in size on follow up scanning, further investigation is warranted. Ras Sood MD, [facility] [place] [facility] [address] [address] P: [phone] F: [phone] [email or web address] CNPN Observed: 03/12/2018 Status: COMPLETED Source: [place] 12:00 AM [facility] REPOSITORY Telephone ([facility]) REIN RODGERS ([id number]) 1950 M Date Time Provider Department 03/12/18 NANCY RILEY) [facility] During your visit today, we recorded the following information about you: Chen Abdi LPN 03/12/2018 9:37 AM Signed Patient calling in to check status of catheters, he is almost out. Please call patient at [phone]. Serafin Carter Ma 03/12/2018 11:45 AM Signed Order will be faxed to [facility] today. Serafin Carter Ma 03/13/2018 9:26 AM Signed Rep from [employer] to contact pt to discuss shipment and insurance coverage. Serafin Carter Ma 03/13/2018 3:56 PM Signed Order faxed to [facility] as requested. Serafin Carter Ma 03/15/2018 1:03 PM Signed Office notes and letter faxed to support need for insurance. Serafin Carter Ma Allergies As of Date: 03/12/2018 Noted Allergy Reaction AMOXICILLIN 01/26/2016 7 - Swelling CIPROFLOXACIN 01/26/2016 7 - Swelling CODEINE 12/22/2016 1 - Mental Status Change Date Reviewed: 11/14/2017 Reviewed by: Megan Sarkar Ma - Fully Assessed Reason for Visit: Nurse Triage Call [185] Prescriptions as of 03/12/2018 Sig: AMLODIPINE 5 MG TABLET Take 5 mg by mouth once daily. DICYCLOMINE 10 MG CAPSULE Take 1 capsule by mouth befor* OMEPRAZOLE 40 MG CAPSULE,RAJ* Take 1 capsule by mouth once * OCUVITE PRESERVISION ORAL Take by mouth once daily. TAMSULOSIN 0.4 MG CAPSULE Take 1 capsule by mouth daily* SYERPQZCRSU-OUWLFGWUK-XNI C-M* Take 1 capsule by mouth three* CATHETER 16 FR ISC four times daily and as n* FLUCONAZOLE 200 MG TABLET Take 1 tablet by mouth once d* RANITIDINE HCL ORAL Take by mouth. Problem List As Of Date 03/12/2018 Noted Resolved Renal failure [N19] INVALID FOR*05/03/2017 Chronic retention of urine [R33.9] INVALID FOR* More... 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 Dialysis patient ([facility]) [Z99.2] INVALID FOR*05/03/2017 More... 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 Right shoulder pain [M25.511] INVALID FOR* More... 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 Posterior vitreous detachment of both eyes [H43*INVALID FOR* Stage 4 chronic kidney disease (HCC) [N18.4] INVALID FOR* More... Essential hypertension [I10] INVALID FOR* More... Letter Text Department of Urology [address] [place], [place] [address] Erin Rodgers [id number] [address] [place], [place] [address] [address] Date of : 1950 Social Security Number: [id number] 03/15/2018 To whom it may concern: The above named is my patient. I have determined he has a medical need for Intermittent Self Cath 4 times daily , based on his diagnosis of Urinary Retention and Renal Failure. It has been determined that this medical need is for lifetime.. He has an enlarged prostate as well and requires a coude tip to be able to pass the catheter into his bladder. This patient was last seen in my office on 03/23/2017 and will be returning for his annual check on 04/18/2018. I would appreciate your cooperation and understanding in this matter. If you have any questions, please call my office at [phone]. Thank you very much. Sincerely, Nancy Riley [facility], [place], PAMarianneC Encounter Status:Closed by SERAFIN CARTER MA on 03/13/18 FATOU Observed: 01/29/2018 Status: COMPLETED Source: [place] 12:00 AM [facility] RE[facility] Patient Outreach ([facility]) ERIN RODGERS ([id number]) 1950 M Date Time Provider Department 01/29/18 KARMA MARRERO [facility] During your visit today, we recorded the following information about you: Allergies As of Date: 01/29/2018 Noted Allergy Reaction AMOXICILLIN 01/26/2016 7 - Swelling CIPROFLOXACIN 01/26/2016 7 - Swelling CODEINE 12/22/2016 1 - Mental Status Change Date Reviewed: 11/14/2017 Reviewed by: Megan Sarkar Ma - Fully Assessed Visit Diagnosis:Medication management [Z79.899] Order(s):BASIC METABOLIC PNL [SQBMP] Order #: [id number] FUTURE HGB A1C [[id number]] Order #: [id number] FUTURE Prescriptions as of 01/29/2018 Sig: AMLODIPINE 5 MG TABLET Take 5 mg by mouth once daily. OMEPRAZOLE 40 MG CAPSULE,RAJ* Take 1 capsule by mouth once * X DICYCLOMINE 10 MG CAPSULE Take 1 capsule by mouth befor* Patient not taking: Reported on 03/18/2018 OCUVITE PRESERVISION ORAL Take by mouth once daily. X TAMSULOSIN 0.4 MG CAPSULE Take 1 capsule by mouth daily* X [id number]-LYWXRHYLX-PXZ C-M* Take 1 capsule by mouth three* CATHETER 16 FR ISC four times daily and as n* X FLUCONAZOLE 200 MG TABLET Take 1 tablet by mouth once d* RANITIDINE HCL ORAL Take by mouth. Problem List As Of Date 01/29/2018 Noted Resolved Renal failure [N19] INVALID FOR*05/03/2017 Chronic retention of urine [R33.9] INVALID FOR* More... 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 Dialysis patient ([facility]) [Z99.2] INVALID FOR*05/03/2017 More... 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 Right shoulder pain [M25.511] INVALID FOR* More... 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 Posterior vitreous detachment of both eyes [H43*INVALID FOR* Stage 4 chronic kidney disease (HCC) [N18.4] INVALID FOR* More... Essential hypertension [I10] INVALID FOR* More... Encounter Status:Closed by TAYLOR, PRODUSER on 05/24/18 CBC-COMPLETE BLOOD CNT Collected: 11/27/2017 Status: F Source: [place] NO DIFF 10:35 AM [facility] REPOSITORY TYPE CODE TESTS RESULT OUT OF RANGE REFERENCE UNITS LAB L100.1000 4.4-11.0 K/mm3 Normal WBC 11.0 LAB L100.1200 4.6-6.2 M/mm3 Low RBC 4.28 LAB L100.1300 13.0-16.5 g/dl Normal HGB 13.6 LAB L100.1400 40-54 % Normal HCT 42.4 LAB L100.1500 80-94 fL High MCV 99.1 LAB L100.1600 27.0-32.0 pg Normal MCH 31.8 LAB L100.1700 32-36 g/gl Normal MCHC 32.1 LAB L100.1810 11.6-14.6 % Normal RDW CV 13.5 LAB L100.1820 35.1-43.9 fl High RDW SD 47.8 LAB L100.1900 150-450 K/mm3 Normal PLT 365 LAB L100.2000 6.2-12.0 fl Normal MPV 9.7 Performed By: #### L100.0500 #### [facility] [address] [place], [place], [address] RENAL PROFILE Collected: 11/27/2017 Status: F Source: [place] 10:35 AM [facility] REPOSITORY TYPE CODE TESTS RESULT OUT OF RANGE REFERENCE UNITS LAB L501.0100 74-106 mg/dL Normal GLU 99 Result Comment: Please note revised GLUCOSE reference range effective 2017. LAB L501.1000 7-18 mg/dL High BUN 38 LAB L501.1100 0.70-1.30 mg/dL High CREAT,SERUM 3.12 Result Comment: The validity of the calculated GFR AND GFRAA in patients over 70 years has not been determined. Clinical correlation is essential. LAB L501.1110 >60 mL/min Low EST GFR 21 Result Comment: Non- GFR Calc LAB L501.1115 >60 mL/min Low EST GFR - AA 26 Result Comment: GFR Calc LAB L501.1300 10-20 RATIO Normal BUN/CRE 12.2 LAB L501.1800 3.2-5.0 g/dL Normal ALB 3.3 LAB L501.2200 8.5-10.1 mg/dL CA Normal 8.6 LAB L501.2300 2.5-4.9 mg/dL Normal PHOS 3.1 LAB L501.5300 136-145 mmol/L NA Normal 143 LAB L501.5600 3.5-5.1 mmol/L K Normal 4.3 LAB L501.5900 98-107 mmol/L High CL 109 LAB L501.6100 21.0-32.0 mmol/L Normal CO2 25.0 Performed By: #### L500.3600 #### [facility] [address] [place], [address] PTHIN Collected: 11/27/2017 Status: F Source: [place] 10:35 AM [facility] REPOSITORY TYPE CODE TESTS RESULT OUT OF RANGE REFERENCE UNITS LAB L509.1000 18.4-80.1 pg/mL High PTHIN 186.1 Result Comment: Please Note: PTH INTACT METHOD AND REFERENCE RANGE CHANGE Effective 08/01/2017. Performed By: #### L509.1000 #### [facility] [address] [facility] [place], [address] CNOV Observed: 11/14/2017 Status: COMPLETED Source: [place] 11:00 AM [facility] REPOSITORY Office Visit (INTMWS) ERIN RODGERS ([id number]) 1950 M Date Time Provider Department 11/14/17 11:00 AM FANNY NELSON ([facility]) INTMWS During your visit today, we recorded the following information about you: Temperature Pulse Respiration Blood pressure 98.1 degrees 68/minute 16/minute 128/86 Weight 71.2 kg Fanny Nelson APRN.CNP 11/14/2017 12:11 PM Signed CC: Patient presents with: Recheck: ER follow up HPI Erin Rodgers is a 67 year old male who presents today for [facility] ER follow up from 10/26/17. Patient presented to the ER with complaints of intermittent mid chest pain without radiation. Associated with SOB, cough and fever. Patient was given ASA. EKG showed sinus rhythm HR 93. CBC and CMP fairly unremarkable, except BUN 46 and Creatinine 3.49 which is patient's baseline. Troponin negative. Patient was admitted for observation. Xray paranasal sinuses normal. CXR showed hyperinflation of the lungs, bilateral nodular opacities. Follow up chest CT revealed right lower lung nodule 7mm in size, small hiatal hernia and 1.7cm left adrenal adenoma. Stress test- normal and Echo- showed mild LVH, EF 50-55%, and Stage 1 diastolic dysfunction. completed. Today patient complains of cough- productive, SOB worse with exertion, intermittent chest pain pointing to mid sternum, denies chest pain currently. Reports overall he is doing ANDquot;okayANDquot; and is ANDquot;alrightANDquot;. Patient denies any fevers, chills, wheezing, hemoptysis, palpitations, edema, dizziness or lightheadedness since discharge.Patient has a ~44 year smoking history, reports quitting in 2011. REVIEW OF SYSTEMS General: no fevers, no chills, no night sweats, no recurrent infections, no change in appetite, no change in energy and no significant changes in weight HEENT: no changes in hearing, no visual changes, no nose bleeds, no sinus or nasal problems Neck: no lumps, no pain and no swelling Respiratory: no hemoptysis, See HPI Cardiovascular: no chest pressure and no swelling GI: No nausea, vomiting, or diarrhea and Positive for heart burn Hematologic/Lymph: Negative for prolonged bleeding, bruising easily or swollen nodes Neurologic: No weakness, numbness, tingling, neck stiffness, tremor, vertigo, dizziness, syncope. Positive: chronic headaches over 40 years and daughter reports mild concern for memory loss. Patient denies any concerns related to memory, but daughter describes patient forgetting to leave keys at work or leaving his cell phone in his car when he returns home. PAST MEDICAL HISTORY Diagnosis Date - Chronic kidney disease, stage 4 (severe) (HCC) 09/13/2017 - HTN (hypertension) - Renal failure - TIA (transient ischemic attack) - Urinary retention PAST SURGICAL HISTORY Procedure Laterality Date - APPENDECTOMY 1972 - HEMMORRHOIDECTOMY,EXTERNAL SINGLE - PAST SURGICAL HISTORY OF 09/06/2015 kidney stent placement; Dr. Nia Henry PA - PROSTATECTOMY, SIMPLE, BENIGN 2009 ALLERGIES Amoxicillin; Ciprofloxacin; Codeine MEDICATIONS amLODIPine (NORVASC) 5 mg tablet Take 5 mg by mouth once daily. dicyclomine (BENTYL) 10 mg capsule Take 1 capsule by mouth before meals and at bedtime. Indications: IRRITABLE BOWEL SYNDROME Omeprazole (PRILOSEC) 40 mg capsule Take 1 capsule by mouth once daily. VIT A/VIT C/VIT E/ZINC/COPPER (OCUVITE PRESERVISION ORAL) Take by mouth once daily. tamsulosin ER (FLOMAX) 0.4 mg cp24 Take 1 capsule by mouth daily at bedtime. Bvriyfvxhbd-Uqkzkmtgi-Dcp C-Mn (GLUCOSAMINE CHONDROITIN MAXSTR) 500-400 mg cap Take 1 capsule by mouth three times daily. Catheter (BARD COUDE TIP CATHETER) 16 Fr misc ISC four times daily and as needed fluconazole (DIFLUCAN) 200 mg tablet Take 1 tablet by mouth once daily. RANITIDINE HCL ORAL Take by mouth. No family history on file. Social History Substance Use Topics - Smoking status: Former Smoker - Smokeless tobacco: Never Used - Alcohol use No PHYSICAL EXAM BP 128/86 Pulse 68 Temp 36.7 ?C (98.1 ?F) (Temporal Artery) Resp 16 Wt 71.2 kg (157 lb) SpO2 99% BMI 23.18 kg/m2 General Appearance: well appearing, in no acute distress, alert Pysch: mood and affect broad and appropriate Skin: Skin color, texture, turgor normal for age; Head: normocephalic, atraumatic Lungs: Lungs clear to auscultation. No wheezing, rhonchi, rales, Non- productive cough observed. No obvious SOB with conversation or ambulation. Pulse ox 99% on room air. Heart: RRR without murmur, gallop, or rubs. No ectopy Bilateral Lower Extremities: No deformities or edema. TETANUS due on 1961 LIPID SCREEN due on 1985 HEPATITIS C SCREENING due on 1994 PROSTATE CANCER SCREENING DISCUSSION due on 02/16/2000 COLORECTAL CANCER SCREENING,SEE MODIFIER due on 02/16/2000 ABDOMINAL AORTIC ANEURYSM SCREENING TOPIC due on 2015 ADULT PREVNAR-13 due on 2015 PNEUMOVAX AGE 65 AND OVER WITH 5YR LOOKBACK(1) due on 2015 DIABETES SCREEN due on 01/30/2020 INFLUENZA Completed ASSESSMENT/PLAN: 1. Incidental lung nodule, ANDgt; 3mm and ANDlt; 8mm - ICD9: 793.11, ICD10: R91.1 (primary diagnosis) - Right lower lung nodule noted on CT from [facility] measuring 7mm as well as a 1.7cm left adrenal adenoma. No previous imaging studies available for comparison. Self reported worsening productive cough with a 44 year 2ppd smoking history- believe this warrants further follow up compared to watchful waiting and repeat imaging in 6 months - CONSULT TO PULMONARY MEDICINE - Follow up in 3 months, sooner if new or worsening symptoms 2. SOB (shortness of breath) - ICD9: 786.05, ICD10: R06.02 - SOB mostly with exertion. No acute or concerning exam findings this visit. - Recommend pulmonary consult for further evaluation of right lung nodule given patient's significant smoking history - CONSULT TO PULMONARY MEDICINE - Follow up in 3 months, sooner if new or worsening symptoms 3. Former smoker - ICD9: V15.82, ICD10: Z87.891 - Plan as above, see #1ANDamp;2 - CONSULT TO PULMONARY MEDICINE Prescription instructions reviewed with patient as applicable. Potential red flag symptoms discussed with the patient. Reviewed appropriate action plan to take if red flag symptoms occur. Patient agreeable to treatment plan. Fanny Nelson APRN.TEMPERING MACHINE OPERATOR Referring Provider: KARMA MARRERO [[id number]] Allergies As of Date: 11/14/2017 Noted Allergy Reaction AMOXICILLIN 01/26/2016 7 - Swelling CIPROFLOXACIN 01/26/2016 7 - Swelling CODEINE 12/22/2016 1 - Mental Status Change Date Reviewed: 11/14/2017 Reviewed by: Megan Sarkar Ma - Fully Assessed Reason for Visit: Recheck [92] Cmt: ER follow up Primary Visit Diagnosis:Incidental lung nodule, > 3mm and < 8mm [R91.1] Other Visit Diagnoses:SOB (shortness of breath) [R06.02] Former smoker [Z87.891] Comment:quit 2011, smoked 1.5-2ppd Order(s):CONSULT TO PULMONARY MEDICINE [[id number]] Order #: [id number]: 1 Prescriptions as of 11/14/2017 Sig: AMLODIPINE 5 MG TABLET Take 5 mg by mouth once daily. DICYCLOMINE 10 MG CAPSULE Take 1 capsule by mouth befor* OMEPRAZOLE 40 MG CAPSULE,RAJ* Take 1 capsule by mouth once * OCUVITE PRESERVISION ORAL Take by mouth once daily. TAMSULOSIN 0.4 MG CAPSULE Take 1 capsule by mouth daily* RZWFAYKLDIU-MGQAJIWSL-PDF C-M* Take 1 capsule by mouth three* CATHETER 16 FR ISC four times daily and as n* FLUCONAZOLE 200 MG TABLET Take 1 tablet by mouth once d* RANITIDINE HCL ORAL Take by mouth. Problem List As Of Date 11/14/2017 Noted Resolved Renal failure [N19] INVALID FOR*05/03/2017 Chronic retention of urine [R33.9] INVALID FOR* More... 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 Dialysis patient ([facility]) [Z99.2] INVALID FOR*05/03/2017 More... 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 Right shoulder pain [M25.511] INVALID FOR* More... 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 Posterior vitreous detachment of both eyes [H43*INVALID FOR* Stage 4 chronic kidney disease (HCC) [N18.4] INVALID FOR* More... Essential hypertension [I10] INVALID FOR* More... Letter Text Department of Internal Medicine [address] [place] [address] 11/14/2017 Erin Rodgers [facility]# [id number] [address] [place] [address] TO WHOM IT MAY CONCERN: This is to certify that Mr. Erin Rodgers has been under my care for medical conditions and was unable to work 11/14/17. Sincerely yours, Fanny Nelson APRN.CNP Letter Text Department of Internal Medicine [address] [place] [address] Erin [address] [place], [place] [id number] November 14, 2017 TO WHOM IT MAY CONCERN: This is to certify that Erin Rodgers has been under the care of Fanny Nelson APRN.CNP and was unable to work from 10/20/17 through 11/14/17. Erin may return to work on 11/15/17 with no restrictions Sincerely yours, Fanny Nelson APRN.CNP Encounter Status:Closed by FANNY NELSON CNP on 11/14/17 PROGRESS Observed: 11/14/2017 Status: COMPLETED Source: [place] 10:49 AM [facility] REPOSITORY HNO ID: [id number] Author: Fanny (Cristhian) Aldair Service: (none) Author Type: Nurse Practitioner Type: Progress Notes Filed: 11/14/2017 12:11 PM Note Text: CC: Patient presents with: Recheck: ER follow up HPI Erin Rodgers is a 67 year old male who presents today for [facility] ER follow up from 10/26/17. Patient presented to the ER with complaints of intermittent mid chest pain without radiation. Associated with SOB, cough and fever. Patient was given ASA. EKG showed sinus rhythm HR 93. CBC and CMP fairly unremarkable, except BUN 46 and Creatinine 3.49 which is patient's baseline. Troponin negative. Patient was admitted for observation. Xray paranasal sinuses normal. CXR showed hyperinflation of the lungs, bilateral nodular opacities. Follow up chest CT revealed right lower lung nodule 7mm in size, small hiatal hernia and 1.7cm left adrenal adenoma. Stress test- normal and Echo- showed mild LVH, EF 50-55%, and Stage 1 diastolic dysfunction. completed. Today patient complains of cough- productive, SOB worse with exertion, intermittent chest pain pointing to mid sternum, denies chest pain currently. Reports overall he is doing okay and is alright. Patient denies any fevers, chills, wheezing, hemoptysis, palpitations, edema, dizziness or lightheadedness since discharge.Patient has a ~44 year smoking history, reports quitting in 2011. REVIEW OF SYSTEMS General: no fevers, no chills, no night sweats, no recurrent infections, no change in appetite, no change in energy and no significant changes in weight HEENT: no changes in hearing, no visual changes, no nose bleeds, no sinus or nasal problems Neck: no lumps, no pain and no swelling Respiratory: no hemoptysis, See HPI Cardiovascular: no chest pressure and no swelling GI: No nausea, vomiting, or diarrhea and Positive for heart burn Hematologic/Lymph: Negative for prolonged bleeding, bruising easily or swollen nodes Neurologic: No weakness, numbness, tingling, neck stiffness, tremor, vertigo, dizziness, syncope. Positive: chronic headaches over 40 years and daughter reports mild concern for memory loss. Patient denies any concerns related to memory, but daughter describes patient forgetting to leave keys at work or leaving his cell phone in his car when he returns home. PAST MEDICAL HISTORY Diagnosis Date - Chronic kidney disease, stage 4 (severe) (HCC) 09/13/2017 - HTN (hypertension) - Renal failure - TIA (transient ischemic attack) - Urinary retention PAST SURGICAL HISTORY Procedure Laterality Date - APPENDECTOMY 1972 - HEMMORRHOIDECTOMY,EXTERNAL SINGLE - PAST SURGICAL HISTORY OF 09/06/2015 kidney stent placement; Dr. Nia DE LA CRUZ - PROSTATECTOMY, SIMPLE, BENIGN 2009 ALLERGIES Amoxicillin; Ciprofloxacin; Codeine MEDICATIONS amLODIPine (NORVASC) 5 mg tablet Take 5 mg by mouth once daily. dicyclomine (BENTYL) 10 mg capsule Take 1 capsule by mouth before meals and at bedtime. Indications: IRRITABLE BOWEL SYNDROME Omeprazole (PRILOSEC) 40 mg capsule Take 1 capsule by mouth once daily. VIT A/VIT C/VIT E/ZINC/COPPER (OCUVITE PRESERVISION ORAL) Take by mouth once daily. tamsulosin ER (FLOMAX) 0.4 mg cp24 Take 1 capsule by mouth daily at bedtime. Hophcrybtvm-Ryupqfnrl-Pdl C-Mn (GLUCOSAMINE CHONDROITIN MAXSTR) 500-400 mg cap Take 1 capsule by mouth three times daily. Catheter (BARD COUDE TIP CATHETER) 16 Fr misc ISC four times daily and as needed fluconazole (DIFLUCAN) 200 mg tablet Take 1 tablet by mouth once daily. RANITIDINE HCL ORAL Take by mouth. No family history on file. Social History Substance Use Topics - Smoking status: Former Smoker - Smokeless tobacco: Never Used - Alcohol use No PHYSICAL EXAM BP 128/86 Pulse 68 Temp 36.7 ?C (98.1 ?F) (Temporal Artery) Resp 16 Wt 71.2 kg (157 lb) SpO2 99% BMI 23.18 kg/m2 General Appearance: well appearing, in no acute distress, alert Pysch: mood and affect broad and appropriate Skin: Skin color, texture, turgor normal for age; Head: normocephalic, atraumatic Lungs: Lungs clear to auscultation. No wheezing, rhonchi, rales, Non- productive cough observed. No obvious SOB with conversation or ambulation. Pulse ox 99% on room air. Heart: RRR without murmur, gallop, or rubs. No ectopy Bilateral Lower Extremities: No deformities or edema. TETANUS due on 1961 LIPID SCREEN due on 1985 HEPATITIS C SCREENING due on 1994 PROSTATE CANCER SCREENING DISCUSSION due on 02/16/2000 COLORECTAL CANCER SCREENING,SEE MODIFIER due on 02/16/2000 ABDOMINAL AORTIC ANEURYSM SCREENING TOPIC due on 2015 ADULT PREVNAR-13 due on 2015 PNEUMOVAX AGE 65 AND OVER WITH 5YR LOOKBACK(1) due on 2015 DIABETES SCREEN due on 01/30/2020 INFLUENZA Completed ASSESSMENT/PLAN: 1. Incidental lung nodule, > 3mm and < 8mm - ICD9: 793.11, ICD10: R91.1 (primary diagnosis) - Right lower lung nodule noted on CT from [facility] measuring 7mm as well as a 1.7cm left adrenal adenoma. No previous imaging studies available for comparison. Self reported worsening productive cough with a 44 year 2ppd smoking history- believe this warrants further follow up compared to watchful waiting and repeat imaging in 6 months - CONSULT TO PULMONARY MEDICINE - Follow up in 3 months, sooner if new or worsening symptoms 2. SOB (shortness of breath) - ICD9: 786.05, ICD10: R06.02 - SOB mostly with exertion. No acute or concerning exam findings this visit. - Recommend pulmonary consult for further evaluation of right lung nodule given patient's significant smoking history - CONSULT TO PULMONARY MEDICINE - Follow up in 3 months, sooner if new or worsening symptoms 3. Former smoker - ICD9: V15.82, ICD10: Z87.891 - Plan as above, see #1AND2 - CONSULT TO PULMONARY MEDICINE Prescription instructions reviewed with patient as applicable. Potential red flag symptoms discussed with the patient. Reviewed appropriate action plan to take if red flag symptoms occur. Patient agreeable to treatment plan. Fanny Nelson APRN.TEMPERING MACHINE OPERATOR 12 LEAD ELECTROCARDIOGRAM Observed: 11/06/2017 Status: F Source: [place] 1:44 PM [facility] REPOSITORY [facility] Cardiovascular [place] [address] 12 Lead EKG 10/26/171955 MR#: [id number] Acct: [id number] Name: ERIN RODGERS Rep #: [id number] : 1950 67 From: Jose Pierre MD Attending Dr: Ian Aly Status: DIS IN Ordering Dr: Ian Aly MD Date: 10/26/17 Location: [facility] Sex: M C Admitted: 10/27/17 Test Reason : CP Blood Pressure : / mmHG Vent. Rate : 062 BPM Atrial Rate : 062 BPM P-R Int : 144 ms QRS Dur : 090 ms QT Int : 384 ms P-R-T Axes : 043 -10 050 degrees QTc Int : 389 ms Normal sinus rhythm Normal ECG When compared with ECG of 26-OCT-2017 15:54, MANUAL COMPARISON REQUIRED, DATA IS UNCONFIRMED Confirmed by JOSE PIERRE MD ([id number]), index editor ROBERTO DUNCAN ([id number]) on 11/06/2017 1:44:13 PM Referred By: GRASHEM Confirmed By:JOSE PIERRE MD 11/06/17 1344 Date Jose Pierre MD CC: Karma Marrero MD; Ian Aly Signed 12 LEAD ELECTROCARDIOGRAM Observed: 11/01/2017 Status: F Source: [place] 3:08 PM [facility] REPOSITORY [facility] Cardiovascular Services [address] [place] [address] 12 Lead EKG 10/29/17 0516 MR#: [id number] Acct: [id number] Name: ERIN RODGERS Rep #: [id number] : 1950 67 From: Julio Onofre MD Attending Dr: Ian Aly Status: DIS IN Ordering Dr: Mack Enriquez MD Date: 10/29/17 Location: [facility] Sex: M C Admitted: 10/27/17 Test Reason : AM EKG Blood Pressure : / mmHG Vent. Rate : 060 BPM Atrial Rate : 060 BPM P-R Int : 146 ms QRS Dur : 090 ms QT Int : 404 ms P-R-T Axes : 051 -06 028 degrees QTc Int : 404 ms Normal sinus rhythm Normal ECG When compared with ECG of 27-OCT-2017 05:41, MANUAL COMPARISON REQUIRED, DATA IS UNCONFIRMED Confirmed by JULIO ONOFRE ([id number]), index editor ROBERTO DUNCAN ([id number]) on 11/01/2017 3:08:00 PM Referred By: MINA Confirmed By:JULIO ONOFRE 11/01/17 1508 Date Julio Onofre MD CC: Karma Marrero MD; Mack Enriquez MD Signed 12 LEAD ELECTROCARDIOGRAM Observed: 11/01/2017 Status: F Source: [place] 3:02 PM [facility] REPOSITORY [facility] Cardiovascular Services [address] [place] [address] [place] [address] 12 Lead EKG 10/27/17 0541 MR#: [id number] Acct: [id number] Name: VISHALERIN Cr Rep #: [id number] : 1950 67 From: Julio Onofre MD Attending Dr: Ian Aly Status: DIS IN Ordering Dr: Ian Aly MD Date: 10/27/17 Location: [facility] Sex: M C Admitted: 10/27/17 Test Reason : AM EKG Blood Pressure : / mmHG Vent. Rate : 084 BPM Atrial Rate : 084 BPM P-R Int : 144 ms QRS Dur : 092 ms QT Int : 364 ms P-R-T Axes : 030 -28 023 degrees QTc Int : 430 ms Sinus rhythm with marked sinus arrhythmia Septal infarct , age undetermined Abnormal ECG When compared with ECG of 26-OCT-2017 19:56, MANUAL COMPARISON REQUIRED, DATA IS UNCONFIRMED Confirmed by JULIO ONOFRE ([id number]), index editor ROBERTO DUNCAN ([id number]) on 11/01/2017 3:01:41 PM Referred By: DR ALY Confirmed By:JULIO ONOFRE 11/01/17 1501 Date Julio Onofre MD CC: Karma Marrero MD; Ian Aly Signed CNPTOUTREACH Observed: 10/31/2017 Status: COMPLETED Source: [place] 12:00 AM [facility] REPOSITORY Patient Outreach (INTMWS) VIVEKERIN CASIANO ([id number]) 1950 M Date Time Provider Department 10/31/17 KATY STARKS During your visit today, we recorded the following information about you: Katy Madrid RN 05/24/2018 8:31 AM Signed TRANSITION CARE MANAGEMENT (TCM) INITIAL CONTACT Provider Action/FYI: Initial contact with patient post discharge, spoke to . Patient identified by name and . SUMMARY: -Pt discharged from [facility] on 10/29/17. -Follow up appointment on . -Medication review done . -Admitted for: CONCERNS: 7mm Pulmonary nodule, new finding. 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 X TAMSULOSIN 0.4 MG CAPSULE Take 1 capsule by mouth daily* X SWNCZGXLCPP-KMKXQAGPH-CHL C-M* Take 1 capsule by mouth three* CATHETER 16 FR ISC four times daily and as n* X FLUCONAZOLE 200 MG TABLET Take 1 tablet by mouth once d* RANITIDINE HCL ORAL Take by mouth. Problem List As Of Date 10/31/2017 Noted Resolved Renal failure [N19] INVALID FOR*05/03/2017 Chronic retention of urine [R33.9] INVALID FOR* More... 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 Dialysis patient ([facility]) [Z99.2] INVALID FOR*05/03/2017 More... 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 Right shoulder pain [M25.511] INVALID FOR* More... 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 Posterior vitreous detachment of both eyes [H43*INVALID FOR* Stage 4 chronic kidney disease (HCC) [N18.4] INVALID FOR* More... Essential hypertension [I10] INVALID FOR* More... Encounter Status:Closed by TAYLOR, PRODUSER on 05/24/18 DISCHARGE SUMMARY Observed: 10/29/2017 Status: F Source: [place] 2:05 PM [facility] REPOSITORY [facility] Medical Records Department [address] [place] [address] Discharge Summary 10/29/17 1144 MR#: [id number] Acct: [id number] Name: ERIN RODGERS Rep #: [id number] : 1950 67 From: Bri Loaiza [employer]PER[employer]OR [employer] PCP: Karma Marrero MD Status: DIS IN Y [id number] <Bri Loaiza - Last Filed: 10/29/17 11:55> Discharge Date and Diagnosis Date of Admission: 10/26/17 Date of Discharge: 10/29/17 - Primary Discharge Diagnosis Active and Suspected Problems 1. Atypical chest pain-ACS ruled out. 2. Acute influenza B 3. Syncopal episode-suspected secondary to dehydration 4. 7 mm pulmonary nodule, new finding 5. 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 Vague bilateral nodular opacities which may be artifactual however consider CT of the chest for further characterization for difficult to exclude underlying nodules. Electronically Signed: Tammie Curry MD at 16:37 EDT Tel , Service support , Chest CT 10/27/17 12:00 IMPRESSION: Right lower lung 7 mm pulmonary nodule. No acute infiltrate. No reactive adenopathy. Small hiatal hernia. 1.7 cm left adrenal adenoma. Electronically Signed: Boom Gramajo DO at 6:57 EDT , Service support , Sinuses X-Ray 10/27/17 19:24 IMPRESSION: Normal x-rays of the paranasal sinuses. Electronically Signed: Boom Gramajo DO at 6:44 EDT , Service support , Dr. Ramesh- Nephrology Operations: None Procedures: 2-D Echocardiogram, Stress test Summary of Care Provided: Patient is a 67-year-old male admitted 10/26/2017 due to weakness, chest pain, abdominal pain. He has a past medical history of CVA, chronic kidney disease stage IV, hypertension, history of tobacco use. 1. Atypical chest pain-ACS ruled out. Patient describes infrequent, intermittent substernal chest pain lasting only a few seconds. Denies associated symptoms. States it feels like a burning sensation. Patient reports history of AL, unsure of the exact year but thinks 2013. Does not follow with cardiology. Troponin negative 4. EKG without evidence of ischemia. Fasting lipid panel within normal limits. Echocardiogram showed an estimated ejection fraction of 50-55%, stage I diastolic dysfunction, mild global hypokinesis of the left ventricle, RVSP 25 mmHg. Patient underwent nuclear stress test which was negative for ischemia. He denies further chest pain. 2. Acute influenza B with associated generalized weakness, nasal congestion, productive cough-begin Tamiflu 30 mg daily for 5 days. Patient is symptomatically improved. 3. Syncopal episode-suspect due to dehydration/poor oral intake. Occurred during admission and radiology department when patient stood from sitting position for x-ray. Patient was reported to have no pulse but quickly aroused. Cardiac workup thus far unremarkable as noted above. Echocardiogram as noted above. Orthostatic vitals positive, patient received IV fluids and repeat orthostatic vitals negative. TSH, mg, phos WNL. Stress test negative for ischemia. 4. Lung nodule-chest x-ray showed hyperinflated lungs, vague bilateral nodular opacities. CT of chest showed right lower lung 7 mm pulmonary nodule, no acute infiltrate, small hiatal hernia, 1.7 cm left adrenal adenoma. Recommend follow-up with pulmonary medicine as outpatient and repeat imaging in 3 months. Patient does have a history of tobacco use. Establish with Pulmonary Medicine in [place] in 4-6 weeks. 5. 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 He follows with Dr. Ramesh as outpatient who was consulted. Creat April 2017 was 2.8. Admission creatinine 3.4. Improved with IV fluids. Patient self caths 4 times daily at home which patient will continue at discharge. Patient will continue outpatient follow-up with nephrology, he has an appointment scheduled 11/27/17. Urinalysis unremarkable. Urine culture showed mixed gram-positive organisms, suspected contamination. Patient denies urinary symptoms. Afebrile. No leukocytosis. 6. Hypertension-stable, continue home amlodipine regimen. 7. History of CVA-continue aspirin. Not on statin. Lipid panel within normal limits. 8. History of tobacco use-encouraged smoking cessation. General: Alert, Oriented x3, Cooperative HEENT: Atraumatic, PERRLA, EOMI, Normocephalic Neck: Supple, No JVD, Negative Carotid Bruits Lungs: Clear to auscultation, Diminished Cardiovascular: Regular rate, Regular Rhythm, Normal S1, Normal S2, No murmurs Abdomen: Bowel Sounds Present, Soft, Non Tender, Non-Distended Extremities: No clubbing, No cyanosis, No edema, Capillary Refill Less than 3 Seconds Skin: No rashes, No breakdown Musculoskeletal: No Tenderness to Palpation of Joints or Extremities Neurological: Cranial nerves II-XII grossly intact, Neuro grossly intact Psych/Mental Status: Normal Affect, Appropriate Patient seen and examined prior to discharge. Physical assessment as noted above. Patient denies further chest pain. Stable for discharge with the recommendations as noted above. This patient was seen by MAYITO Downey under the supervision of Dr. Aly. Discharge Diet: Low fat/ Low Cholesterol Discharge Activity: Return to Normal Activity Call your doctor if you observe: Shortness of breath, Dizziness, Fainting spells, Chest pain, Increased palpitations (irregular heartbeat) Home Medications: Medications to take at Discharge Amlodipine [Norvasc] 5 mg PO DAILY 10/26/17 C,E,Zinc,Copper 11/Xjbtd1s/Lut [Ocuvite Adult 50 Plus Softgel] 1 capsule PO DAILY 10/26/17 Ranitidine HCl 15 mg PO DAILY 10/26/17 Oseltamivir Phosphate [Tamiflu] 30 mg PO DAILY #2 cap 10/29/17 Following Prescrptions Were Given to Patient: Oseltamivir Phosphate [Tamiflu] 30 mg PO DAILY #2 cap Primary Care Physician: Karma Marrero MD [Primary Care Provider] - Please follow up with your Primary Care Physician in: 1 Week Please Follow Up With: Marti Ramesh DO When: As scheduled, 11/27/17 Please Follow Up With: Deandre Kapoor MD - May see [employer] When: 4-6 Weeks, Establish to monitor lung nodule. Disposition: Home Minutes spent on discharge:: 35 Patient Condition:: Stable Medical Necessity - Tobacco Use Smoking Status: Former smoker Meaningful Use Info Meaningful Use Diagnoses (Choose all that apply): None applicable <Ian Aly E - Last Filed: 10/29/17 14:05> Discharge Date and Diagnosis - Secondary Discharge Diagnosis Chronic Problems History of stroke (Chronic) Chronic kidney disease, stage IV (severe) (Chronic) Hypertension (Chronic) Hospital Course and Treatment Imaging Results: 10/29/17 05:55 Nuclear Stress Test - Chemical [NM] AM (NON MEDS) Summary of Care Provided: Hospitalist note: Discharge summary above reviewed and I am in agreement with above discharge plan. I admitted this patient on October 26, 2017 for multiple symptoms including profound weakness and fatigue, atypical chest pain and vague abdominal pain. He was found to have acute influenza B. Initial chest x-ray on admission revealed vague bilateral nodular opacities for which CT chest without contrast performed and revealed right lower lobe lung nodule without evidence of acute infiltrate, pneumonia ruled out. Respiratory panel for viruses came back positive for influenza B. Patient was treated with IV fluids, decongestants, doxycycline and Tamiflu. He has stage IV chronic kidney disease due to obstructive nephropathy and on admission, his creatinine was slightly above his baseline. Patient was given IV fluids and his creatinine remained almost the same with little improvement. Nephrology consulted and recommended to continue same treatment without indication for urgent dialysis at this time. Because patient complained of chest pain, he underwent nuclear stress test that was normal with preserved ejection fraction. His troponin was negative 4. Patient had near syncopal episode when he was taken down to the x-ray department for x-ray of the sinuses which is attributed to poor oral intake and dehydration. 2D echocardiogram revealed ejection fraction of 50-55%, stage I diastolic dysfunction. With above-mentioned treatment, patient symptoms improved and he felt significantly better. Today, he looked significantly better than when I saw him on admission. His vital signs remained stable and he remained afebrile. Patient discharged home on Tamiflu, continue with on his home chronic medications, recommended follow-up with PCP in 1 week and follow-up with nephrology as scheduled on November 27, 2017 and also recommended follow-up with pulmonology in 4-6 weeks regarding the right lung nodule. Code Visit Inpatient E AND M: [id number] Disch Hosp 10/29/17 1156 <Electronically signed by Bri EDMOND> Date Bri EDMOND 10/29/17 0548<Electronically signed by Ian Aly MD> Cosigner Signature (if applicable): Date Ian Aly MD CC: [employer]-Maddy Loaiza; Karma Marrero MD; Ian Aly Signed 12 LEAD ELECTROCARDIOGRAM Observed: 10/29/2017 Status: F Source: YUN 1:32 PM [facility] REPOSITORY [facility] Cardiovascular Services [address] [place] [address] 12 Lead EKG 10/26/17 1554 MR#: [id number] Acct: [id number] Name: ERIN RODGERS Rep #: [id number] : 1950 67 From: Julio Onofre MD Attending Dr: Ian Aly Status: DIS IN Ordering Dr: Angie Quintero MD Date: 10/26/17 Location: [facility] Sex: M C Admitted: 10/27/17 Test Reason : SOB/CHEST HEAVINESS Blood Pressure : / mmHG Vent. Rate : 093 BPM Atrial Rate : 093 BPM P-R Int : 140 ms QRS Dur : 086 ms QT Int : 328 ms P-R-T Axes : 037 -22 048 degrees QTc Int : 407 ms Normal sinus rhythm Normal ECG Confirmed by JULIO ONOFRE ([id number]), index editor ROBERTO DUNCAN ([id number]) on 10/29/2017 1:31:47 PM Referred By: Confirmed By:JULIO ONOFRE 10/29/17 1331 Date Julio Onofre MD CC: Angie Quintero MD; Karma Marrero MD Signed DISCHARGE INSTRUCTION Observed: 10/29/2017 Status: F Source: YUN 11:44 AM [facility] REPOSITORY [facility] Medical Records Department [address] [place] [address] Instructions for Home/Discharge Instructions 10/29/17 1139 MR#: [id number] Acct: [id number] Name: ERIN RODGERS Rep #: [id number] : 1950 67 From: Bri Loaiza NP-C PCP: Karma Marrero MD Status: ADM IN - Discharge Diagnoses Current Active Problems: Current Active and Chronic Problems Near syncope (Acute) Self-catheterizes urinary bladder (Acute) Obstructive nephropathy (Acute) History of stroke (Chronic) Chronic kidney disease, stage IV (severe) (Chronic) Hypertension (Chronic) You will use the following diet at home:: Cardiac Discharge Activity: Return to Normal Activity Call your doctor if you observe: Shortness of breath, Dizziness, Fainting spells, Chest pain, Increased palpitations (irregular heartbeat) Allergies/Adverse Reactions: Allergies amoxicillin Allergy (Verified 10/26/17 15:46) Unknown ciprofloxacin Allergy (Verified 10/26/17 15:46) Unknown codeine Allergy (Verified 10/26/17 15:46) Other Medications to take at Discharge Amlodipine [Norvasc] 5 mg PO DAILY 10/26/17 C,E,Zinc,Copper 11/Yewso5t/Lut [Ocuvite Adult 50 Plus Softgel] 1 capsule PO DAILY 10/26/17 Ranitidine HCl 15 mg PO DAILY 10/26/17 Oseltamivir Phosphate [Tamiflu] 30 mg PO DAILY #2 cap 10/29/17 The following prescriptions were given: Oseltamivir Phosphate [Tamiflu] 30 mg PO DAILY #2 cap Primary Care Physician: Karma Marrero MD [Primary Care Provider] - Please follow up with your Primary Care Physician in: 1 Week Please Follow Up With: Marti Ramesh DO When: As scheduled, 11/27/17 Please Follow Up With: Deandre Kapoor MD - May see [employer] When: 4-6 Weeks, Establish to monitor lung nodule. 10/29/17 1144 <Electronically signed by Bri Loaiza NP-C> Date Bri Loaiza NP-Maddy CC: Karma Marrero MD; Marti Ramesh DO STRESS REPORT Observed: 10/29/2017 Status: F Source: YUN 11:37 AM [facility] REPOSITORY [facility] Cardiovascular Services [address] [place] [address] MR#: [id number] Acct: [id number] Name: ERIN RODGERS Rep #: [id number] : 1950 67 From: Jose Pierre MD Primary Care: Karma Marrero MD Status: ADM IN Ordering Dr: Sex: M C Stress Test Report Pharmacologic myocardial perfusion stress test. 67-year-old man with a history of chest pain. Stress protocol: Resting EKG demonstrates normal sinus rhythm with rate of 67 bpm. Normal intervals are noted. Resting blood pressure is 130/94 mmHg. 0.4 mg regadenoson was infused per usual protocol followed by rapid intravenous saline flush injection continuous EKG monitoring was performed. The patient maintained sinus rhythm throughout the recording. At rest there were no ST or T-wave changes noted suggest abnormal flow reserve at peak infusion no ST or T-wave changes were noted suggest abnormal flow reserve. The resting blood pressure is 130/94 with a final blood pressure 128/90 mmHg. Myocardial perfusion protocol: 10.9 mCi of technetium 99m sestamibi was injected at rest. 0.4 mg regadenoson was infused per usual protocol. Peak infusion 35.0 mCi of technetium 99m sestamibi was injected stress images were obtained stress and rest images were reconstructed and compared in the short axis vertical long and horizontal long axis. Gated images were also obtained. Perfusion SPECT analysis: Review of the stress images demonstrate normal uptake of tracer noted in all areas of the myocardium. The resting images similarly demonstrate normal uptake of tracer noted in all areas of the myocardium. No areas of reversibility are noted suggest ischemia and no previous infarct is noted. Gated SPECT analysis: The gated ejection fraction is 58%. Conclusion: Normal pharmacologic myocardial perfusion stress test. Preserved ejection fraction. 10/29/17 113 <Electronically signed by Jose Pierre MD> Date Jose Pierre MD CC: Karma Marrero MD Date Dictated: 10/29/171133 Date Transcribed: 10/29/171133 Administration Physician: CO Signed CONSULTATION Observed: 10/29/2017 Status: F Source: YUN 8:20 AM [facility] REPOSITORY [facility] Medical Records Department [address] [place] [address] Consultation 10/27/17 1048 MR#: [id number] Acct: [id number] Name: ERIN RODGERS Rep #: [id number] : 1950 67 From: Marti Ramesh DO PCP: Karma Marrero MD Status: ADM IN Y Location: [address] Consultation - Renal 10/27/17 PCP/ Referring MD: Requesting physician: Ian Aly Primary care physician: Karma Marrero Reason for Consultation:: CKD stage 4 - History of Present Illness History of Present Illness: The patient is a 67 year old M well known to me with 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 He has a history of chronic sinus issues. He has a history of acute renal failure requiring temporary hemodialysis back in 2016. His symptoms started morning. He came home from work morning not feeling well. He has been in bed for the past couple of days prior to admission with very little fluid intake and not taking his blood pressure medications. He has stable blood pressures. He did have a vasovagal-like event while down in CAT scan last night. He had orthostatic blood pressure readings. He continues to complain of sinus congestion and headache with drainage. He denied any fever or chills. Has anorexia but no nausea or vomiting. He had some burning in his epigastric region. Cardiac enzymes have been negative with no EKG changes. Currently has a Vazquez catheter with continuous drainage. His creatinine was 3.4 improved down to 3.2 with IV hydration. His baseline creatinine is usually low 3 range. - Allergies Allergies: Allergies amoxicillin Allergy (Verified 10/26/17 15:46) Unknown ciprofloxacin Allergy (Verified 10/26/17 15:46) Unknown codeine Allergy (Verified 10/26/17 15:46) Other - Current Medications Current Medications: Current Medications Acetaminophen (Tylenol) 650 mg PO Q6H PRN PRN PRN Reason: Fever, headache, pain Amlodipine Besylate (Norvasc) 5 mg PO DAILY [facility] Last Admin: 10/27/17 10:08 Dose: 5 mg Aspirin (Aspirin, Baby) 81 mg PO DAILY@0800 [facility] Last Admin: 10/27/17 10:08 Dose: 81 mg Bisacodyl (Dulcolax) 5 mg PO DAILY PRN PRN PRN Reason: Constipation Famotidine (Pepcid) 20 mg PO DAILY [facility] Last Admin: 10/27/17 10:08 Dose: 20 mg Fluticasone Propionate (Flonase Nasal [place]) 2 spray NASAL DAILY [facility] Heparin Sodium (Porcine) () 5,000 units SC Q8 [facility] Last Admin: 10/27/17 05:57 Dose: 5,000 units Sodium Chloride () 1,000 mls @ 75 mls/hr IV .[id number] [facility] Last Admin: 10/27/17 03:43 Dose: 75 mls/hr Ondansetron HCl (Zofran) 4 mg IV Q8H PRN PRN PRN Reason: NAUSEA/VOMITING Last Admin: 10/27/17 10:07 Dose: 4 mg Sodium Chloride () 5 - 30 ml IV UD PRN PRN Reason: SALINE FLUSH Last Admin: 10/27/17 00:42 Dose: 10 ml - Past Medical History Past Medical History (Chronic Problems): Chronic Problems History of stroke (Chronic) Chronic kidney disease, stage IV (severe) (Chronic) Hypertension (Chronic) - Past Surgical History Surgical History: noncontributory - Social History Smoking Status: Former smoker Alcohol: None, Occasional Drugs: None - Family History Maternal History Items: Cancer - stomach, No pertinent history Paternal History Items: No pertinent history Review of Systems Constitutional: Reports: Anorexia, Malaise, Weakness, Fatigue. Denies: Chills, Fever Eyes: Denies: Blurred vision HEENT: Reports: Head Aches, Nasal Congestion, Post Nasal Drip, Sinus Congestion, Sinus Drainage Cardiovascular: Reports: Chest Pain - Burning in his epigastric region, Syncope - Near syncope. Denies: Edema Respiratory: Reports: Cough, Shortness of Breath Gastrointestinal: Reports: Abdominal Pain, -. Denies: Nausea, Vomiting Genitourinary: Reports: Retention, - - Self-catheterization at home for obstructive nephropathy. Denies: Dysuria Musculoskeletal: Reports: Muscle pain, - - Muscle weakness. Denies: Arm Pain, Back Pain Skin: Denies: Rash Neurological: Reports: Headaches, - - Near syncope. Denies: Balance problems Hematologic/ Lymphatic: Reports: Anemia. Denies: Hx of blood clot - Physical Exam General: Alert, Oriented x3, Cooperative, - - Congested HEENT: PERRLA, EOMI Oral: Dry Mucosa Neck: Supple, No JVD Lungs: Clear to auscultation Cardiovascular: Regular rate Abdomen: Bowel Sounds Present, Soft, Non Tender, Non-Distended Extremities: No edema Skin: No rashes Musculoskeletal: Muscle Wasting Neurological: Cranial nerves II-XII grossly intact Psych/Mental Status: Normal Affect, Alert and oriented to time, place, person, mood and affect Vital Signs Temp Pulse Resp BP Pulse Ox 99.0 F 71 18 132/74 H 94 10/27/17 10:02 10/27/17 10:02 10/27/17 10:02 10/27/17 10:02 10/27/17 10:02 Oxygen Flow Rate (L/min) 2 Oxygen Delivery Method Room Air Weight: 69.3 kg Body Mass Index (BMI) 22.5 Orthostatic Vital Signs Start: 10/27/17 06:46 Freq: q24h Status: Active Protocol: Activity Type Activity Date Activity User E-Sign Co-Sign Detail Recorded Client Recorded Date Recorded By Document 10/27/17 05:45 HS [id number] 10/27/17 06:46 HS Orthostatic Vitals Standing -Blood Pressure (90/60-120/80) 120/69 -Extremity Use Left Arm -Pulse Rate (60-100) 97 Sitting -Blood Pressure (90/60-120/80) 123/83 H Intake and Output for Last 24 Hours Intake Total 1772 / 1772 Output Total 1050 / 1050 Balance 722 / 722 Laboratory Tests Past 24 Hrs WBC RBC Hgb Hct MCV MCH MCHC POC Glucose POC Glucose 113 H Clinical Impression(s) from Imaging Studies Chest X-Ray 10/26/17 16:22 IMPRESSION: Hyperinflated lungs may reflect underlying COPD. Vague bilateral nodular opacities which may be artifactual however consider CT of the chest for further characterization for difficult to exclude underlying nodules. Electronically Signed: Tammie Curry MD at 16:37 EDT Tel , Service support , Chest CT 10/27/17 12:00 IMPRESSION: Right lower lung 7 mm pulmonary nodule. No acute infiltrate. No reactive adenopathy. Small hiatal hernia. 1.7 cm left adrenal adenoma. Electronically Signed: Boom Gramajo DO at 6:57 EDT , Service support , Sinuses X-Ray 10/27/17 19:24 IMPRESSION: Normal x-rays of the paranasal sinuses. Electronically Signed: Boom Gramajo DO at 6:44 EDT , Service support , Assessment/Plan 1. 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 Renal function at baseline. History of temporary hemodialysis due to obstruction status post ureteral stent placements and removal. No immediate need for dialysis. Agree with IV fluid hydration with Vazquez catheter to CD while in the hospital. He has a follow-up appointment with me on November 27. 2. Near syncope suspect due to poor fluid intake, dehydration. 3. Generalized weakness, chest pain. Cardiac enzymes negative 4. History of tobacco use, PAD. 5. Hypertension with stable blood pressure 6. Sinus congestion CT sinuses unremarkable. 10/29/17 0820 <Electronically signed by Marti Ramesh DO> Date Marti Ramesh DO Cosigner Signature (if applicable): Date CC: Karma Marrero MD; Marti Ramesh DO Signed CBC W/DIFF, AUTOMATED Collected: 10/29/2017 Status: F Source: YUN 5:00 AM [facility] REPOSITORY TYPE CODE TESTS RESULT OUT OF RANGE REFERENCE UNITS LAB L100.1000 4.4-11.0 K/mm3 Low WBC 4.2 LAB L100.1200 4.6-6.2 M/mm3 Low RBC 3.98 LAB L100.1300 13.0-16.5 g/dl Low HGB 12.5 LAB L100.1400 40-54 % Low HCT 39.3 LAB L100.1500 80-94 fL High MCV 98.7 LAB L100.1600 27.0-32.0 pg Normal MCH 31.4 LAB L100.1700 32-36 g/gl Low MCHC 31.8 LAB L100.1810 11.6-14.6 % Normal RDW CV 13.8 LAB L100.1820 35.1-43.9 fl High RDW SD 49.2 LAB L100.1900 150-450 K/mm3 Normal PLT 255 LAB L100.2000 6.2-12.0 fl Normal MPV 9.2 LAB L100.2100 47-70 % Normal NEUT% 48.0 LAB L100.2200 19-41 % Normal LY% 37.3 LAB L100.2300 0-10 % High MONO% 11.8 LAB L100.2400 0-5 % Normal EO% 2.2 LAB L100.2500 0-1 % Normal BASO% 0.5 LAB L100.2550 0.0-0.9 % Normal IM GRAN % 0.200 Result Comment: IG% - Immature Granulocytes (promyelocytes, myelocytes and metamyelocytes) > 1% indicates that a LEFT SHIFT is Present. LAB L100.2620 2.0-7.7 X10 3/uL Normal Absolute Neut 2.0 LAB L100.2720 0.83-4.51 X10 3/ul Normal Absolute Lymph 1.55 Performed By: #### L100.0100 #### [facility] [address] [place] [address], [id number] PROTHROMBIN TIME W/INR Collected: 10/29/2017 Status: F Source: PERRY 5:00 AM [facility] REPOSITORY TYPE CODE TESTS RESULT OUT OF RANGE REFERENCE UNITS LAB L300.4150 11.7-14.9 SECONDS Normal PROTIME 12.9 LAB L300.4200 Normal INR 1.0 Performed By: #### L300.3900, L300.4310 #### [facility] [address] [place], [place], [id number] PARTIAL THROMBOPLAST Collected: 10/29/2017 Status: F Source: PERRY TIME 5:00 AM [facility] REPOSITORY TYPE CODE TESTS RESULT OUT OF REFERENCE UNITS RANGE LAB L300.4310 24.1-36.2 Seconds High PTT 45.8 Performed By: #### L300.3900, L300.4310 #### [facility] [address] [place], [place], [address] BASIC METABOLIC Collected: 10/29/2017 Status: F Source: YUN PROFILE (BMP) 5:00 AM [facility] REPOSITORY TYPE CODE TESTS RESULT OUT OF RANGE REFERENCE UNITS LAB L501.0100 74-106 mg/dL Normal GLU 81 Result Comment: Please note revised GLUCOSE reference range effective 2017. LAB L501.1000 7-18 mg/dL High BUN 41 LAB L501.1100 0.70-1.30 mg/dL High CREAT,SERUM 3.20 Result Comment: The validity of the calculated GFR AND GFRAA in patients over 70 years has not been determined. Clinical correlation is essential. LAB L501.1110 >60 mL/min Low EST GFR 21 Result Comment: Non- GFR Calc LAB L501.1115 >60 mL/min Low EST GFR - AA 25 Result Comment: GFR Calc LAB L501.1255 ml/min Normal Estimated CRCL 21.96 LAB L501.1300 10-20 RATIO Normal BUN/CRE 12.8 LAB L501.2200 8.5-10 mg/dL Low .1 CA 8.0 LAB L501.5300 136-14 mmol/L Normal 5 NA 144 LAB L501.5600 3.5-5. mmol/L Normal 1 K 4.7 LAB L501.5900 98-107 mmol/L High CL 112 LAB L501.6100 21.0-3 mmol/L Normal 2.0 CO2 24.0 LAB L501.6200 5-15 Normal GAP 8 Performed By: #### L500.2500 #### [facility] [address] [place], [address] CBC-COMPLETE BLOOD CNT Collected: 10/28/2017 Status: F Source: YUN NO DIFF 5:09 AM [facility] REPOSITORY TYPE CODE TESTS RESULT OUT OF RANGE REFERENCE UNITS LAB L100.1000 4.4-11.0 K/mm3 Normal WBC 4.9 LAB L100.1200 4.6-6.2 M/mm3 Low RBC 3.86 LAB L100.1300 13.0-16.5 g/dl Low HGB 12.4 LAB L100.1400 40-54 % Low HCT 38.2 LAB L100.1500 80-94 fL High MCV 99.0 LAB L100.1600 27.0-32.0 pg High MCH 32.1 LAB L100.1700 32-36 g/gl Normal MCHC 32.5 LAB L100.1810 11.6-14.6 % Normal RDW CV 13.5 LAB L100.1820 35.1-43.9 fl High RDW SD 48.0 LAB L100.1900 150-450 K/mm3 Normal PLT 262 LAB L100.2000 6.2-12.0 fl Normal MPV 9.1 Performed By: #### L100.0500 #### [facility] [address] [place], [place], [address] BASIC METABOLIC Collected: 10/28/2017 Status: F Source: PERRY PROFILE (BMP) 5:09 AM [facility] REPOSITORY TYPE CODE TESTS RESULT OUT OF RANGE REFERENCE UNITS LAB L501.0100 74-106 mg/dL Normal GLU 79 Result Comment: Please note revised GLUCOSE reference range effective 2017. LAB L501.1000 7-18 mg/dL High BUN 43 LAB L501.1100 0.70-1.30 mg/dL High CREAT,SERUM 3.17 Result Comment: The validity of the calculated GFR AND GFRAA in patients over 70 years has not been determined. Clinical correlation is essential. LAB L501.1110 >60 mL/min Low EST GFR 21 Result Comment: Non- GFR Calc LAB L501.1115 >60 mL/min Low EST GFR - AA 25 Result Comment: GFR Calc LAB L501.1255 ml/min Normal Estimated CRCL 22.16 LAB L501.1300 10-20 RATIO Normal BUN/CRE 13.6 LAB L501.2200 8.5-10 mg/dL Low .1 CA 7.7 LAB L501.5300 136-14 mmol/L Normal 5 NA 143 LAB L501.5600 3.5-5. mmol/L Normal 1 K 4.2 LAB L501.5900 98-107 mmol/L High CL 113 LAB L501.6100 21.0-3 mmol/L Normal 2.0 CO2 21.0 LAB L501.6200 5-15 Normal GAP 9 Performed By: #### L500.2500 #### [facility] [address] [place], [address] ECHOCARDIOGRAM COMPLETE Observed: 10/27/2017 Status: F Source: PERRY 2:24 PM [facility] REPOSITORY [facility] Cardiovascular Services [address] [place] [address] Echo Complete 10/27/17 1153 MR#: [id number] Acct: [id number] Name: ERIN RODGERS Rep #: [id number] : 1950 67 From: Julio Onofre MD Attending Dr: Mack Enriquez MD Status: ADM JENNIFER Ordering Dr: Bri Loaiza Date: 10/27/17 Location: [facility] Sex: M C Admitted: 10/26/17 Reason For Study: chest pain Procedure This was a 2D Doppler, Color Flow transthoracic echocardiogram. Exam performed portable in patient room. Left Ventricle Mild concentric left ventricular hypertrophy. The estimated ejection fraction is 50-55 %. Stage 1 diastolic dysfunction. There is mild global hypokinesis of the left ventricle. Right Ventricle Normal size and thickness. Normal systolic function. Atria Normal left atrium. Normal right atrium. Normal atrial septum. Mitral Valve The mitral valve is structurally normal. No prolapse or stenosis seen. Tricuspid Valve Normal tricuspid valve. Trivial tricuspid valve insufficiency. Right ventricular systolic pressure estimated to be 25 mmHg. Aortic Valve Normal aortic valve. Trisinus/trileaflet aortic valve. Pulmonic Valve Normal pulmonic valve. Great Vessels Normal aortic root. Normal arch. Normal inferior vena cava. Inferior vena cava collapse with sniff. Pericardium/Pleural No pericardial effusion. MMode/2D Measurements AND Calculations LVIDd: 4.3 cm IVSd: 1.3 cm Ao root diam: 3.4 cm LVIDs: 3.1 cm LVPWd: 1.2 cm LA dimension: 3.6 cm FS: 28.8 % LAV(MOD-bp): 56.8 ml LA A4 area: 20.0 cm2 RA A4 area: 18.7 cm2 LAV(MOD-bp) Indexed: 30.8 ml/m2 LAV(MOD-sp2): 59.0 ml LAV(MOD-sp4): 52.8 ml Doppler Measurements AND Calculations MV E max oliver: 53.5 cm/sec Lat Peak E' Oliver: 8.0 cm/sec Med Peak E' Oliver: 6.1 cm/sec MV A max oliver: 70.7 cm/sec E/E' lat: 6.7 E/E' med: 8.8 MV E/A: 0.76 Ao V2 max: 113.0 cm/sec LV V1 max: 85.6 cm/sec PA V2 max: 73.0 cm/sec Ao max P.1 mmHg LV V1 max P.9 mmHg TR max oliver: 213.9 cm/sec TR max P.3 mmHg Interpretation Summary Mild concentric left ventricular hypertrophy. The estimated ejection fraction is 50-55 %. Stage 1 diastolic dysfunction. There is mild global hypokinesis of the left ventricle. Trivial tricuspid valve insufficiency. Right ventricular systolic pressure estimated to be 25 mmHg. There is no comparison study available. Ordering Physician: MAYITO Downey Referring Physician: Marti Ramesh Performed By: Cristel Freitas, VIK, RVT 10/27/17 1423 Date Julio Onofre MD CC: MAYITO Loaiza; Karma Marrero MD Date Dictated: 10/27/17 1153 Date Transcribed: 10/27/171422 Administration Physician: Signed CBC W/DIFF, AUTOMATED Collected: 10/27/2017 Status: F Source: YUN 7:04 AM [facility] REPOSITORY TYPE CODE TESTS RESULT OUT OF RANGE REFERENCE UNITS LAB L100.1000 4.4-11.0 K/mm3 Normal WBC 6.1 LAB L100.1200 4.6-6.2 M/mm3 Low RBC 4.04 LAB L100.1300 13.0-16.5 g/dl Low HGB 12.7 LAB L100.1400 40-54 % Low HCT 39.8 LAB L100.1500 80-94 fL High MCV 98.5 LAB L100.1600 27.0-32.0 pg Normal MCH 31.4 LAB L100.1700 32-36 g/gl Low MCHC 31.9 LAB L100.1810 11.6-14.6 % Normal RDW CV 13.6 LAB L100.1820 35.1-43.9 fl High RDW SD 48.4 LAB L100.1900 150-450 K/mm3 Normal PLT 267 LAB L100.2000 6.2-12.0 fl Normal MPV 9.2 LAB L100.2100 47-70 % Normal NEUT% 58.4 LAB L100.2200 19-41 % Normal LY% 24.8 LAB L100.2300 0-10 % High MONO% 15.8 LAB L100.2400 0-5 % Normal EO% 0.3 LAB L100.2500 0-1 % Normal BASO% 0.5 LAB L100.2550 0.0-0.9 % Normal IM GRAN % 0.200 Result Comment: IG% - Immature Granulocytes (promyelocytes, myelocytes and metamyelocytes) > 1% indicates that a LEFT SHIFT is Present. LAB L100.2620 2.0-7.7 X10 3/uL Normal Absolute Neut 3.6 LAB L100.2720 0.83-4.51 X10 3/ul Normal Absolute Lymph 1.52 Performed By: #### L100.0100 #### [facility] [address] [facility] [place], [address] TROPONIN-I Collected: 10/27/2017 Status: F Source: PERRY 7:04 AM [facility] REPOSITORY Order Comment: 'TROP' Serial specimen #1, #2, #3, or #4: 4 TYPE CODE TESTS RESULT OUT OF RANGE REFERENCE UNITS LAB L501.4010 <0.06 ng/mL Normal < 0.02 TROPONIN-I Result Comment: TROPONIN-I EXPECTED VALUES <0.05 NEGATIVE 0.06 - 0.59 AT RISK OF AL > OR = 0.60 SUGGEST AL Performed By: #### L501.4010 #### [facility] [address] [facility] [address] [place], [place], [address] BASIC METABOLIC Collected: 10/27/2017 Status: F Source: PERRY PROFILE (BMP) 7:04 AM [facility] REPOSITORY TYPE CODE TESTS RESULT OUT OF RANGE REFERENCE UNITS LAB L501.0100 74-106 mg/dL Normal GLU 84 Result Comment: Please note revised GLUCOSE reference range effective 2017. LAB L501.1000 7-18 mg/dL High BUN 50 LAB L501.1100 0.70-1.30 mg/dL High CREAT,SERUM 3.23 Result Comment: The validity of the calculated GFR AND GFRAA in patients over 70 years has not been determined. Clinical correlation is essential. LAB L501.1110 >60 mL/min Low EST GFR 20 Result Comment: Non- GFR Calc LAB L501.1115 >60 mL/min Low EST GFR - AA 25 Result Comment: GFR Calc LAB L501.1255 ml/min Normal Estimated CRCL 21.75 LAB L501.1300 10-20 RATIO Normal BUN/CRE 15.5 LAB L501.2200 8.5-10 mg/dL Low .1 CA 7.6 LAB L501.5300 136-14 mmol/L Normal 5 NA 143 LAB L501.5600 3.5-5. mmol/L Normal 1 K 4.2 LAB L501.5900 98-107 mmol/L High CL 112 LAB L501.6100 21.0-3 mmol/L Low 2.0 CO2 20.0 LAB L501.6200 5-15 Normal GAP 11 Performed By: #### L500.2500 #### [facility] [address] [place], [address] MAGNESIUM Collected: 10/27/2017 Status: F Source: PERRY 7:04 AM [facility] REPOSITORY TYPE CODE TESTS RESULT OUT OF RANGE REFERENCE UNITS LAB L501.5200 1.6-2.6 mg/dL Normal MG 2.1 Result Comment: Please note revised Magnesium reference range effective 2017. Performed By: #### L501.5200 #### [facility] [place], [address] PHOSPHORUS Collected: 10/27/2017 Status: F Source: PERRY 7:04 AM [facility] REPOSITORY TYPE CODE TESTS RESULT OUT OF RANGE REFERENCE UNITS LAB L501.2300 2.5-4.9 mg/dL Normal PHOS 3.6 Performed By: #### L501.2300 #### [facility] [place], [address] TROPONIN-I Collected: 10/27/2017 Status: F Source: PERRY 12:12 AM [facility] REPOSITORY Order Comment: 'TROP' Serial specimen #1, #2, #3, or #4: 3 TYPE CODE TESTS RESULT OUT OF RANGE REFERENCE UNITS LAB L501.4010 <0.06 ng/mL Normal < 0.02 TROPONIN-I Result Comment: TROPONIN-I EXPECTED VALUES <0.05 NEGATIVE 0.06 - 0.59 AT RISK OF AL > OR = 0.60 SUGGEST AL Performed By: #### L501.4010 #### [facility] [address] [place], [address] EMERGENCY DEPARTMENT Observed: 10/26/2017 Status: F Source: PERRY SUMMARY 11:49 PM [facility] REPOSITORY [facility] Medical Records Department [address] [place] [address] Emergency Department Summary 10/26/17 1609 MR#: [id number] Acct: [id number] Name: ERIN RODGERS Rep #: [id number] : 1950 67 From: Angie Quintero MD PCP: Karma Marrero MD Status: ADM JENNIFER - ER Visit Summary Date of Service: 10/26/17 Chief Complaint: Chest pain History of Present Illness: The patient is a 67 M presenting with chest pain. He states the pain has been intermittent and is in the mid chest with no radiation. He does not recall anything that makes this better or worse. It is associated shortness of breath. He also complains of productive cough and fever. He states the chest pain is not related to the coughing episodes. He has a history of hypertension, CVA, chronic kidney disease. He is a previous smoker. Physical Examination: Vitals are stable. Patient is afebrile. Alert no acute distress. HEENT exam is unremarkable. Neck is supple. Lungs are clear and equal bilaterally. Heart is regular rate and rhythm. Abdomen is soft nontender nondistended. Extremities are unremarkable. Skin is warm and dry. No focal neurologic deficit. Remainder of exam is unremarkable. Emergency Department Course and Treatment: Patient was given aspirin. EKG is sinus rhythm rate of 93 with no acute ischemic changes. CBC is normal. Chemistries normal except for BUN 46, creatinine 3.49. This is at his baseline. Troponin is negative. Patient is pain-free in the emergency department. Will discuss with the hospitalist for observation. Disposition: Observation Impression: Chest pain This note was generated with [employer] Interactive dictation software. It may contain incorrect words, spelling, and punctuation that were not noted in review of the chart prior to signing ED Disposition - Plan for ED Patient: Chief Complaint: Shortness of Breath Referrals: Karma Marrero MD [Primary Care Provider] - What to do if you have Problems For any increased pain, shortness of breath, bleeding, nausea or vomiting, chest pain, or any unexpected problems, contact your Primary Care Provider. Call [facility] ([phone]) or report to the closest Emergency Room. Call 911 if necessary. 10/26/17 2349 <Electronically signed by Angie Quintero MD> Date Angie Quintero MD Cosigner Signature (If Indicated): Date CC: Karma Marrero MD Observed: 10/26/2017 Status: C Source: PERRY RESPIRATORY PANEL 10:15 PM [facility] MOLECULAR REPOSITORY Order Date: 10/26/17 Has pt arrived? Y RP PANEL * This is an amended result. * A prior result that was reported as final has been changed. 10/27/17 1339 by [employer] Normal Reference Range = Not Detected Copy of report sent to Infection Control Printer [id number] 10/27/17 1056 NOAH. RESULTS CALLED TO JAKE ALANIS 10/27/17 1056 Marina Conroy. REPORT READ BACK BY SAME . ADENOVIRUS Not Detected HUMAN METAPHNEUMO Not Detected INFLUENZA A Not Detected INFLUENZA A (SUBTYPE H1) Not Detected INFLUENZA A (SUBTYPE H3) Not Detected INFLUENZA B Positive for INFLUENZA B by NAAT technology PARAINFLUENZA 1 Not Detected PARAINFLUENZA 2 Not Detected PARAINFLUENZA 3 Not Detected PARAINFLUENZA 4 Not Detected RHINOVIRUS Not Detected RSV A Not Detected RSV B Not Detected NAAT METHOD Testing was performed using nucleic acid amplification ORGANISM 1: INFLUENZAE B Performed By: #### M100.638 #### [facility] [address] [place], [address] URINALYSIS, COMPLETE Collected: 10/26/2017 Status: F Source: YUN 9:00 PM [facility] REPOSITORY Order Comment: How was Urine Obtained? 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 Cloudy LAB L400.3200 Normal mg/dl Normal GLUCOSE, UR Normal LAB L400.3300 Negative mg/dL Normal BILIRUBIN URINE Negative LAB L400.3400 Negative mg/dl Normal KETONE UR Negative LAB L400.3465 1.002-1.030 Normal SP.GR. DIPSTX 1.020 LAB L400.3550 5.0 - 8.0 pH UR Normal 6.0 LAB L400.3600 Negative mg/dl High PROT DIPSTX 100 LAB L400.3700 Normal mg/dl Normal UROBILI Normal LAB L400.3750 Negative Normal NITRITE UR Negative LAB L400.3780 Negative /ul High OCCULT BLOOD-UR 250 LAB L400.3800 Negative /ul High LEUK 25 ESTERASE LAB L400.4050 0-5 /hpf WBC Normal 0-5 SEEN LAB L400.4100 0-5 /hpf Normal RBC-UA 5-10 SEEN LAB L400.4150 0-5 /hpf SQUAM Normal EPI 0-5 SEEN LAB L400.4300 None Seen /hpf 0 Normal BACTERIA SEEN LAB L400.4350 <or=2+ /hpf 0 Normal MUCUS, URINE SEEN Performed By: #### L400.0001 #### [facility] [address] [facility] [address] [place], [place], [address] Observed: 10/26/2017 Status: F Source: YUN CULTURE, URINE 9:00 PM [facility] REPOSITORY Urine Culture ORGANISM 1: Mixed Gram Positive Organisms [place] Count 1000-10,000 MIX CULTURE Mixed contaminants. Submit a new specimen if indicated. Performed By: #### M100.0650 #### [facility] [address] [facility] [address] [place], [place], [address] TROPONIN-I Collected: 10/26/2017 Status: F Source: YUN 8:30 PM [facility] REPOSITORY Order Comment: 'TROP' Serial specimen #1, #2, #3, or #4: 2 TYPE CODE TESTS RESULT OUT OF RANGE REFERENCE UNITS LAB L501.4010 <0.06 ng/mL Normal < 0.02 TROPONIN-I Result Comment: TROPONIN-I EXPECTED VALUES <0.05 NEGATIVE 0.06 - 0.59 AT RISK OF AL > OR = 0.60 SUGGEST AL Performed By: #### L501.4010 #### [facility] [address] [facility] [address] [place], [place], [address] LIVER PROFILE Collected: 10/26/2017 Status: F Source: PERRY 8:30 PM [facility] REPOSITORY TYPE CODE TESTS RESULT OUT OF RANGE REFERENCE UNITS LAB L501.1500 6.4-8.2 g/dL Normal T PROT 7.3 LAB L501.1800 3.2-5.0 g/dL Low ALB 3.1 LAB L501.1950 2.2-4.2 g/dL Normal GLOB 4.2 LAB L501.4100 15-37 U/L Normal AST 18 LAB L501.4305 45-117 U/L Normal ALK P 75 LAB L501.4405 16-61 U/L Normal ALT 18 Result Comment: Please note revised ALT reference range effective 2017. LAB L501.4600 0.20-1.00 mg/dL Normal T BILI 0.50 LAB L501.4700 0.00-0.30 mg/dL Normal D BILI 0.08 Performed By: #### L500.3400, L500.4100, L501.2450, L501.9520 #### [facility] [address] [facility] [address] [place], [place], [address] LIPID PROFILE Collected: 10/26/2017 Status: F Source: PERRY 8:30 PM [facility] REPOSITORY TYPE CODE TESTS RESULT OUT OF RANGE REFERENCE UNITS LAB L501.4900 200 mg/dL Normal CHOL 179 Result Comment: <200 mg/dL Desirable 200-240 mg/dL Borderline >240 mg/dL High Risk LAB L501.5000 mg/dL Normal TRIG 143 Result Comment: The drugs N-Acetylcysteine and Metamizole may falsely depress this assay. Serum Triglycerides Reference Interval Normal <150 mg/dL Borderline high 150 - 199 mg/dL High 200 - 499 mg/dL Very High > or = 500 mg/dL LAB L501.6400 mg/dL Normal HDL 41 Result Comment: The drugs N-Acetylcysteine and Metamizole may falsely depress this assay. Reference Range HDL <40 mg/dL Low HDL Cholesterol HDL >or= 60 mg/dL High HDL Cholesterol LAB L501.6500 0-130 mg/dL Normal LDL 109 LAB L501.6600 5-40 mg/dL Normal VLDL 29 Performed By: #### L500.3400, L500.4100, L501.2450, L501.9520 #### [facility] [address] [facility] [place], [address] LIPASE Collected: 10/26/2017 Status: F Source: PERRY 8:30 PM [facility] REPOSITORY TYPE CODE TESTS RESULT OUT OF RANGE REFERENCE UNITS LAB L501.2450 73-393 U/L Normal LIPASE 326 Performed By: #### L500.3400, L500.4100, L501.2450, L501.9520 #### [facility] [address] [place], [address] THYROID STIM HORMONE Collected: 10/26/2017 Status: F Source: PERRY (TSH) 8:30 PM [facility] REPOSITORY TYPE CODE TESTS RESULT OUT OF RANGE REFERENCE UNITS LAB L501.9520 0.358-3.74 uIU/mL Normal TSH 0.98 Performed By: #### L500.3400, L500.4100, L501.2450, L501.9520 #### [facility] [address] [facility] [place], [address] BEDSIDE GLUCOSE Collected: 10/26/2017 Status: F Source: PERRY 8:03 PM [facility] REPOSITORY TYPE CODE TESTS RESULT OUT OF REFERENCE UNITS RANGE LAB L501.080 70-110 mg/dL High BEDSIDE GLU 113 Result Comment: MANAGEMENT OF PATIENT CARE PER NURSING PROTOCOL Performed By: #### L501.080 #### [facility] Point of Care [address] [place] [address] SINUSES MIN 3 VIEWS Observed: 10/26/2017 Status: F Source: PERRY 7:24 PM [facility] REPOSITORY [facility] Imaging Services [address] [place] [address] Sinuses min 3 Views MR#: [id number] Acct: [id number] Name: ERIN RODGERS Rep #: [id number] : 1950 M 67 From: Boom Gramajo PCP: Karma Marrero MD Status: ADM JENNIFER Study: Sinuses min 3 Views Date of Exam: 10/27/17 Exam# [id number] Ordering Dr: Ian Aly MD STUDY: X-RAY - PARANASAL SINUSES REASON FOR EXAM: Male, 67 years old. Headache, infection TECHNIQUE: 4 view(s) of the paranasal sinuses were obtained. COMPARISON: None. FINDINGS: Normal visualized frontal, maxillary, ethmoidal and sphenoid sinuses. Normal visualized facial bones. The soft tissue structures are unremarkable. RAD/Sinuses min 3 Views IMPRESSION: Normal x-rays of the paranasal sinuses. Electronically Signed: Boom Gramajo DO at 6:44 EDT , Service support , CC: Karma Marrero MD; Ian Aly Administration Physician: Signed CHEST WITHOUT Observed: 10/26/2017 Status: F Source: PERRY CONTRAST 7:24 PM [facility] REPOSITORY [facility] Imaging Services [address] [place] [address] Chest without Contrast MR#: [id number] Acct: [id number] Name: ERIN RODGERS Rep #: [id number] : 1950 M 67 From: Boom Gramajo PCP: Karma Marrero MD Status: ADM JENNIFER Study: Chest without Contrast Date of Exam: 10/27/17 Exam# [id number] Ordering Dr: Ian Aly MD STUDY: CT CHEST WITHOUT CONTRAST REASON FOR EXAM: Male, 67 years old. Lung nodule, hypertension RADIATION DOSAGE (If Supplied By Facility): CTDIvol = ( 8.97 ) mGy, DLP = ( 322.77 ) mGycm TECHNIQUE: Transaxial imaging was performed without the administration of intravenous contrast material. Multiplanar coronal and sagittal images were reformatted. Individualized dose optimization techniques were used for this CT. COMPARISON: CXR 10/26/2017. FINDINGS: The lungs are normal. There is a 7 mm pulmonary nodule in the right lower lobe on image 75. No other pulmonary nodules. There is no demonstrated pleural abnormality. Normal heart and pericardium. Normal mediastinum. Normal hilar regions. Normal unenhanced pulmonary arteries. Normal aorta arch and descending thoracic aorta. Normal osseous structures. Small hiatal hernia. Small left adrenal adenoma measuring 1.7 cm. Right upper pole renal cyst measuring 1.[address]/Chest without Contrast IMPRESSION: Right lower lung 7 mm pulmonary nodule. No acute infiltrate. No reactive adenopathy. Small hiatal hernia. 1.7 cm left adrenal adenoma. Electronically Signed: Boom Gramajo DO at 6:57 EDT , Service support , CC: Karma Marrero MD; Ian Aly Administration Physician: Signed HISTORY AND PHYSICAL Observed: 10/26/2017 Status: F Source: PERRY EXAM 7:20 PM [facility] REPOSITORY [facility] Medical Records Department [address] [place] [address] History and Physical 10/26/17 1901 MR#: [id number] Acct: [id number] Name: ERIN RODGERS Rep #: [id number] : 1950 67 From: Ian Aly MD PCP: Karma Marrero MD Status: ADM JENNIFER Y Location: [place] [address] Problem List (1) History of stroke Status: Chronic (2) Chronic kidney disease, stage IV (severe) Status: Chronic (3) Hypertension Status: Chronic History of Present Illness Date of Admission: 10/26/17 Chief Complaint: Weakness, chest pain, abdominal pain. The patient is a 67 year old M with past medical history as mentioned above presented to the emergency room because of multiple complaints including weakness, chest pain or abdominal pain. When I saw the patient first, patient looked very weak and tired and was not able even to sit up in the bed. The patient was very poor informant and was not able to exactly tell me what brought him in today. I asked him multiple times what was the main symptom that brought to end today and he mentioned the weakness. He said the weakness started yesterday morning, generalized weakness and he was not able to provide any more details about this. He complained of intermittent chest pain, that has been going on for a few months, on-off pain, associated with shortness of breath according to the patient and it lasts only for a few seconds and resolve spontaneously. He did mention that this chest pain is getting more frequent since yesterday. Also, he complained of vague abdominal pain and he was not able to provide any details about this abdominal pain. He denied nausea or vomiting. Denies constipation or diarrhea. He denied urinary symptoms but he mentioned that he uses self-catheterization. He complained of cough with clear sputum, associated with sinus pain and congestion. He stated that he does have history of chronic sinusitis and he has been having problems for long time. Patient was not able to concentrate on one presenting symptoms but he had lots of complaints. In the emergency room, he was afebrile, blood pressure and heart rate are stable, pulse ox was 92% on room air. His routine blood work is remarkable for BUN of 46 and creatinine of 3.49. Troponin was negative. EKG revealed normal sinus rhythm, normal intervals and no acute ischemic changes. Chest x-ray showed no obvious infiltrate, consolation or effusion but officially, there was a concern that he may have bilateral nodular opacities. He is being admitted for generalized weakness of unclear etiology, worsening stage III chronic kidney disease, atypical chest pain and symptoms could be due to sinusitis. Past Medical History Past Medical History (Chronic Problems): Chronic Problems History of stroke (Chronic) Chronic kidney disease, stage IV (severe) (Chronic) Hypertension (Chronic) Allergies amoxicillin Allergy (Verified 10/26/17 15:46) Unknown ciprofloxacin Allergy (Verified 10/26/17 15:46) Unknown codeine Allergy (Verified 10/26/17 15:46) Other Home Medications: Ambulatory Orders Medication Instructions Recorded Surgical History: noncontributory Psychiatric History: No pertinent psych hx Smoking Status: Former smoker Alcohol: None Drugs: None - *Family History Maternal History Items: No pertinent history Paternal History Items: No pertinent history Review of Systems Constitutional: Reports: Anorexia, Weakness, Fatigue. Denies: Chills, Fever Eyes: Denies: Blurred vision, Double vision, Drainage, Redness HEENT: Reports: Nasal Congestion, Sinus Congestion, Sinus Drainage. Denies: Difficulty Hearing, Ear Pain, Eye Pain, Sore Throat Cardiovascular: Reports: Chest Pain. Denies: Chest Tightness, Edema, Heaviness, Light Headedness, Orthopnea, Syncope Respiratory: Reports: Cough, Shortness of Breath. Denies: Pleuritic Pain, Sputum production, Wheezing Gastrointestinal: Reports: Abdominal Pain. Denies: Constipation, Diarrhea, Nausea, Vomiting Genitourinary: Denies: Dysuria, Frequency, Hematuria Musculoskeletal: Denies: Arm Pain, Back Pain, Foot Pain Skin: Denies: Dryness, Rash Neurological: Denies: Balance problems, Double vision, Change in Speech, Slurred speech, Confusion, Headaches, Incoordination, Numbness Psychiatric: Denies: Anxiety, Depression Endocrine: Denies: Change in Body Habitus, Polydipsia VTE Information - Inpt Only VTE Present on Admission: No VTE Mechan Device Prophylaxis: None VTE Pharm Prophylaxis ordered?: Yes - Physical Exam General: Alert, Oriented x3, Cooperative, No apparent distress HEENT: Atraumatic, PERRLA, EOMI Oral: Moist Mucosa, No Gingival or Mucosal Lesions/ Ulcerations Neck: Supple, No JVD, Negative Carotid Bruits, Thyroid Normal Size and Texture Lungs: Clear to auscultation, No rhonchi, No wheeze, No rales, Diminished Cardiovascular: Regular rate, Regular Rhythm, Normal S1, Normal S2, No murmurs, PMI Normal Abdomen: Bowel Sounds Present, Soft, Non Tender, Non-Distended, No Hepato-splenomegaly Extremities: No clubbing, No cyanosis, No edema Skin: No rashes, No breakdown Lymphatic: No Cervical, Supraclavicular, or Inguinal Adenopathy Neurological: Cranial nerves II-XII grossly intact, Motor Exam 5/5 strength throughout Psych/Mental Status: Flat Affect, Alert and oriented to time, place, person, mood and affect Vital Signs Temp Pulse Resp BP Pulse Ox 98.3 F 88 17 138/87 H 97 10/26/17 15:43 10/26/17 18:05 10/26/17 18:05 10/26/17 18:05 10/26/17 18:05 Oxygen Flow Rate (L/min) 2 Oxygen Delivery Method Nasal Cannula Laboratory Tests WBC 8.0 (4.4-11.0) K/mm3 RBC 4.43 L (4.6-6.2) M/mm3 Hgb 14.0 (13.0-16.5) g/dl Clinical Impression(s) from Imaging Studies Chest X-Ray 10/26/17 16:22 IMPRESSION: Hyperinflated lungs may reflect underlying COPD. Vague bilateral nodular opacities which may be artifactual however consider CT of the chest for further characterization for difficult to exclude underlying nodules. Electronically Signed: Tammie Curry MD at 16:37 EDT Tel , Service support , Assessment/Plan This is a 67 years old male patient presented to the emergency room because of multiple comp complaints including generalized weakness, chest pain, abdominal pain, sinus drainage, cough with sputum production and mild shortness of breath and he was found to have worsening stage IV chronic kidney disease. #1 generalized weakness: Unclear etiology, could be due to worsening stage IV chronic kidney disease. At this time, no obvious evidence of infection. He is afebrile, no leukocytosis. Chest x-ray showed no obvious infiltrate, reported officially as questionable bilateral pulmonary opacities. Plan: Admit to PCU, cardiac monitoring, IV fluids, urinalysis, urine culture, repeat CBC and BMP tomorrow morning, respiratory panel for viruses, TSH, PT OT evaluation and treatment. #2 atypical chest pain: EKG reviewed, no acute ischemic changes. Troponin is negative. Patient did mention that he had a history of heart attack but never had cardiac interventions. History of hypertension and he is an ex-smoker. Plan: Cardiac monitoring, serial cardiac enzymes, repeat EKG tomorrow morning, nuclear stress test if cardiac enzymes are negative tomorrow. #3 worsening stage IV chronic kidney disease: Patient used to be on dialysis for 1 year and he was taken off because his kidney function improved. His serum creatinine has been worsening since April,, it was in the range of 2.8-2.9 and admission creatinine is 3.49. Potassium is normal. Plan: IV fluids, input output chart, repeat BMP tomorrow morning, nephrology consult. #4 shortness of breath/of productive cough/sinus drainage and pain: In context of history of chronic sinusitis. Patient is afebrile, no leukocytosis. Plan for x-ray of the sinuses. At this time, no indication for antibiotics. #5 questionable bilateral pulmonary opacities: This is reported on chest x-ray. Patient is an ex-smoker. Plan: D-dimer, CT scan chest without contrast. #6 hypertension: Blood pressure stable, continue amlodipine. #7 CAD: Without prior cardiac interventions according to the patient. Plan as above, start baby aspirin, fasting lipid profile. #8 DVT prophylaxis: Subcu heparin. This note was generated with [employer] Interactive dictation software. It may contain incorrect words, spelling, and punctuation that were not noted in checking the note before signing. Code Visit Inpatient E AND M: 75621 Init Hosp L3 10/26/171919 <Electronically signed by Ian Aly MD> Date Ian Aly MD Cosigner Signature: Date (if applicable) CC: Karma Marrero MD; Ian Aly Signed CBC W/DIFF, AUTOMATED Collected: 10/26/2017 Status: F Source: YUN 4:20 PM [facility] REPOSITORY TYPE CODE TESTS RESULT OUT OF RANGE REFERENCE UNITS LAB L100.1000 4.4-11.0 K/mm3 Normal WBC 8.0 LAB L100.1200 4.6-6.2 M/mm3 Low RBC 4.43 LAB L100.1300 13.0-16.5 g/dl Normal HGB 14.0 LAB L100.1400 40-54 % Normal HCT 43.1 LAB L100.1500 80-94 fL High MCV 97.3 LAB L100.1600 27.0-32.0 pg Normal MCH 31.6 LAB L100.1700 32-36 g/gl Normal MCHC 32.5 LAB L100.1810 11.6-14.6 % Normal RDW CV 13.8 LAB L100.1820 35.1-43.9 fl High RDW SD 47.9 LAB L100.1900 150-450 K/mm3 Normal PLT 292 LAB L100.2000 6.2-12.0 fl Normal MPV 8.9 LAB L100.2100 47-70 % Normal NEUT% 62.9 LAB L100.2200 19-41 % Low LY% 14.7 LAB L100.2300 0-10 % High MONO% 21.3 LAB L100.2400 0-5 % Normal EO% 0.1 LAB L100.2500 0-1 % Normal BASO% 0.6 LAB L100.2550 0.0-0.9 % Normal IM GRAN % 0.400 Result Comment: IG% - Immature Granulocytes (promyelocytes, myelocytes and metamyelocytes) > 1% indicates that a LEFT SHIFT is Present. LAB L100.2620 2.0-7.7 X10 3/uL Normal Absolute Neut 5.0 LAB L100.2720 0.83-4.51 X10 3/ul Normal Absolute Lymph 1.18 LAB L100.4500 Normal SMEAR COMMENT SCANNED Result Comment: MONOCYTOSIS NOTED Performed By: #### L100.0100 #### [facility] [address] [place], [place], [address] BASIC METABOLIC Collected: 10/26/2017 Status: F Source: PERRY PROFILE (BMP) 4:20 PM [facility] REPOSITORY Order Comment: 'TROP' Serial specimen #1, #2, #3, or #4: 1 TYPE CODE TESTS RESULT OUT OF RANGE REFERENCE UNITS LAB L501.0100 74-106 mg/dL Normal GLU 101 Result Comment: Fasting Glucose result from 100 to 125 mg/dL suggests IMPAIRED HOMEOSTASIS per A.D.A. criteria. Please note revised GLUCOSE reference range effective 2017. LAB L501.1000 7-18 mg/dL High BUN 46 LAB L501.1100 0.70-1.30 mg/dL High CREAT,SERUM 3.49 Result Comment: The validity of the calculated GFR AND GFRAA in patients over 70 years has not been determined. Clinical correlation is essential. LAB L501.1110 >60 mL/min Low EST GFR 19 Result Comment: Non- GFR Calc LAB L501.1115 >60 mL/min Low EST GFR - AA 23 Result Comment: GFR Calc LAB L501.1255 ml/min Normal Estimated CRCL 20.54 LAB L501.1300 10-20 RATIO Normal BUN/CRE 13.2 LAB L501.2200 8.5-10 mg/dL Low .1 CA 8.2 LAB L501.5300 136-14 mmol/L Normal 5 NA 140 LAB L501.5600 3.5-5. mmol/L Normal 1 K 4.1 LAB L501.5900 98-107 mmol/L High CL 108 LAB L501.6100 21.0-3 mmol/L Normal 2.0 CO2 22.0 LAB L501.6200 5-15 Normal GAP 10 Performed By: #### L500.2500, L501.4010 #### [facility] [address] [place], [address] TROPONIN-I Collected: 10/26/2017 Status: F Source: PERRY 4:20 PM [facility] REPOSITORY Order Comment: 'TROP' Serial specimen #1, #2, #3, or #4: 1 TYPE CODE TESTS RESULT OUT OF RANGE REFERENCE UNITS LAB L501.4010 <0.06 ng/mL Normal < 0.02 TROPONIN-I Result Comment: TROPONIN-I EXPECTED VALUES <0.05 NEGATIVE 0.06 - 0.59 AT RISK OF AL > OR = 0.60 SUGGEST AL Performed By: #### L500.2500, L501.4010 #### [facility] [address] [place], [place], [address] D-DIMER QUANTITATIVE Collected: 10/26/2017 Status: F Source: PERRY (DVT/PE) 4:20 PM [facility] REPOSITORY TYPE CODE TESTS RESULT OUT OF RANGE REFERENCE UNITS LAB L300.8000 0.27-0.49 FEU/ug/m High D-DIMER 0.50 QUANT Result Comment: D-Dimer ELEVATED (>0.49): Additional studies and clinical assessments are indicated to conclude diagnosis of: Deep Vein Thrombosis (DVT) or Pulmonary Embolism (PE) Performed By: #### L300.8000 #### [facility] [address] [place], [address] CHEST 1 VIEW Observed: 10/26/2017 Status: F Source: PERRY (PORTABLE) 3:56 PM [facility] REPOSITORY [facility] Imaging Services [address] [place] [address] Chest 1 View (Portable) MR#: [id number] Acct: [id number] Name: ERIN RODGERS Rep #: [id number] : 1950 M 67 From: Tammie Curry MD PCP: Karma Marrero MD Status: REG ER Study: Chest 1 View (Portable) Date of Exam: 10/26/17 Exam# [id number] Ordering Dr: Angie Quintero MD STUDY: X-RAY CHEST REASON FOR EXAM: Male, 67 years old. Shortness of breath with weakness TECHNIQUE: AP COMPARISON: None. FINDINGS: The lungs are hyperinflated. There are two vague nodular densities within the mid/lower right lung and one within the lower left lung. Normal size heart. Normal mediastinum and janice. Normal visualized pulmonary arteries. Normal visualized aortic arch and descending thoracic aorta. Normal visualized thoracic spine. Normal visualized ribs, clavicles, and shoulders. There is no demonstrated abnormality of the visualized soft tissue structures of the upper abdomen. RAD/Chest 1 View (Portable) IMPRESSION: Hyperinflated lungs may reflect underlying COPD. Vague bilateral nodular opacities which may be artifactual however consider CT of the chest for further characterization for difficult to exclude underlying nodules. Electronically Signed: Tammie Curry MD at 16:37 EDT Tel , Service support , CC: Angie Quintero MD; Karma Marrero MD Administration Physician: Signed PROGRESS Observed: 10/26/2017 Status: COMPLETED Source: [place] 3:[address] [facility] REPOSITORY HNO ID: [id number] Author: Nita Norton) Amanda Service: (none) Author Type: Nurse Practitioner Type: Progress Notes Filed: 10/26/2017 3:33 PM Note Text: Subjective HPI Erin Rodgers is a 67 year old male who presents with sinus drainage, cough, and shortness of breath for the past 2 days. He states he has shortness of breath and chest pain. He denies nausea or diaphoresis. He states he slept all day yesterday and all night last night and feels very weak and out of it. He has had a fever. Review of Systems Constitutional: Positive for fever and malaise/fatigue. HENT: Negative for sore throat. Respiratory: Positive for cough, sputum production and shortness of breath. Cardiovascular: Positive for chest pain. Gastrointestinal: Negative. Negative for abdominal pain, diarrhea, nausea and vomiting. Neurological: Negative. Negative for dizziness and headaches. BP 132/84 Pulse 114 Temp 38.3 ?C (100.9 ?F) (Tympanic) Resp 18 Wt 70.8 kg (156 lb) SpO2 97% BMI 23.04 kg/m2 PAST MEDICAL HISTORY Diagnosis Date - Chronic kidney disease, stage 4 (severe) (HCC) 09/13/2017 - HTN (hypertension) - Renal failure - TIA (transient ischemic attack) - Urinary retention PAST SURGICAL HISTORY Procedure Laterality Date - APPENDECTOMY 1972 - HEMMORRHOIDECTOMY,EXTERNAL SINGLE - PAST SURGICAL HISTORY OF 09/06/2015 kidney stent placement; Dr. Nia Henry PA - PROSTATECTOMY, SIMPLE, BENIGN 2010 ALLERGIES Amoxicillin; Ciprofloxacin; Codeine MEDICATIONS dicyclomine (BENTYL) 10 mg capsule Take 1 capsule by mouth before meals and at bedtime. Indications: IRRITABLE BOWEL SYNDROME Omeprazole (PRILOSEC) 40 mg capsule Take 1 capsule by mouth once daily. VIT A/VIT C/VIT E/ZINC/COPPER (OCUVITE PRESERVISION ORAL) Take by mouth once daily. tamsulosin ER (FLOMAX) 0.4 mg cp24 Take 1 capsule by mouth daily at bedtime. Cybfnkribbl-Frnrplxck-Auh C-Mn (GLUCOSAMINE CHONDROITIN MAXSTR) 500-400 mg cap Take 1 capsule by mouth three times daily. Catheter (BARD COUDE TIP CATHETER) 16 Fr misc ISC four times daily and as needed fluconazole (DIFLUCAN) 200 mg tablet Take 1 tablet by mouth once daily. RANITIDINE HCL ORAL Take by mouth. No family history on file. Social History Substance Use Topics - Smoking status: Former Smoker - Smokeless tobacco: Never Used - Alcohol use No Objective Physical Exam Constitutional: He is well-developed, well-nourished, and in no distress. HENT: Head: Normocephalic. Eyes: Conjunctivae are normal. Right eye exhibits no discharge. Left eye exhibits no discharge. Neck: Neck supple. Cardiovascular: Regular rhythm and normal heart sounds. Pulmonary/Chest: Effort normal. No respiratory distress. He has no wheezes. He has rales. Neurological: He is alert. Skin: Skin is warm and dry. No rash noted. Nursing note and vitals reviewed. ASSESSMENT/PLAN: 1. SOB (shortness of breath) - ICD9: 786.05, ICD10: R06.02 (primary diagnosis) 2. Chest pain, unspecified type - ICD9: 786.50, ICD10: R07.9 Cannot rule out cardiac etiology in express care setting. Advised patient to seek care in ER. He agreed to this plan of care. I suggested ambulance transport, patient refused. He states I drove all the way here from [place] I will be fine to drive across the street. Report called to attending MD in [facility] ER. Nita Patel CNP CNOV Observed: 10/26/2017 Status: COMPLETED Source: [place] 3:15 PM [facility] REPOSITORY Office Visit ([facility]) ERIN RODGERS ([id number]) 1950 M Date Time Provider Department 10/26/17 3:15 PM NITA PATEL (CRISTHIAN) [facility] During your visit today, we recorded the following information about you: Temperature Pulse Respiration Blood pressure 100.9 degrees 114/minute 18/minute 132/84 Weight 70.8 kg Nita Patel CNP 10/26/2017 3:33 PM Signed Subjective HPI Erin Rodgers is a 67 year old male who presents with sinus drainage, cough, and shortness of breath for the past 2 days. He states he has shortness of breath and chest pain. He denies nausea or diaphoresis. He states he slept all day yesterday and all night last night and feels very weak and ANDquot;out of itANDquot;. He has had a fever. Review of Systems Constitutional: Positive for fever and malaise/fatigue. HENT: Negative for sore throat. Respiratory: Positive for cough, sputum production and shortness of breath. Cardiovascular: Positive for chest pain. Gastrointestinal: Negative. Negative for abdominal pain, diarrhea, nausea and vomiting. Neurological: Negative. Negative for dizziness and headaches. BP 132/84 Pulse 114 Temp 38.3 ?C (100.9 ?F) (Tympanic) Resp 18 Wt 70.8 kg (156 lb) SpO2 97% BMI 23.04 kg/m2 PAST MEDICAL HISTORY Diagnosis Date - Chronic kidney disease, stage 4 (severe) (HCC) 09/13/2017 - HTN (hypertension) - Renal failure - TIA (transient ischemic attack) - Urinary retention PAST SURGICAL HISTORY Procedure Laterality Date - APPENDECTOMY 1972 - HEMMORRHOIDECTOMY,EXTERNAL SINGLE - PAST SURGICAL HISTORY OF 09/06/2015 kidney stent placement; Dr. Nia DE LA CRUZ - PROSTATECTOMY, SIMPLE, BENIGN 2009 ALLERGIES Amoxicillin; Ciprofloxacin; Codeine MEDICATIONS dicyclomine (BENTYL) 10 mg capsule Take 1 capsule by mouth before meals and at bedtime. Indications: IRRITABLE BOWEL SYNDROME Omeprazole (PRILOSEC) 40 mg capsule Take 1 capsule by mouth once daily. VIT A/VIT C/VIT E/ZINC/COPPER (OCUVITE PRESERVISION ORAL) Take by mouth once daily. tamsulosin ER (FLOMAX) 0.4 mg cp24 Take 1 capsule by mouth daily at bedtime. Kgsjuuhfuun-Qoyeqinhb-Bil C-Mn (GLUCOSAMINE CHONDROITIN MAXSTR) 500-400 mg cap Take 1 capsule by mouth three times daily. Catheter (BARD COUDE TIP CATHETER) 16 Fr misc ISC four times daily and as needed fluconazole (DIFLUCAN) 200 mg tablet Take 1 tablet by mouth once daily. RANITIDINE HCL ORAL Take by mouth. No family history on file. Social History Substance Use Topics - Smoking status: Former Smoker - Smokeless tobacco: Never Used - Alcohol use No Objective Physical Exam Constitutional: He is well-developed, well-nourished, and in no distress. HENT: Head: Normocephalic. Eyes: Conjunctivae are normal. Right eye exhibits no discharge. Left eye exhibits no discharge. Neck: Neck supple. Cardiovascular: Regular rhythm and normal heart sounds. Pulmonary/Chest: Effort normal. No respiratory distress. He has no wheezes. He has rales. Neurological: He is alert. Skin: Skin is warm and dry. No rash noted. Nursing note and vitals reviewed. ASSESSMENT/PLAN: 1. SOB (shortness of breath) - ICD9: 786.05, ICD10: R06.02 (primary diagnosis) 2. Chest pain, unspecified type - ICD9: 786.50, ICD10: R07.9 Cannot rule out cardiac etiology in express care setting. Advised patient to seek care in ER. He agreed to this plan of care. I suggested ambulance transport, patient refused. He states ANDquot;I drove all the way here from [place] I will be fine to drive across the streetANDquot;. Report called to attending MD in [facility] ER. Nita Patel CNP Referring Provider: SELF [200] Allergies As of Date: 10/26/2017 Noted Allergy Reaction AMOXICILLIN 01/26/2016 7 - Swelling CIPROFLOXACIN 01/26/2016 7 - Swelling CODEINE 12/22/2016 1 - Mental Status Change Date Reviewed: 10/26/2017 Reviewed by: Nita (Cristhian) Amanda - Fully Assessed Reason for Visit: Sinus Problem [99] Cmt: sinus pressure, drainage, cough, shortness of breath increased last couple days Primary Visit Diagnosis:SOB (shortness of breath) [R06.02] Other Visit Diagnosis:Chest pain, unspecified type [R07.9] Prescriptions as of 10/26/2017 Sig: DICYCLOMINE 10 MG CAPSULE Take 1 capsule by mouth befor* OMEPRAZOLE 40 MG CAPSULE,RAJ* Take 1 capsule by mouth once * OCUVITE PRESERVISION ORAL Take by mouth once daily. TAMSULOSIN 0.4 MG CAPSULE Take 1 capsule by mouth daily* HXBAJSLPSDU-FDGTZURHV-MFH C-M* Take 1 capsule by mouth three* CATHETER 16 FR ISC four times daily and as n* FLUCONAZOLE 200 MG TABLET Take 1 tablet by mouth once d* RANITIDINE HCL ORAL Take by mouth. Problem List As Of Date 10/26/2017 Noted Resolved Renal failure [N19] INVALID FOR*05/03/2017 Chronic retention of urine [R33.9] INVALID FOR* More... 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 Dialysis patient ([facility]) [Z99.2] INVALID FOR*05/03/2017 More... 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 Right shoulder pain [M25.511] INVALID FOR* More... 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 Posterior vitreous detachment of both eyes [H43*INVALID FOR* Stage 4 chronic kidney disease (HCC) [N18.4] INVALID FOR* More... Essential hypertension [I10] INVALID FOR* More... Encounter Status:Closed by NITA PATEL on 10/26/17 ALLERGIES ALLERGIES DATE TYPE / CODE NAME / CODE REACTION SEVERITY SOURCE 10/26/2017 Drug codeine/[id number]( Other Unknown [place] Allergy/416 RXNORM) [facility] 468957([facility] ED CT) Repository 10/26/2017 Drug ciprofloxacin/F0060 Unknown Unknown [place] Allergy/416 39397(RXNORM) [facility] 898490([facility] ED CT) Repository 10/26/2017 Drug amoxicillin/[id number] Unknown Unknown [place] Allergy/416 675(RXNORM) [facility] 767374([facility] ED CT) Repository 12/22/2016 DRUG CODEINE Mental Chg [facility] INGREDI/419 Other [place] 711508([facility] ED CT) 01/26/2016 DRUG AMOXICILLIN SWELLING [facility] INGREDI/419 Other [place] 596803(SNOM Repository ED CT) 01/26/2016 DRUG CIPROFLOXACIN SWELLING [facility] INGREDI/419 Other [place] 119749(SNOM Repository ED CT) ENCOUNTERS ENCOUNTERS ADMIT/DISCHARGE ACCOUNT ADMITTING ENCOUNTER LOCATION SOURCE NUMBER CLASS 09/03/2018 [id number] [facility] ing:LAB.FUTUR Repository E 09/02/2018 [id number] [facility] ing:POLAB3 Repository 08/19/2018 [id number] [facility] ing:LAB.FUTUR Repository E 08/15/2018/08/15/19 [id number] ANUJ [address] Other [place] Repository 08/09/2018/08/09/20 [id number] Ambulatory [address] Main [place] Repository 08/09/2018/08/09/20 [id number] Ambulatory [address] [place] Repository 07/31/2018/08/01/20 [id number] Ambulatory [address] [place] Repository 07/15/2018/07/17/20 [id number] Ambulatory [address] [place] Repository 07/01/2018/07/06/20 [id number] Ambulatory [address] [place] Repository 06/17/2018/06/18/20 [id number] Ambulatory [address] [place] Repository 06/13/2018/06/14/20 [id number] Ambulatory [address] [place] Repository 06/13/2018/06/14/20 [id number] Ambulatory [address] [place] Repository 05/28/2018/05/28/20 [id number] Ambulatory [address] [place] Repository 05/08/2018/05/08/20 [id number] Ambulatory [address] [place] Repository 04/30/2018/05/01/20 [id number] Ambulatory [address] [place] Repository 04/29/2018/04/29/20 [id number] Ambulatory [address] [place] Repository 04/29/2018 [id number] Ambulatory [facility] Main [place] Repository 04/29/2018/04/30/20 [id number] Ambulatory [address] [place] Repository 04/29/2018/05/06/20 [id number] Ambulatory [address] Repository 04/24/2018 [id number] Ambulatory [facility] ing:POLAB3 Repository 03/28/2018/03/28/20 [id number] Ambulatory [address] Repository 03/18/2018/03/19/20 [id number] Ambulatory [address] Repository 03/18/2018/03/18/20 [id number] Ambulatory [address] Repository 03/18/2018/03/26/20 [id number] Ambulatory [address] Repository 02/27/2018 [id number] Ambulatory [facility] ing:LAB.FUTUR Repository E 11/27/2017 [id number] Ambulatory [facility] ing:POLAB3 Repository 11/23/2017 [id number] Ambulatory [facility] ing:LAB.FUTUR Repository E 11/14/2017/11/16/19 [id number] Ambulatory [address] Repository 10/27/2017/10/30/19 [id number] Ambulatory BMSBuilding:W [address] Repository 10/27/2017/10/30/19 [id number] Ambulatory BMSBuilding:W [address] Repository 10/27/2017/10/30/19 [id number] Mary [place], Inpatient [address] ing:PCURoom: Repository [id number]: 1 10/27/2017 [id number] [place], Ambulatory BMSBuilding:B [place] Repository 10/26/2017 [id number] [place], Ambulatory BMSBuilding:B [place] Repository 10/26/2017 [id number] [place], Ambulatory BMSBuilding:B [place] Repository 10/26/2017 [id number] [place], Ambulatory BMSBuilding:B [place] [facility] Repository 10/26/2017 [id number] Ambulatory BMSBuilding:W [place] [facility] Repository 10/26/2017/11/21/[id number] Repository PAYERS PAYERS ENCOUNTER GUARANTOR PAYER SUBSCRIBER SOURCE 09/03/[address] Primary ERIN Malcolm [id number] Insurance:ANTHEMPolic COMMINGSDOB: Community SIMA y Number: [id number] [id number] Repository 40024Vrr: (724) ve Date:3672-50-85AC [phone] () [address] [place] [address] 08798FY: 09/03/2018 Secondary ERIN Malcolm Insurance:MEDICARE COMMINGSDOB: Community PART A [facility] [id number] Hospital Number: Repository [id number] Date:2018-09-03 09/03/2018 Tertiary NOT GIVENUNK [place] Insurance:SELF PAY [facility] Number: Effective Repository Date:2018-09-03 09/02/2018 ERIN Tayo Primary ERIN Malcolm [id number] Insurance:ANTHEMPolic COMMINGSDOB: Community SIMA y Number: [id number] [id number] Repository 55066Qvn: (724) ve Date:6811-00-16NV [phone] () [address] [place] [address] 60162IU: 09/02/2018 Secondary ERIN Malcolm Insurance:MEDICARE COMMINGSDOB: Community PART A [facility] [id number] Hospital Number: Repository [id number] Date:2018-08-27 09/02/2018 Tertiary NOT GIVENUNK [place] Insurance:SELF PAY [facility] Hospital Number: Effective Repository Date:2018-08-27 08/19/2018 ERIN Tayo Primary ERIN Malcolm [id number] Insurance:ANTHEMPolic COMMINGSDOB: Community SIMA y Number: [id number] [id number] Repository 38388Wng: (724) ve Date:2433-51-99NO [phone] () [address] [place] [place] [address] 34015LM: 08/19/2018 Secondary ERIN Cr [place] Insurance:MEDICARE COMMINGSDOB: Community PART A BPolicy [id number] Hospital Number: Repository [id number] Date:2018-08-19 08/19/2018 Tertiary NOT GIVENUNK [place] Insurance:SELF PAY [facility] Effective Repository Date:2018-08-19 04/24/2018 ERIN Tayo Primary ERIN Cr [place] [id number] Insurance:ANTHEMPolic COMMINGSDOB: Community SIMA y Number: [id number] [id number] Repository 8[address]Feg: [phone] ve Date:5752-95-13JK [phone] () [address]FLFSC[place], [place] [address]ZO: 04/24/2018 Secondary ERIN Cr [place] Insurance:MEDICARE COMMINGSDOB: Community PART A olicy [id number] Hospital Number: Repository [id number] Date:2018-04-16 04/24/2018 Tertiary NOT GIVENUNK [place] Insurance:SELF PAY [facility] Number: Effective Repository Date:2018-04-16 02/27/2018 ERIN Cr Primary ERIN Cr Yun [id number] Insurance:ANTHEMPolic COMMINGSDOB: Community SIMA y Number: [id number] [id number] Repository 35[address]Nxi: [phone] ve Date:3986-60-30CF [phone] () [address] [place] [address] 20873PH: 02/27/2018 Secondary ERIN rC [place] Insurance:MEDICARE COMMINGSDOB: Community PART A BPolicy [id number] Hospital Number: Repository [id number] Date:2018-02-27 02/27/2018 Tertiary NOT GIVENUNK [place] Insurance:SELF PAY [facility] Number: Effective Repository Date:2018-02-27 11/27/2017 ERIN Cr Primary ERIN Cr [place] [id number] Insurance:ANTHEMPolic COMMINGSDOB: Community SIMA y Number: [id number] [id number] Repository [address]Dzj: ([phone]) Date:8801-82-02ML [phone] () [address] [place] [address] 89166XD: 11/27/2017 Secondary ERIN Cr [place] Insurance:MEDICARE COMMINGSDOB: Community PART A BPolicy [id number] Hospital Number: Repository [id number] Date:2017-09-13 11/27/2017 Tertiary NOT GIVENUNK [place] Insurance:SELF PAY [facility] Number: Effective Repository Date:2017-09-13 11/23/2017 ERIN Cr Primary ERIN Cr Yun [id number] Insurance:ANTHEMPolic COMMINGSDOB: Community SIMA y Number: [id number] [id number] Repository 407[address]Kjj: [phone] ve Date:5844-81-02BR [phone] () [address]CYUYN, [place] [address]SD: 11/23/2017 Secondary ERIN Cr [place] Insurance:MEDICARE COMMINGSDOB: Community PART A olicy [id number] Hospital Number: Repository [id number] Date:2017-09-14 11/23/2017 Tertiary NOT GIVENUNK Yun Insurance:SELF PAY [facility] Number: Effective Repository Date:2017-09-14 10/27/2017 ERIN Cr Primary ERIN Cr [place] [id number] Insurance:MEDICARE COMMINGSDOB: Community SIMA PART A [facility] [id number] Number: Repository [address]Hgc: [phone] [id number] [phone] () Date:2017-10-26 10/27/2017 Secondary ERIN Cr [place] Insurance:ANTHEMPolic COMMINGSDOB: Community y Number: [id number] Repository ve Date:2121-85-24LK [address]ORZNXL, [place] [address]JL: 10/27/2017 Tertiary NOT GIVENUNK [place] Insurance:SELF PAY Community [facility] Number: Effective Repository Date:2017-10-27 10/27/2017 ERIN Tayo Primary ERIN Cr [place] [id number] Insurance:MEDICARE COMMINGSDOB: Community SIMA PART A [facility] [id number] Number: Repository [id number]: [phone] [id number] [phone] (HP) Date:2017-10-26 10/27/2017 Secondary ERIN Cr Yun Insurance:ANTHEMPolic COMMINGSDOB: Community y Number: [id number] Regional Medical [id number] Repository ve Date:8587-49-66LZ [address]FHXRKKV, [place] [address]NX: 10/27/2017 Tertiary NOT GIVENUNK [place] Insurance:SELF PAY [facility] Effective Repository Date:2017-10-27 10/27/2017 ERIN Tayo Primary ERIN Cr [place] [id number] Insurance:MEDICARE COMMINGSDOB: Community SIMA PART A [address] Number: Repository [address]Ivo: [phone] [id number] [phone] (HP) Date:2017-10-26 10/27/2017 Secondary ERIN Cr Yun Insurance:ANTHEMPolic COMMINGSDOB: Community y Number: [id number] Regional Medical [id number] Repository ve Date:0596-67-03SW [address]YDQIDWU, [place] [address]HK: 10/27/2017 Tertiary NOT GIVENUNK Yun Insurance:SELF PAY [facility] Number: Effective Repository Date:2017-10-26 10/27/2017 ERIN Tayo Primary ERIN Cr [place] [id number] Insurance:MEDICARE COMMINGSDOB: Community SIMA PART A [facility] [id number] Number: Repository [address]Tja: [phone] [id number] [phone] (HP) Date:2017-10-26 10/27/2017 Secondary ERIN Cr [place] Insurance:ANTHEMPolic COMMINGSDOB: Community y Number: [id number] Hospital [id number] Repository ve Date:3658-99-48SH [address] [place] [address] 17914WN: 10/27/2017 Tertiary NOT GIVENUNK [place] Insurance:SELF PAY Community [facility] Number: Effective Repository Date:2017-10-27 10/26/2017 ERIN Cr Primary ERIN Cr Y[place] [id number] Insurance:MEDICARE COMMINGSDOB: Community SIMA PART A olic [id number], [place] Number: Repository [id number]: [phone] [id number] [phone] Date:2017-10-26 10/26/2017 Secondary ERIN Cr [place] Insurance:ANTHEMPolic COMMINGSDOB: Community y Number: [id number] Regional Medical [id number] Repository ve Date:4392-26-43IP [address] [place] [address] 39176LP: 10/26/2017 Tertiary NOT GIVENUNK [place] Insurance:SELF PAY [facility] Number: Effective Repository Date:2017-10-26 10/26/2017 ERIN Tayo Primary ERIN Cr [place] [id number] Insurance:MEDICARE COMMINGSDOB: Community SIMA PART A [facility] [id number] [place] Number: Repository [address]Vwl: [phone] [id number] [phone] () Date:2017-10-26 10/26/2017 Secondary ERIN Cr Yun Insurance:ANTHEMPolic COMMINGSDOB: Community y Number: [id number] Hospital [id number] Repository ve Date:9642-57-98ED [address] [place] [address] 40185HT: 10/26/2017 Tertiary NOT GIVENUNK Yun Insurance:SELF PAY [facility] Number: Effective Repository Date:2017-10-26 10/26/2017 ERIN Tayo Primary ERIN Cr [place] [id number] Insurance:MEDICARE COMMINGSDOB: Community SIMA PART A [facility] [id number] Number: Repository [id number]: [phone] [id number] [phone] (HP) Date:2017-10-26 10/26/2017 Secondary ERIN Malcolm Insurance:ANTHEMPolic COMMINGSDOB: Community y Number: [id number] Regional Medical [id number] Repository ve Date:3085-25-43JG [address]DTLVRCT, [place] [address]ZU: 10/26/2017 Tertiary NOT GIVENUNK Yun Insurance:SELF PAY [facility] Number: Effective Repository Date:2017-10-26 10/26/2017 ERIN Tayo Primary ERIN Cr Y[place] [id number] Insurance:MEDICARE COMMINGSDOB: Community SIMA PART A BPolicy [id number], [place] Number: Repository [phone]: [phone] [id number] [phone] () Date:2017-10-26 10/26/2017 Secondary ERIN Malcolm Insurance:ANTHEMPolic COMMINGSDOB: Community y Number: [id number] Regional Medical [id number] Repository ve Date:4898-53-13[address]IEACVSI, [place] [address]RE: 10/26/2017 Tertiary NOT GIVENUNK Yun Insurance:SELF PAY [facility] Number: Effective Repository Date:2017-10-26
== END ==
LOC: POLAB3 10:28
PROVIDERS: Family Provider Internal Medicine; PCP Internal Medicine; Visit Provider Internal Medicine Nephrology
DX: N18.4 Chronic kidney disease, stage 4 (severe) (principal)
CPT/HCPCS: 36415; 80069; 83970

== ENCOUNTER → 2019-02-25 | Outpatient (CLI) | payer BC, MEDICARE, SELFPAY ==
[2017-10-26 19:11] VITALS: BMI 22.5
[2019-02-25 17:14] LABS: Hematocrit 40.7 % (40-54); Hemoglobin 13.1 g/dL (13.0-16.5); Mean Corp Hgb Conc 32.2 g/dL (32-36); Mean Corpuscular Volume 96.4 fL (80-94); Mean Platelet Vol. 9.8 fl (6.2-12.0); Platelet Count 302 K/mm3 (150-450); RBC Distribution Width CV 13.7 % (11.6-14.6); RBC Distribution Width SD 48.2 fl (35.1-43.9); Red Blood Count 4.22 M/mm3 (4.6-6.2); White Blood Count 9.5 K/mm3 (4.4-11.0)
[2019-02-25 17:17] LABS: Albumin, Serum 3.2 g/dL (3.2-5.0); BUN 46 mg/dL (7-18); BUN/Creat Ratio 14.1 RATIO (10-20); Calcium,Total 8.4 mg/dL (8.5-10.1); Chloride 114 mmol/L (98-107); Creatinine, Serum 3.26 mg/dL (0.70-1.30); EST Glomerular Filtration Rate 20 mL/min (>60); Est Glom Filt Rate - Afr Amer 24 mL/min (>60); Glucose 104 mg/dL (74-106); Phosphorus 3.7 mg/dL (2.5-4.9); Potassium 4.6 mmol/L (3.5-5.1); Sodium Level 144 mmol/L (136-145)
[2019-02-25 18:09] LABS: PTHIN 231.5 pg/mL (18.4-80.1)
== END | disposition home or self-care (01) ==
LOC: POLAB3 14:46
PROVIDERS: Family Provider Internal Medicine; PCP Internal Medicine; Visit Provider Internal Medicine Nephrology
DX: N18.4 Chronic kidney disease, stage 4 (severe) (principal)
CPT/HCPCS: 36415; 80069; 83970; 85027

== ENCOUNTER → 2019-07-17 15:23 | Outpatient (CLI) | payer BC, MEDICARE, SELFPAY ==
[2017-10-26 19:11] VITALS: BMI 22.5
[2019-07-18 08:51] LABS: PTHIN 159.4 pg/mL (18.4-80.1)
== END ==
PROVIDERS: Family Provider Internal Medicine; PCP Internal Medicine; Visit Provider Internal Medicine Nephrology
DX: N18.4 Chronic kidney disease, stage 4 (severe) (principal); N25.81 Secondary hyperparathyroidism of renal origin; D63.8 Anemia in other chronic diseases classified elsewhere
CPT/HCPCS: 36415; 83970

== ENCOUNTER 2019-08-29 22:28 | Emergency (ER) | payer BC, MEDICARE, SELFPAY ==
[2019-08-29 22:31] VITALS: BP 154/102; PULSE 69; RESP 18; TEMP 36.7; O2SAT 96; BMI 23.3
[2019-08-29 22:39] VITALS: O2SAT 96
--- NOTE | 2019-08-29 22:47 | RAD_ITS ---
STUDY: X-RAY CHEST REASON FOR EXAM: Male, 69 years old. Cough, short of breath, and chest pain. TECHNIQUE: PA and lateral COMPARISON: CT chest 10/27/2017. FINDINGS: No evidence of pneumonia, pulmonary edema, pneumothorax or pleural effusion. Cardiac silhouette, hilar and mediastinal contours with no acute findings. Heart size normal. Atherosclerosis of the thoracic aorta. Degenerative osseous changes with no acute osseous abnormality. RAD/Chest PA and Lateral IMPRESSION: No acute findings. Electronically Signed: Rashid Anders, at 23:05 EST Tel , Service support ,
--- NOTE | 2019-08-29 22:47 | ED.VISSUMM ---
- ER Visit Summary Date of Service: 08/29/19 Chief Complaint: [Cough] History of Present Illness: The patient is a 69 M [presents the emergency department complaint of a cough that is had for 2 days. Patient states that about a week ago he started with sinus congestion and nasal drainage. He denies any fevers. Patient states that he has a deep cough that at times is bringing up some yellow sputum that is thick. Patient did receive the flu vaccine this year. He denies any sick contacts. Patient has history of prior stroke, hypertension, and chronic kidney disease.] Physical Examination: [HEENT-PERRLA, EOMI. Cranial nerves II through XII grossly intact. TMs clear. Mucous membranes moist. No adenopathy. Cardiovascular-regular rate and rhythm without murmur or ectopy Lungs-clear to auscultation, chest wall stable without crepitus or subcu emphysema Abdomen-normoactive bowel sounds, soft, nontender, no rebound or rigidity, no peritoneal signs. Extremities-intact ?4, normal range of motion, normal pulses, atraumatic] Test Results: [Chest x-ray obtained was normal] Emergency Department Course and Treatment: [Patient received a DuoNeb aerosol and also started on prednisone 40 mg p.o. Patient was given a Tessalon Perle.] Treatment Plan: [I suspect likely viral URI therefore patient will be treated with prednisone given his history of COPD. Patient will be given Tessalon Perles. Patient also was dispensed an albuterol MDI that he has at home 3 days ago.] Disposition: Discharged home in stable condition. Patient advised to return if fever, increased shortness of breath, or condition should worsen anyway.] Impression: [Viral URI with wheezing] This note was generated with [employer] dictation software. It may contain incorrect words, spelling, and punctuation that were not noted in review of the chart prior to signing ED Disposition - Plan for ED Patient: Referrals: Antoinette Graves MD [Primary Care Provider] -
[2019-08-29 23:04] VITALS: PULSE 72; RESP 18
[2019-08-29] MEDS: Ipratropium/Albuterol Sulfate 3 ML AMPUL.NEB INHALATION (23:04)
--- NOTE | 2019-08-29 23:13 | ED.DEP ---
ED Disposition - Plan for ED Patient: Instructions: BRONCHITIS with Wheezing (Adult) Prescriptions: Prednisone [Deltasone] 20 mg PO BID #6 tab Prescription Printed Benzonatate [Tessalon Perle] 200 mg PO TID PRN PRN #20 cap PRN Reason: Cough Prescription Printed Referrals: Antoinette Graves MD [Primary Care Provider] - 3-5 Days
[2019-08-29] MEDS: predniSONE 20 MG Tablet 40 MG PO (23:28)
[2019-08-29 23:32] VITALS: BP 166/89; PULSE 79; RESP 22; O2SAT 98
== END 2019-08-29 23:39 | disposition home or self-care (01) ==
PROVIDERS: Emergency Provider Emergency Medicine; PCP Internal Medicine
DX: J06.9 Acute upper respiratory infection, unspecified (principal); R06.2 Wheezing; I12.9 Hypertensive chronic kidney disease with stage 1 through stage 4 chronic kidney disease, or unspecified chronic kidney disease; N18.9 Chronic kidney disease, unspecified; Z86.73 Personal history of transient ischemic attack (TIA), and cerebral infarction without residual deficits
CPT/HCPCS: 71046; 94640; 99283

== ENCOUNTER → 2019-09-09 13:06 | Outpatient (CLI) | payer BC, MEDICARE, SELFPAY ==
[2017-10-26 19:11] VITALS: BMI 22.5
[2019-08-29 22:31] VITALS: BMI 23.3
[2019-09-09 16:52] LABS: Hematocrit 40.8 % (40-54); Mean Corp Hgb Conc 31.9 g/dL (32-36); Mean Corpuscular Hgb 31.7 pg (27.0-32.0); Mean Corpuscular Volume 99.5 fL (80-94); Mean Platelet Vol. 9.8 fl (6.2-12.0); Platelet Count 376 K/mm3 (150-450); RBC Distribution Width CV 13.3 % (11.6-14.6); RBC Distribution Width SD 47.9 fl (35.1-43.9); White Blood Count 10.5 K/mm3 (4.4-11.0)
[2019-09-09 17:06] LABS: Albumin, Serum 2.8 g/dL (3.2-5.0); BUN 53 mg/dL (7-18); BUN/Creat Ratio 15.6 RATIO (10-20); Calcium,Total 8.3 mg/dL (8.5-10.1); Chloride 114 mmol/L (98-107); Creatinine, Serum 3.39 mg/dL (0.70-1.30); EST Glomerular Filtration Rate 19 mL/min (>60); Est Glom Filt Rate - Afr Amer 23 mL/min (>60); Glucose 89 mg/dL (74-106); Phosphorus 4.3 mg/dL (2.5-4.9); Potassium 4.5 mmol/L (3.5-5.1); Sodium Level 143 mmol/L (136-145)
[2019-09-09 17:31] LABS: PTHIN 240.3 pg/mL (18.4-80.1)
== END ==
PROVIDERS: Family Provider Internal Medicine; PCP Internal Medicine; Visit Provider Internal Medicine Nephrology
DX: N18.4 Chronic kidney disease, stage 4 (severe) (principal); N25.81 Secondary hyperparathyroidism of renal origin; D63.8 Anemia in other chronic diseases classified elsewhere
CPT/HCPCS: 36415; 80069; 83970; 85027

== ENCOUNTER → 2019-12-10 12:00 | Outpatient (CLI) | payer BC, MEDICARE, SELFPAY ==
[2019-12-10 12:34] LABS: Hematocrit 40.3 % (40-54); Hemoglobin 12.8 g/dL (13.0-16.5); Mean Corp Hgb Conc 31.8 g/dL (32-36); Mean Corpuscular Hgb 30.6 pg (27.0-32.0); Mean Corpuscular Volume 96.4 fL (80-94); Mean Platelet Vol. 9.4 fl (6.2-12.0); Platelet Count 336 K/mm3 (150-450); RBC Distribution Width CV 13.6 % (11.6-14.6); RBC Distribution Width SD 48.1 fl (35.1-43.9); Red Blood Count 4.18 M/mm3 (4.6-6.2); White Blood Count 8.4 K/mm3 (4.4-11.0)
[2019-12-10 13:03] LABS: Albumin, Serum 3.1 g/dL (3.2-5.0); BUN 45 mg/dL (7-18); BUN/Creat Ratio 13.2 RATIO (10-20); Calcium,Total 8.4 mg/dL (8.5-10.1); Chloride 111 mmol/L (98-107); EST Glomerular Filtration Rate 19 mL/min (>60); Est Glom Filt Rate - Afr Amer 23 mL/min (>60); Glucose 142 mg/dL (74-106); Phosphorus 3.5 mg/dL (2.5-4.9); Potassium 4.1 mmol/L (3.5-5.1); Sodium Level 139 mmol/L (136-145)
[2019-12-10 13:42] LABS: PTHIN 211.4 pg/mL (18.4-80.1)
[2019-12-10 13:53] LABS: Creat.Clear Total Volume 2250 mL; Creatinine Clearance 28 ml/min (100-200); Creatinine Serum Creat 3.4 mg/dL (0.8-1.3); Creatinine Urine 61.1 mg/dL (NO RANGE EST.); EST Glomerular Filtration Rate 19 mL/min (>60); Est Glom Filt Rate - Afr Amer 23 mL/min (>60)
[2019-12-10 13:56] LABS: 24HR. UA Prot. Total Volume 2250 mL
[2019-12-10 13:57] LABS: 24 Hour Urine Protein 1480.5 mg/24HR (<150 MG/24HR); Urine Protein (24 Hour) 65.8 mg/dL (<11.9)
== END ==
PROVIDERS: PCP Internal Medicine; Referring Provider Internal Medicine Nephrology; Visit Provider Internal Medicine Nephrology
DX: N18.4 Chronic kidney disease, stage 4 (severe) (principal); N25.81 Secondary hyperparathyroidism of renal origin; D63.8 Anemia in other chronic diseases classified elsewhere
CPT/HCPCS: 36415; 80069; 81050; 82575; 83970; 84156; 85027

== ENCOUNTER → 2020-07-06 10:07 | Outpatient (CLI) | payer BC, MEDICARE, SELFPAY ==
[2020-07-06 10:26] LABS: Hematocrit 39.1 % (40-54); Hemoglobin 12.4 g/dL (13.0-16.5); Mean Corp Hgb Conc 31.7 g/dL (32-36); Mean Corpuscular Hgb 30.8 pg (27.0-32.0); Mean Corpuscular Volume 97.3 fL (80-94); Mean Platelet Vol. 8.7 fl (6.2-12.0); Platelet Count 320 K/mm3 (150-450); RBC Distribution Width CV 13.4 % (11.6-14.6); RBC Distribution Width SD 47.7 fl (35.1-43.9); Red Blood Count 4.02 M/mm3 (4.6-6.2); White Blood Count 7.7 K/mm3 (4.4-11.0)
[2020-07-06 10:35] LABS: Albumin, Serum 3.2 g/dL (3.2-5.0); BUN 46 mg/dL (7-18); BUN/Creat Ratio 11.4 RATIO (10-20); Calcium,Total 8.4 mg/dL (8.5-10.1); Chloride 113 mmol/L (98-107); Creatinine, Serum 4.02 mg/dL (0.70-1.30); EST Glomerular Filtration Rate 16 mL/min (>60); Est Glom Filt Rate - Afr Amer 19 mL/min (>60); Glucose 119 mg/dL (74-106); Phosphorus 3.4 mg/dL (2.5-4.9); Sodium Level 142 mmol/L (136-145)
== END ==
PROVIDERS: PCP Internal Medicine; Visit Provider Internal Medicine Nephrology
DX: N18.4 Chronic kidney disease, stage 4 (severe) (principal); D63.8 Anemia in other chronic diseases classified elsewhere; N25.81 Secondary hyperparathyroidism of renal origin
CPT/HCPCS: 36415; 80069; 83970; 85027

== ENCOUNTER → 2020-10-04 15:44 | Outpatient (CLI) | payer BC, MEDICARE, SELFPAY ==
[2020-10-04 16:25] LABS: Hematocrit 36.9 % (40-54); Hemoglobin 11.9 g/dL (13.0-16.5); Mean Corp Hgb Conc 32.2 g/dL (32-36); Mean Corpuscular Volume 96.1 fL (80-94); Mean Platelet Vol. 9.5 fl (6.2-12.0); Platelet Count 331 K/mm3 (150-450); RBC Distribution Width CV 13.9 % (11.6-14.6); RBC Distribution Width SD 48.8 fl (35.1-43.9); Red Blood Count 3.84 M/mm3 (4.6-6.2); White Blood Count 7.9 K/mm3 (4.4-11.0)
[2020-10-04 17:28] LABS: BUN 58 mg/dL (7-18); BUN/Creat Ratio 15.9 RATIO (10-20); Calcium,Total 8.2 mg/dL (8.5-10.1); Chloride 114 mmol/L (98-107); Creatinine, Serum 3.65 mg/dL (0.70-1.30); EST Glomerular Filtration Rate 18 mL/min (>60); Est Glom Filt Rate - Afr Amer 21 mL/min (>60); Ferritin 17 ng/mL (26-388); Glucose 99 mg/dL (74-106); Iron 61 ug/dL (65-175); Iron Binding Capacity,Total 292 ug/dL (250-450); Phosphorus 5.1 mg/dL (2.5-4.9); Potassium 4.3 mmol/L (3.5-5.1); Sodium Level 145 mmol/L (136-145)
[2020-10-05 08:44] LABS: PTHIN 347.8 pg/mL (18.4-80.1)
== END ==
PROVIDERS: PCP Internal Medicine; Referring Provider Internal Medicine Nephrology; Visit Provider Internal Medicine Nephrology
DX: N18.4 Chronic kidney disease, stage 4 (severe) (principal); D63.8 Anemia in other chronic diseases classified elsewhere; N25.81 Secondary hyperparathyroidism of renal origin
CPT/HCPCS: 36415; 80069; 82728; 83540; 83550; 83970; 85027

== ENCOUNTER → 2020-11-16 09:13 | Outpatient (CLI) | payer BC, MEDICARE, SELFPAY ==
[2020-11-16 11:01] LABS: PTHIN 109.3 pg/mL (18.4-80.1)
== END ==
PROVIDERS: PCP Internal Medicine; Referring Provider Internal Medicine Nephrology; Visit Provider Internal Medicine Nephrology
DX: N25.81 Secondary hyperparathyroidism of renal origin (principal)
CPT/HCPCS: 36415; 83970

== ENCOUNTER → 2021-01-11 09:43 | Outpatient (CLI) | payer BC, MEDICARE, SELFPAY ==
[2021-01-11 10:54] LABS: Hematocrit 39.3 % (40-54); Hemoglobin 12.2 g/dL (13.0-16.5); Mean Corpuscular Hgb 30.8 pg (27.0-32.0); Mean Corpuscular Volume 99.2 fL (80-94); Mean Platelet Vol. 9.6 fl (6.2-12.0); Platelet Count 344 K/mm3 (150-450); RBC Distribution Width CV 14.6 % (11.6-14.6); RBC Distribution Width SD 52.6 fl (35.1-43.9); Red Blood Count 3.96 M/mm3 (4.6-6.2); White Blood Count 8.2 K/mm3 (4.4-11.0)
[2021-01-11 11:24] LABS: PTHIN 365.2 pg/mL (18.4-80.1)
[2021-01-11 11:51] LABS: Albumin, Serum 3.1 g/dL (3.2-5.0); BUN 49 mg/dL (7-18); BUN/Creat Ratio 11.8 RATIO (10-20); Calcium,Total 8.3 mg/dL (8.5-10.1); Chloride 115 mmol/L (98-107); Creatinine, Serum 4.15 mg/dL (0.70-1.30); EST Glomerular Filtration Rate 15 mL/min (>60); Est Glom Filt Rate - Afr Amer 18 mL/min (>60); Ferritin 28 ng/mL (26-388); Glucose 104 mg/dL (74-106); Iron 98 ug/dL (65-175); Iron Binding Capacity,Total 277 ug/dL (250-450); Phosphorus 5.3 mg/dL (2.5-4.9); Potassium 4.7 mmol/L (3.5-5.1); Sodium Level 145 mmol/L (136-145)
== END ==
LOC: LAB.FUTURE 09:46 → LAB 09:52
PROVIDERS: PCP Internal Medicine; Referring Provider Internal Medicine Nephrology; Visit Provider Internal Medicine Nephrology
DX: N18.4 Chronic kidney disease, stage 4 (severe) (principal); N25.81 Secondary hyperparathyroidism of renal origin; D63.8 Anemia in other chronic diseases classified elsewhere
CPT/HCPCS: 36415; 80069; 82728; 83540; 83550; 83970; 85027

== ENCOUNTER → 2021-04-26 09:11 | Outpatient (CLI) | payer BC, MEDICARE, SELFPAY ==
[2021-04-26 10:00] LABS: Hematocrit 38.4 % (40-54); Hemoglobin 12.7 g/dL (13.0-16.5); Mean Corp Hgb Conc 33.1 g/dL (32-36); Mean Corpuscular Hgb 32.2 pg (27.0-32.0); Mean Corpuscular Volume 97.2 fL (80-94); Mean Platelet Vol. 8.9 fl (6.2-12.0); Platelet Count 358 K/mm3 (150-450); RBC Distribution Width CV 13.2 % (11.6-14.6); RBC Distribution Width SD 47.3 fl (35.1-43.9); Red Blood Count 3.95 M/mm3 (4.6-6.2); White Blood Count 9.4 K/mm3 (4.4-11.0)
[2021-04-26 10:27] LABS: PTHIN 256.3 pg/mL (18.4-80.1)
[2021-04-26 10:41] LABS: BUN 45 mg/dL (7-18); BUN/Creat Ratio 12.7 RATIO (10-20); Calcium,Total 8.3 mg/dL (8.5-10.1); Chloride 112 mmol/L (98-107); Creatinine, Serum 3.54 mg/dL (0.70-1.30); EST Glomerular Filtration Rate 18 mL/min (>60); Est Glom Filt Rate - Afr Amer 22 mL/min (>60); Ferritin 36 ng/mL (26-388); Glucose 146 mg/dL (74-106); Iron 67 ug/dL (65-175); Iron Binding Capacity,Total 272 ug/dL (250-450); Phosphorus 3.2 mg/dL (2.5-4.9); Sodium Level 141 mmol/L (136-145)
== END ==
PROVIDERS: PCP Internal Medicine; Referring Provider Internal Medicine Nephrology; Visit Provider Internal Medicine Nephrology
DX: N18.4 Chronic kidney disease, stage 4 (severe) (principal); N25.81 Secondary hyperparathyroidism of renal origin; D63.8 Anemia in other chronic diseases classified elsewhere
CPT/HCPCS: 36415; 80069; 82728; 83540; 83550; 83970; 85027

== ENCOUNTER → 2021-05-03 10:59 | Outpatient (CLI) | payer BC, MEDICARE, SELFPAY ==
[2021-05-03 11:59] LABS: 24 Hour Urine Protein 2532.6 mg/24HR (<150 MG/24HR); 24HR. UA Prot. Total Volume 2525 mL; Urine Protein (24 Hour) 100.3 mg/dL (<11.9)
[2021-05-03 12:03] LABS: Creatinine, Serum 3.74 mg/dL (0.70-1.30); EST Glomerular Filtration Rate 17 mL/min (>60); Est Glom Filt Rate - Afr Amer 21 mL/min (>60)
[2021-05-03 13:01] LABS: Creat.Clear Total Volume 2525 mL; Creatinine Clearance 20 ml/min (100-200); Creatinine Serum Creat 3.7 mg/dL (0.8-1.3); Creatinine Urine 43.2 mg/dL (NO RANGE EST.); EST Glomerular Filtration Rate 17 mL/min (>60); Est Glom Filt Rate - Afr Amer 21 mL/min (>60)
== END ==
PROVIDERS: PCP Internal Medicine; Visit Provider Internal Medicine Nephrology
DX: N18.4 Chronic kidney disease, stage 4 (severe) (principal)
CPT/HCPCS: 36415; 81050; 82565; 82575; 84156

== ENCOUNTER → 2021-05-27 07:59 | Outpatient (CLI) | payer BC, MEDICARE, SELFPAY ==
[2021-05-27 09:27] LABS: Erythrocyte Sedimentation Rate 22 mm/hr (0-20)
[2021-05-27 09:29] LABS: Absolute Lymphocyte Count 1.84 X10^3/uL (0.83-4.51); Absolute Neutrophil Count 5.3 X10^3/uL (2.0-7.7); Basophil# 0.09 X10^3/uL; Basophil% 1.1 % (0-1); Eosinophil# 0.32 X10^3/uL; Eosinophils% 3.9 % (0-5); Hematocrit 38.5 % (40-54); Hemoglobin 12.5 g/dL (13.0-16.5); Lymphocyte # 1.84 X10^3/ul (0.83-4.51); Lymphocyte % 22.4 % (19-41); Mean Corp Hgb Conc 32.5 g/dL (32-36); Mean Corpuscular Hgb 31.6 pg (27.0-32.0); Mean Corpuscular Volume 97.2 fL (80-94); Mean Platelet Vol. 9.3 fl (6.2-12.0); Monocyte# 0.62 X10^3/uL; Monocyte% 7.6 % (0-10); NRBC Flagged by Analyzer 0 % (0-5); Neutrophil # 5.28 X10^3/uL (2.7-7.7); Neutrophil % 64.4 % (47-70); Platelet Count 337 K/mm3 (150-450); RBC Distribution Width CV 13.6 % (11.6-14.6); RBC Distribution Width SD 49.1 fl (35.1-43.9); Red Blood Count 3.96 M/mm3 (4.6-6.2); White Blood Count 8.2 K/mm3 (4.4-11.0)
[2021-05-27 09:57] LABS: CRP < 2.90 mg/L (0.0-3.0)
== END ==
PROVIDERS: PCP Internal Medicine; Referring Provider Ophthalmology; Visit Provider Ophthalmology
DX: H53.2 Diplopia (principal)
CPT/HCPCS: 36415; 85025; 85652; 86140

== ENCOUNTER 2021-10-06 13:01 | Emergency (ER) | payer BC, MEDICARE, SELFPAY ==
[2021-10-06 13:01] VITALS: BP 151/101; PULSE 88; RESP 16; TEMP 36.4; O2SAT 98; BMI 23.0
--- NOTE | 2021-10-06 13:19 | EDS_ITS ---
HPI HPI - GI History of Present Illness Chief Complaint: Nausea/Vomiting Detail of Chief Complaint: And to soft stools Informant: patient and family Abdominal Pain/Flank Pain Onset: Hours (0345) Context: Sudden Onset Timing: Intermittent Quality: Aching Location: Diffuse Current Severity: Gone Maximum Severity: Mild Worsened by: Nothing Relieved by: Nothing Nausea/Vomiting/Emesis GI Symptom: Positive for Nausea and Vomiting (X6) Onset: Hours Quality: Negative for Nonbilious, Coffee ground and Hematemesis Diarrhea/Melena/Hematochezia GI Symptom: Negative for Diarrhea, Melena and Hematochezia Associated Symptoms Associated Symptoms: Negative for Dysuria, Frequency, Hematuria and Urgency Narrative Narrative: Patient is a 71-year-old male with history of hypertension, hypercholesterolemia, stage IV renal disease who presents with abdominal discomfort associate with nausea, vomiting diarrhea. Patient's first episode of emesis was approximately 0345. He states it was tea colored. He had 5 more episodes that were clear in color with no blood or coffee grounds noted. He has had 2 soft stools which is abnormal for him. He states normally his stool is hard. He presently has no abdominal discomfort. He is status post appendectomy. There is no history of prior bowel obstruction. He is noticed no change in the color of his urine or stool. He is still making urine. He states has not had anything to drink since last evening. Every time he attempts to drink something he vomits. He does report dry mouth, thirst and orthostatic symptoms. Patient denies cardiac respiratory symptoms. Patient denies intolerance to greasy or fried foods. Prior similar symptoms: No Recent Illness/Hospitalization: No PFSH PFSH Medical History Schreiber esophagus Chronic kidney disease, stage IV (severe) Congenital hydronephrosis COPD (chronic obstructive pulmonary disease) Dysphagia ESRD (end stage renal disease) Essential (primary) hypertension GERD (gastroesophageal reflux disease) History of CVA (cerebrovascular accident) (2011) History of paroxysmal supraventricular tachycardia Hyperlipidemia Inguinal hernia Lung nodule Macular degeneration Obstructive nephropathy Pyelonephritis Self-catheterizes urinary bladder Home Medications Ocuvite Adult 50 Plus 1 capsule PO DAILY 10/26/17 [History Last Taken 10/25/17] amlodipine 10 mg tablet 10 mg PO DAILY tablet 12/03/20 [History Last Taken Unknown] atorvastatin 10 mg tablet 10 mg PO QPM 12/03/20 [History Last Taken Unknown] calcitriol 0.25 mcg capsule 0.25 mcg PO DAILY cap 12/03/20 [History Last Taken Unknown] ferrous sulfate 325 mg (65 mg iron) tablet 325 mg PO DAILY 12/03/20 [History Las t Taken Unknown] omeprazole 20 mg capsule,delayed release 20 mg PO DAILY 12/03/20 [History Last Taken Unknown] sildenafil 100 mg tablet 100 mg PO DAILY PRN 12/03/20 [History Last Taken Unknown] tiotropium 2.5 mcg-olodaterol 2.5 mcg/actuation mist for inhalation 2 puff INHALATION PRN PRN 12/03/20 [History Last Taken Unknown] ondansetron 4 mg PO Q8H PRN PRN #10 tab 10/06/21 [Rx Last Taken Unknown] Allergy/AdvReac Type Severity Reaction Status Date / Time amoxicillin Allergy Unknown Verified 05/11/21 08:21 ciprofloxacin Allergy Unknown Verified 05/11/21 08:21 codeine AdvReac Other Verified 10/06/21 13:03 Family History Mother Cancer Brother CVA (cerebral vascular accident) Surgical History AVF (arteriovenous fistula) History of appendectomy History of colonoscopy History of hemorrhoidectomy History of prostatectomy History of sinus surgery Social History (Updated 10/06/21 @ 13:[address] Maykel Wilson MD) household members: family Smoking Status: Former smoker quit date: 08/13/11 pack-years: 72 substance use type: does not use ROS ROS ED Constitutional Constitutional ED: Denies chills, fever(s), subjective, sweats or weight loss ENT ENT ED: Denies ear pain, rhinorrhea or sore throat Cardiovascular Cardiovascular: Denies chest pain, orthopnea, palpitations, paroxysmal nocturnal dyspnea or racing heartbeat Respiratory/Chest Respiratory/Chest: Denies cough, dyspnea, dyspnea on exertion, orthopnea, paroxysmal nocturnal dyspnea or sputum Gastrointestinal Gastrointestinal: Reports abdominal pain, diarrhea, nausea and vomiting; Denies constipation or melena Genitourinary Genitourinary ED: Denies dysuria, hematuria or urinary frequency Musculoskeletal Musculoskeletal: Denies arthralgias, back pain or myalgias Integumentary Denies abscess or rash Neurologic Neurologic: Reports weakness; Denies headache(s) or paresthesias Endocrine Endocrinology: Denies polydipsia, polyphagia or polyuria Hematologic/Lymphatic Hematologic/Lymphatic: Denies easy bleeding or easy bruising EXAM Physical Exam Const Vital Signs: 10/06/21 13:01 Temperature 97.5 F L Temperature Source Temporal Pulse Rate 88 Respiratory Rate 16 Blood Pressure 151/101 H Blood Pressure Mean 117 Pulse Ox 98 Oxygen Delivery Method Room Air Positive well nourished and well developed; Negative for unkempt General Appearance ED: well developed and other Patient does not look well. Lowering his bed so he was supine caused him to have exacerbation of his chronic back pain. ; Negative for unkempt, NAD or pallor HEENT Reports TM's clear, dry mucous membranes and other Nares patent. Uvula midline. There is no erythema or exudate. normocephalic, atraumatic and other; Negative for trauma or tenderness Tympanic Membrane ED: Yes TM's clear Mouth ED: Yes dry mucous membranes Mouth: dry mucous membranes Eyes PERRL and EOMs intact bilaterally General Eye ED: Yes other Other Details: Reports history of glaucoma and macular degeneration. ; Negative for pale conjunctiva or scleral icterus Neck no lymphadenopathy, supple and no JVD Resp normal respiratory effort and clear to auscultation bilaterally Cardio regular rate, regular rhythm, S1 normal heart sound, S2 normal heart sound and no murmurs GI non-tender and no masses; Negative for non-distended Inspection: abdominal distention Auscultation: hypoactive bowel sounds; Negative for normoactive bowel sounds or hyperactive bowel sounds Palpation: soft; Negative for tender, guarding, rigid, hepatomegaly, splenom egaly, hernia, mass, pulsatile mass or rebound tenderness present Back/Spine no CVA tenderness Back/Spine Narrative: Paralumbar discomfort Cervical Spine: Negative for cervical spine tenderness Thoracic Spine / Upper Back: Negative for thoracic spinal tenderness Lumbar Spine / Lower Back: Negative for lumbar spinal tenderness Extremity full ROM General Extremety ED: Negative for edema or tenderness General Extremity: Negative for edema Neuro CN's II-XII intact bilaterally and moves all extremities Sensorium / Orientation: alert, oriented to person, oriented to place and oriented to time Psych mental status grossly normal and thought process normal Appearance: Negative for unkempt Skin no wounds General Skin Exam: Negative for jaundice or pallor Lesions: no lesions Rashes: no rashes MDM MDM MDM Narrative Medical decision making narrative: Patient is dehydrated. Will obtain electrolyte panel to assess renal function and electrolytes. CBC to rule out anemia and determine if patient has significant white count. Clinically patient does not have an obstruction or partial obstruction. Suspect this is due to a viral gastro infection. 1 L of normal saline was ordered. Zofran was ordered for his nausea and vomiting. Lab Data Attestation: I reviewed the patient's lab results. Lab results narrative: CBC reveals minimal abnormality. Hemoglobin is slightly elevated compared to prior and may represent hemoconcentration due to dehydration. Creatinine is up slightly from baseline. Patient is able to tolerate p.o. fluids. Suspect this is due to the nausea vomiting diarrhea. Since has had no vomiting department and passed p.o. challenge she was discharged home with prescription for Zofran and to follow-up with his weapons system instrument mechanic. Labs: Laboratory Results - last 24 hr 10/06/21 10/06/21 13:25 13:25 WBC 11.0 RBC 4.04 L Hgb 12.9 L Hct 38.7 L MCV 95.8 H MCH 31.9 MCHC 33.3 RDW Std Deviation 48.6 H RDW Coeff of [place] 13.8 Plt Count 312 MPV 8.8 Immature Gran % (Auto) 0.500 Neut % (Auto) 92.1 H Lymph % (Auto) 2.5 L [place] % (Auto) 4.3 Eos % (Auto) 0.2 Baso % (Auto) 0.4 Absolute Neuts (auto) 10.1 H Absolute Lymphs (auto) 0.28 L Nucleated RBC % 0 Sodium 143 Potassium 4.6 Chloride 117 H Carbon Dioxide 20.0 L Anion Gap 6 BUN 66 H Creatinine 4.40 H Estim Creat Clear Calc 15.40 Est GFR (MDRD) Af Amer 17 L Est GFR (MDRD) Non-Af 14 L BUN/Creatinine Ratio 15.0 Glucose 119 H Calcium 8.6 Discharge Plan Triage Chief Complaint: Nausea/Vomiting ED Provider: Maykel Wilson Dx/Rx/DC Orders Clinical Impression: Abdominal pain, vomiting, and diarrhea, Acute renal failure superimposed on stage 4 chronic kidney disease, Acute dehydration, History of hypertension Instructions: ED Vomiting and Diarrhea ... Prescriptions: New ondansetron [ondansetron] 4 MG tablet 4 mg PO Q8H PRN PRN (Reason: Nausea) Qty: 10 RF: 0 No Action sildenafil 100 mg tablet 100 mg PO DAILY PRN (Reason: ACTIVITY) RF: 0 omeprazole 20 mg capsule,delayed release(DR/EC) 20 mg PO DAILY RF: 0 tiotropium-olodaterol 2.5-2.5 mcg/actuation mist 2 puff INHALATION PRN PRN (Reason: sob) RF: 0 ferrous sulfate 325 mg (65 mg iron) tablet 325 mg PO DAILY RF: 0 amlodipine 10 mg tablet 10 mg PO DAILY RF: 0 calcitriol 0.25 mcg capsule 0.25 mcg PO DAILY RF: 0 atorvastatin 10 mg tablet 10 mg PO QPM RF: 0 Ocuvite Adult 50 Plus 1 EACH capsule 1 capsule PO DAILY RF: 0 Primary Care Provider: Antoinette Graves Referrals: Antoinette Graves MD [Primary Care Provider] - 3-5 Days (Blood draw to assess BUN and creatinine) Activity Restrictions/Additional Instructions: You can follow-up with your primary care physician to have blood draw to assess her BUN/creatinine in 3 to 5 days or your weapons system instrument mechanic whichever is more convenient. Disposition Disposition: Home, Self Care
[2021-10-06 13:33] LABS: Absolute Lymphocyte Count 0.28 X10^3/uL (0.83-4.51); Absolute Neutrophil Count 10.1 X10^3/uL (2.0-7.7); Basophil# 0.04 X10^3/uL; Basophil% 0.4 % (0-1); Eosinophil# 0.02 X10^3/uL; Eosinophils% 0.2 % (0-5); Hematocrit 38.7 % (40-54); Hemoglobin 12.9 g/dL (13.0-16.5); Lymphocyte # 0.28 X10^3/ul (0.83-4.51); Lymphocyte % 2.5 % (19-41); Mean Corp Hgb Conc 33.3 g/dL (32-36); Mean Corpuscular Hgb 31.9 pg (27.0-32.0); Mean Corpuscular Volume 95.8 fL (80-94); Mean Platelet Vol. 8.8 fl (6.2-12.0); Monocyte# 0.47 X10^3/uL; Monocyte% 4.3 % (0-10); NRBC Flagged by Analyzer 0 % (0-5); Neutrophil # 10.14 X10^3/uL (2.7-7.7); Neutrophil % 92.1 % (47-70); POSITIVE DIFFERENTIAL YES; Platelet Count 312 K/mm3 (150-450); RBC Distribution Width CV 13.8 % (11.6-14.6); RBC Distribution Width SD 48.6 fl (35.1-43.9); Red Blood Count 4.04 M/mm3 (4.6-6.2)
[2021-10-06] MEDS: 0.9% Normal Saline 1,000 ML 1000 ML IV (13:37)
[2021-10-06] MEDS: Ondansetron 4 MG/2 ML Vial IV (13:37)
[2021-10-06 13:38] LABS: Differential Indicated SCAN CRITERIA MET
[2021-10-06 13:48] LABS: Anion Gap 6 (5-15); BUN 66 mg/dL (7-18); Calcium,Total 8.6 mg/dL (8.5-10.1); Chloride 117 mmol/L (98-107); EST Glomerular Filtration Rate 14 mL/min (>60); Est Glom Filt Rate - Afr Amer 17 mL/min (>60); Glucose 119 mg/dL (74-106); Potassium 4.6 mmol/L (3.5-5.1); Sodium Level 143 mmol/L (136-145)
[2021-10-06 15:33] VITALS: RESP 16
== END 2021-10-06 15:33 | disposition home or self-care (01) ==
PROVIDERS: Emergency Provider Emergency Medicine; PCP Internal Medicine; Visit Provider Emergency Medicine
DX: R11.2 Nausea with vomiting, unspecified (principal); N17.9 Acute kidney failure, unspecified; J44.9 Chronic obstructive pulmonary disease, unspecified; N18.4 Chronic kidney disease, stage 4 (severe); I12.0 Hypertensive chronic kidney disease with stage 5 chronic kidney disease or end stage renal disease; E78.00 Pure hypercholesterolemia, unspecified; Z90.89 Acquired absence of other organs; Z87.891 Personal history of nicotine dependence; R19.7 Diarrhea, unspecified; E78.5 Hyperlipidemia, unspecified; E86.0 Dehydration; K92.1 Melena
CPT/HCPCS: 80048; 85025; 99283; J7030; A4216; J2405

== ENCOUNTER 2021-11-23 09:41 | Outpatient (CLI) | payer BC, MEDICARE, SELFPAY ==
[2021-11-23 10:45] LABS: Hematocrit 39.1 % (40-54); Hemoglobin 12.6 g/dL (13.0-16.5); Mean Corp Hgb Conc 32.2 g/dL (32-36); Mean Corpuscular Hgb 31.4 pg (27.0-32.0); Mean Corpuscular Volume 97.5 fL (80-94); Mean Platelet Vol. 9.2 fl (6.2-12.0); Platelet Count 353 K/mm3 (150-450); RBC Distribution Width CV 13.9 % (11.6-14.6); RBC Distribution Width SD 49.8 fl (35.1-43.9); Red Blood Count 4.01 M/mm3 (4.6-6.2); White Blood Count 8.4 K/mm3 (4.4-11.0)
[2021-11-23 11:10] LABS: Albumin, Serum 3.6 g/dL (3.2-5.0); BUN 71 mg/dL (7-18); BUN/Creat Ratio 15.3 RATIO (10-20); Calcium,Total 8.1 mg/dL (8.5-10.1); Chloride 111 mmol/L (98-107); Creatinine, Serum 4.65 mg/dL (0.70-1.30); EST Glomerular Filtration Rate 13 mL/min (>60); Est Glom Filt Rate - Afr Amer 16 mL/min (>60); Glucose 101 mg/dL (74-106); Phosphorus 3.5 mg/dL (2.5-4.9); Potassium 4.2 mmol/L (3.5-5.1); Sodium Level 141 mmol/L (136-145)
[2021-11-23 11:15] LABS: PTHIN 319.8 pg/mL (18.4-80.1)
[2021-11-23 12:07] LABS: Creat.Clear Total Volume 2925 mL; Creatinine Clearance 6 ml/min (100-200); Creatinine Serum Creat 4.7 mg/dL (0.8-1.3); Creatinine Urine < 13.0 mg/dL (NO RANGE EST.); EST Glomerular Filtration Rate 13 mL/min (>60); Est Glom Filt Rate - Afr Amer 16 mL/min (>60)
[2021-11-23 14:24] LABS: 24 Hour Urine Protein 2948.4 mg/24HR (<150 MG/24HR); 24HR. UA Prot. Total Volume 2925 mL; Urine Protein (24 Hour) 100.8 mg/dL (<11.9)
== END 2021-11-23 23:59 | disposition home or self-care (01) ==
LOC: LAB 09:57
PROVIDERS: PCP Internal Medicine; Referring Provider Internal Medicine Nephrology; Visit Provider Internal Medicine Nephrology
DX: N18.5 Chronic kidney disease, stage 5 (principal); N25.81 Secondary hyperparathyroidism of renal origin; D63.8 Anemia in other chronic diseases classified elsewhere
CPT/HCPCS: 36415; 80069; 81050; 82575; 83970; 84156; 85027

== ENCOUNTER → 2021-12-01 | Outpatient (CLI) | payer BC, MEDICARE, SELFPAY ==
[2021-12-01 12:56] LABS: Hepatitis B Surface Antigen Non-Reactive (Nonreactive)
== END | disposition home or self-care (01) ==
LOC: LABSPEC 10:08
PROVIDERS: PCP Internal Medicine; Visit Provider Internal Medicine Nephrology
DX: N18.5 Chronic kidney disease, stage 5 (principal)
CPT/HCPCS: 36415; 82570; 87340

== ENCOUNTER 2021-12-06 08:59 | Day surgery (SDC) | payer BC, MEDICARE, SELFPAY ==
[2021-12-06 10:14] VITALS: BP 133/97; PULSE 59; RESP 14; TEMP 36.2; O2SAT 98; BMI 22.1
--- NOTE | 2021-12-06 11:26 | PCM.HP.BLA ---
History and Physical Date of Admission: 12/06/21 Date of Service: 12/05/21 MR#:[id number]: ERIN RODGERSRep #:[id number] Provider:Dr. Echo Roque MDAge/Sex: 71/M [facility] Int[facility] Vital Signs 12/05/21 14:13 Height 5 ft 9 in Weight: 151 lb BMI 22.3 BP 130/84 H Blood Pressure Location Rt brachial Position Sitting Respiration 18 Pulse 80 Pulse Source Monitor Temp 97.9 F Temp Source Temporal Pulse Oximetry (%) 98 Oxygen Delivery Method room air Intake Visit Reasons: DIALYSIS CATHETER Allergies amoxicillin Allergy (Verified 12/05/21 14:15) Unknown chlorhexidine Allergy (Verified 12/05/21 14:15) Hives ciprofloxacin Allergy (Verified 12/05/21 14:15) Unknown codeine Adverse Reaction (Verified 12/05/21 14:15) Other [facility] Medical History Schreiber esophagus Chronic kidney disease, stage IV (severe) Congenital hydronephrosis COPD (chronic obstructive pulmonary disease) Dysphagia ESRD (end stage renal disease) Essential (primary) hypertension GERD (gastroesophageal reflux disease) History of CVA (cerebrovascular accident) (2011) History of paroxysmal supraventricular tachycardia Hyperlipidemia Inguinal hernia Lung nodule Macular degeneration Obstructive nephropathy Pyelonephritis Self-catheterizes urinary bladder Surgical History AVF (arteriovenous fistula) History of appendectomy History of colonoscopy History of hemorrhoidectomy History of prostatectomy History of sinus surgery Family History (Updated 12/05/21 @ 14:13 by Cecelia Sunday) Mother Cancer stomach Brother CVA (cerebral vascular accident) Social History (Updated 10/06/21 @ 13:[address] Maykel Wilson MD) household members: family Smoking Status: Former smoker quit date: 08/13/11 pack-years: 72 alcohol intake: never substance use type: does not use HPI HPI HPI: ERIN RODGERS, is a 71 M who presents to the office today for placement of dialysis cath. Due to worsening acute kidney disease?most recent creatinine is 4.7 in September is 4.4. Patient had a previous pulseless catheter 7 years ago per patient?on the right. Patient also had a previous placement of the left distal wrist fistula however unable to be used. ROS General General: Yes fatigue; No weight change, appetite, colon cancer or breast cancer HEENT HEENT: Yes difficulty swallowing; No eye injury, eye surgery, swollen glands or hoarseness Endo Endocrine: Yes diabetes mellitus; No thyroid disease, thyroid cancer, Hair loss, heat intolerance or cold intolerance Skin Skin: No rash or changing moles Musc Musculoskeletal: Yes arthritis; No back problems, rheumatoid arthritis, gout or joint pain Cardio Cardiovascular: Yes heart disease and high blood pressure; No murmur, pacemaker, atrial fibrillation, heart attack, heart stent, palpitations, shortness of breat with exertion or chest pain Psych Psychiatric: No depression, anxiety or hearing voices Resp Respiratory: Yes shortness of breath, No sleep apnea, No cough, Yes COPD, No asthma, No emphysema and No wheezing Gastro Gastrointestinal: No abdominal pain, Yes nausea or vomiting, No diarrhea, Yes constipation, No blood in stool, Yes acid reflux, Yes hemorrhoids, No ulcers, No gallbladder problem and No black,tarry stools Kvng Hematologic: No blood thinners, No blood disorders, No bleeding, No anemia and No blood clots Neuro Neurologic: No abnormal speech and No confusion Exam Const General: cooperative, healthy appearing, comfortable and no acute distress Neck Neck: normal visual inspection Chest Other: Scar from previous hemodialysis cath on right chest. Resp Effort & Inspection: normal respiratory effort Cardio Rate: regular rate GI Inspection: non-distended Palpation: soft, no guarding and nontender Skin General: no rashes or lesions noted Neuro General: patient oriented x3 Extrem General: AV fistula Other: Left distal wrist AV fistula weak thrill more proximally. Psych Affect: normal affect Assessment and Plan Assessment and Plan (1) Chronic kidney disease, stage IV (severe): Status: Chronic Plan - Dr. Echo Roque MD: Discussed with the patient and his daughter that the planned procedure of placement of a right IJ possible left tunneled dialysis catheter. The risks not limited to bleeding, infection, malfunction of the catheter. Patient and his daughter had no further questions time. We will schedule to be done this week the patient will be able to get dialysis sometime this week as well. Patient was also given reminders for his vein mapping as well as a follow-up appointment Dr. Rodriguez to discuss fistula. Echo Roque M.D. Pager: [phone] [facility] [address] [place] [address], [facility], [address] [place] [address] Office: [phone] Coding Level of Care Code Off vis,new,level 3 Diagnoses Chronic kidney disease, stage IV (severe) N18.4 12/05/21 1417<Electronically signed by Echo Roque MD>Date Echo Roque MD
[2021-12-06] MEDS: Cefazolin 2 GM in 0.9% Normal Saline 100 ML IV (12:09)
[2021-12-06] MEDS: Lidocaine 1% /Epi 1:100 (20ml) 20 ML Vial (12:24)
[2021-12-06] MEDS: Heparin 10,000 UNITS/10 ML Vial 10000 UNITS (12:30)
--- NOTE | 2021-12-06 12:40 | OP.PCM_ITS ---
Report of Operation Date of Procedure: 12/06/21 Pre-Operative Diagnosis: Chronic kidney disease need for dialysis access Post-Operative Diagnosis: Same Surgery/Procedure Performed:: Insertion of tunneled right internal jugular dialysis catheter Surgeon: Echo Roque Type of Anesthesia: Local MAC Anesthesiologist: Albert Younger Special Medications: Ancef 2 g IV x1 Estimated Blood Loss (mL): < 10 cc Fluids Replaced: Per anesthesia Description of Procedure: After informed consent was given, the patient was brought to the operating room and placed in the supine position. Appropriate time out protocol was followed. He was then given IV conscious sedation for anesthesia. The patient's right upper chest and neck were then prepped with a surgical skin preparation and sterile surgical drapes were placed. After proper landmarks were ascertained, the skin at the upper right chest area was then infiltrated with 1:1 mixture of 1% lidocaine with epinephrine and 0.75% maricaine. A needle trocar was then inserted into the right internal jugular vein with ultrasound guidance-multiple vessels were viewed with u/s and the right IJ was chosen-- and there was good aspiration of venous blood. A wire was then threaded into the needle trocar and this was visualized under fluoroscopy to ensure that the wire was in the superior vena cava. Once this was done, then the needle trocar was removed. A small incision was made with an 11 blade knife at the wire entrance site. The dilator x2 with the introducer sheath attached was then placed over the wire into the right internal jugular vein via the Seldinger technique and this was visualized under fluoroscopy. Next the intr oducer and sheath were in proper position as visualized by fluoroscopy. The location of the cuffed was estimated on the skin, an incision was made with a 15 blade scalpel. The 14.5 Fr x 19 cm Palindrome dual lumen (Lot [id number] reference [id number]) was tunneled from the chest incision to the right neck incision. The sheath was removed. The catheter was placed through the introducer and was positioned with its tip at the junction of the superior vena cava and the right atrium as visualized under fluoroscopy. The cuff of the catheter was in the subcutaneous tissue. The catheter flushed and zoe well with saline. Catheter was also flushed with 1.6 cc of 1-10,000 of heparin. Hemostasis was assured. Silver dressing was placed at the catheter exit site. Catheter was sutured with 3-0 nylon sutures. The neck incision was sutured with interrupted 3-0 Vicryl interrupted sutures x2 and Steri-Strips were placed. A large OpSite was placed over the catheter site and a small OpSite over the neck incision. The patient tolerated the procedure well. Grafts/Implants Used: 14.5 Fr x 19 cm Palindrome dual lumen (Lot [id number] reference [id number] Complications none
--- NOTE | 2021-12-06 12:41 | EX.PCM.DISCH ---
Discharge Instructions Diet Discharge Diet: Renal Diet Activity Lifting Restrictions: no lifting > 15 lbs w right arm x 1 week Additional Activity Instructions:: Do not shower with port or tape off the port exit site when showering Dressing / Incision Call your doctor if your incision/area has: Continuous Slow Oozing, Sudden Increased Bleeding, Increased Redness and Swelling at the incision site Call your doctor if you observe: Fever of 101 or Higher Change Dressing in: do not change dressing (Will change the dialysis) Cleanse incision/area with: Do not get Incision Wet Follow Up Care Please Follow Up With: Jono Rodriguez MD When: As previously scheduled to discuss fistula after vein mapping complete Test Results: Test results from this visit will be discussed in further detail at your follow-up appointment, if applicable. Discharge Plan Admission Attending Provider: Echo Roque Primary Care Provider: Antoinette Graves Discharge Orders/Prescriptions Prescriptions: No Action sildenafil 100 mg tablet 100 mg PO DAILY PRN (Reason: ACTIVITY) RF: 0 tiotropium-olodaterol 2.5-2.5 mcg/actuation mist 2 puff INHALATION PRN PRN (Reason: sob) RF: 0 ferrous sulfate 325 mg (65 mg iron) tablet 325 mg PO DAILY RF: 0 amlodipine 10 mg tablet 10 mg PO DAILY RF: 0 calcitriol 0.25 mcg capsule 0.25 mcg PO DAILY RF: 0 atorvastatin 10 mg tablet 40 mg PO QPM RF: 0 aspirin [Adult Aspirin Regimen] 81 mg tablet,delayed release (DR/EC) 81 mg PO DAILY RF: 0 hydralazine 10 mg tablet 10 mg PO DAILY RF: 0 famotidine [Acid Cable Television Technician (famotidine)] 10 mg tablet 10 mg PO DAILY RF: 0 melatonin 10 mg capsule 10 mg PO HS PRN (Reason: sleep) RF: 0 acetaminophen [Tylenol] 325 mg capsule 325 mg PO ONCE PRN (Reason: Pain) RF: 0 Ocuvite Adult 50 Plus 1 EACH capsule 1 capsule PO DAILY RF: 0 ondansetron [ondansetron] 4 MG tablet 4 mg PO Q8H PRN PRN (Reason: Nausea) Qty: 10 RF: 0 sennosides-docusate sodium [Senokot-S] 8.6-50 mg Tablet 1 tab PO DAILY PRN (Reason: Constipation) RF: 0 Referrals / Follow Up: Antoinette Graves MD [Primary Care Provider] - Disposition Disposition (needs filled in before D/C Order can be placed): Home, Self Care
[2021-12-06 12:45] VITALS: BP 125/68; BP 133/97; PULSE 65; RESP 16; TEMP 36.3; O2SAT 98
[2021-12-06 12:50] VITALS: BP 125/68; BP 133/97; PULSE 55; RESP 16; O2SAT 99
--- NOTE | 2021-12-06 12:50 | RAD_ITS ---
STUDY: X-RAY CHEST REASON FOR EXAM: Male, 71 years old. dialysis cath TECHNIQUE: Single AP portable view of the chest. COMPARISON: 08/29/2019 FINDINGS: Interval placement of tunneled right internal jugular dialysis catheter tip of the catheter overlying the superior vena cava and no pneumothorax. The lungs are clear and expanded. There is no demonstrated pleural abnormality. Normal size heart. Normal mediastinum and janice. Normal visualized pulmonary arteries. Normal visualized aortic arch and descending thoracic aorta. Normal visualized thoracic spine. Normal visualized ribs, clavicles, and shoulders. There is no demonstrated abnormality of the visualized soft tissue structures of the upper abdomen. RAD/CXR for Line Placement IMPRESSION: 1. Interval placement of tunneled right internal jugular dialysis catheter tip of the catheter overlying the superior vena cava and no pneumothorax. 2. No active pulmonary disease. Electronically Signed: Devon Mcgee MD at 13:05 EDT ,
[2021-12-06 12:55] VITALS: BP 125/106; BP 133/97; PULSE 56; RESP 16; O2SAT 95
[2021-12-06 13:02] VITALS: BP 133/97; BP 142/80; PULSE 54; RESP 16; TEMP 36.1; O2SAT 100
[2021-12-06 13:38] VITALS: BP 133/97
== END 2021-12-06 13:46 | disposition home or self-care (01) ==
LOC: SDC 09:00 → AC 09:01
PROVIDERS: PCP Internal Medicine; Referring Provider Surgery; Visit Provider Surgery
PROC: (CPT 36561; principal; 2021-12-06 11:45)
DX: I12.0 Hypertensive chronic kidney disease with stage 5 chronic kidney disease or end stage renal disease (principal); J44.9 Chronic obstructive pulmonary disease, unspecified; N18.4 Chronic kidney disease, stage 4 (severe); E78.5 Hyperlipidemia, unspecified; Z87.891 Personal history of nicotine dependence; Z86.73 Personal history of transient ischemic attack (TIA), and cerebral infarction without residual deficits; Z86.79 Personal history of other diseases of the circulatory system
CPT/HCPCS: 36561; 71045; 77001; J7040; C1750; J1940; J2405

== ENCOUNTER → 2021-12-14 | Outpatient (CLI) | payer BC, MEDICARE, SELFPAY ==
--- NOTE | 2021-12-14 14:12 | VDUE_ITS ---
Reason For Study: pre op testing Right Arm Left Arm Right cephalic vein is compressible. Left cephalic vein is compressible. Right Cephalic Vein at the shoulder Left Cephalic Vein at the shoulder measures .41 x .44 cm. measures .2 x .21 cm. Right Cephalic Vein mid bicep measures .4 Left Cephalic Vein at mid bicep measures .15 x .42 cm. x .16 cm. Right Cephalic Vein above antecub Left Cephalic Vein above antecub measures .07 measures .36 x .38 cm. x .12 cm. Right Cephalic Vein below antecub Left Cephalic Vein below antecub measures .21 measures .12 x .12 cm. x .21 cm. Right Cephalic Vein in the forearm Left Cephalic Vein in the forearm measures .23 x .24 cm. measures .07 x .10 cm. Right Cephalic Vein at the wrist measures .37 Left Cephalic Vein at the wrist measures .54 x .38 cm. x .57 cm. Right basilic vein is compressible. Previous graft noted at the wrist. Appears to Right Basilic Vein mid bicep measures .53 be a Radial artery to Cephalic vein graft. x .49 cm. Mid graft with a velocity of 25.1 cm/s. Right Basilic Vein above antecub measures .45 Left basilic vein is compressible. x .51 cm. Basilic vein at bicep measures .67 x .71 cm. Right Basilic Vein below antecub measures .19 Basilic vein above antecub measures .71 x .69 x .21 cm. cm. Right Basilic Vein in the forearm Basilic vein below antecub measures .47 x .46 measures .23 x .24 cm. cm. Right Basilic Vein at the wrist measures .1 Basilic vein in the forearm measures .45 x .11 cm. x .48 cm. Brachial art .35 x .41 cm. Basilic vein at the wrist measures .32 x .32 Brachial art 97.3 cm/s. cm. Radial art .23 x .27 cm. Brachial art .45 x .47 cm. Radial art 68.6 cm/s. Brachial art 143.6 cm/s. Radial art .36 x .44 cm. Radial art 83.2 cm/s. VL/Saphenous Vein Mapping, Bilat Interpretation Summary Patent and compressible right upper arm cephalic vein. Small right cephalic vein just distal to the antecubital crease. Patent and compressible right forearm cephalic vein Patent and compressible right upper arm basilic vein with adequate diameter Small right basilic vein of the forearm Small left upper arm cephalic vein. Details of previous fistula surgery unknown but appears to be a radiocephalic f istula of the forearm with marked diminished flow in the mid fistula at 25 cm/s. Patent and compressible left basilic vein throughout the forearm and upper arm with generous diameter Normal diameter and flow bilateral radial and brachial arteries Ordering Physician: Jono Rodriguez Performed By: Shimon Sanchez, RVT ?
== END | disposition home or self-care (01) ==
LOC: CVS 14:11
PROVIDERS: PCP Internal Medicine; Referring Provider Surgery; Visit Provider Surgery
DX: Z01.818 Encounter for other preprocedural examination (principal); N18.6 End stage renal disease
CPT/HCPCS: 93970

== ENCOUNTER 2021-12-17 15:40 | Emergency (ER) | payer BC, MEDICARE, SELFPAY ==
[2021-12-17 15:41] VITALS: PULSE 84; RESP 16; TEMP 36.3; O2SAT 95; BMI 20.7
[2021-12-17 15:43] VITALS: BP 145/78; PULSE 78; RESP 16; TEMP 37.1; O2SAT 97
[2021-12-17 16:43] VITALS: BP 166/72; PULSE 67; RESP 18; TEMP 36.9; O2SAT 98
--- NOTE | 2021-12-17 16:55 | EX.ED.DYSGE1 ---
HPI History of Present Illness Chief Complaint: Other, Pain/Inj Narrative Narrative: 71-year-old male who has end-stage renal disease on dialysis, Sunday, Sunday, Sunday currently and will start this Sunday. He was Sunday, , Sunday. He has not missed a day. He did go to dialysis today prior to coming. It was noticed that he had a tremor when he was resting. He states that he had this since . He denies the chills. No fevers. No nausea or vomiting. [facility] Medical History Arthritis Schreiber esophagus Chronic cough Chronic kidney disease, stage IV (severe) Congenital hydronephrosis COPD (chronic obstructive pulmonary disease) Dysphagia Easy bruising ESRD (end stage renal disease) Essential (primary) hypertension Former smoker Gastric reflux GERD (gastroesophageal reflux disease) High cholesterol History of CVA (cerebrovascular accident) (2011) History of paroxysmal supraventricular tachycardia History of renal dialysis History of renal disease Hyperlipidemia Hypertension Inguinal hernia Leg cramps Low iron Lung nodule Macular degeneration Obstructive nephropathy Pyelonephritis Self-catheterizes urinary bladder Shortness of breath on exertion TIA (transient ischemic attack) Wears dentures Wears glasses Home Medications Ocuvite Adult 50 Plus 1 capsule PO DAILY 10/26/17 [History Last Taken 10/25/17] amlodipine 10 mg tablet 10 mg PO DAILY tablet 12/03/20 [History Last Taken Unknown] calcitriol 0.25 mcg capsule 0.25 mcg PO DAILY cap 12/03/20 [History Last Taken Unknown] ferrous sulfate 325 mg (65 mg iron) tablet 325 mg PO DAILY 12/03/20 [History Last Taken Unknown] sildenafil 100 mg tablet 100 mg PO DAILY PRN 12/03/20 [History Last Taken Unknown] tiotropium 2.5 mcg-olodaterol 2.5 mcg/actuation mist for inhalation 2 puff INHALATION PRN PRN 12/03/20 [History Last Taken Unknown] ondansetron 4 mg PO Q8H PRN PRN #10 tab 10/06/21 [Rx Last Taken Unknown] acetaminophen 325 mg capsule 325 mg PO ONCE PRN 12/05/21 [History Last Taken Unknown] aspirin 81 mg tablet,delayed release 81 mg PO DAILY 12/05/21 [History Last Taken Unknown] atorvastatin 10 mg tablet 40 mg PO QPM tab 12/05/21 [History Last Taken Unknown] famotidine 10 mg tablet 10 mg PO DAILY 12/05/21 [History Last Taken Unknown] hydralazine 10 mg tablet 10 mg PO DAILY tab 12/05/21 [History Last Taken Unknown] melatonin 10 mg capsule 10 mg PO HS PRN 12/05/21 [History Last Taken Unknown] sennosides-docusate sodium [Senokot-S] 1 tab PO DAILY PRN 12/06/21 [History Last Taken Unknown] Allergy/AdvReac Type Severity Reaction Status Date / Time amoxicillin Allergy Unknown Verified 12/05/21 14:15 chlorhexidine Allergy Hives Verified 12/05/21 14:15 ciprofloxacin Allergy Unknown Verified 12/05/21 14:15 codeine AdvReac Other Verified 12/05/21 14:15 Family History (Updated 12/05/21 @ 14:13 by Cecelia Sunday) Mother Cancer stomach Brother CVA (cerebral vascular accident) Surgical History AVF (arteriovenous fistula) History of appendectomy History of colonoscopy History of hemorrhoidectomy History of prostatectomy History of sinus surgery Social History (Updated 12/05/21 @ 14:13 by Cecelia Sunday) household members: family Smoking Status: Former smoker quit date: 08/13/11 pack-years: 72 alcohol intake: never substance use type: does not use ROS ROS ED Constitutional Constitutional ED: Denies chills, fever(s) or sweats Eyes Eyes: Denies blurry vision ENT ENT ED: Denies rhinorrhea or sore throat Cardiovascular Cardiovascular: Denies chest pain or palpitations Respiratory/Chest Respiratory/Chest: Denies cough, dyspnea or sputum Gastrointestinal Gastrointestinal: Denies abdominal pain, nausea or vomiting Musculoskeletal Musculoskeletal: Denies arthralgias or myalgias Integumentary Denies rash Neurologic Neurologic: Denies headache(s) or weakness Psychiatric Psychiatric: Denies anxiety or depression EXAM Physical Exam Const Vital Signs: 12/17/21 15:41 12/17/21 15:43 12/17/21 15:50 Temperature 97.4 F L 98.8 F Temperature Source Temporal Temporal Pulse Rate 84 78 Respiratory Rate 16 16 Respiratory Effort Normal Respiratory Pattern Normal Blood Pressure 145/78 H Blood Pressure Mean 100 Pulse Ox 95 97 Oxygen Delivery Method Room Air Room Air 12/17/21 16:43 12/17/21 18:00 12/17/21 19:48 Temperature 98.4 F Temperature Source Temporal Pulse Rate 67 78 Respiratory Rate 18 16 Respiratory Effort Respiratory Pattern Blood Pressure 166/72 H 138/62 H Blood Pressure Mean 103 87 Pulse Ox 98 98 98 Oxygen Delivery Method Room Air Room Air Negative for well nourished General Appearance ED: Negative for NAD or pallor HEENT Reports moist mucous membranes trauma Eyes PERRL and EOMs intact bilaterally Neck no lymphadenopathy and supple Resp normal respiratory effort and clear to auscultation bilaterally Cardio regular rate and regular rhythm Neuro oriented x3, CN's II-XII intact bilaterally and no sensory deficits noted Neuro Narrative: Noted to have a resting tremor on examination which involves bilateral arms. Sensorium / Orientation: alert Motor Exam: strength 5/5 throughout Psych mental status grossly normal Skin no rashes or lesions noted General Skin Exam: Negative for jaundice or pallor MDM MDM MDM Narrative Medical decision making narrative: Patient presenting with a tremor which is new since . He denies that it is the chills or he is having any pain associated with it. He is made all of his dialysis treatments. He has not had any fevers or other significant problems recently. He is on the transplant list. Patient is to start dialysis Sunday, Sunday, Sunday this week. I obtained basic lab work and his CBC is unremarkable. His BMP is consistent with renal disease although his creatinine is 2.24 and his GFR is 31 which is the better end of the spectrum for him. His potassium slightly low at 3.3. His LFTs are normal. Patient expressed concern for possible low calcium and corrected his calcium was normal. I do not have a source for the patient's tremor but his blood work is normal and his vital signs are stable he is afebrile. He is mentating clearly he has no complaint except for tremor. I believe the patient safe for outpatient follow-up. Impression: 1. Resting tremor Lab Data Attestation: I reviewed the patient's lab results. Labs: Laboratory Results - last 24 hr 12/17/21 12/17/21 12/17/21 16:05 16:05 16:05 WBC 9.6 RBC 3.78 L Hgb 11.9 L Hct 36.4 L MCV 96.3 H MCH 31.5 MCHC 32.7 RDW Std Deviation 45.5 H RDW Coeff of [place] 13.0 Plt Count 242 MPV 9.9 Immature Gran % (Auto) 0.400 Neut % (Auto) 61.6 Lymph % (Auto) 22.5 Harlan % (Auto) 11.3 H Eos % (Auto) 3.5 Baso % (Auto) 0.7 Absolute Neuts (auto) 5.9 Absolute Lymphs (auto) 2.17 Nucleated RBC % 0 Sodium 140 Potassium 3.3 L Chloride 102 Carbon Dioxide 30.0 Anion Gap 8 BUN 17 Creatinine 2.24 H Estim Creat Clear Calc 27.17 Est GFR (MDRD) Af Amer 37 L Est GFR (MDRD) Non-Af 31 L BUN/Creatinine Ratio 7.6 L Glucose 92 Calcium 8.0 L Total Bilirubin 0.50 Direct Bilirubin 0.08 AST 21 ALT 17 Alkaline Phosphatase 90 Total Protein 6.9 Albumin 3.1 L Globulin 3.8 Discharge Plan Triage Chief Complaint: Other, Pain/Inj ED Provider: Tomás Stanley Dx/Rx/DC Orders Instructions: Essential Tremor (ET) Prescriptions: No Action sildenafil 100 mg tablet 100 mg PO DAILY PRN (Reason: ACTIVITY) RF: 0 tiotropium-olodaterol 2.5-2.5 mcg/actuation mist 2 puff INHALATION PRN PRN (Reason: sob) RF: 0 ferrous sulfate 325 mg (65 mg iron) tablet 325 mg PO DAILY RF: 0 amlodipine 10 mg tablet 10 mg PO DAILY RF: 0 calcitriol 0.25 mcg capsule 0.25 mcg PO DAILY RF: 0 atorvastatin 10 mg tablet 40 mg PO QPM RF: 0 aspirin [Adult Aspirin Regimen] 81 mg tablet,delayed release (DR/EC) 81 mg PO DAILY RF: 0 hydralazine 10 mg tablet 10 mg PO DAILY RF: 0 famotidine [Acid Client Care Representative (famotidine)] 10 mg tablet 10 mg PO DAILY RF: 0 melatonin 10 mg capsule 10 mg PO HS PRN (Reason: sleep) RF: 0 acetaminophen [Tylenol] 325 mg capsule 325 mg PO ONCE PRN (Reason: Pain) RF: 0 Ocuvite Adult 50 Plus 1 EACH capsule 1 capsule PO DAILY RF: 0 ondansetron [ondansetron] 4 MG tablet 4 mg PO Q8H PRN PRN (Reason: Nausea) Qty: 10 RF: 0 sennosides-docusate sodium [Senokot-S] 8.6-50 mg Tablet 1 tab PO DAILY PRN (Reason: Constipation) RF: 0 Primary Care Provider: Antoinette Graves Referrals: Antoinette Graves MD [Primary Care Provider] - Disposition Disposition: Home, Self Care Discharge Date/Time: 12/17/21 19:48
[2021-12-17 16:56] LABS: Anion Gap 8 (5-15); BUN 17 mg/dL (7-18); BUN/Creat Ratio 7.6 RATIO (10-20); Chloride 102 mmol/L (98-107); Creatinine, Serum 2.24 mg/dL (0.70-1.30); EST Glomerular Filtration Rate 31 mL/min (>60); Est Glom Filt Rate - Afr Amer 37 mL/min (>60); Estimated Creatinine Clearance 27.17 ml/min; Glucose 92 mg/dL (74-106); Potassium 3.3 mmol/L (3.5-5.1); Sodium Level 140 mmol/L (136-145)
[2021-12-17 16:58] LABS: Absolute Lymphocyte Count 2.17 X10^3/uL (0.83-4.51); Absolute Neutrophil Count 5.9 X10^3/uL (2.0-7.7); Basophil# 0.07 X10^3/uL; Basophil% 0.7 % (0-1); Eosinophil# 0.34 X10^3/uL; Eosinophils% 3.5 % (0-5); Hematocrit 36.4 % (40-54); Hemoglobin 11.9 g/dL (13.0-16.5); Lymphocyte # 2.17 X10^3/ul (0.83-4.51); Lymphocyte % 22.5 % (19-41); Mean Corp Hgb Conc 32.7 g/dL (32-36); Mean Corpuscular Hgb 31.5 pg (27.0-32.0); Mean Corpuscular Volume 96.3 fL (80-94); Mean Platelet Vol. 9.9 fl (6.2-12.0); Monocyte# 1.09 X10^3/uL; Monocyte% 11.3 % (0-10); NRBC Flagged by Analyzer 0 % (0-5); Neutrophil # 5.93 X10^3/uL (2.7-7.7); Neutrophil % 61.6 % (47-70); Platelet Count 242 K/mm3 (150-450); RBC Distribution Width SD 45.5 fl (35.1-43.9); Red Blood Count 3.78 M/mm3 (4.6-6.2); White Blood Count 9.6 K/mm3 (4.4-11.0)
[2021-12-17 17:23] LABS: AST(SGOT) 21 U/L (15-37); Alanine Aminotransfer ALT/SGPT 17 U/L (16-61); Albumin, Serum 3.1 g/dL (3.2-5.0); Alkaline Phosphatase 90 U/L (45-117); Bilirubin, Direct 0.08 mg/dL (0.00-0.30); Globulin 3.8 g/dL (2.2-4.2); Protein, Total 6.9 g/dL (6.4-8.2)
[2021-12-17 18:00] VITALS: BP 138/62; PULSE 78; RESP 16; O2SAT 98
[2021-12-17 19:48] VITALS: O2SAT 98
== END 2021-12-17 19:48 | disposition home or self-care (01) ==
PROVIDERS: Emergency Provider Student in an Organized Health Care Education/Training Program; PCP Internal Medicine; Visit Provider Student in an Organized Health Care Education/Training Program
DX: G25.2 Other specified forms of tremor (principal); Z99.2 Dependence on renal dialysis; J44.9 Chronic obstructive pulmonary disease, unspecified; I12.0 Hypertensive chronic kidney disease with stage 5 chronic kidney disease or end stage renal disease; N18.6 End stage renal disease; E78.5 Hyperlipidemia, unspecified; E78.00 Pure hypercholesterolemia, unspecified; Z87.891 Personal history of nicotine dependence; Z86.73 Personal history of transient ischemic attack (TIA), and cerebral infarction without residual deficits
CPT/HCPCS: 80048; 80076; 85025; 99282; A4216

== ENCOUNTER 2022-01-25 05:37 | Day surgery (SDC) | payer BC, MEDICARE, SELFPAY ==
[2022-01-23 11:43] LABS: Hematocrit 35.6 % (40-54); Hemoglobin 11.6 g/dL (13.0-16.5); Mean Corp Hgb Conc 32.6 g/dL (32-36); Mean Corpuscular Hgb 32.4 pg (27.0-32.0); Mean Corpuscular Volume 99.4 fL (80-94); Mean Platelet Vol. 9.2 fl (6.2-12.0); Platelet Count 284 K/mm3 (150-450); RBC Distribution Width CV 12.8 % (11.6-14.6); RBC Distribution Width SD 46.6 fl (35.1-43.9); Red Blood Count 3.58 M/mm3 (4.6-6.2); White Blood Count 6.6 K/mm3 (4.4-11.0)
[2022-01-23 11:52] LABS: Prothrombin Time (Protime)PT. 12.7 SECONDS (11.7-14.9)
[2022-01-23 11:53] LABS: Partial Thromboplast Time 37.8 Seconds (24.1-36.2)
[2022-01-23 12:01] LABS: Anion Gap 5 (5-15); BUN 22 mg/dL (7-18); BUN/Creat Ratio 7.1 RATIO (10-20); Calcium,Total 8.2 mg/dL (8.5-10.1); Chloride 100 mmol/L (98-107); Creatinine, Serum 3.11 mg/dL (0.70-1.30); EST Glomerular Filtration Rate 21 mL/min (>60); Est Glom Filt Rate - Afr Amer 26 mL/min (>60); Glucose 114 mg/dL (74-106); Potassium 3.2 mmol/L (3.5-5.1); Sodium Level 139 mmol/L (136-145)
[2022-01-23 12:07] LABS: AST(SGOT) 21 U/L (15-37); Alanine Aminotransfer ALT/SGPT 29 U/L (16-61); Albumin, Serum 3.5 g/dL (3.2-5.0); Alkaline Phosphatase 87 U/L (45-117); Bilirubin, Direct 0.14 mg/dL (0.00-0.30); Globulin 4.1 g/dL (2.2-4.2); Protein, Total 7.6 g/dL (6.4-8.2)
[2022-01-25 06:30] VITALS: BP 133/68; PULSE 50; RESP 16; TEMP 36.5; O2SAT 99; BMI 21.4
--- NOTE | 2022-01-25 06:37 | HP.PCM_ITS ---
History and Physical Date of Admission: 01/25/22 Visit Reasons:?fistula consult, VM 12/14/21 Allergies amoxicillin Allergy (Verified 12/22/21 12:16) Unknownchlorhexidine Allergy (Verified 12/22/21 12:16) Hivesciprofloxacin Allergy (Verified 12/22/21 12:16) Unknowncodeine Adverse Reaction (Verified 12/22/21 12:16) Other Medications Ocuvite Adult 50 Plus 1 capsule PO DAILY 10/26/17 [History Confirmed 12/22/21] amlodipine 10 mg tablet 10 mg PO DAILY? tablet 12/03/20 [History Confirmed 12/22/21] calcitriol 0.25 mcg capsule 0.25 mcg PO DAILY? cap 12/03/20 [History Confirmed 12/22/21] ferrous sulfate 325 mg (65 mg iron) tablet 325 mg PO DAILY 12/03/20 [History Confirmed 12/22/21] sildenafil 100 mg tablet 100 mg PO DAILY PRN 12/03/20 [History Confirmed 12/22/21] tiotropium 2.5 mcg-olodaterol 2.5 mcg/actuation mist for inhalation 2 puff INHALATION PRN PRN 12/03/20 [History Confirmed 12/22/21] ondansetron 4 mg PO Q8H PRN PRN #10 tab 10/06/21 [Rx Confirmed 12/22/21] acetaminophen 325 mg capsule 325 mg PO ONCE PRN 12/05/21 [History Confirmed 12/22/21] aspirin 81 mg tablet,delayed release 81 mg PO DAILY 12/05/21 [History Confirmed 12/22/21] atorvastatin 10 mg tablet 40 mg PO QPM? tab 12/05/21 [History Confirmed 12/22/21] famotidine 10 mg tablet 10 mg PO DAILY 12/05/21 [History Confirmed 12/22/21] hydralazine 10 mg tablet 10 mg PO DAILY? tab 12/05/21 [History Confirmed 12/22/21] melatonin 10 mg capsule 10 mg PO HS PRN 12/05/21 [History Confirmed 12/22/21] sennosides-docusate sodium [Senokot-S] 1 tab PO DAILY PRN 12/06/21 [History Confirmed 12/22/21] PFSH Medical History?(Updated 12/22/21 @ 12:[address] Jono Rodriguez MD) Arthritis Schreiber esophagus Chronic cough Chronic kidney disease, stage IV (severe) Congenital hydronephrosis COPD (chronic obstructive pulmonary disease) Dysphagia Easy bruising ESRD (end stage renal disease) Essential (primary) hypertension Former smoker Gastric reflux GERD (gastroesophageal reflux disease) High cholesterol History of CVA (cerebrovascular accident) (2011) History of paroxysmal supraventricular tachycardia History of renal dialysis History of renal disease Hyperlipidemia Hypertension Inguinal hernia Leg cramps Low iron Lung nodule Macular degeneration Obstructive nephropathy Pyelonephritis Self-catheterizes urinary bladder Shortness of breath on exertion TIA (transient ischemic attack) Wears dentures Wears glasses Surgical History? AVF (arteriovenous fistula) History of appendectomy History of colonoscopy History of hemorrhoidectomy History of prostatectomy History of sinus surgery Family History? Mother Cancer ?? ? stomachBrother CVA (cerebral vascular accident) Social History? household members:? family Smoking Status:? Former smoker quit date: 08/13/11 pack-years: 72 alcohol intake:? never substance use type:? does not use HPI HPI HPI: ERIN RODGERS, is a 71 M who presents to the office today for surgical consultation regarding placement of arteriovenous hemodialysis fistula.? The patient was seen in the office by Dr. Roque on December 05, [address] Marti Ramesh and subsequently the following day December 06, 2021 Dr. Roque placed tunneled right internal jugular 19 cm palindrome catheters.? The patient is now in need of a hemodialysis fistula.? As noted below December 14, 2021 had vein mapping procedure done.? Apparently the patient had a previous graft at the wrist seemingly radiocephalic with markedly diminished flow.? Cephalic vein throughout the left upper extremity is quite small The patient states that he had this left forearm radiocephalic AV fistula created by Dr. Selena Monzon in [place].? She has seen him in follow-up and states that the fistula is ready for use.? The patient has been seen by Dr. Marti Ramesh and feels that it is not.? The patient is referred for additional surgical consultation The patient is currently on hemodialysis via tunneled right IJ catheters.? He states that his blood seems to want to clot frequently and so they are providing him heparin for his hemodialysis.? He denies any known chronic clotting disorder.? Denies history of DVT.? Denies myocardial infarction or stroke December 14, 2021 Reason For Study: pre op testing Right Arm? Left Arm Right cephalic vein is compressible. ? Left cephalic vein is compressible. Right Cephalic Vein at the shoulder? Left Cephalic Vein at the shoulder measures .41 x .44 cm. ? measures .2 x .21 cm. Right Cephalic Vein mid bicep measures .4? Left Cephalic Vein at mid bicep measures .15 x .42 cm.? x .16 cm. Right Cephalic Vein above antecub? Left Cephalic Vein above antecub measures .07 measures .36 x .38 cm. ? x .12 cm. Right Cephalic Vein below antecub? Left Cephalic Vein below antecub measures .21 measures .12 x .12 cm. ? x .21 cm. Right Cephalic Vein in the forearm ? Left Cephalic Vein in the forearm measures .23 x .24 cm.?measures .07 x .10 cm. Right Cephalic Vein at the wrist measures .37? Left Cephalic Vein at the wrist measures .54 x .38 cm.? x .57 cm. Right basilic vein is compressible.? Previous graft noted at the wrist. Appears to Right Basilic Vein mid bicep measures .53? be a Radial artery to Cephalic vein graft. x .49 cm.? Mid graft with a velocity of 25.1 cm/s. Right Basilic Vein above antecub measures .45? Left basilic vein is compressible. x .51 cm.? Basilic vein at bicep measures .67 x .71 cm. Right Basilic Vein below antecub measures .19? Basilic vein above antecub measures .71 x .69 x .21 cm.? cm. Right Basilic Vein in the forearm? Basilic vein below antecub measures .47 x .46 measures .23 x .24 cm. ? cm. Right Basilic Vein at the wrist measures .1? Basilic vein in the forearm measures .45 x .11 cm.? x .48 cm. Brachial art .35 x .41 cm. ? Basilic vein at the wrist measures .32 x .32 Brachial art 97.3 cm/s.? cm. Radial art .23 x .27 cm. ? Brachial art .45 x .47 cm. Radial art 68.6 cm/s.? Brachial art 143.6 cm/s. ? Radial art .36 x .44 cm. ? Radial art 83.2 cm/s. VL/Saphenous Vein Mapping, Bilat Interpretation Summary Patent and compressible right upper arm cephalic vein. Small right cephalic vein just distal to the antecubital crease. Patent and compressible right forearm cephalic vein Patent and compressible right upper arm basilic vein with adequate diameter Small right basilic vein of the forearm ? Small left upper arm cephalic vein. Details of previous fistula surgery unknown but appears to be a radiocephalic fistula of the forearm with marked diminished flow in the mid fistula at 25 cm/s. Patent and compressible left basilic vein throughout the forearm and upper arm with generous diameter ? Normal diameter and flow bilateral radial and brachial arteries ? Ordering Physician: Jono Rodriguez Performed By: Shimon Sanchez Quan ? 12/14/21 [id number] Jono Rodriguez MD ROS General General: Yes fatigue; No weight change, appetite, colon cancer or breast cancer HEENT HEENT: Yes difficulty swallowing; No eye injury, eye surgery, swollen glands or hoarseness Endo Endocrine: Yes diabetes mellitus; No thyroid disease, thyroid cancer, Hair loss, heat intolerance or cold intolerance Skin Skin: No rash or changing moles Musc Musculoskeletal: Yes arthritis; No back problems, rheumatoid arthritis, gout or joint pain Cardio Cardiovascular: Yes heart disease and high blood pressure; No murmur, pacemaker, atrial fibrillation, heart attack, heart stent, palpitations, shortness of breat with exertion or chest pain Psych Psychiatric: No depression, anxiety or hearing voices Resp Respiratory: Yes shortness of breath, No sleep apnea, No cough, Yes COPD, No asthma, No emphysema and No wheezing Gastro Gastrointestinal: No abdominal pain, Yes nausea or vomiting, No diarrhea, Yes constipation, No blood in stool, Yes acid reflux, Yes hemorrhoids, No ulcers, No gallbladder problem and No black,tarry stools Kvng Hematologic: No blood thinners, No blood disorders, No bleeding, No anemia and No blood clots Neuro Neurologic: No abnormal speech and No confusion Exam Const General: cooperative [facility] Head: normal to inspection Eyes General: appearance normal, both eyes and all related structures Neck Neck: normal visual inspection Chest Chest palpation & inspection: normal inspection of the chest Resp Effort & Inspection: normal respiratory effort Auscultation: clear to auscultation bilaterally Cardio Rate: regular rate Rhythm: regular rhythm GI Palpation: soft and no hepatosplenomegaly Skin General: no rashes or lesions noted Neuro General: patient alert and patient awake Extrem Other: Left forearm 6 cm along radiocephalic AV fistula of very pulsatile no thrill no bruit.? Ultrasound section demonstrates that the fistula the cephalic vein eventually obliterates into no visible vein for the remainder of the forearm and very diminutive vein of the upper arm.? He has a quite visible basilic vein of the forearm that is patent compressible throughout.? Brachial pulses 3+. Assessment and Plan Assessment and Plan (1) ESRD (end stage renal disease): ?Status:?Acute ?Plan - Dr. Jono Rodriguez MD: 71-year-old gentleman with failed attempt at left forearm radiocephalic AV fistula performed elsewhere.? End-stage renal disease.? On chronic dialysis via tunneled right IJ hemodialysis catheters.? He is right arm dominant.? He states he clots easily and is supposed to be on low-dose aspirin daily. I propose for him a transposition left forearm basilic vein loop brachial artery AV fistula creation.? I have discussed the technique, benefit, risk, alternatives.? He has had an opportunity to ask and have questions answered.? We will schedule and proceed at his discretion.? I appreciate the opportunity of assisting with the surgical care.? At the time of that procedure anticipate ligation of his short segment left forearm radiocephalic AV fistula. Copy: Dr. Marti Ramesh and Dr. Antoinette Rodriguez M.D., F.A.C.S. I have re-examined the patient. There are no clinical changes since date of exam.
--- NOTE | 2022-01-25 07:25 | DCINST_ITS ---
Discharge Instructions Procedure Fistula Diet Discharge Diet: Renal Diet Activity Discharge Activity: May Not Drive (for 2-3 days or while taking narcotic pain medications.), May Shower and May Take a Tub Bath (in 5 days.) Lifting Restrictions: 5 pounds Keep extremity elevated above heart level: - (Keep arm elevated above the heart level for 3 days.) Dressing / Incision Call your doctor if your incision/area has: Continuous Slow Oozing, Sudden Increased Bleeding (apply pressure and call your doctor.), Increased Pain/ Swelling, Increased Redness and Foul Smelling Discharge Call your doctor if you observe: Fever of 101 or Higher Suture Line Care: Avoid Pulling/Pushing and Avoid Pinching/Bending Cleanse incision/area with: Keep Dressing Clean & Dry Additional Dressing/Incision Instructions:: Please try to keep your dressing clean dry and intact for 3 days. You should then be able to remove the Travis wrap dressing and leave the Steri-Strips intact. Exercise your left hand with a stress ball as often daily as comfortable Follow Up Care Please Follow Up With: Jono Rodriguez MD When: Call [phone] to make an appointment for suture removal and follow up in 1 week. Test Results: Test results from this visit will be discussed in further detail at your follow- up appointment, if applicable. Discharge Plan Admission Attending Provider: Jono Rodriguez Primary Care Provider: Antoinette Graves Discharge Orders/Prescriptions Prescriptions: No Action sildenafil [Viagra] 100 mg tablet 100 mg PO DAILY PRN (Reason: ACTIVITY) Rx Instructions: administer 30 minutes to 4 hours before activity amlodipine 10 mg tablet 10 mg PO DAILY Label Comments: TAKE 1 TABLET BY MOUTH ONCE DAILY calcitriol 0.25 mcg capsule 0.25 mcg PO DAILY Label Comments: TAKE 1 CAPSULE BY MOUTH ONCE DAILY atorvastatin [Lipitor] 10 mg tablet 40 mg PO QPM aspirin [Adult Aspirin Regimen] 81 mg tablet,delayed release (DR/EC) 81 mg PO DAILY hydralazine 10 mg tablet 10 mg PO DAILY melatonin 10 mg capsule 10 mg PO HS PRN (Reason: sleep) acetaminophen [Tylenol] 325 mg capsule 325 mg PO ONCE PRN (Reason: Pain) sevelamer carbonate 800 mg tablet 800 mg PO TID Rx Instructions: must administer with a meal/food omeprazole 20 mg capsule,delayed release(DR/EC) 20 mg PO DAILY Ocuvite Adult 50 Plus 1 EACH capsule 1 capsule PO DAILY sennosides-docusate sodium [Senokot-S] 8.6-50 mg Tablet 1 tab PO DAILY PRN (Reason: Constipation) pantoprazole 40 mg tablet,delayed release (DR/EC) 40 mg PO DAILY Label Comments: TAKE 1 TABLET BY MOUTH ONCE DAILY BEFORE BREAKFAST - TAKE ON EMPTY STOMACH ONE-HALF HOUR BEFORE MEAL Referrals / Follow Up: Antoinette Graves MD [Primary Care Provider] - Disposition Disposition (needs filled in before D/C Order can be placed): Home, Self Care
[2022-01-25] MEDS: Clindamycin 900 MG/50 ML BAG 75 MG IV (07:29)
[2022-01-25] MEDS: Heparin Injection (Vial) 5,000 UNIT/ML VIAL 5000 UNIT (07:46)
[2022-01-25] MEDS: Bupivacaine Mpf 0.5% 30 ML VIAL (09:29)
[2022-01-25] MEDS: Lidocaine 1% (50 ml mdv) 50 ML Vial (09:30)
--- NOTE | 2022-01-25 10:02 | OP.PCM_ITS ---
Problems Associated Problem List Diagnoses (1) ESRD (end stage renal disease): Report of Operation Date of Procedure: 01/25/22 Pre-Operative Diagnosis: End stage renal disease in need of hemodialysis access Post-Operative Diagnosis: Same Surgery/Procedure Performed:: Transposition left forearm basilic vein to radial artery arteriovenous hemodialysis fistula creation Ligation left forearm radiocephalic arteriovenous hemodialysis fistula Description of Surgical Findings:: Timeout informed consent was obtained. 71-year-old gentleman was taken to the operating placed supine on the table underwent general anesthesia the left upper extremity was sterilely prepped and draped clindamycin 900 g were given intravenously. 1% lidocaine mixed 50-50 with 0.5% Marcaine was used as local anesthetic. 40 cc was used. The basilic vein proximal and antecubital space and running along the forearm was ink marked. Left upper extremity sterilely prepped and draped. A longitudinal incision was made over the vein and it was tediously harvested with side branches secured with 4-0 Vicryl ligatures and hemoclips. An incision was made extending past the antecubital space. Good mobilization of the vein was achieved it was irrigated. Ink marked. Length was measured. I felt that may have been a loop fistula back to the brachial artery would shorten the length to make it difficult for accessing so I like to identify the radial artery and approximately the mid to mid proximal forearm longitudinal incision was made sharply sections used to identify the radial artery at that location circumferential control was obtained. The basilic vein had been ligated distally it was tunneled using a straight tunneler it was irrigated and appeared to be in good position. The patient received 7000's of heparin intravenously. Peripheral vascular clamps were placed on the radial artery 11 blade used to make an arteriotomy which was extended with Coronado scissors. End-to-side venous to arterial anastomosis repaired with a running 7- 0 Prolene. Prior to completion there was good antegrade retrograde flow. At the completion a couple repair sutures of 7-0 Prolene was required. There was excellent flow. Good positioning. A piece of Surgicel was placed around the anastomosis. The patient received 20 mg of protamine as reversal. I then made a transfer incision of the left wrist sharp blunt section used to identify the cephalic vein which was occluded in the mid forearm but had side branches still keeping it partially patent. I got circumferential control around the proximal cephalic vein portion of that old radiocephalic fistula and I ligated that with a 2-0 Vicryl. All wounds were now closed with either interrupted or running subcutaneous 3-0 Vicryl. Skin edges approximated with simple sutures or running sutures of 4-0 Monocryl. Skin prep was applied followed by Steri-Strips Telfa soft roll Travis wrap. Sponge and instrument and needle counts were reported to the surgeon be correct. The hand was viable to completion with good capillary refill. Incisions were clean and dry. The fascia itself had a palpable thrill. Specimens none. Drains none. Blood loss 150 cc. Jono Rodriguez M.D., F.A.C.S. Surgeon: Jono Rodriguez Type of Anesthesia: General and Local
[2022-01-25 10:25] VITALS: BP 126/67; BP 133/68; PULSE 59; RESP 16; TEMP 36.6; O2SAT 96
[2022-01-25 10:30] VITALS: BP 121/70; BP 133/68; PULSE 59; RESP 16; O2SAT 96
[2022-01-25 10:45] VITALS: BP 111/62; BP 133/68; PULSE 58; RESP 16; O2SAT 97
[2022-01-25 11:00] VITALS: BP 112/62; BP 133/68; PULSE 60; RESP 16; TEMP 36.2; O2SAT 97
[2022-01-25 11:51] VITALS: BP 132/82; BP 133/68; PULSE 59; RESP 16; TEMP 36.2; O2SAT 94
== END 2022-01-25 12:00 | disposition home or self-care (01) ==
LOC: SDC 05:37 → AC 05:37
PROVIDERS: Anesthesiology; PCP Internal Medicine; Referring Provider Surgery; Visit Provider Surgery
PROC: (CPT 36821; principal; 2022-01-25 07:15)
DX: I12.0 Hypertensive chronic kidney disease with stage 5 chronic kidney disease or end stage renal disease (principal); Z99.2 Dependence on renal dialysis; J44.9 Chronic obstructive pulmonary disease, unspecified; N18.6 End stage renal disease; Z87.891 Personal history of nicotine dependence; Z86.73 Personal history of transient ischemic attack (TIA), and cerebral infarction without residual deficits; E78.5 Hyperlipidemia, unspecified; Q62.0 Congenital hydronephrosis
CPT/HCPCS: 36821; 36415; 80048; 80076; 85027; 85610; 85730; J7040; J2405

== ENCOUNTER → 2022-11-03 | Outpatient (CLI) | payer BC, MEDICARE, SELFPAY ==
--- NOTE | 2022-11-03 18:30 | US_ITS ---
INDICATION: S/P KIDNEY TRANSPLANT, ELEVATED SERUM CREATININE EXAMINATION: Ultrasound US Kidney(s) complete (eg, kidneys and bladder) TECHNIQUE: Jensen scale and color doppler images were obtained of the kidneys. COMPARISON: None. FINDINGS: RIGHT KIDNEY: 9.5 x 4.9 x 4.8 cm. Echogenic. There is no hydronephrosis. 1.4 cm cyst. LEFT KIDNEY: 10.5 x 5.9 x 5.2 cm. Echogenic. There is no hydronephrosis. 1.7 cm cyst. 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 No hydronephrosis. 2.8 x 2.6 x 2.2 cm cyst. 1 x 0.8 x 0.6 cm cyst. URINARY BLADDER: Diffuse urinary bladder wall thickening to 5.6 mm. 48 mL postvoid residual. The ureter jets are not visualized. US/Kidney and Bladder IMPRESSION: Normal appearance of the pelvic transplant kidney with 2 cysts. Incomplete urinary bladder emptying. Urinary bladder wall thickening may be related, or may be sequela of chronic kidney disease. Electronically Signed: Gian Arriaga MD at 20:28 EDT ,
== END | disposition home or self-care (01) ==
LOC: US 18:30
PROVIDERS: PCP Internal Medicine
DX: R79.89 Other specified abnormal findings of blood chemistry (principal); Z94.0 Kidney transplant status
CPT/HCPCS: 76770

== ENCOUNTER 2023-05-21 09:30 | Emergency (ER) | payer BC, MEDICARE, SELFPAY ==
[2023-05-21 09:31] VITALS: BP 132/70; PULSE 51; RESP 16; TEMP 35.7; O2SAT 97; BMI 23.1
[2023-05-21 09:37] VITALS: BP 132/70; PULSE 49; RESP 18; O2SAT 93
--- NOTE | 2023-05-21 09:46 | EKG12_ITS ---
Test Reason : SYNCOPE Blood Pressure : / mmHG Vent. Rate : 054 BPM Atrial Rate : 054 BPM P-R Int : 160 ms QRS Dur : 092 ms QT Int : 422 ms P-R-T Axes : 033 -07 023 degrees QTc Int : 400 ms Sinus bradycardia Otherwise normal ECG Confirmed by ELADIA BOBBY, GAGE ([id number]), graphic editor AISLINN SIBLEY ([id number]) on 05/23/2023 10:41:19 AM Referred By: Confirmed By:GAGE MONTILLA MD
--- NOTE | 2023-05-21 09:49 | EX.ED.DYSGE1 ---
HPI History of Present Illness Chief Complaint: Syncope Informant: patient, family and EMS Narrative Narrative: Patient had a syncopal episode at [facility] just prior to arrival by EMS here. He was fasting this morning, and he had an eye procedure. He took all of his medications just after getting there, then he went in and eventually saw staff who dilated both of his eyes and then he was sitting in the waiting room for 20 minutes or so. He was feeling hungry, sweaty, and lightheaded. He had no other symptoms; no focal neurologic symptoms, he did not fall and injure himself, denies any chest discomfort, dyspnea, severe headache, vision change other than photophobia due to having his eyes dilated. His daughter went to get him some crackers, she got back and he started chewing on a cracker and passed out, staff checked his blood sugar. It was in the 140s. EMS was called. His blood pressure was low in the 90s, but that came around upon arrival here without intervention, and apparently his pulse was low for staff there as well but the details are unknown. EMS states that upon their evaluation his pulse was in the 70s. Patient does not know what his usual pulse is but he thinks it is relatively low. States he feels better now. [facility] Medical History Arthritis Schreiber esophagus Benign prostatic hyperplasia with urinary retention Cardiology follow-up encounter Chronic cough Chronic kidney disease, stage IV (severe) Congenital hydronephrosis COPD (chronic obstructive pulmonary disease) Dysphagia Easy bruising Easy bruising ESRD (end stage renal disease) Essential (primary) hypertension Excessive bleeding Former smoker Gastric reflux GERD (gastroesophageal reflux disease) Headache High cholesterol History of paroxysmal supraventricular tachycardia History of renal dialysis History of renal disease History of stress test Hyperlipidemia Hypertension Inguinal hernia Ischemic heart disease Leg cramps Low iron Lung nodule Macular degeneration Macular degeneration Malnutrition Obstructive nephropathy Pre-diabetes Pyelonephritis Self-catheterizes urinary bladder Shortness of breath on exertion TIA (transient ischemic attack) Wears dentures Wears dentures Wears glasses Home Medications vit C,E,zinc,copper-[id number] 250 mg-lutein 5 mg-zeaxanthin 1 mg capsule (Ocuvite Adult 50 Plus) 1 capsule PO DAILY EYE HEALTH 10/26/17 [History Last Taken 10/25/17] amlodipine 10 mg tablet 10 mg PO DAILY 12/03/20 [History Last Taken Unknown] calcitriol 0.25 mcg capsule 0.25 mcg PO DAILY 12/03/20 [History Last Taken Unknown] sildenafil 100 mg tablet (Viagra) 100 mg PO DAILY PRN ACTIVITY 12/03/20 [History Last Taken Unknown] aspirin 81 mg tablet,delayed release (Adult Aspirin Regimen) 81 mg PO DAILY 12/05/21 [History Last Taken Unknown] atorvastatin 10 mg tablet (Lipitor) 40 mg PO QPM 12/05/21 [History Last Taken Unknown] hydralazine 10 mg tablet 10 mg PO DAILY 12/05/21 [History Last Taken Unknown] melatonin 10 mg capsule 10 mg PO HS PRN sleep 12/05/21 [History Last Taken Unknown] sennosides 8.6 mg-docusate sodium 50 mg tablet (Senokot-S) 1 tab PO DAILY PRN Constipation 12/06/21 [History Last Taken Unknown] pantoprazole 40 mg tablet,delayed release 40 mg PO DAILY 01/19/22 [History Last Taken Unknown] omeprazole 20 mg capsule,delayed release 20 mg PO DAILY 01/20/22 [History Last Taken Unknown] sevelamer carbonate 800 mg tablet 800 mg PO TID 01/20/22 [History Last Taken Unknown] Allergy/AdvReac Type Severity Reaction Status Date / Time amoxicillin Allergy Unknown Verified 03/16/22 08:29 chlorhexidine Allergy Hives Verified 03/16/22 08:29 ciprofloxacin Allergy Unknown Verified 03/16/22 08:29 codeine AdvReac Other Verified 03/16/22 08:29 Family History Mother Cancer stomach Brother CVA (cerebral vascular accident) Surgical History AVF (arteriovenous fistula) History of appendectomy History of colonoscopy History of hemorrhoidectomy History of prostatectomy History of sinus surgery Social History household members: family Smoking Status: Former smoker quit date: 08/13/11 pack-years: 72 alcohol intake: never substance use type: does not use ROS ROS ED Constitutional Constitutional ED: Reports sweats; Denies chills or fever(s) Eyes Eyes: Denies change in vision or diplopia ENT ENT ED: Denies rhinorrhea or sore throat Cardiovascular Cardiovascular: Reports lightheadedness and syncope; Denies chest pain or palpitations Respiratory/Chest Respiratory/Chest: Denies cough or dyspnea Gastrointestinal Gastrointestinal: Denies abdominal pain, diarrhea, nausea or vomiting Genitourinary Genitourinary ED: Denies dysuria or hematuria Musculoskeletal Musculoskeletal: Denies back pain or neck pain Integumentary Denies abscess or rash Neurologic Neurologic: Denies headache(s), paresthesias or weakness Psychiatric Psychiatric: Denies anxiety or suicidal thoughts EXAM Physical Exam Const Vital Signs: 05/21/23 09:31 05/21/23 09:37 05/21/23 09:37 Temperature 96.3 F L Temperature Source Temporal Pulse Rate 51 L 49 L Respiratory Rate 16 18 Respiratory Effort Normal Respiratory Pattern Normal Blood Pressure 132/70 H 132/70 H Blood Pressure Mean 90 90 Pulse Ox 97 93 Oxygen Delivery Method Room Air Room Air Positive well nourished and well developed General Appearance ED: well developed and NAD HEENT Reports moist mucous membranes normocephalic and atraumatic Eyes EOMs intact bilaterally Eyes Narrative: Bilateral mydriasis Neck full ROM and supple Resp normal respiratory effort and clear to auscultation bilaterally Cardio regular rate, regular rhythm and no murmurs Rate: other Other Details: Borderline bradycardia occasional ectopy but for the most part regular GI non-tender and non-distended Auscultation: normoactive bowel sounds Palpation: soft Back/Spine no CVA tenderness General Back: other FROM Extremity normal to inspection General Extremety ED: Negative for edema, pulses abnormal or tenderness General Extremity: Negative for edema or pulses abnormal Neuro oriented x3, CN's II-XII intact bilaterally and no sensory deficits noted Neuro Narrative: Conversive in full sentences without difficulty or distress Sensorium / Orientation: awake and alert Motor Exam: strength 5/5 throughout Psych mental status grossly normal Skin no rashes or lesions noted and no wounds Skin Narrative: Dry MDM MDM MDM Narrative Medical decision making narrative: Patient relatively bradycardic but asymptomatic at this time. EKG shows sinus bradycardia and is otherwise normal. He has some occasional PVCs here on telemetry. He is on no AV jack blockers that I can adjust. It would make sense that his symptoms could have been due to to the combination of mild dehydration and taking his medications on an empty stomach this morning since he was fasting, and/or the induced mydriasis could have caused a vasovagal episode. Labs were obtained while he was given half liter of IV fluid bolus, I reviewed the labs and they are unremarkable with kidney function that looks better than it has in the past, his EKG showing no acute injury or signs of an electrical block as noted above, and after the fluids he is ambulatory in the emergency department and is asymptomatic. At this time I do not have any convincing evidence that this was some type of dysrhythmia, AV jack block, or symptomatic bradycardia although I am not able to rule those out I think he is low risk enough to be sent home and follow-up as an outpatient, he is comfortable with that plan discussed with him and daughter. History & Record Review Additional record(s) reviewed:: Prior outpatient record (Echo 2018 showing some diastolic dysfunction but normal ejection fraction and no focal dyskinesia/akinesia of ventricular wall.) Lab Data Attestation: I reviewed the patient's lab results. Labs: Laboratory Results - last 24 hr 05/21/23 10:00 WBC 8.5 RBC 3.83 L Hgb 12.0 L Hct 38.8 L MCV 101.3 H MCH 31.3 MCHC 30.9 L RDW Std Deviation 50.9 H RDW Coeff of Corona 13.5 Plt Count 283 MPV 9.5 Immature Gran % (Auto) 0.600 Neut % (Auto) 72.0 H Lymph % (Auto) 16.5 L [place] % (Auto) 8.7 Eos % (Auto) 1.6 Baso % (Auto) 0.6 Absolute Neuts (auto) 6.1 Absolute Lymphs (auto) 1.41 Nucleated RBC % 0 Sodium 140 Potassium 4.4 Chloride 109 H Carbon Dioxide 24.0 Anion Gap 7 BUN 37 H Creatinine 1.80 H Estim Creat Clear Calc 36.55 Est GFR (MDRD) Af Amer 48 L Est GFR (MDRD) Non-Af 40 L BUN/Creatinine Ratio 20.6 H Glucose 210 H Calcium 9.0 Rhythm Strip Rhythm Strip: Sinus Rhythm Rate: 52 Ectopy: PVC(s) EKG Initial EKG: Attestation: I personally reviewed and interpreted this EKG as follows: Interpretation: Sinus Rhythm (54) and No Acute Injury Pattern Prior EKG tracings: available for review Prior: Unchanged Discharge Plan Triage Chief Complaint: Syncope ED Provider: Dax Henley Dx/Rx/DC Orders Clinical Impression: Syncope, ESRD (end stage renal disease) Instructions: Causes of Syncope Prescriptions: No Action sildenafil [Viagra] 100 mg tablet 100 mg PO DAILY PRN (Reason: ACTIVITY) Rx Instructions: administer 30 minutes to 4 hours before activity amlodipine 10 mg tablet 10 mg PO DAILY Patient Comments: TAKE 1 TABLET BY MOUTH ONCE DAILY calcitriol 0.25 mcg capsule 0.25 mcg PO DAILY Patient Comments: TAKE 1 CAPSULE BY MOUTH ONCE DAILY atorvastatin [Lipitor] 10 mg tablet 40 mg PO QPM aspirin [Adult Aspirin Regimen] 81 mg tablet,delayed release (DR/EC) 81 mg PO DAILY hydralazine 10 mg tablet 10 mg PO DAILY melatonin 10 mg capsule 10 mg PO HS PRN (Reason: sleep) sevelamer carbonate 800 mg tablet 800 mg PO TID Rx Instructions: must administer with a meal/food omeprazole 20 mg capsule,delayed release(DR/EC) 20 mg PO DAILY Ocuvite Adult 50 Plus 1 EACH capsule 1 capsule PO DAILY sennosides-docusate sodium [Senokot-S] 8.6-50 mg Tablet 1 tab PO DAILY PRN (Reason: Constipation) pantoprazole 40 mg tablet,delayed release (DR/EC) 40 mg PO DAILY Patient Comments: TAKE 1 TABLET BY MOUTH ONCE DAILY BEFORE BREAKFAST - TAKE ON EMPTY STOMACH ONE-HALF HOUR BEFORE MEAL Primary Care Provider: Antoinette Graves Referrals: Antoinette Graves MD [Primary Care Provider] - 3-5 Days Disposition Disposition: Home, Self Care
[2023-05-21] MEDS: 0.9% Normal Saline (500mL Bag) 500 ML 999 ML IV (09:59)
[2023-05-21 10:08] LABS: Absolute Lymphocyte Count 1.41 X10^3/uL (0.83-4.51); Absolute Neutrophil Count 6.1 X10^3/uL (2.0-7.7); Basophil# 0.05 X10^3/uL; Basophil% 0.6 % (0-1); Eosinophil# 0.14 X10^3/uL; Eosinophils% 1.6 % (0-5); Hematocrit 38.8 % (40-54); Lymphocyte # 1.41 X10^3/ul (0.83-4.51); Lymphocyte % 16.5 % (19-41); Mean Corp Hgb Conc 30.9 g/dL (32-36); Mean Corpuscular Hgb 31.3 pg (27.0-32.0); Mean Corpuscular Volume 101.3 fL (80-94); Mean Platelet Vol. 9.5 fl (6.2-12.0); Monocyte# 0.74 X10^3/uL; Monocyte% 8.7 % (0-10); NRBC Flagged by Analyzer 0 % (0-5); Neutrophil # 6.14 X10^3/uL (2.7-7.7); Platelet Count 283 K/mm3 (150-450); RBC Distribution Width CV 13.5 % (11.6-14.6); RBC Distribution Width SD 50.9 fl (35.1-43.9); Red Blood Count 3.83 M/mm3 (4.6-6.2); White Blood Count 8.5 K/mm3 (4.4-11.0)
[2023-05-21 10:21] LABS: Anion Gap 7 (5-15); BUN 37 mg/dL (7-18); BUN/Creat Ratio 20.6 RATIO (10-20); Chloride 109 mmol/L (98-107); EST Glomerular Filtration Rate 40 mL/min (>60); Est Glom Filt Rate - Afr Amer 48 mL/min (>60); Estimated Creatinine Clearance 36.55 ml/min; Glucose 210 mg/dL (74-106); Potassium 4.4 mmol/L (3.5-5.1); Sodium Level 140 mmol/L (136-145)
== END 2023-05-21 11:05 | disposition home or self-care (01) ==
LOC: ED 10:56
PROVIDERS: Emergency Provider Emergency Medicine; PCP Internal Medicine; Visit Provider Emergency Medicine
DX: R55 Syncope and collapse (principal); J44.9 Chronic obstructive pulmonary disease, unspecified; I12.0 Hypertensive chronic kidney disease with stage 5 chronic kidney disease or end stage renal disease; N18.6 End stage renal disease; E78.00 Pure hypercholesterolemia, unspecified; Z87.891 Personal history of nicotine dependence; E86.0 Dehydration; Z86.73 Personal history of transient ischemic attack (TIA), and cerebral infarction without residual deficits; Z79.899 Other long term (current) drug therapy; Z79.82 Long term (current) use of aspirin; K21.9 Gastro-esophageal reflux disease without esophagitis; Z90.49 Acquired absence of other specified parts of digestive tract; Z90.79 Acquired absence of other genital organ(s)
CPT/HCPCS: 80048; 85025; 93005; 99285; J7040

== ENCOUNTER 2025-05-14 10:45 | Emergency (ER) | payer MEDICARE, SELFPAY ==
[2025-05-14 10:46] VITALS: BP 124/72; PULSE 49; RESP 18; TEMP 36.8; O2SAT 99; BMI 22.1
--- NOTE | 2025-05-14 10:48 | ED.VIS.CHEST ---
HPI History of Present Illness Chief Complaint: Chest Pain [facility] Medical History Malnutrition Ischemic heart disease Benign prostatic hyperplasia with urinary retention Macular degeneration Wears dentures Easy bruising Excessive bleeding Pre-diabetes Headache History of stress test Cardiology follow-up encounter Wears glasses Wears dentures Arthritis History of renal dialysis History of renal disease Low iron High cholesterol Easy bruising TIA (transient ischemic attack) Gastric reflux Former smoker Shortness of breath on exertion Chronic cough Leg cramps Hypertension Schreiber esophagus Lung nodule Hyperlipidemia Dysphagia ESRD (end stage renal disease) Congenital hydronephrosis Macular degeneration Pyelonephritis GERD (gastroesophageal reflux disease) Inguinal hernia COPD (chronic obstructive pulmonary disease) History of paroxysmal supraventricular tachycardia Essential (primary) hypertension Self-catheterizes urinary bladder Obstructive nephropathy Chronic kidney disease, stage IV (severe) Home Medications ?Medication ?Instructions ?Recorded ?Last Taken ?Type vit C,E,copper,zinc-[id number] 250 1 capsule PO DAILY EYE HEALTH 10/26/17 10/25/17 History mg-lutein 5 mg-zeaxanthin 1 mg capsule (Ocuvite Adult 50 Plus) amlodipine 10 mg tablet 10 mg PO DAILY 12/03/20 Unknown History sildenafil 100 mg tablet (Viagra) 100 mg PO DAILY PRN ACTIVITY 12/03/20 Unknown History aspirin 81 mg tablet,delayed 81 mg PO DAILY 12/05/21 Unknown History release (Adult Aspirin Regimen) melatonin 10 mg capsule 10 mg PO HS PRN sleep 12/05/21 Unknown History pantoprazole 40 mg tablet,delayed 40 mg PO DAILY 01/19/22 Unknown History release atorvastatin 40 mg tablet 40 mg PO QDAY 12/24/23 Unknown History mycophenolate mofetil 250 mg 500 mg PO BID 12/24/23 Unknown History capsule (CellCept) nadolol 20 mg tablet 20 mg PO QDAY 12/24/23 Unknown History prednisone 5 mg tablet 5 mg PO QDAY 12/24/23 Unknown History tacrolimus 0.5 mg capsule, mg PO 12/24/23 Unknown History immediate-release vancomycin 125 mg capsule mg PO 12/24/23 Unknown History vitamin B complex-vitamin C-folic 1 tab PO DAILY 12/24/23 Unknown History acid 0.8 mg tablet (Lisa-Caryl) Allergy/AdvReac Type Severity Reaction Status Date / Time amoxicillin Allergy Unknown Verified 05/14/25 10:48 chlorhexidine Allergy Hives Verified 05/14/25 10:48 ciprofloxacin Allergy Unknown Verified 05/14/25 10:48 codeine AdvReac Other Verified 05/14/25 10:48 Family History Mother Cancer stomach Brother CVA (cerebral vascular accident) Surgical History (Updated 12/24/23 @ 15:03 by Breonna DE LA CRUZ PAMarianneC) History of colonoscopy History of appendectomy History of hemorrhoidectomy History of sinus surgery History of prostatectomy AVF (arteriovenous fistula) Social History household members: family Smoking Status: Former smoker quit date: 08/13/11 pack-years: 72 alcohol intake: never substance use type: does not use EXAM Physical Exam Const Vital Signs: 05/14/25 10:46 05/14/25 10:46 05/14/25 11:46 Temperature 98.2 F Temperature Source Oral Pulse Rate 49 L 51 L Respiratory Rate 18 17 Respiratory Effort Normal Non-Labored Blood Pressure 124/72 H 122/64 H Blood Pressure Mean 89 83 Pulse Ox 99 96 Oxygen Delivery Method Room Air Room Air 05/14/25 13:00 05/14/25 14:00 05/14/25 15:43 Temperature 98.5 F Temperature Source Pulse Rate 52 L 55 L 50 L Respiratory Rate 18 17 18 Respiratory Effort Blood Pressure 133/57 H 134/64 H 114/55 L Blood Pressure Mean 80 85 74 Pulse Ox 96 95 99 Oxygen Delivery Method MDM MDM MDM Narrative Medical decision making narrative: HISTORY OF PRESENT ILLNESS: Chief complaint: Chest pain 75-year-old male presents with concern for chest pain. History of ESRD status post renal transplant currently on tacrolimus, mycophenolate, CVA, hypertension, hyperlipidemia who endorses 1 week of constant chest burning. States it feels like prior issues that he had with his esophagus where he needed to see a GI doctor and get his esophagus dilated. Denies vomiting. Notes he still able to eat and drink. States the pain in his chest is not ripping or tearing. It is not sharp. It is not pleuritic. The patient denies recent surgery in the last 4 weeks or immobilization in the last 3 days, denies previous diagnosis of DVT or PE, hemoptysis, unilateral leg swelling or malignancy with treatment the last 6 months or palliative. No estrogen use noted. Patient denies sudden onset of pain, no tearing sensation, no migratory symptoms, no new numbness, weakness or loss of sensation. Patient denies family history or personal history of Connective tissue disorders (Marfan's Syndrome, Xochitl Danlos etc). Denies cough fever chills. Denies any bleeding diathesis. Denies nausea or vomiting REVIEW OF SYSTEMS: Pertinent positives: Chest pain Pertinent negatives: Shortness of breath, melena, hematochezia PHYSICAL EXAM: Nursing triage notes reviewed, Vital signs reviewed Constitutional: please see [facility] HENT: MMM Eyes: Pupils equal round and reactive to light, Extraocular muscles intact Neck: No stridor, no JVD, full neck ROM Lungs: Clear to auscultation, No wheezing or rales. No increased work of breathing, no conversational dyspnea, no accessory muscle use, no nasal flaring. No respiratory distress noted Heart: Regular rate and rhythm, No murmurs, No rubs and No gallops, 2+ distal pulses (radial, femoral, posterior tibial) in all extremities Abdomen: Soft, there is no tenderness, rigidity, rebound or guarding, no obvious peritoneal signs, no palpable pulsatile abdominal masses, no auscultated abdominal bruit : No CVAT Extremities: No edema Neuro: No new focal neurological deficits, cranial nerves II through XII intact, 5/5 strength in all present extremities. Intact sensation to light touch in all present extremities, 2+ reflexes bilateral patella tendons. Skin: No rash or lesions noted MEDICAL DECISION MAKING: Chief Complaint: please see [facility] External records reviewed: Reviewed prior cardiovascular testing: Reviewed echocardiogram from 2018 which showed ejection fraction 50 to 55% stage I diastolic dysfunction Factors affecting care: As per HPI Social determinants of health: none History obtained from others: Internal medicine nurse practitioner Consults: none [facility] [place] Narrative: The patient was initially hemodynamically stable, afebrile and nontoxic-appearing. Exam without focal cardiopulmonary abnormality and abdomen soft and nontender. I considered the following differential diagnosis: ACS, anemia, arrhythmia, electrolyte disturbance, pneumonia, PE, pneumothorax, aortic dissection, esophageal pathology I obtained a broad lab and imaging work to further determine if the patient was suffering from a life-threatening etiology. Initially treat the patient IV Pepcid given his report of concern for GI etiology ALL IMAGES (IF OBTAINED) HAVE BEEN PERSONALLY REVIEWED AND INTERPRETED BY MYSELF. Initial EKG shows sinus bradycardia rate of 55 bpm, normal MS interval, no sign of high degree block, left ax deviation, QTc 419 occasional PVCs High-sensitivity troponin is negative, no evidence of myocardial ischemia x2 (essentially ruling out ACS per [facility] high-sensitivity troponin protocol) I have personally reviewed the patient's chest x-ray. Chest x-ray is unremarkable for pulmonary edema, pneumothorax, pneumonia or focal cardiopulmonary abnormality. CBC with no leukocytosis, mild anemia BMP without significant Katina normalities, baseline CKD, no MARILUZ The synthesis of the patient's history, physical exam, labs images suggest no acute (etiology. While I considered PE aortic dissection potential etiologies patient no history of physical exam findings consistent with aortic dissection or PE. I suspect his etiology is related to the GI issue specifically esophageal narrowing potentially. Patient displayed no signs of drooling, airway compromise, significant discomfort. Does not require emergent GI consultation or transfer. Appropriate outpatient GI evaluation for upper endoscopy/EGD for further evaluation and treatment. Strict return precautions were discussed. Follow-up instructions with our GI department were given. The patient and/or family, caregivers express understanding. The patient and/or family, caregivers agrees with the plan. Shared decision making: I will have a discussion with the patient and or visitors regarding risk/benefits of further testing or admission. They will be made aware of of the risk/benefits inherent in this decision they will be given the opportunity to voice understanding. Total critical care time today provided was at least 0 minutes. This excludes separately billable procedures. Critical care time (if documented) is secondary to the patient having high probability of clinically significant/life threatening deterioration in the patient's condition which required my urgent intervention. Impression: 1. Chest pain 2. History of renal transplant Dispo: discharge This note was generated with [employer] dictation software. It may contain incorrect words, spelling, and punctuation that were not noted in review of the chart prior to signing. Lab Data Labs: Laboratory Results - last 24 hr 05/14/25 05/14/25 11:35 13:35 WBC 8.4 RBC 4.09 L Hgb 12.6 L Hct 38.9 L MCV 95.1 H MCH 30.8 MCHC 32.4 RDW Std Deviation 44.2 H RDW Coeff of Corona 12.8 Plt Count 226 MPV 10.0 Immature Gran % (Auto) 0.700 Neut % (Auto) 76.6 H Lymph % (Auto) 12.9 L [place] % (Auto) 8.1 Eos % (Auto) 1.2 Baso % (Auto) 0.5 Absolute Neuts (auto) 6.4 Absolute Lymphs (auto) 1.08 Nucleated RBC % 0 Sodium 140 Potassium 4.1 Chloride 107 Carbon Dioxide 22.2 Anion Gap 11 BUN 23 H Creatinine 1.39 H Estim Creat Clear Calc 44.06 L Est GFR (MDRD) Non-Af 53 L BUN/Creatinine Ratio 16.5 Glucose 126 H Calcium 8.8 Troponin T High Sens 11 Troponin T Hi Sens 2 Hr 10 Radiography Diagnostic Testing: Clinical Impression(s) from Imaging Studies Chest X-Ray 05/14/25 14:55 IMPRESSION: No acute cardiopulmonary process. Reading Location: [facility] Discharge Plan Triage Chief Complaint: Chest Pain ED Provider: Orlando Gant Dx/Rx/DC Orders Instructions: ED Chest Pain, Uncertain Cause Prescriptions: No Action sildenafil [Viagra] 100 mg tablet 100 mg PO DAILY PRN (Reason: ACTIVITY) Rx Instructions: administer 30 minutes to 4 hours before activity amlodipine 10 mg tablet 10 mg PO DAILY Patient Comments: TAKE 1 TABLET BY MOUTH ONCE DAILY aspirin [Adult Aspirin Regimen] 81 mg tablet,delayed release (DR/EC) 81 mg PO DAILY melatonin 10 mg capsule 10 mg PO HS PRN (Reason: sleep) nadolol 20 mg tablet 20 mg PO QDAY Lisa-Caryl 0.8 mg tablet 1 tab PO DAILY mycophenolate mofetil [CellCept] 250 mg capsule 500 mg PO BID atorvastatin 40 mg tablet 40 mg PO QDAY prednisone 5 mg tablet 5 mg PO QDAY tacrolimus 0.5 mg capsule PO vancomycin 125 mg capsule PO Ocuvite Adult 50 Plus 1 EACH capsule 1 capsule PO DAILY pantoprazole 40 mg tablet,delayed release (DR/EC) 40 mg PO DAILY Patient Comments: TAKE 1 TABLET BY MOUTH ONCE DAILY BEFORE BREAKFAST - TAKE ON EMPTY STOMACH ONE-HALF HOUR BEFORE MEAL Primary Care Provider: Antoinette Graves Referrals: Friend,Leonardo, [Med Staff - Active Staff, Gastroenterology] Activity Restrictions/Additional Instructions: Thank you for trusting us with your care today! The test in your heart did not show signs of a heart attack. Unclear precipitating cause of your symptoms. Could be your esophagus or GI related. Please follow-up with the GI doctor the next available appointment. Please continue take pantoprazole daily. Please return to the emergency department if your symptoms change or worsen. Please follow with Gastroenterology for further outpatient evaluation and management. Print Language: Hong Konger Disposition Disposition: Home, Self Care Discharge Date/Time: 05/14/25 15:54
--- NOTE | 2025-05-14 10:50 | EKG12_ITS ---
Test Reason : CP Blood Pressure : */* mmHG Vent. Rate : 55 BPM Atrial Rate : 55 BPM P-R Int : 160 ms QRS Dur : 92 ms QT Int : 438 ms P-R-T Axes : 33 -11 24 degrees QTcB Int : 419 ms Sinus bradycardia with occasional Premature ventricular complexes Poor R-wave progression ; consider anterior infarct, lead placement, or normal variant Abnormal ECG Confirmed by ELLY BOBBY, CARMEN ([id number]), content editor JESUS SIMMONS ([id number]) on 05/18/2025 6:02:23 AM Referred By: Confirmed By: CARMEN SANABRIA MD
[2025-05-14 11:41] LABS: Hematocrit 38.9 % (40-54); Hemoglobin 12.6 g/dL (13.0-16.5); Immature Granulocytes Count 0.060 X10^3/uL (0.0-0.0); Mean Corp Hgb Conc 32.4 g/dL (32-36); Mean Corpuscular Volume 95.1 fL (80-94); Mean Platelet Vol. 10.0 fl (6.2-12.0); NRBC Flagged by Analyzer 0 % (0-5); Platelet Count 226 K/mm3 (150-450); RBC Distribution Width CV 12.8 % (11.6-14.6); RBC Distribution Width SD 44.2 fl (35.1-43.9); Red Blood Count 4.09 M/mm3 (4.6-6.2); White Blood Count 8.4 K/mm3 (4.4-11.0)
[2025-05-14 11:46] VITALS: BP 122/64; PULSE 51; RESP 17; O2SAT 96
[2025-05-14] MEDS: Famotidine 200 MG/20 ML MDV 20 MG in 0.9% Normal Saline (Pres. free 8 ML 300 MG IV (12:08)
[2025-05-14 12:11] LABS: Troponin T High Sensitivity 11 ng/L (<=22)
[2025-05-14 12:12] LABS: Anion Gap 11 (5-15); BUN 23 mg/dL (4-19); BUN/Creat Ratio 16.5 RATIO (10-20); Calcium,Total 8.8 mg/dL (7.6-11.0); Carbon Dioxide 22.2 mmol/L (21.0-32.0); Chloride 107 mmol/L (98-108); Estimated Creatinine Clearance 44.06 ml/min (50-250); Glucose 126 mg/dL (70-99); Potassium 4.1 mmol/L (3.3-5.1)
[2025-05-14 13:00] VITALS: BP 133/57; PULSE 52; RESP 18; O2SAT 96
[2025-05-14 14:00] VITALS: BP 134/64; PULSE 55; RESP 17; O2SAT 95
[2025-05-14 14:07] LABS: Troponin T High Sens 2 HR 10 ng/L (<=22)
--- NOTE | 2025-05-14 14:55 | RAD_ITS ---
PROCEDURE: CHEST 1 VIEW (PORTABLE) 05/14/2025 REASON FOR EXAM: CHEST PAIN TECHNIQUE: Frontal view of the chest. COMPARISON: December 06, 2021 FINDINGS: Hardware: EKG leads Heart: Normal-size. Aorta is atherosclerotic. Lungs: Scarring at the lung apices. Lungs are otherwise clear. No pneumothorax or pleural effusion. Bones: The bones are unremarkable. RAD/Chest 1 View (Portable) IMPRESSION: No acute cardiopulmonary process. Reading Location: [id number]
[2025-05-14 15:43] VITALS: BP 114/55; PULSE 50; RESP 18; TEMP 36.9; O2SAT 99
== END 2025-05-14 15:54 | disposition home or self-care (01) ==
PROVIDERS: Emergency Provider Emergency Medicine; PCP Internal Medicine; Visit Provider Emergency Medicine
DX: R07.9 Chest pain, unspecified (principal); N18.6 End stage renal disease; I12.0 Hypertensive chronic kidney disease with stage 5 chronic kidney disease or end stage renal disease; J44.9 Chronic obstructive pulmonary disease, unspecified; E78.00 Pure hypercholesterolemia, unspecified; Z87.891 Personal history of nicotine dependence; Z94.0 Kidney transplant status; Z79.899 Other long term (current) drug therapy
CPT/HCPCS: 71045; 80048; 84484; 85025; 93005; 96374; 99284; A4216

== ENCOUNTER 2025-06-24 11:58 | Emergency (ER) | payer MEDICARE, SELFPAY ==
[2025-06-24] VITALS (12 sets, daily range): BP systolic 105–150; BP diastolic 64–91; PULSE 70–93; RESP 11–20; TEMP 36.5–36.6; O2SAT 90–97; BMI 21.5
--- NOTE | 2025-06-24 12:49 | EKG12_ITS ---
Test Reason : Blood Pressure : */* mmHG Vent. Rate : 80 BPM Atrial Rate : * BPM P-R Int : * ms QRS Dur : 90 ms QT Int : 358 ms P-R-T Axes : * -25 21 degrees QTcB Int : 412 ms Atrial fibrillation Abnormal ECG Confirmed by ELLY BOBBY, CARMEN ([id number]), video effects editor JORDANA GARRISON ([id number]) on 06/29/2025 8:26:50 AM Referred By: Confirmed By: CARMEN SANABRIA MD
--- NOTE | 2025-06-24 13:05 | RAD_ITS ---
PROCEDURE: CHEST 1 VIEW (PORTABLE) 06/24/2025 REASON FOR EXAM: CHEST PAIN TECHNIQUE: Frontal view of the chest. COMPARISON: May 14, 2025. FINDINGS: Hardware: EKG electrodes are seen. Heart: Moderate cardiomegaly Lungs: Vascular congestion. Mild linear scarring at the left lung base. Bones: Degenerative changes are identified within the thoracic spine. RAD/Chest 1 View (Portable) IMPRESSION: Cardiomegaly. Mild vascular congestion. Reading Location: [place] [id number]
[2025-06-24 13:27] LABS: Hematocrit 36.8 % (40-54); Hemoglobin 11.7 g/dL (13.0-16.5); Immature Granulocytes Count 0.060 X10^3/uL (0.0-0.0); Mean Corp Hgb Conc 31.8 g/dL (32-36); Mean Corpuscular Volume 97.6 fL (80-94); Mean Platelet Vol. 9.5 fl (6.2-12.0); NRBC Flagged by Analyzer 0 % (0-5); Platelet Count 281 K/mm3 (150-450); RBC Distribution Width CV 13.2 % (11.6-14.6); RBC Distribution Width SD 46.6 fl (35.1-43.9); Red Blood Count 3.77 M/mm3 (4.6-6.2); White Blood Count 10.0 K/mm3 (4.4-11.0)
[2025-06-24 13:54] LABS: Troponin T High Sensitivity 18 ng/L (<=22)
[2025-06-24] MEDS: 0.9% Normal Saline (1000mL) 1,000 ML 999 ML IV (13:57)
[2025-06-24 14:41] LABS: AST(SGOT) 49 U/L (<=37); Alanine Aminotransfer ALT/SGPT 72 U/L (<=46); Albumin, Serum 3.4 g/dL (3.4-4.8); Alkaline Phosphatase 210 U/L (40-129); Anion Gap 11 (5-15); BUN 37 mg/dL (4-19); BUN/Creat Ratio 25.0 RATIO (10-20); Bilirubin, Direct 0.46 mg/dL (0.00-0.30); Calcium,Total 8.9 mg/dL (7.6-11.0); Carbon Dioxide 21.1 mmol/L (21.0-32.0); Chloride 103 mmol/L (98-108); Estimated Creatinine Clearance 40.40 ml/min (50-250); Globulin 2.5 g/dL (2.2-4.2); Glucose 145 mg/dL (70-99); Lipase 71 U/L (13-75); Potassium 5.2 mmol/L (3.3-5.1)
[2025-06-24 16:05] LABS: Troponin T High Sens 2 HR 18 ng/L (<=22)
--- NOTE | 2025-06-24 16:07 | CT_ITS ---
PROCEDURE: ABDOMEN/PELVIS WITHOUT CONT 06/24/2025 REASON FOR EXAM: VOMITING, HX OF CANCER TECHNIQUE: Procedure Code: CTABDPEL Modality: CT Procedure: ABDOMEN/PELVIS WITHOUT CONT Noncontrast technique limits evaluation of the abdominal and pelvic viscera. Coronal and Sagittal reconstruction series were provided. One or more dose reduction techniques were used (e.g., Automated exposure control, adjustment of the mA and/or kV according to patient size, use of iterative reconstruction technique). COMPARISON: Chest x-ray 06/24/2025 FINDINGS: Lung bases: Trace right and small left pleural effusion with adjacent passive atelectasis. Mild cardiomegaly. Coronary atherosclerotic calcifications. Liver: Normal size. No obvious mass. Gallbladder: Unremarkable. No biliary ductal dilatation. Spleen: Normal size. Pancreas: Normal size. No surrounding inflammation. Adrenals: Unremarkable. Kidneys: Severe atrophy of the bilateral [place] kidneys. Right kidney midpole cyst measures 1.7 cm. No renal calculi or hydronephrosis. Right lower quadrant transplant kidney noted with no hydronephrosis or renal calculi. A cyst measuring 3.2 x 3.7 cm is seen within the transplant kidney. Bladder: Unremarkable. Reproductive Organs: No pelvic masses. Prostate is not enlarged. Stomach/duodenum: Moderate hiatal hernia. Duodenum unremarkable. Bowel: No bowel obstruction. No inflammatory changes. Appendix: Unremarkable. Lymph nodes: Unremarkable. Vasculature: Advanced atherosclerotic calcifications of the abdominal aorta and its branches. No aneurysm. Peritoneum / Retroperitoneum: No free fluid or air. Abdominal wall: Small fat containing bilateral inguinal hernias. Bones: Degenerative changes of the spine. No acute fractures. CT/Abdomen/Pelvis without Cont IMPRESSION: 1. Trace right and small left pleural effusions. 2. Atrophic bilateral [place] kidneys with right lower quadrant transplant kidne y in place. No hydronephrosis. 3. Moderate size hiatal hernia. Small fat containing bilateral inguinal hernia s. Reading [facility]
--- NOTE | 2025-06-24 16:48 | EDS_ITS ---
HPI History of Present Illness Chief Complaint: Chest Pain Informant: patient Narrative Narrative: Patient is a 75-year-old male with history of prior renal transplant, metastatic esophageal cancer currently started chemotherapy yesterday (follows with Dr. Rodríguez through [facility] oncology), SVT and hypertension presenting with chest discomfort, nausea/vomiting and pain that radiated down his left arm. He presented for his second chemotherapy session today (first was yesterday) however was having chest pain and they recommend he come to the ER to be evaluated further. He also notes today he had pain rating from his old AV graft to the left arm up to his elbow and back. Denies any fevers. Currently denies any nausea. States he practice early and he normally would with oatmeal and coffee and then had a small amount of vomiting phlegm after that. He did not feel like this was particularly abnormal for him. Family is worried about dehydration. Currently denies any chest pain. States he has had similar chest pain like this before in the center of his chest. [facility] Medical History Cancer Malnutrition Ischemic heart disease Benign prostatic hyperplasia with urinary retention Macular degeneration Wears dentures Easy bruising Excessive bleeding Pre-diabetes Headache History of stress test Cardiology follow-up encounter Wears glasses Wears dentures Arthritis History of renal dialysis History of renal disease Low iron High cholesterol Easy bruising TIA (transient ischemic attack) Gastric reflux Former smoker Shortness of breath on exertion Chronic cough Leg cramps Hypertension Schreiber esophagus Lung nodule Hyperlipidemia Dysphagia ESRD (end stage renal disease) Congenital hydronephrosis Macular degeneration Pyelonephritis GERD (gastroesophageal reflux disease) Inguinal hernia COPD (chronic obstructive pulmonary disease) History of paroxysmal supraventricular tachycardia Essential (primary) hypertension Self-catheterizes urinary bladder Obstructive nephropathy Chronic kidney disease, stage IV (severe) Home Medications Medication Instructions Recorded Last Taken Type vit C,E,copper,zinc-tqtvo5c 250 1 capsule PO DAILY EYE HEALTH 10/26/17 10/25/17 History mg-lutein 5 mg-zeaxanthin 1 mg capsule (Ocuvite Adult 50 Plus) amlodipine 10 mg tablet 10 mg PO DAILY 12/03/20 Unkn own History sildenafil 100 mg tablet (Viagra) 100 mg PO DAILY PRN ACTIVITY 12/03/20 Unknown History aspirin 81 mg tablet,delayed 81 mg PO DAILY 12/05/21 U nknown History release (Adult Aspirin Regimen) melatonin 10 mg capsule 10 mg PO HS PRN sleep Unknown History pantoprazole 40 mg tablet,delayed 40 mg PO DAILY 01/19 Unknown History release atorvastatin 40 mg tablet 40 mg PO QDAY 12/24/23 Unkno wn History mycophenolate mofetil 250 mg 500 mg PO BID 12/24/23 Un known History capsule (CellCept) nadolol 20 mg tablet 20 mg PO QDAY 12/24/23 Unkno wn History prednisone 5 mg tablet 5 mg PO QDAY 12/24/23 Unknow n History tacrolimus 0.5 mg capsule, mg PO 12/24/23 Unknown Hist ory immediate-release vancomycin 125 mg capsule mg PO 12/24/23 Unknown Histo ry vitamin B complex-vitamin C-folic 1 tab PO DAILY 12/23 Unknown History acid 0.8 mg tablet (Lisa-Caryl) Allergy/AdvReac Type Severity Reaction Status Date / Time amoxicillin Allergy Unknown Verified 06/24/25 12:04 chlorhexidine Allergy Hives Verified 06/24/25 12:04 ciprofloxacin Allergy Unknown Verified 06/24/25 12:04 Family History Mother Cancer stomach Brother CVA (cerebral vascular accident) Surgical History History of colonoscopy History of appendectomy History of hemorrhoidectomy History of sinus surgery History of prostatectomy AVF (arteriovenous fistula) Social History household members: family Smoking Status: Former smoker quit date: 08/13/11 pack-years: 72 alcohol intake: never substance use type: does not use ROS ROS ED Constitutional Constitutional ED: Denies chills or fever(s) Cardiovascular Cardiovascular: Reports as per HPI and chest pain; Denies palpitations Respiratory/Chest Respiratory/Chest: Reports cough; Denies dyspnea Gastrointestinal Gastrointestinal: Reports nausea, vomiting and other Details: Still passing gas, having a bowel movement every 3 to 4 days ; Denies abdominal pain or diarrhea Genitourinary Genitourinary ED: Denies dysuria Musculoskeletal Musculoskeletal: Reports other Details: Episode of radiating left arm pain ; Denies arthralgias or myalgias Integumentary Denies rash Neurologic Neurologic: Reports weakness Hematologic/Lymphatic Hematologic/Lymphatic: Denies easy bleeding or easy bruising EXAM Physical Exam Const Vital Signs: 06/24/25 11:59 06/24/25 12:36 06/24/25 12:45 Temperature 97.7 F L Temperature Source Oral Pulse Rate 81 77 Respiratory Rate 14 17 Respiratory Effort Normal Non-Labored Blood Pressure 105/73 Blood Pressure Mean 83 Pulse Ox 96 90 Oxygen Delivery Method Room Air 06/24/25 13:00 06/24/25 13:19 06/24/25 14:00 Temperature Temperature Source Pulse Rate 87 80 Respiratory Rate 14 18 Respiratory Effort Blood Pressure 108/74 119/84 H Blood Pressure Mean 78 96 Pulse Ox 93 92 Oxygen Delivery Method Room Air 06/24/25 15:00 06/24/25 16:00 Temperature Temperature Source Pulse Rate 70 75 Respiratory Rate 11 L 15 Respiratory Effort Blood Pressure 122/64 H 114/86 H Blood Pressure Mean 78 95 Pulse Ox 94 94 Oxygen Delivery Method Positive well nourished and well developed General Appearance ED: well developed and NAD HEENT Reports moist mucous membranes normocephalic Eyes PERRL General Eye ED: Negative for scleral icterus Neck supple and no JVD Chest Wall inspection of chest normal Resp normal respiratory effort and clear to auscultation bilaterally Cardio regular rate and regular rhythm GI normal to inspection, nondistended, normoactive bowel sounds and soft to palpation Extremity Extremity Narrative: Old AV fistula present in the left forearm General Extremety ED: Negative for edema General Extremity: Negative for edema Neuro oriented x3 Sensorium / Orientation: awake Motor Exam: general weakness Psych mental status grossly normal Skin no rashes or lesions noted and no wounds Heart Score History: Slightly/Non-Suspicious ECG: Nonspecific Repolarization Age: >/= 65 years Risk Factors: 1 or 2 Risk Factors Troponin: </= Normal Limit Score: 4 MDM MDM MDM Narrative Medical decision making narrative: Patient is evaluated for episode of chest pain (this is been chronic) as well as pain rating down to his left arm. In addition he did have nausea and vomiting today. He did start chemotherapy yesterday. Differential clues not limited to ACS, symptomatic anemia, chemotherapy reaction, gastritis, bowel obstruction and pneumonia. I believe his left arm pain is more muscle skeletal lower swished for that being referred cardiac pain from his description. Cardiac workup including EKG and-see troponin does not show any significant process. Chest x-ray viewed by myself as radiology shows some mild vascular congestion/cardiomegaly however patient does not appear fluid overloaded. High sensitive troponin is near his baseline. Not have any acute electrolyte derangement. Patient I would like to drink some soup in the ER and does try that but then throws up. Will be ordered Zofran (initially declined this). Will add on CT of the abdomen pelvis to rule out obstruction. Patient like to go home if this is negative. Will see what the CT shows and if this negative attempt p.o. challenge. At that point patient likely can be discharged home. Signed out to oncoming physician pending CT results and repeat evaluation. Lab Data Attestation: I reviewed the patient's lab results. Labs: Laboratory Results - last 24 hr 06/24/25 06/24/25 13:16 15:15 WBC 10.0 RBC 3.77 L Hgb 11.7 L Hct 36.8 L MCV 97.6 H MCH 31.0 MCHC 31.8 L RDW Std Deviation 46.6 H RDW Coeff of [place] 13.2 Plt Count 281 MPV 9.5 Immature Gran % (Auto) 0.600 Neut % (Auto) 89.1 H Lymph % (Auto) 6.3 L [place] % (Auto) 3.7 Eos % (Auto) 0.1 Baso % (Auto) 0.2 Absolute Neuts (auto) 8.9 H Absolute Lymphs (auto) 0.63 L Nucleated RBC % 0 Sodium 136 Potassium 5.2 H Chloride 103 Carbon Dioxide 21.1 Anion Gap 11 BUN 37 H Creatinine 1.48 H Estim Creat Clear Calc 40.40 L Est GFR (MDRD) Non-Af 49 L BUN/Creatinine Ratio 25.0 H Glucose 145 H Calcium 8.9 Total Bilirubin 0.71 Direct Bilirubin 0.46 H AST 49 H ALT 72 H Alkaline Phosphatase 210 H Troponin T High Sens 18 D Troponin T Hi Sens 2 Hr 18 Total Protein 6.0 Albumin 3.4 Globulin 2.5 Lipase 71 Radiography Chest X-Ray - ED: 1 View, Read by ED Physician, Read by Radiologist and No Acute Disease Diagnostic Testing: Clinical Impression(s) from Imaging Studies Chest X-Ray 06/24/25 13:05 IMPRESSION: Cardiomegaly. Mild vascular congestion. Reading Location: [facility] Rhythm Strip Rhythm Strip: A-fib Rate: 80 Ectopy: None EKG Initial EKG: Attestation: I personally reviewed and interpreted this EKG as follows: Interpretation: Atrial Fibrillation Comments: Atrial fibrillation at a rate of 80 bpm Normal axis Normal intervals Normal ST segment Discharge Plan Triage Chief Complaint: Chest Pain ED Provider: Ana Reyes Dx/Rx/DC Orders Clinical Impression: Nausea & vomiting, Atypical chest pain, History of esophageal cancer, Chronic kidney disease, stage IV (severe) Prescriptions: No Action sildenafil [Viagra] 100 mg tablet 100 mg PO DAILY PRN (Reason: ACTIVITY) Rx Instructions: administer 30 minutes to 4 hours before activity amlodipine 10 mg tablet 10 mg PO DAILY Patient Comments: TAKE 1 TABLET BY MOUTH ONCE DAILY aspirin [Adult Aspirin Regimen] 81 mg tablet,delayed release (DR/EC) 81 mg PO DAILY melatonin 10 mg capsule 10 mg PO HS PRN (Reason: sleep) nadolol 20 mg tablet 20 mg PO QDAY Lisa-Caryl 0.8 mg tablet 1 tab PO DAILY mycophenolate mofetil [CellCept] 250 mg capsule 500 mg PO BID atorvastatin 40 mg tablet 40 mg PO QDAY prednisone 5 mg tablet 5 mg PO QDAY tacrolimus 0.5 mg capsule PO vancomycin 125 mg capsule PO Ocuvite Adult 50 Plus 1 EACH capsule 1 capsule PO DAILY pantoprazole 40 mg tablet,delayed release (DR/EC) 40 mg PO DAILY Patient Comments: TAKE 1 TABLET BY MOUTH ONCE DAILY BEFORE BREAKFAST - TAKE ON EMPTY STOMACH ONE-HALF HOUR BEFORE MEAL Primary Care Provider: Antoinette Graves Referrals: Antoinette Graves MD [Primary Care Provider, Internal Medicine] Print Language: Czech
== END 2025-06-24 23:08 | disposition home or self-care (01) ==
PROVIDERS: Emergency Provider Emergency Medicine; PCP Internal Medicine; Visit Provider Emergency Medicine
DX: R07.89 Other chest pain (principal); C78.89 Secondary malignant neoplasm of other digestive organs; I12.0 Hypertensive chronic kidney disease with stage 5 chronic kidney disease or end stage renal disease; N18.6 End stage renal disease; J44.9 Chronic obstructive pulmonary disease, unspecified; R11.2 Nausea with vomiting, unspecified; E78.00 Pure hypercholesterolemia, unspecified; Z87.891 Personal history of nicotine dependence; Z94.0 Kidney transplant status; K21.9 Gastro-esophageal reflux disease without esophagitis; M79.602 Pain in left arm
CPT/HCPCS: 51702; 71045; 74176; 80048; 80076; 83690; 84484; 85025; 93005; 96361; 96374; 99285; A4216; J2405